=== PATIENT | male | born 1965 | race Two or more races ===

== ENCOUNTER 2019-07-01 20:47 | Inpatient (IN) | payer BC ==
[~2019-07-01] VITALS: Ht 175.3 cm; Wt 93.0 kg
[2019-07-01] MEDS ORDERED: Vancomycin 1.5 GM in NS 275 ML IVPB ONE (21:00)
[2019-07-01] MEDS ORDERED: Piperacillin/Tazobactam 3.375 GM in NS 110 ML IVPB ONE (21:00)
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
[2019-07-01 21:05] VITALS: BP 100/76
--- NOTE | 2019-07-01 21:05 | NUR ---
RESPIRATORY NOTE: Patient transferred from ER. Vent settings on patient is AC 14, 500 Vt, Peep of 5, and FiO2 of 40%. Patient is trached with a Shiley 7 XLT. Patient is wearing a neck brace. Bilateral Rhonchi can be heard. When suctioned patient has scant to small amounts of thick secretions. No signs of respiratory distress at the moment. Vent is plugged into red outlet. Ambu bags is next to bedside. Alarms are on and audible. Will continue to monitor throughout the night.
--- NOTE | 2019-07-01 21:10 | NUR ---
ED Nurse Note: Patient BRANDIE RA #[id number] from [facility] c/o ALOC more than usual. Pt is vent dependent, AAO x 0, pt has aphasia, quadraplegic. Patient6's BP 96/65 at bed side other VSS at this time. Patient presented with PICC line on his left upper arm.
[2019-07-01 21:11] LABS: BASOPHILS % (AUTO) 1.5 % (0.0-2.0); HEMATOCRIT 34.1 % (42.0-52.0); HEMOGLOBIN 10.4 G/DL (14.2-18.0); LYMPHOCYTES % (AUTO) 15.2 % (20.0-45.0); MEAN CORPUSCULAR VOLUME 92 FL (80-99); MONOCYTES % (AUTO) 4.7 % (1.0-10.0); NEUTROPHILS % (AUTO) 78.6 % (45.0-75.0); PLATELET COUNT 371 K/UL (150-450); RED BLOOD COUNT 3.73 M/UL (4.70-6.10); RED CELL DISTRIBUTION WIDTH 15.8 % (11.6-14.8); WHITE BLOOD COUNT 13.3 K/UL (4.8-10.8)
--- NOTE | 2019-07-01 21:12 | NUR ---
ED Nurse Note: Blod and urine spesimen were collected sent down
[2019-07-01 21:15] LABS: APPEARANCE,URINE SLIGHTLY CLOUDY; BILIRUBIN, URINE NEGATIVE (NEGATIVE); COLOR,URINE AMBER; GLUCOSE, URINE (UA) NEGATIVE (NEGATIVE); KETONES,URINE NEGATIVE (NEGATIVE); LEUKOCYTE ESTERASE ,URINE NEGATIVE (NEGATIVE); NITRITE,URINE NEGATIVE (NEGATIVE); PH,URINE 5 (4.5-8.0); PROTEIN,URINE 1+ (NEGATIVE); UROBILINOGEN,URINE NORMAL MG/DL (0.0-1.0)
[2019-07-01] MEDS ORDERED: Acetaminophen 650 MG SUPP RECTAL ONE (21:15)
--- NOTE | 2019-07-01 21:15 | NUR ---
ED Nurse Note: Dash catheter was inserted 16F. Patient's output 1100mL.
[2019-07-01 21:39] LABS: ALANINE AMINOTRANSFERASE 134 U/L (12-78); ALBUMIN 1.8 G/DL (3.4-5.0); ALBUMIN/GLOBULIN RATIO 0.4 (1.0-2.7); ALKALINE PHOSPHATASE 164 U/L (46-116); ASPARTATE AMINO TRANSFERASE 144 U/L (15-37); BILIRUBIN,TOTAL 0.2 MG/DL (0.2-1.0); BLOOD UREA NITROGEN 43 mg/dL (7-18); CALCIUM 8.2 MG/DL (8.5-10.1); CARBON DIOXIDE 26 MMOL/L (21-32); CKMB 4.2 NG/ML (0.0-3.6); CREATINE KINASE 50 U/L (26-308)
[2019-07-01 21:55] LABS: CHLORIDE 110 MMOL/L (98-107); POTASSIUM 5.5 MMOL/L (3.5-5.1); SODIUM 149 MMOL/L (136-145)
[2019-07-01] MEDS ORDERED: HYDRALAZINE HCL10 MG ORAL (22:16)
[2019-07-01] MEDS ORDERED: SENNA LAXATIVE8.6 MG GT (22:16)
[2019-07-01] MEDS ORDERED: ZOFRAN4 M3 GT (22:16)
[2019-07-01] MEDS ORDERED: LANSOPRAZOLE30 MG ORAL (22:16)
[2019-07-01] MEDS ORDERED: XARELTO20 MG GT (22:16)
[2019-07-01] MEDS ORDERED: MULTIVITAMINS1 EAC2 GT (22:16)
--- NOTE | 2019-07-01 22:17 | Emergency Room Report ---
Sepsis Event Note Evaluation Current Stage of Sepsis: Severe Sepsis Possible Source: Genitourinary Focused Exam Allergies: Coded Allergies: No Known Allergies (Unverified , 07/01/19) Date Exam Occurred: Jul 01, 2019 Time Exam Occurred: 22:16 Laboratory Studies Laboratory Tests Test 07/01/19 20:50 White Blood Count 13.3 K/UL (4.8-10.8) H Red Blood Count 3.73 M/UL (4.70-6.10) L Hemoglobin 10.4 G/DL (14.2-18.0) L Hematocrit 34.1 % (42.0-52.0) L Mean Corpuscular Volume 92 FL (80-99) Mean Corpuscular Hemoglobin 27.8 PG (27.0-31.0) Mean Corpuscular Hemoglobin Concent 30.3 G/DL (32.0-36.0) L Red Cell Distribution Width 15.8 % (11.6-14.8) H Platelet Count 371 K/UL (150-450) Mean Platelet Volume 7.4 FL (6.5-10.1) Neutrophils (%) (Auto) 78.6 % (45.0-75.0) H Lymphocytes (%) (Auto) 15.2 % (20.0-45.0) L Monocytes (%) (Auto) 4.7 % (1.0-10.0) Eosinophils (%) (Auto) 0.0 % (0.0-3.0) Basophils (%) (Auto) 1.5 % (0.0-2.0) Urine Color Trinity Urine Appearance Slightly cloudy Urine pH 5 (4.5-8.0) Urine Specific Bayard 1.015 (1.005-1.035) Urine Protein 1+ (NEGATIVE) H Urine Glucose (UA) Negative (NEGATIVE) Urine Ketones Negative (NEGATIVE) Urine Blood 4+ (NEGATIVE) H Urine Nitrite Negative (NEGATIVE) Urine Bilirubin Negative (NEGATIVE) Urine Ictotest Negative (NEGATIVE) Urine Urobilinogen Normal MG/DL (0.0-1.0) Urine Leukocyte Esterase Negative (NEGATIVE) Urine RBC 30-40 /HPF (0 - 0) H Urine WBC 2-4 /HPF (0 - 0) Urine Squamous Epithelial Cells Occasional /LPF Urine Bacteria Moderate /HPF (NONE) H Urine Mucus Few /LPF (NONE/OCC) H Urine Yeast Many /HPF (NONE) H Sodium Level 149 MMOL/L (136-145) H Potassium Level 5.5 MMOL/L (3.5-5.1) H Chloride Level 110 MMOL/L (98-107) H Carbon Dioxide Level 26 MMOL/L (21-32) Blood Urea Nitrogen 43 mg/dL (7-18) H Creatinine 1.0 MG/DL (0.55-1.30) Estimat Glomerular Filtration Rate > 60 mL/min (>60) Glucose Level 180 MG/DL (74-106) H Lactic Acid Level 5.60 mmol/L (0.4-2.0) H Calcium Level 8.2 MG/DL (8.5-10.1) L Total Bilirubin 0.2 MG/DL (0.2-1.0) Aspartate Amino Transf (AST/SGOT) 144 U/L (15-37) H Alanine Aminotransferase (ALT/SGPT) 134 U/L (12-78) H Alkaline Phosphatase 164 U/L (46-116) H Total Creatine Kinase 50 U/L (26-308) Creatine Kinase MB 4.2 NG/ML (0.0-3.6) H Creatine Kinase MB Relative Index 8.4 Troponin I 0.987 ng/mL (0.000-0.056) Total Protein 6.5 G/DL (6.4-8.2) Albumin 1.8 G/DL (3.4-5.0) L Globulin 4.7 g/dL Albumin/Globulin Ratio 0.4 (1.0-2.7) L Vital Signs Last 24 Hour Vital Signs Date Time Temp Pulse Resp B/P (MAP) Pulse Ox O2 Delivery O2 Flow Rate FiO2 07/01/19 21:05 101.7 120 27 100/76 95 Mechanical Ventilator 40 07/01/19 21:05 120 27 Mechanical Ventilator 40 07/01/19 21:01 114 27 40 07/01/19 20:50 64 18 132/98 (109) 95 Mechanical Ventilator Respiratory Exam: Clear Cardiovascular Exam: RRR Capillary Refill: Less Than 2 Seconds Peripheral Pulse: Strong Pulse Location: Radial Skin Exam: Unremarkable Dylan Hernandez MD Jul 01, 2019 22:17
[2019-07-01 22:46] VITALS: BP 106/78
--- NOTE | 2019-07-01 23:32 | NUR ---
ED Nurse Note: Patient was admited to SDU due to severe sepsis. Patient was transfered to the unit via gurney by ACLS protocol, with all belongings. Patient was transfered with Vancomycin 1.[address] Hernandez Levofloxacin was administered first. Patient AAO x0, VSS at this time, pt's BP 106/68, temp 99.4.
[2019-07-02] VITALS (16 sets, daily range): BP systolic 126–170; BP diastolic 57–89
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
--- NOTE | 2019-07-02 00:15 | NUR ---
NURSE NOTES: Dr Cordon was called, he gave admit orders. All orders noted and carried out.
[2019-07-02] MEDS ORDERED: Acetaminophen 650mg/20.3ml GT PRN (00:30)
[2019-07-02] MEDS: D5 1/2NS 1,000 ML IV SCH ×4 (01:20→21:31)
--- NOTE | 2019-07-02 04:00 | NUR ---
NURSE NOTES: Pt's resting in bed, afebrile, no acute distress noted. VS stable. Will continue to monitor.
[2019-07-02] MEDS ORDERED: Piperacillin/Tazobactam 3.375 GM in NS 110 ML IVPB SCH (06:00)
[2019-07-02 06:10] LABS: BASOPHILS % (AUTO) 0.6 % (0.0-2.0); EOSINOPHILS % (AUTO) 0.1 % (0.0-3.0); HEMATOCRIT 28.4 % (42.0-52.0); HEMOGLOBIN 9.2 G/DL (14.2-18.0); LYMPHOCYTES % (AUTO) 9.6 % (20.0-45.0); MEAN CORPUSCULAR VOLUME 87 FL (80-99); MONOCYTES % (AUTO) 10.3 % (1.0-10.0); NEUTROPHILS % (AUTO) 79.4 % (45.0-75.0); PLATELET COUNT 265 K/UL (150-450); RED BLOOD COUNT 3.26 M/UL (4.70-6.10); RED CELL DISTRIBUTION WIDTH 13.7 % (11.6-14.8); WHITE BLOOD COUNT 12.9 K/UL (4.8-10.8)
[2019-07-02 07:06] LABS: ALANINE AMINOTRANSFERASE 287 U/L (12-78); ALBUMIN 1.9 G/DL (3.4-5.0); ALBUMIN/GLOBULIN RATIO 0.4 (1.0-2.7); ALKALINE PHOSPHATASE 156 U/L (46-116); ANION GAP 8 mmol/L (5-15); ASPARTATE AMINO TRANSFERASE 218 U/L (15-37); BILIRUBIN,TOTAL 0.2 MG/DL (0.2-1.0); BLOOD UREA NITROGEN 58 mg/dL (7-18); CALCIUM 8.7 MG/DL (8.5-10.1); CARBON DIOXIDE 30 MMOL/L (21-32); CHLORIDE 111 MMOL/L (98-107); CREATININE 0.7 MG/DL (0.55-1.30); POTASSIUM 5.6 MMOL/L (3.5-5.1); SODIUM 149 MMOL/L (136-145)
--- NOTE | 2019-07-02 07:19 | NUR ---
HAND-OFF: Report given to ROSELYN Hurley.
--- NOTE | 2019-07-02 07:20 | NUR ---
NURSE NOTES: ROSELYN Lau.Ptis awake in bed, opens eyes spontaneously but does not follow commands, pt withdraws to light pain stimulation. Bilat pupils equal and round 3mm with brisk light reaction. Pt is SR to cardiac monitor technician,bilat radial pules 3+ and bilat dorsalis pedis pulses 1+. Pt noted with 99.5 F ax temp. BP 146/82 at this time. Pt is trache to vent with Shiley 7 AC 14 TB 500 FiO2 40% Peep 5. Alllung lobes noted diminished upon auscultation. Pt has a GT noted clamped. Bowel sounds aactive to all quadrants. currently NPO. Dash ntoed draining yellow, cloudy urine. Skin alterations noted. Pt has a MG double lumen PICC [facility] to [facility] (jaime Shook RN) running zosyn at 27.5 cc/hr and D5 1/2 NS at 100 cc/hr. Dressing is dry and intact. Bed is in lowest position, alarm on, side rails up x 3,call light within reach. Will continue to monitor.
--- NOTE | 2019-07-02 08:00 | NUR ---
NURSE NOTES: Pt noted with 1 large, liquid-like stool. Obtained order for rectal tube insertion from Dr Jenkins and also notified Dr Cordon. No other new orders at this time.
--- NOTE | 2019-07-02 08:49 | Diagnostic Imaging Report ---
Indication: Shortness of breath Technique: One view of the chest Comparison: none Findings: There is apparent elevation right hemidiaphragm, probably due to right lung volume loss, subpulmonic fluid less likely. There is hazy infiltrate at the left lung base. There is a tracheostomy. There is left arm PICC. There there is surgical hardware in the cervical spine Impression: Left basilar infiltrate, likely pneumonia Apparent elevation right hemidiaphragm, probably due to basilar volume loss/atelectasis. Subpulmonic fluid less likely
[2019-07-02] MEDS ORDERED: Pantoprazole Inj IVP SCH (09:00)
[2019-07-02] MEDS ORDERED: Heparin 5000 units/ml inj SUBQ SCH (09:00)
--- NOTE | 2019-07-02 09:05 | NUR ---
Left message with Thiago at Dr. Anusha Lawler's office regarding pt's troponin level of 3.743. Also left message for Dr. Jenkins. Awaiting call back .
--- NOTE | 2019-07-02 09:30 | NUR ---
NURSE NOTES: Received call back from Dr Cordon with order to transfer pt to ICU. Charge nurse and highway maintenance supervisor informed.
--- NOTE | 2019-07-02 09:35 | NUR ---
RD ASSESSMENT & RECOMMENDATIONS SEE CARE ACTIVITY FOR COMPLETE ASSESSMENT DAILY ESTIMATED NEEDS: Needs based on Wound, critical care 69.5kg 22-30 kcals/kg 8027-4293 total kcals 1.25-2 g protein/kg 87-139 g total protein 25-30 mL/kg 5001-1157 total fluid mLs NUTRITION DIAGNOSIS: Increased kcal and pro needs r/t wound healing as evidenced by pt w/ open sacral wound, bedbound, trach and peg dep. ENTERAL NUTRITION RECOMMENDATIONS: Glucerna 1.2 @65ml/hr x24 hrs to provide 1560ml, 1872 kcal, 94g pro, 1256ml free H2O - Rec to start Glucerna 1.2 @25ml/hr for 6 hrs. advance as tolerated 15ml/hr q4-6 hrs to goal. - Flush per MD/ HOB over 30 degrees ->Should potassium remain elevated, rec TF change to Nepro w/ goal of 45ml/hr x24 hrs to provide 1080ml, 1944 kcal, 87g pro, 785ml free H2O. ------- ADDITIONAL RECOMMENDATIONS: 1) Per SNF: Height of 153#/69.5kg obtained on 07/01/19 2) TF recs as above 3) F/up w/ WC eval for sacral wound; Add HILDA in 4oz H2O BID 4) Monitor hydration status
[2019-07-02] MEDS ORDERED: Vancomycin 1.5gm/NS Premix 275 ML IVPB SCH ×2 (10:00→22:00)
--- NOTE | 2019-07-02 10:00 | NUR ---
NURSE NOTES: Per Dr Cervantes, no need to redraw troponin today until he sees the pt later.
--- NOTE | 2019-07-02 10:23 | NUR ---
RADIOLOGY DEPT., CHEST X-RAY DONE.-.DYE
--- NOTE | 2019-07-02 11:10 | Diagnostic Imaging Report ---
. Indication: Dyspnea Technique: One view of the chest Comparison: 07/01/2019 Findings: There is persistent elevation of the right hemidiaphragm. There is minimally improved aeration of the right lung base. Currently, the right lower lobe and/or right middle lobe appear to demonstrate some consolidation as well as atelectasis. There is somewhat improved aeration of the left lower lobe, previously suspected left lower lobe infiltrate appears cleared somewhat. Tracheostomy, PICC remain. The heart size is normal Impression: Appearance of the right lung base now has appearance of infiltrate and atelectasis rather than just atelectasis There appears to be improving but persistent mild left basilar consolidation
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
--- NOTE | 2019-07-02 12:26 | NUR ---
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 101.7 HR 64 RR 18 B/P 132/98 AC 14 TV 500 FIO2 40% PEEP 5 WBC 13.3 NA 149 K 5.5 BUN 43 AST 146 ALT 134 ALK PHOS 166 UA+ PROTEIN,BLOOD,RBC,BACTERIA CXR=Left basilar infiltrate, likely pneumonia IS: VANCO IV ZOSYN IV IVF NS 1 LITER TYLENOL GT ADMITTED TO [facility] @ 2330 STEP DOWN STATUS DCP RETURN TO [facility]
[2019-07-02 12:46] LABS: CREATINE KINASE 65 U/L (26-308)
--- NOTE | 2019-07-02 12:49 | Infectious Diseases Prog Note ---
Subjective Allergies: Coded Allergies: No Known Allergies (Unverified , 07/01/19) Subjective # [id number] Objective Vital Signs Last 24 Hour Vital Signs Date Time Temp Pulse Resp B/P (MAP) Pulse Ox O2 Delivery O2 Flow Rate FiO2 07/02/19 12:00 40 07/02/19 12:00 71 07/02/19 12:00 Mechanical Ventilator 07/02/19 10:49 79 21 40 07/02/19 09:05 84 21 40 07/02/19 08:00 99.5 78 22 146/82 (103) 95 07/02/19 08:00 40 07/02/19 08:00 78 07/02/19 08:00 Mechanical Ventilator 07/02/19 07:29 75 19 40 07/02/19 06:00 97.7 88 20 142/88 (106) 100 07/02/19 05:25 70 26 40 07/02/19 04:00 Mechanical Ventilator 07/02/19 04:00 78 07/02/19 04:00 40 07/02/19 04:00 97.7 86 18 130/84 (99) 100 07/02/19 03:23 79 21 40 07/02/19 00:48 102 20 40 07/02/19 00:28 Mechanical Ventilator 07/02/19 00:00 97.6 80 20 126/71 (89) 100 07/02/19 00:00 40 07/01/19 23:58 80 07/01/19 23:30 99.4 78 18 106/68 95 Mechanical Ventilator 40 07/01/19 23:09 110 18 40 07/01/19 22:46 99.4 78 22 106/78 95 Mechanical Ventilator 40 07/01/19 21:42 99.4 07/01/19 21:05 101.7 120 27 100/76 95 Mechanical Ventilator 40 07/01/19 21:05 120 27 Mechanical Ventilator 40 07/01/19 21:01 114 27 40 07/01/19 20:50 64 18 132/98 (109) 95 Mechanical Ventilator Height (Feet): 5 Height (Inches): 9.00 Weight (Pounds): 176 Microbiology Date/Time Source Procedure Growth Status 07/01/19 20:50 Nasal Nares - Final Complete 07/01/19 20:50 Nasal Nares - Final Complete Laboratory Tests Test 07/01/19 20:50 07/01/19 22:39 07/02/19 05:00 White Blood Count 13.3 K/UL (4.8-10.8) H 12.9 K/UL (4.8-10.8) H Red Blood Count 3.73 M/UL (4.70-6.10) L 3.26 M/UL (4.70-6.10) L Hemoglobin 10.4 G/DL (14.2-18.0) L 9.2 G/DL (14.2-18.0) L Hematocrit 34.1 % (42.0-52.0) L 28.4 % (42.0-52.0) L Mean Corpuscular Volume 92 FL (80-99) 87 FL (80-99) Mean Corpuscular Hemoglobin 27.8 PG (27.0-31.0) 28.2 PG (27.0-31.0) Mean Corpuscular Hemoglobin Concent 30.3 G/DL (32.0-36.0) L 32.4 G/DL (32.0-36.0) Red Cell Distribution Width 15.8 % (11.6-14.8) H 13.7 % (11.6-14.8) Platelet Count 371 K/UL (150-450) 265 K/UL (150-450) Mean Platelet Volume 7.4 FL (6.5-10.1) 6.8 FL (6.5-10.1) Neutrophils (%) (Auto) 78.6 % (45.0-75.0) H 79.4 % (45.0-75.0) H Lymphocytes (%) (Auto) 15.2 % (20.0-45.0) L 9.6 % (20.0-45.0) L Monocytes (%) (Auto) 4.7 % (1.0-10.0) 10.3 % (1.0-10.0) H Eosinophils (%) (Auto) 0.0 % (0.0-3.0) 0.1 % (0.0-3.0) Basophils (%) (Auto) 1.5 % (0.0-2.0) 0.6 % (0.0-2.0) Urine Color Trinity Urine Appearance Slightly cloudy Urine pH 5 (4.5-8.0) Urine Specific [place] 1.015 (1.005-1.035) Urine Protein 1+ (NEGATIVE) H Urine Glucose (UA) Negative (NEGATIVE) Urine Ketones Negative (NEGATIVE) Urine Blood 4+ (NEGATIVE) H Urine Nitrite Negative (NEGATIVE) Urine Bilirubin Negative (NEGATIVE) Urine Ictotest Negative (NEGATIVE) Urine Urobilinogen Normal MG/DL (0.0-1.0) Urine Leukocyte Esterase Negative (NEGATIVE) Urine RBC 30-40 /HPF (0 - 0) H Urine WBC 2-4 /HPF (0 - 0) Urine Squamous Epithelial Cells Occasional /LPF Urine Bacteria Moderate /HPF (NONE) H Urine Mucus Few /LPF (NONE/OCC) H Urine Yeast Many /HPF (NONE) H Sodium Level 149 MMOL/L (136-145) H 149 MMOL/L (136-145) H Potassium Level 5.5 MMOL/L (3.5-5.1) H 5.6 MMOL/L (3.5-5.1) H Chloride Level 110 MMOL/L (98-107) H 111 MMOL/L (98-107) H Carbon Dioxide Level 26 MMOL/L (21-32) 30 MMOL/L (21-32) Blood Urea Nitrogen 43 mg/dL (7-18) H 58 mg/dL (7-18) H Creatinine 1.0 MG/DL (0.55-1.30) 0.7 MG/DL (0.55-1.30) Estimat Glomerular Filtration Rate > 60 mL/min (>60) > 60 mL/min (>60) Glucose Level 180 MG/DL (74-106) H 101 MG/DL (74-106) Lactic Acid Level 5.60 mmol/L (0.4-2.0) H 0.90 mmol/L (0.66-2.22) Calcium Level 8.2 MG/DL (8.5-10.1) L 8.7 MG/DL (8.5-10.1) Total Bilirubin 0.2 MG/DL (0.2-1.0) 0.2 MG/DL (0.2-1.0) Aspartate Amino Transf (AST/SGOT) 144 U/L (15-37) H 218 U/L (15-37) H Alanine Aminotransferase (ALT/SGPT) 134 U/L (12-78) H 287 U/L (12-78) H Alkaline Phosphatase 164 U/L (46-116) H 156 U/L (46-116) H Total Creatine Kinase 50 U/L (26-308) 65 U/L (26-308) Creatine Kinase MB 4.2 NG/ML (0.0-3.6) H Creatine Kinase MB Relative Index 8.4 Troponin I 0.987 ng/mL (0.000-0.056) 3.743 ng/mL (0.000-0.056) Total Protein 6.5 G/DL (6.4-8.2) 6.2 G/DL (6.4-8.2) L Albumin 1.8 G/DL (3.4-5.0) L 1.9 G/DL (3.4-5.0) L Globulin 4.7 g/dL 4.3 g/dL Albumin/Globulin Ratio 0.4 (1.0-2.7) L 0.4 (1.0-2.7) L Erythrocyte Sedimentation Rate 90 MM/HR (0-20) H Anion Gap 8 mmol/L (5-15) Hemoglobin A1c 6.5 % (4.3-6.0) H Uric Acid 6.5 MG/DL (2.6-7.2) Thyroid Stimulating Hormone (TSH) < 0.010 uiU/mL (0.358-3.740) Free Thyroxine 1.24 NG/DL (0.76-1.46) Current Medications Medications (Trade) Dose Ordered Sig/Daniel Route PRN Reason Start Time Stop Time Status Last Admin Dose Admin Acetaminophen (Tylenol) 650 mg Q4H PRN GT Mild Pain/Temp > 100.5 07/02/19 00:30 08/01/19 00:29 Chlorhexidine Gluconate (Renu-Hex 2%) 1 applic DAILY@2000 TOPIC 07/02/19 20:00 09/30/19 19:59 Dextrose/Sodium Chloride 1,000 ml @ 100 mls/hr Q10H IV 07/02/19 00:30 08/01/19 00:29 07/02/19 09:47 Heparin Sodium (Porcine) (Heparin 5000 units/ml) 5,000 units EVERY 12 HOURS SUBQ 07/02/19 09:00 08/16/19 08:59 07/02/19 09:43 Hydralazine HCl (Apresoline) 10 mg EVERY 6 HOURS ORAL 07/02/19 18:00 09/30/19 17:59 Levofloxacin 150 ml @ 100 mls/hr Q24H IVPB 07/02/19 22:00 07/09/19 21:59 Pantoprazole (Protonix) 40 mg DAILY IVP 07/02/19 09:00 08/01/19 08:59 07/02/19 09:42 Piperacillin Sod/ Tazobactam Sod 3.375 gm/Sodium Chloride 110 ml @ 27.5 mls/hr EVERY 8 HOURS IVPB 07/02/19 06:00 07/07/19 05:59 07/02/19 06:13 Sodium Polystyrene Sulfonate (Kayexalate) 30 gm ONCE GT 07/02/19 13:00 07/02/19 14:00 Vancomycin HCl (Vanco rx to dose) 1 ea DAILY PRN MISC Per rx protocol 07/02/19 00:30 08/01/19 00:29 Vancomycin/Sodium Chloride 275 ml @ 184 mls/hr Q12H IVPB 07/02/19 10:00 07/07/19 09:59 07/02/19 09:42 Ian Villatoro MD Jul 02, 2019 12:49
[2019-07-02] MEDS ORDERED: Sodium Polystyrene Sulfonate 15gm Powder GT SCH ×2 (13:00→13:15)
--- NOTE | 2019-07-02 13:00 | NUR ---
TRANSFER TO FLOOR: Patient transferred to ICU per Dr Anusha Cordon. Medications brought with pt, nursing assigment unchanged as per [facility]. Will continue plan of care in ICU. Addendum: 07/02/19 at 1530 by Mei Roman RN Confirmed with charge nurse Nakia Palencia, as well as wound care nurse Remington that no new pictures needed upon transfer to ICU since wound picture was taken less than 24 hours ago in [facility].
[2019-07-02] MEDS: Piperacillin/Tazobactam 3.375 GM in NS 110 ML IVPB SCH ×2 (13:39→21:31)
--- NOTE | 2019-07-02 14:03 | NUR ---
NURSE NOTES:WOUND CARE NOTES:Pt presented on admission with Full thickness sacral pressure injury. Base of wound is necrotic in center with surrounding mixed slough and erythema. Periwound indurated and is maroon and purple in colour. Tx.Plan: Cleanse Sacral wound with Saline. Apply TheraHoney. Apply MOisture Barrier Periwound. Cover with Optifoam drsg. Change every 3 days and prn. Apply Cavilon Skin Barrier to heels. Cover each heel with Optifoam drsg. Change every 7 days and prn. Reposition at least every 2hours or as tolerated. Off-load heels with pillow.
--- NOTE | 2019-07-02 15:00 | NUR ---
NURSE NOTES: Dr Cervantes in the unit reviewing pt's EKG and placing orders at this time.
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
[2019-07-02] MEDS ORDERED: HydrALAZINE 10mg Tab ORAL SCH ×2 (18:00)
[2019-07-02] MEDS: HydrALAZINE 10mg Tab ORAL SCH ×2 (18:31→21:31)
[2019-07-02] MEDS: Acetaminophen 650mg/20.3ml GT PRN ×2 (18:31→23:35)
--- NOTE | 2019-07-02 18:54 | NUR ---
NURSE NOTES: Dr Anusha Cordon reviewing pt's chart and made aware of pt's total urine output today, stating pt is "dehydrated" and to continue IVF as ordered. Dr Cordon also reviewing lab results at this time and is aware pt's SBP was 170 and currently decreased to 150. Pt was just cleaned and repositioned, oral care provided. No acute distress noted. Dr Cordon will put in orders as needed. Addendum: 07/02/19 at 1930 by Mei Roman RN Late entry: Dr Cordon also made aware pt's temp was 101.5 F ax. Cooling measures initiated (ice packs). Dr Cordon also made aware pt had diarrhea x 2 today- however, stool texture now is less liquid-like compared to this morning.
--- NOTE | 2019-07-02 19:30 | NUR ---
NURSE NOTES: SBAR from Radha DEMPSEY. Patient is ventilator dependant trached rimma [place] AC 14/500tv,40%Fio2 and peep of 5, currently saturating at 99%. Patient is non-responsive to verbal commands, patient responds minimally to painful stimulus. Patient is quadriplegic. Patient does have a GT that running Glucerna 1.2 at 25ml/hr with goal rate of 65ml/hr. Rectal tube noted, MG PICC line noted, PICC line already inserted prior to this admission. Dressing is dry and intact. Patient has pressure injury at the sacral area. D51/2NS at 100ml/hr. Airborne/Contact/Droplet precautions noted. NAD at this time. P200 mattress noted. Safety Measures are in place, will continue to monitor.
--- NOTE | 2019-07-02 19:30 | NUR ---
HAND-OFF: Report given to ROSELYN Boyd.
[2019-07-02] MEDS ORDERED: Dyna-Hex 2% Top Sol 2oz TOPIC SCH (20:00)
--- NOTE | 2019-07-02 20:00 | NUR ---
NURSE NOTES: Temperature is 98.5F. Patient cleaned using CHG soap. Oral care performed. Tylenol 650mg via GT for pain 5/10. Vitals remains stable, repositioned patient, all due med given. NAD at this time.
[2019-07-02 20:09] LABS: APPEARANCE,URINE VERY CLOUDY; BILIRUBIN, URINE NEGATIVE (NEGATIVE); COLOR,URINE PALE YELLOW; GLUCOSE, URINE (UA) NEGATIVE (NEGATIVE); KETONES,URINE NEGATIVE (NEGATIVE); LEUKOCYTE ESTERASE ,URINE 3+ (NEGATIVE); NITRITE,URINE NEGATIVE (NEGATIVE); PH,URINE 5 (4.5-8.0); PROTEIN,URINE 3+ (NEGATIVE); UROBILINOGEN,URINE NORMAL MG/DL (0.0-1.0)
[2019-07-02] MEDS: Dyna-Hex 2% Top Sol 2oz TOPIC SCH (21:29)
[2019-07-02] MEDS: Heparin 5000 units/ml inj SUBQ SCH (21:30)
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
--- NOTE | 2019-07-02 22:00 | NUR ---
NURSE NOTES: Central line dressing changed aseptically. Vitals remains stable, no new changes.
[2019-07-03] VITALS (30 sets, daily range): BP systolic 115–182; BP diastolic 65–91
--- NOTE | 2019-07-03 | NUR ---
NURSE NOTES: Repositioned, oral care performed, afebrile, Vitals are stable, suctioned, rectal tube intact, Patient now NPO for Ultrasound in the AM.
--- NOTE | 2019-07-03 02:00 | NUR ---
NURSE NOTES: Vitals remains stable, suctioned patient and given oral care. No distress at this time.
--- NOTE | 2019-07-03 04:00 | NUR ---
NURSE NOTES: Sponge Bath given. Patient given oral care, blood drawn and sent to lab. Repositioned, and suctioned.
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
[2019-07-03] MEDS: HydrALAZINE 10mg Tab ORAL SCH ×3 (05:26→17:19)
[2019-07-03] MEDS: Piperacillin/Tazobactam 3.375 GM in NS 110 ML IVPB SCH ×3 (05:27→21:45)
--- NOTE | 2019-07-03 06:00 | NUR ---
NURSE NOTES: Rectal tube removed, stool more solidified. Patient was cleaned and repositioned, suctioned and AM med given. NAD at this time. Room decontaminated with bleach wipes.
[2019-07-03 06:10] LABS: BASOPHILS % (AUTO) 1.3 % (0.0-2.0); EOSINOPHILS % (AUTO) 0.5 % (0.0-3.0); HEMATOCRIT 27.8 % (42.0-52.0); HEMOGLOBIN 9.3 G/DL (14.2-18.0); LYMPHOCYTES % (AUTO) 10.7 % (20.0-45.0); MEAN CORPUSCULAR VOLUME 85 FL (80-99); MONOCYTES % (AUTO) 8.5 % (1.0-10.0); PLATELET COUNT 241 K/UL (150-450); RED BLOOD COUNT 3.28 M/UL (4.70-6.10); RED CELL DISTRIBUTION WIDTH 13.2 % (11.6-14.8); WHITE BLOOD COUNT 13.1 K/UL (4.8-10.8)
[2019-07-03 06:40] LABS: CKMB 4.5 NG/ML (0.0-3.6)
[2019-07-03 06:52] LABS: ALANINE AMINOTRANSFERASE 239 U/L (12-78); ALBUMIN 1.8 G/DL (3.4-5.0); ALBUMIN/GLOBULIN RATIO 0.4 (1.0-2.7); ALKALINE PHOSPHATASE 126 U/L (46-116); ANION GAP 10 mmol/L (5-15); ASPARTATE AMINO TRANSFERASE 93 U/L (15-37); BILIRUBIN,TOTAL 0.2 MG/DL (0.2-1.0); BLOOD UREA NITROGEN 78 mg/dL (7-18); CARBON DIOXIDE 30 MMOL/L (21-32); CHLORIDE 109 MMOL/L (98-107); CREATININE 1.2 MG/DL (0.55-1.30); POTASSIUM 4.7 MMOL/L (3.5-5.1); SODIUM 148 MMOL/L (136-145)
--- NOTE | 2019-07-03 07:05 | NUR ---
HAND-OFF: Report given to Mei DEMPSEY.
--- NOTE | 2019-07-03 07:06 | NUR ---
NURSE NOTES: Received pt from ROSELYN Boyd. Pt is asleep in bed, opens eyes when called by name. Bilat pupils equal and round 3mm with brisk light reaction. Pt is SR to physician relations representative, bilat radial pules 3+ and bilat dorsalis pedis pulses 1+. Pt is trache to vent with [place] 7 AC 14 TV 500 FiO2 40% Peep 5. All lung lobes noted diminished upon auscultation. Pt has a GT noted clamped- pt is NPO now pending Abd US. Bowel sounds active to all quadrants. Dash noted draining yellow, cloudy urine. Skin alterations noted. Pt has a MG double lumen PICC with dry and intact dressing running zosyn at 27.5 cc/hr and D5 1/2 NS at 100 cc/hr. Bed is in lowest position, alarm on, side rails up x 3, call light within reach. Will continue to monitor.
--- NOTE | 2019-07-03 08:00 | NUR ---
NURSE NOTES: Left message for Dr Cervantes and Anusha Cordon regarding pt's troponin level 7.496 and SBP 170s. Awaiting call back.
--- NOTE | 2019-07-03 09:32 | Diagnostic Imaging Report ---
Indication: Abdominal pain Technique: Grayscale and duplex Doppler imaging of the abdomen performed. Comparison: None Findings: The liver is unremarkable. Doppler interrogation of the main portal vein shows patency with hepatopedal, monophasic flow. There is no biliary ductal dilatation identified. Gallbladder is distended. There is trace ascites. CBD is 3.7 mm in diameter. There demonstrated part of the pancreas, aorta and IVC show no definite abnormalities. Both kidneys appear unremarkable. There is minimal left hydronephrosis. There is a Dash catheter within the bladder. There is a debris versus blood around the Dash balloon. Right kidney is 14.3 cm. Left kidney 12.7 cm in length. IMPRESSION: Trace ascites Urinary bladder intraluminal debris versus blood. Dash catheter in good position. Minimal left hydronephrosis. Consider further evaluation.
[2019-07-03] MEDS: Pantoprazole Inj IVP SCH (09:43)
[2019-07-03] MEDS: Aspirin Baby 81mg GT SCH (09:44)
[2019-07-03] MEDS: Heparin 5000 units/ml inj SUBQ SCH ×2 (09:46→20:31)
[2019-07-03] MEDS: Vancomycin 750mg/NS 275ml IVPB SCH ×4 (09:49→20:29)
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
[2019-07-03] MEDS: Acetaminophen 650mg/20.3ml GT PRN ×2 (10:05→17:20)
[2019-07-03] MEDS ORDERED: D5 1/2NS 1000ml IV ONE (10:09)
[2019-07-03] MEDS ORDERED: NS 275ml ONE (10:09)
[2019-07-03] MEDS ORDERED: Tubing IV Secondary IV ONE (10:09)
--- NOTE | 2019-07-03 10:13 | General Progress Note ---
Assessment/Plan Problem List: (1) Anemia ICD Codes: D64.9 - Anemia, unspecified SNOMED: 912717681 (2) Elevated LFTs ICD Codes: R94.5 - Abnormal results of liver function studies SNOMED: 397712743, 386078188 (3) Attention to G-tube ICD Codes: Z43.1 - Encounter for attention to gastrostomy SNOMED: 908663611, 807309567, 619585500 (4) Ventilator associated pneumonia ICD Codes: J95.851 - Ventilator associated pneumonia SNOMED: 281545335 (5) Chronic complete flaccid quadriplegia SNOMED: 462482852, 383992544 (6) Sepsis ICD Codes: A41.9 - Sepsis, unspecified organism SNOMED: 91891926 Qualifiers: Qualified Codes: A41.9 - Sepsis, unspecified organism; R65.20 - Severe sepsis without septic shock; N17.9 - Acute kidney failure, unspecified Assessment/Plan: anemia work up hepatitis panel repeat labs us reviewed GTF Subjective ROS Limited/Unobtainable: No Allergies: Coded Allergies: No Known Allergies (Unverified , 07/01/19) Objective Last 24 Hour Vital Signs Date Time Temp Pulse Resp B/P (MAP) Pulse Ox O2 Delivery O2 Flow Rate FiO2 07/03/19 09:44 71 178/91 07/03/19 09:17 70 18 40 07/03/19 08:00 69 07/03/19 08:00 40 07/03/19 07:00 69 26 170/84 (112) 100 07/03/19 06:43 71 17 40 07/03/19 06:00 74 29 158/80 (106) 99 07/03/19 05:39 83 20 40 07/03/19 05:26 182/90 07/03/19 05:00 100.7 79 17 171/90 (117) 100 07/03/19 04:00 79 19 182/90 (120) 100 07/03/19 04:00 70 07/03/19 04:00 40 07/03/19 04:00 Mechanical Ventilator 07/03/19 03:51 72 19 40 07/03/19 03:00 82 20 175/86 (115) 100 07/03/19 02:00 75 18 168/82 (110) 100 07/03/19 01:28 76 20 40 07/03/19 01:00 69 18 153/89 (110) 100 07/03/19 00:00 99.0 79 22 148/87 (107) 100 07/03/19 00:00 Mechanical Ventilator 07/03/19 00:00 40 07/03/19 00:00 75 07/02/19 23:41 72 20 40 07/02/19 23:00 68 17 139/79 (99) 100 07/02/19 22:00 67 16 167/80 (109) 100 07/02/19 21:31 151/89 07/02/19 21:24 78 24 40 07/02/19 21:00 98.5 63 18 148/77 (100) 99 07/02/19 20:00 77 19 143/76 (98) 99 07/02/19 20:00 40 07/02/19 20:00 Mechanical Ventilator 07/02/19 20:00 65 07/02/19 19:27 74 16 40 07/02/19 19:00 100.0 78 18 151/89 (109) 100 07/02/19 19:00 100.0 07/02/19 18:31 151/84 07/02/19 18:00 82 19 151/84 (106) 100 07/02/19 17:08 83 24 40 07/02/19 17:00 85 21 170/85 (113) 100 07/02/19 16:00 81 07/02/19 16:00 40 07/02/19 16:00 98.2 81 21 145/57 (86) 100 07/02/19 16:00 Mechanical Ventilator 07/02/19 15:00 87 18 40 07/02/19 15:00 18 153/82 (105) 99 07/02/19 13:45 20 142/77 (98) 100 07/02/19 13:30 22 146/82 (103) 95 07/02/19 13:00 78 19 40 07/02/19 12:00 40 07/02/19 12:00 98.2 82 20 152/86 (108) 100 07/02/19 12:00 71 07/02/19 12:00 Mechanical Ventilator 07/02/19 10:49 79 21 40 Intake and Output 07/02/19 07/03/19 19:00 07:00 Intake Total 1822.66505 ml 1702.625 ml Output Total 435 ml 690 ml Balance 1387.96465 ml 1012.625 ml Intake Free Water 50 ml 60 ml IV Total 1597.35823 ml 1402.625 ml Tube Feeding 175 ml 240 ml Output Urine Total 435 ml 690 ml # Bowel Movements 3 Laboratory Tests 07/02/19 14:00: Urine Osmolality 341L, Urine Random Sodium 42 07/02/19 17:00: Urine Color Pale yellow, Urine Appearance Very cloudy, Urine pH 5, Urine Specific [place] 1.010, Urine Protein 3+H, Urine Glucose (UA) Negative, Urine Ketones Negative, Urine Blood 5+H, Urine Nitrite Negative, Urine Bilirubin Negative, Urine Urobilinogen Normal, Urine Leukocyte Esterase 3+H, Urine RBC 15- 20H, Urine WBC 10-15H, Urine Squamous Epithelial Cells Occasional, Urine Amorphous Sediment ManyH, Urine Bacteria ModerateH, Urine Yeast ModerateH, Urine Eosinophils None seen, Urine Legionella Antigen [Pending] 07/02/19 19:00: Hepatitis A IgM Antibody [Pending], Hepatitis B Surface Antigen [Pending], Hepatitis B Core IgM Antibody [Pending], Hepatitis C Antibody [Pending] 07/03/19 05:30: White Blood Count 13.1H, Red Blood Count 3.28L, Hemoglobin 9.3L, Hematocrit 27.8L, Mean Corpuscular Volume 85, Mean Corpuscular Hemoglobin 28.3, Mean Corpuscular Hemoglobin Concent 33.4, Red Cell Distribution Width 13.2, Platelet Count 241, Mean Platelet Volume 6.8, Neutrophils (%) (Auto) 79.0H, Lymphocytes ( %) (Auto) 10.7L, Monocytes (%) (Auto) 8.5, Eosinophils (%) (Auto) 0.5, Basophils (%) (Auto) 1.3, Sodium Level 148H, Potassium Level 4.7, Chloride Level 109H, Carbon Dioxide Level 30, Anion Gap 10, Blood Urea Nitrogen 78H, Creatinine 1.2#, Estimat Glomerular Filtration Rate > 60, Glucose Level 97, Calcium Level 9.0, Total Bilirubin 0.2, Aspartate Amino Transf (AST/SGOT) 93H, Alanine Aminotransferase (ALT/SGPT) 239H, Alkaline Phosphatase 126H, Total Creatine Kinase 73, Creatine Kinase MB 4.5H, Creatine Kinase MB Relative Index 6.1, Troponin I 7.496H, Pro-B-Type Natriuretic Peptide > 50748T, Total Protein 6.0L, Albumin 1.8L, Globulin 4.2, Albumin/Globulin Ratio 0.4L, Thyroid Stimulating Hormone (TSH) [Pending], Free Triiodothyronine [Pending] Height (Feet): 5 Height (Inches): 9.00 Weight (Pounds): 176 General Appearance: lethargic EENT: normal ENT inspection Neck: supple Cardiovascular: normal rate Respiratory/Chest: decreased breath sounds Abdomen: normal bowel sounds, non tender, soft Extremities: non-tender Talat Beckwith MD Jul 03, 2019 10:13
--- NOTE | 2019-07-03 10:29 | NUR ---
NURSE NOTES: Received call back from Dr Cervantes with instruction to continue monitor BP because pt was just started on metoprolol. Additionally, Dr Hernandez is also in the unit reviewing pt's chart and was made aware of pt's SBP 175-180. No new orders at this time.
--- NOTE | 2019-07-03 10:31 | Infectious Diseases Prog Note ---
Assessment/Plan Assessment/Plan ASSESSMENT: The patient is a 53-year-old male with: 1. Fever. 2. Pneumonia. 3. Rule out COVID-19. 4. Abnormal liver function tests. 5. Rule out bacteremia. PLAN: - Continue IV Levaquin #2 vancomycin #2 and Zosyn #2 - Monitor CBC and BMP. - Monitor cultures (blood, urine, sputum). - f/u COVID-19 test screening. Thank you for this consultation. We will follow the patient with you during this admission. Subjective Allergies: Coded Allergies: No Known Allergies (Unverified , 07/01/19) Subjective Afebrile On Vent 40% O2 WBCs stable at 13 COVID Pend Objective Vital Signs Last 24 Hour Vital Signs Date Time Temp Pulse Resp B/P (MAP) Pulse Ox O2 Delivery O2 Flow Rate FiO2 07/03/19 09:44 71 178/91 07/03/19 09:17 70 18 40 07/03/19 08:00 69 07/03/19 08:00 40 07/03/19 07:00 69 26 170/84 (112) 100 07/03/19 06:43 71 17 40 07/03/19 06:00 74 29 158/80 (106) 99 07/03/19 05:39 83 20 40 07/03/19 05:26 182/90 07/03/19 05:00 100.7 79 17 171/90 (117) 100 07/03/19 04:00 79 19 182/90 (120) 100 07/03/19 04:00 70 07/03/19 04:00 40 07/03/19 04:00 Mechanical Ventilator 07/03/19 03:51 72 19 40 07/03/19 03:00 82 20 175/86 (115) 100 07/03/19 02:00 75 18 168/82 (110) 100 07/03/19 01:28 76 20 40 07/03/19 01:00 69 18 153/89 (110) 100 07/03/19 00:00 99.0 79 22 148/87 (107) 100 07/03/19 00:00 Mechanical Ventilator 07/03/19 00:00 40 07/03/19 00:00 75 07/02/19 23:41 72 20 40 07/02/19 23:00 68 17 139/79 (99) 100 07/02/19 22:00 67 16 167/80 (109) 100 07/02/19 21:31 151/89 07/02/19 21:24 78 24 40 07/02/19 21:00 98.5 63 18 148/77 (100) 99 07/02/19 20:00 77 19 143/76 (98) 99 07/02/19 20:00 40 07/02/19 20:00 Mechanical Ventilator 07/02/19 20:00 65 07/02/19 19:27 74 16 40 07/02/19 19:00 100.0 78 18 151/89 (109) 100 07/02/19 19:00 100.0 07/02/19 18:31 151/84 07/02/19 18:00 82 19 151/84 (106) 100 07/02/19 17:08 83 24 40 07/02/19 17:00 85 21 170/85 (113) 100 07/02/19 16:00 81 07/02/19 16:00 40 07/02/19 16:00 98.2 81 21 145/57 (86) 100 07/02/19 16:00 Mechanical Ventilator 07/02/19 15:00 87 18 40 07/02/19 15:00 18 153/82 (105) 99 07/02/19 13:45 20 142/77 (98) 100 07/02/19 13:30 22 146/82 (103) 95 07/02/19 13:00 78 19 40 07/02/19 12:00 40 07/02/19 12:00 98.2 82 20 152/86 (108) 100 07/02/19 12:00 71 07/02/19 12:00 Mechanical Ventilator 07/02/19 10:49 79 21 40 Height (Feet): 5 Height (Inches): 9.00 Weight (Pounds): 176 Objective Gen Pt intubed HEENT: NCAT, ETT PULM Equal rise and fall B/L no muscle retractions Abs Soft and with mild distention Ext No Significant edema b/L feet Skin No rashes on exposed skin, color normal Microbiology Date/Time Source Procedure Growth Status 07/01/19 20:50 Blood Blood Culture - Preliminary NO GROWTH AFTER 24 HOURS Resulted 07/01/19 20:35 Blood Blood Culture - Preliminary NO GROWTH AFTER 24 HOURS Resulted 07/01/19 20:50 Nasal Nares - Final Complete 07/01/19 20:50 Nasal Nares - Final Complete 07/01/19 20:50 Urine,Clean Catch Urine Culture - Preliminary NO GROWTH AFTER 24 HOURS Resulted Laboratory Tests Test 07/02/19 14:00 07/02/19 17:00 07/02/19 19:00 07/03/19 05:30 Urine Osmolality 341 mOsm/kg (429-449) L Urine Random Sodium 42 mmol/L (20-110) Urine Color Pale yellow Urine Appearance Very cloudy Urine pH 5 (4.5-8.0) Urine Specific [place] 1.010 (1.005-1.035) Urine Protein 3+ (NEGATIVE) H Urine Glucose (UA) Negative (NEGATIVE) Urine Ketones Negative (NEGATIVE) Urine Blood 5+ (NEGATIVE) H Urine Nitrite Negative (NEGATIVE) Urine Bilirubin Negative (NEGATIVE) Urine Urobilinogen Normal MG/DL (0.0-1.0) Urine Leukocyte Esterase 3+ (NEGATIVE) H Urine RBC 15-20 /HPF (0 - 0) H Urine WBC 10-15 /HPF (0 - 0) H Urine Squamous Epithelial Cells Occasional /LPF Urine Amorphous Sediment Many /LPF (NONE) H Urine Bacteria Moderate /HPF (NONE) H Urine Yeast Moderate /HPF (NONE) H Urine Eosinophils None seen (NONE SEEN) Urine Legionella Antigen Pending Hepatitis A IgM Antibody Pending Hepatitis B Surface Antigen Pending Hepatitis B Core IgM Antibody Pending Hepatitis C Antibody Pending White Blood Count 13.1 K/UL (4.8-10.8) H Red Blood Count 3.28 M/UL (4.70-6.10) L Hemoglobin 9.3 G/DL (14.2-18.0) L Hematocrit 27.8 % (42.0-52.0) L Mean Corpuscular Volume 85 FL (80-99) Mean Corpuscular Hemoglobin 28.3 PG (27.0-31.0) Mean Corpuscular Hemoglobin Concent 33.4 G/DL (32.0-36.0) Red Cell Distribution Width 13.2 % (11.6-14.8) Platelet Count 241 K/UL (150-450) Mean Platelet Volume 6.8 FL (6.5-10.1) Neutrophils (%) (Auto) 79.0 % (45.0-75.0) H Lymphocytes (%) (Auto) 10.7 % (20.0-45.0) L Monocytes (%) (Auto) 8.5 % (1.0-10.0) Eosinophils (%) (Auto) 0.5 % (0.0-3.0) Basophils (%) (Auto) 1.3 % (0.0-2.0) Sodium Level 148 MMOL/L (136-145) H Potassium Level 4.7 MMOL/L (3.5-5.1) Chloride Level 109 MMOL/L (98-107) H Carbon Dioxide Level 30 MMOL/L (21-32) Anion Gap 10 mmol/L (5-15) Blood Urea Nitrogen 78 mg/dL (7-18) H Creatinine 1.2 MG/DL (0.55-1.30) # Estimat Glomerular Filtration Rate > 60 mL/min (>60) Glucose Level 97 MG/DL (74-106) Calcium Level 9.0 MG/DL (8.5-10.1) Total Bilirubin 0.2 MG/DL (0.2-1.0) Aspartate Amino Transf (AST/SGOT) 93 U/L (15-37) H Alanine Aminotransferase (ALT/SGPT) 239 U/L (12-78) H Alkaline Phosphatase 126 U/L (46-116) H Total Creatine Kinase 73 U/L (26-308) Creatine Kinase MB 4.5 NG/ML (0.0-3.6) H Creatine Kinase MB Relative Index 6.1 Troponin I 7.496 ng/mL (0.000-0.056) Pro-B-Type Natriuretic Peptide > 99698 pg/mL (0-125) H Total Protein 6.0 G/DL (6.4-8.2) L Albumin 1.8 G/DL (3.4-5.0) L Globulin 4.2 g/dL Albumin/Globulin Ratio 0.4 (1.0-2.7) L Thyroid Stimulating Hormone (TSH) Pending Free Triiodothyronine Pending Current Medications Medications (Trade) Dose Ordered Sig/Daniel Route PRN Reason Start Time Stop Time Status Last Admin Dose Admin Acetaminophen (Tylenol) 650 mg Q4H PRN GT Mild Pain/Temp > 100.5 07/02/19 13:15 08/01/19 13:14 07/03/19 10:05 Aspirin (ASA) 81 mg DAILY GT 07/03/19 09:00 08/17/19 08:59 07/03/19 09:44 Chlorhexidine Gluconate (Renu-Hex 2%) 1 applic DAILY@2000 TOPIC 07/02/19 20:00 09/30/19 19:59 07/02/19 21:29 Dextrose 1,000 ml @ 75 mls/hr [id number] IV 07/03/19 09:00 08/02/19 08:59 07/03/19 09:43 Heparin Sodium (Porcine) (Heparin 5000 units/ml) 5,000 units EVERY 12 HOURS SUBQ 07/02/19 21:00 08/16/19 08:59 07/03/19 09:46 Hydralazine HCl (Apresoline) 10 mg EVERY 6 HOURS ORAL 07/02/19 18:00 09/30/19 17:59 07/03/19 05:26 Levofloxacin 150 ml @ 100 mls/hr Q24H IVPB 07/02/19 22:00 07/09/19 21:59 07/02/19 21:30 Metoprolol Tartrate (Lopressor) 25 mg Q12HR GT 07/03/19 09:00 10/01/19 08:59 07/03/19 09:44 Pantoprazole (Protonix) 40 mg DAILY IVP 07/03/19 09:00 08/01/19 08:59 07/03/19 09:43 Piperacillin Sod/ Tazobactam Sod 3.375 gm/Sodium Chloride 110 ml @ 27.5 mls/hr EVERY 8 HOURS IVPB 07/02/19 14:00 07/07/19 13:59 07/03/19 05:27 Vancomycin HCl (Vanco rx to dose) 1 ea DAILY PRN MISC Per rx protocol 07/03/19 09:00 08/01/19 00:29 Vancomycin HCl 750 mg/Sodium Chloride 275 ml @ 183.333 mls/hr Q12H IVPB 07/03/19 09:00 07/08/19 08:59 07/03/19 09:49 Néstor Payan MD Jul 03, 2019 10:31
--- NOTE | 2019-07-03 12:00 | NUR ---
NURSE NOTES: Pt repositioned and cleaned, oral care provided. Pt in no acute distress and is now able to follow commands- observed opening mouth on request for oral care and temp check. Pt now 100.4 F ax. Cooling measure being provided- ice packs placed below axilla and popliteal regions. No gastric residuals noted and TF advanced to 40 cc/hr. Will continue to monitor pt.
--- NOTE | 2019-07-03 14:00 | NUR ---
NURSE NOTES: Pt repositioned, temp now noted 99.5 F ax, no acute distress noted at this time.
--- NOTE | 2019-07-03 16:00 | NUR ---
NURSE NOTES: Dr Cervantes in the unit reviewing pt's chart. Pt repositioned and oral care provided. No acute distress noted. Temp noted 100.5 F Oral. Cooling measure continued with ice packs.
--- NOTE | 2019-07-03 18:00 | NUR ---
NURSE NOTES: Pt repositioned, 1 brown, soft BM noted, pt cleaned and wound care provided again. No acute distress noted. Pt remains responsive, watching TV, obeys commands. Oral temp now 100 F after tylenol was given, cooling measures continued.
--- NOTE | 2019-07-03 19:00 | NUR ---
HAND-OFF: Report given to ROSELYN Ortez. Addendum: 07/03/19 at 1914 by Mei Roman RN correct time: 1914 Addendum: 07/03/19 at 192 by Mei Roman RN wrong note.
--- NOTE | 2019-07-03 19:25 | NUR ---
HAND-OFF: Report given to ROSELYN Mireles.
--- NOTE | 2019-07-03 19:33 | NUR ---
RESPIRATORY NOTE: Received pt on AC 14, 500VT, 40%, PEEP +5. Pt is trach-dependent w/ a cuffed, Shiley 7 XLT tube. Pt is alert/awake, follows commands. B/S john. rhonchi, sxn small amounts of thick, pale-yellow secretions. Vent plugged into red outlet, ambubag at bedside. Pt in no apparent distress at this time. Will continue to monitor pt.
--- NOTE | 2019-07-03 20:00 | NUR ---
NURSE NOTES: LE: PATIENT AWOKE, OPEN EYE, ABLE TO COMMUNICATION WITH CLOSE EYE, ON TRACH TO VENT AV14/TV500/FIO2 40%/PEEP5, O2 SATURATION 100% NOTED, NECK COLLAR STATUS, HEART RATE 70'S/MIN SINUS RHYTHM, ONGOING GLUCERNA 1.2 AT 65ML/HR, NO RESIDUE NOTED, KEPT HOB OVER 30 DEGREES AND ASPIRATION PRECAUTION, ABDOMEN SOFT, BROWN COLOR SOLID STOOL OUTED, F/C INTACT AND PATENT, YELLOW URINE DRAINING WELL GRAVITY, NO BLADDER DISTENTION NOTED, PICC LINE TO LEFT UPPER ARM, INTACT AND PATENT, ONGOING D5W at 75ML/HR VIA PICC LINE, ON P200 BED, MADE LOWER BED POSITION, ON BED ALARM AND LOCKED, UNABLE TO USE CALL LIGHT, KEPT AIRBORNE PRECAUTION PER PROTOCOLS, WILL CONTINUE TO MONITOR.
--- NOTE | 2019-07-03 20:00 | Progress Note ---
DATE: 07/03/2019 CARDIOLOGY PROGRESS NOTE SUBJECTIVE: The patient remains in the intensive care unit on ventilator support. Blood pressure parameters are rising. Monitored rhythm is sinus. Echocardiogram was reviewed and reveals normal ejection fraction with no wall motion abnormalities. Repeat EKG today sinus rhythm with no ST-T change. Troponin has increased above 7. CK is 74. PHYSICAL EXAMINATION: LUNGS: Bilateral breath sounds. HEART: Regular rhythm and rate. Normal S1, S2. ABDOMEN: Soft, flaccid paralysis noted with no edema. DIAGNOSTIC DATA: Sodium 148, potassium 4.7, bicarb 30, BUN 78, creatinine 1.2. Pro natriuretic peptide is over 35,000. Chest x-ray has consolidation, but no signs of pulmonary venous congestion. IMPRESSION: 1. Sepsis. 2. Healthcare associated pneumonia. 3. Ventilator-dependent respiratory failure. 4. No clinical signs of acute congestive heart failure. 5. Acute myocardial infarction likely due to small-vessel disease and hypoperfusion. 6. Labile hypertension likely due to component of autonomic dysfunction. 7. Dehydration. 8. Hypernatremia. PLAN: 1. Advance beta-jason. 2. Continued anti-platelet therapy. 3. Antimicrobials. 4. Ventilator support. 5. Free water replacement. 6. No diuresis at this time. 7. Add hydralazine for further blood pressure control and titrate as needed. Néstor Cervantes M.D. DRMackenzie DAMON JOB#: [id number] CC:
--- NOTE | 2019-07-03 20:02 | Surgery Progress Note ---
Surgery Progress Note Subjective Additional Comments ill appearing in ICU labs noted exam stable wbc 13k Objective Last 24 Hour Vital Signs Date Time Temp Pulse Resp B/P (MAP) Pulse Ox O2 Delivery O2 Flow Rate FiO2 07/03/19 19:28 73 22 40 07/03/19 19:00 74 21 139/73 (95) 100 07/03/19 18:00 100.0 07/03/19 18:00 74 18 135/72 (93) 99 07/03/19 17:25 69 18 40 07/03/19 17:19 162/80 07/03/19 17:00 68 16 162/80 (107) 99 07/03/19 16:00 64 07/03/19 16:00 40 07/03/19 16:00 100.5 73 21 158/86 (110) 100 07/03/19 16:00 Mechanical Ventilator Mechanical Ventilator Mechanical Ventilator 07/03/19 15:00 70 17 158/78 (104) 99 07/03/19 14:57 69 16 40 07/03/19 13:58 69 16 147/67 (93) 100 07/03/19 13:15 74 16 40 07/03/19 13:00 71 17 148/77 (100) 99 07/03/19 12:16 175/86 07/03/19 12:00 40 07/03/19 12:00 73 07/03/19 12:00 100.4 66 21 175/86 (115) 100 07/03/19 12:00 Mechanical Ventilator 07/03/19 11:19 68 17 40 07/03/19 11:00 70 19 168/83 (111) 100 07/03/19 10:18 69 18 176/82 (113) 100 07/03/19 10:11 71 21 178/88 (118) 100 07/03/19 10:03 70 22 181/85 (117) 100 07/03/19 10:00 72 20 182/87 (118) 100 07/03/19 09:44 71 178/91 07/03/19 09:42 72 26 178/91 (120) 100 07/03/19 09:17 70 18 40 07/03/19 09:00 71 19 176/91 (119) 100 07/03/19 08:20 70 34 172/89 (116) 100 07/03/19 08:00 100.5 72 32 177/87 (117) 100 07/03/19 08:00 Mechanical Ventilator 07/03/19 08:00 69 07/03/19 08:00 40 07/03/19 07:00 69 26 170/84 (112) 100 07/03/19 06:43 71 17 40 07/03/19 06:00 74 29 158/80 (106) 99 07/03/19 05:39 83 20 40 07/03/19 05:26 182/90 07/03/19 05:00 100.7 79 17 171/90 (117) 100 07/03/19 04:00 79 19 182/90 (120) 100 07/03/19 04:00 70 07/03/19 04:00 40 07/03/19 04:00 Mechanical Ventilator 07/03/19 03:51 72 19 40 07/03/19 03:00 82 20 175/86 (115) 100 07/03/19 02:00 75 18 168/82 (110) 100 07/03/19 01:28 76 20 40 07/03/19 01:00 69 18 153/89 (110) 100 07/03/19 00:00 99.0 79 22 148/87 (107) 100 07/03/19 00:00 Mechanical Ventilator 07/03/19 00:00 40 07/03/19 00:00 75 07/02/19 23:41 72 20 40 07/02/19 23:00 68 17 139/79 (99) 100 07/02/19 22:00 67 16 167/80 (109) 100 07/02/19 21:31 151/89 07/02/19 21:24 78 24 40 07/02/19 21:00 98.5 63 18 148/77 (100) 99 I&O Intake and Output 07/02/19 07/03/19 19:00 07:00 Intake Total 1822.79632 ml 1702.625 ml Output Total 435 ml 690 ml Balance 1387.42213 ml 1012.625 ml Intake Free Water 50 ml 60 ml IV Total 1597.92435 ml 1402.625 ml Tube Feeding 175 ml 240 ml Output Urine Total 435 ml 690 ml # Bowel Movements 3 Dressing: other Wound: other Drains: other Cardiovascular: RSR Respiratory: decreased breath sounds Abdomen: soft, non-tender, present bowel sounds Extremities: no tenderness, no cyanosis, other Laboratory Tests Test 07/03/19 05:30 White Blood Count 13.1 K/UL (4.8-10.8) H Red Blood Count 3.28 M/UL (4.70-6.10) L Hemoglobin 9.3 G/DL (14.2-18.0) L Hematocrit 27.8 % (42.0-52.0) L Mean Corpuscular Volume 85 FL (80-99) Mean Corpuscular Hemoglobin 28.3 PG (27.0-31.0) Mean Corpuscular Hemoglobin Concent 33.4 G/DL (32.0-36.0) Red Cell Distribution Width 13.2 % (11.6-14.8) Platelet Count 241 K/UL (150-450) Mean Platelet Volume 6.8 FL (6.5-10.1) Neutrophils (%) (Auto) 79.0 % (45.0-75.0) H Lymphocytes (%) (Auto) 10.7 % (20.0-45.0) L Monocytes (%) (Auto) 8.5 % (1.0-10.0) Eosinophils (%) (Auto) 0.5 % (0.0-3.0) Basophils (%) (Auto) 1.3 % (0.0-2.0) Sodium Level 148 MMOL/L (136-145) H Potassium Level 4.7 MMOL/L (3.5-5.1) Chloride Level 109 MMOL/L (98-107) H Carbon Dioxide Level 30 MMOL/L (21-32) Anion Gap 10 mmol/L (5-15) Blood Urea Nitrogen 78 mg/dL (7-18) H Creatinine 1.2 MG/DL (0.55-1.30) # Estimat Glomerular Filtration Rate > 60 mL/min (>60) Glucose Level 97 MG/DL (74-106) Calcium Level 9.0 MG/DL (8.5-10.1) Total Bilirubin 0.2 MG/DL (0.2-1.0) Aspartate Amino Transf (AST/SGOT) 93 U/L (15-37) H Alanine Aminotransferase (ALT/SGPT) 239 U/L (12-78) H Alkaline Phosphatase 126 U/L (46-116) H Total Creatine Kinase 73 U/L (26-308) Creatine Kinase MB 4.5 NG/ML (0.0-3.6) H Creatine Kinase MB Relative Index 6.1 Troponin I 7.496 ng/mL (0.000-0.056) Pro-B-Type Natriuretic Peptide > 75385 pg/mL (0-125) H Total Protein 6.0 G/DL (6.4-8.2) L Albumin 1.8 G/DL (3.4-5.0) L Globulin 4.2 g/dL Albumin/Globulin Ratio 0.4 (1.0-2.7) L Thyroid Stimulating Hormone (TSH) < 0.010 uiU/mL (0.358-3.740) Free Triiodothyronine 1.3 pg/mL (2.3-4.2) L Plan Problems: (1) Decubitus skin ulcer Assessment & Plan: Pt presented on admission with Full thickness stage 4sacral pressure injury. Base of wound is necrotic in center with surrounding mixed slough and erythema. Periwound indurated and is maroon and purple in colour. Tx.Plan: Cleanse Sacral wound with Saline. Apply TheraHoney. Apply Moisture Barrier Periwound. Cover with Optifoam drsg. Change every 3 days and prn. Apply Cavilon Skin Barrier to heels. Cover each heel with Optifoam drsg. Change every 7 days and prn. Reposition at least every 2hours or as tolerated. Off-load heels with pillow. (2) Sepsis Assessment & Plan: Leukocytosis, lactic acidosis, elevated LFTs. Likely from dehydration, pneumonia Labs reviewed, imaging reviewed Antibiotics as per infectious disease Tube feeds as tolerated The liver appears normal in size without focal lesion. The gallbladder is moderately distended. The gallbladder wall is the upper limits of normal measuring 2.7 mm. No stones are identified. There is mild upper abdominal ascites. Common bile duct is normal in caliber. There is very mild left hydronephrosis. No right hydronephrosis identified. The spleen, visualized pancreas, IVC and aorta appear within normal limits. The bladder is mildly distended with a Dash catheter in place. Correlation with a Dash catheter patency is recommended. will follow with recs thank you (3) Ventilator associated pneumonia Assessment & Plan: There is persistent elevation of the right hemidiaphragm. There is minimally improved aeration of the right lung base. Currently, the right lower lobe and/or right middle lobe appear to demonstrate some consolidation as well as atelectasis. There is somewhat improved aeration of the left lower lobe, previously suspected left lower lobe infiltrate appears cleared somewhat. Tracheostomy, PICC remain. 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
[2019-07-03] MEDS: Dyna-Hex 2% Top Sol 2oz TOPIC SCH (20:23)
[2019-07-03] MEDS: Metoprolol Tartrate 50mg tab GT SCH (20:29)
[2019-07-03] MEDS ORDERED: dilTIAZem HCl 60mg tab GT SCH (21:00)
--- NOTE | 2019-07-03 22:15 | NUR ---
NURSE NOTES: REPOSITIONED, ORAL CARE WAS DONE, NO PAIN OR DISTRESS NOTED.
[2019-07-03] MEDS: HydrALAZINE 25mg tab GT SCH (23:31)
[2019-07-04] VITALS (24 sets, daily range): BP systolic 105–176; BP diastolic 69–92
--- NOTE | 2019-07-04 | NUR ---
NURSE NOTES: Pt's resting in bed, in no acute distress, asleep with eyes closed. VS stable. Afebrile. Will continue to monitor Addendum: 07/05/19 at 0344 by MICHELLE SEVILLA RN RN Wrong date . Changed to 07/05/2019
--- NOTE | 2019-07-04 00:38 | NUR ---
NURSE NOTES: SEEN THE PATIENT BY DR. GOMEZ, MADE NEW ORDER.
--- NOTE | 2019-07-04 01:46 | NUR ---
NURSE NOTES: PATIENT AWOKE, VSS, BP 129/69 HR 66/MIN SR, O2 SATURATION 100% NOTED, NO PAIN OR SOB NOTED AT THIS TIME.
--- NOTE | 2019-07-04 02:52 | NUR ---
NURSE NOTES: CALLED BY [facility] REGARDING POSITIVE VRE RECTUM, WILL LET DR. BEAVER.
--- NOTE | 2019-07-04 05:00 | NUR ---
NURSE NOTES: MORNING CARE AND ORAL CARE WAS DONE.
[2019-07-04] MEDS: Piperacillin/Tazobactam 3.375 GM in NS 110 ML IVPB SCH ×2 (05:30→17:44)
[2019-07-04] MEDS: HydrALAZINE 25mg tab GT SCH ×3 (05:30→18:13)
--- NOTE | 2019-07-04 06:10 | NUR ---
NURSE NOTES: LE: INSERTED AND SECURED RECTAL TUBE DUE TO DIARRHEA.
[2019-07-04 07:08] LABS: BASOPHILS % (AUTO) 1.6 % (0.0-2.0); EOSINOPHILS % (AUTO) 0.7 % (0.0-3.0); HEMATOCRIT 27.3 % (42.0-52.0); HEMOGLOBIN 9.3 G/DL (14.2-18.0); LYMPHOCYTES % (AUTO) 9.7 % (20.0-45.0); MEAN CORPUSCULAR VOLUME 85 FL (80-99); MONOCYTES % (AUTO) 6.7 % (1.0-10.0); NEUTROPHILS % (AUTO) 81.4 % (45.0-75.0); PLATELET COUNT 245 K/UL (150-450); RED BLOOD COUNT 3.21 M/UL (4.70-6.10); RED CELL DISTRIBUTION WIDTH 13.2 % (11.6-14.8); WHITE BLOOD COUNT 13.1 K/UL (4.8-10.8)
--- NOTE | 2019-07-04 07:15 | NUR ---
HAND-OFF: Report given to ROSELYN STONE.
--- NOTE | 2019-07-04 08:00 | NUR ---
NURSE NOTES: Report received from ROSELYN Landry. patient is noted to be resting, his ventilator settings AC 14, TV: 500, FIO2 40%, and peep of 5 . patient has a Dash draining straw colored urine, currently receiving feeding through a G-tube with Glucerna 1.2 at 65ml/hr. wound noted on the right upper buttocks near the sacral region.
[2019-07-04 08:09] LABS: ALANINE AMINOTRANSFERASE 232 U/L (12-78); ALBUMIN 1.7 G/DL (3.4-5.0); ALBUMIN/GLOBULIN RATIO 0.4 (1.0-2.7); ALKALINE PHOSPHATASE 121 U/L (46-116); ANION GAP 9 mmol/L (5-15); ASPARTATE AMINO TRANSFERASE 85 U/L (15-37); BILIRUBIN,TOTAL 0.2 MG/DL (0.2-1.0); BLOOD UREA NITROGEN 77 mg/dL (7-18); CALCIUM 8.6 MG/DL (8.5-10.1); CARBON DIOXIDE 28 MMOL/L (21-32); CHLORIDE 106 MMOL/L (98-107); CREATININE 1.6 MG/DL (0.55-1.30); POTASSIUM 4.6 MMOL/L (3.5-5.1); SODIUM 143 MMOL/L (136-145)
[2019-07-04 08:23] LABS: % IRON SATURATION 20 % (15-50); IRON 27 ug/dL (50-175); TOTAL IRON BINDING CAPACITY 134 ug/dL (250-450)
[2019-07-04 08:26] LABS: ANION GAP 11 mmol/L (5-15); BLOOD UREA NITROGEN 75 mg/dL (7-18); CALCIUM 8.3 MG/DL (8.5-10.1); CARBON DIOXIDE 26 MMOL/L (21-32); CHLORIDE 105 MMOL/L (98-107); CREATININE 1.5 MG/DL (0.55-1.30); POTASSIUM 4.6 MMOL/L (3.5-5.1); SODIUM 142 MMOL/L (136-145)
--- NOTE | 2019-07-04 08:28 | General Progress Note ---
Assessment/Plan Problem List: (1) Anemia ICD Codes: D64.9 - Anemia, unspecified SNOMED: 481205804 (2) Elevated LFTs ICD Codes: R94.5 - Abnormal results of liver function studies SNOMED: 713265411, 364711264 (3) Attention to G-tube ICD Codes: Z43.1 - Encounter for attention to gastrostomy SNOMED: 510591140, 224705348, 078921447 (4) Ventilator associated pneumonia ICD Codes: J95.851 - Ventilator associated pneumonia SNOMED: 860880176 (5) Chronic complete flaccid quadriplegia SNOMED: 398652491, 874246287 (6) Sepsis ICD Codes: A41.9 - Sepsis, unspecified organism SNOMED: 01234593 Qualifiers: Qualified Codes: A41.9 - Sepsis, unspecified organism; R65.20 - Severe sepsis without septic shock; N17.9 - Acute kidney failure, unspecified Assessment/Plan: anemia work up hepatitis panel repeat labs us reviewed GTF Subjective ROS Limited/Unobtainable: No Allergies: Coded Allergies: No Known Allergies (Unverified , 07/01/19) Objective Last 24 Hour Vital Signs Date Time Temp Pulse Resp B/P (MAP) Pulse Ox O2 Delivery O2 Flow Rate FiO2 07/04/19 08:00 40 07/04/19 07:00 67 25 122/72 (89) 100 07/04/19 06:32 72 20 40 07/04/19 06:00 70 24 154/76 (102) 100 07/04/19 05:30 151/76 07/04/19 05:17 68 17 40 07/04/19 05:00 67 21 151/76 (101) 100 07/04/19 04:00 99.1 67 28 140/78 (98) 99 07/04/19 04:00 40 07/04/19 03:24 66 07/04/19 03:00 66 34 140/79 (99) 99 07/04/19 02:50 68 16 40 07/04/19 02:00 67 33 145/79 (101) 99 07/04/19 01:10 67 18 40 07/04/19 01:00 68 28 129/69 (89) 99 07/04/19 00:00 Mechanical Ventilator Mechanical Ventilator Mechanical Ventilator 07/04/19 00:00 40 07/04/19 00:00 65 07/04/19 00:00 98.2 65 27 105/70 (82) 98 07/03/19 23:31 136/69 07/03/19 23:02 67 15 40 07/03/19 23:00 66 24 136/69 (91) 100 07/03/19 22:00 67 22 119/69 (86) 100 07/03/19 21:47 74 15 115/65 (82) 100 07/03/19 21:00 69 14 160/91 (114) 100 07/03/19 20:55 73 19 40 07/03/19 20:29 67 146/72 07/03/19 20:00 71 07/03/19 20:00 Mechanical Ventilator Mechanical Ventilator Mechanical Ventilator 07/03/19 20:00 98.6 71 21 146/72 (96) 100 07/03/19 20:00 40 07/03/19 19:28 73 22 40 07/03/19 19:00 74 21 139/73 (95) 100 07/03/19 18:00 100.0 07/03/19 18:00 74 18 135/72 (93) 99 07/03/19 17:25 69 18 40 07/03/19 17:19 162/80 07/03/19 17:00 68 16 162/80 (107) 99 07/03/19 16:00 64 07/03/19 16:00 40 07/03/19 16:00 100.5 73 21 158/86 (110) 100 07/03/19 16:00 Mechanical Ventilator Mechanical Ventilator Mechanical Ventilator 07/03/19 15:00 70 17 158/78 (104) 99 07/03/19 14:57 69 16 40 07/03/19 13:58 69 16 147/67 (93) 100 07/03/19 13:15 74 16 40 07/03/19 13:00 71 17 148/77 (100) 99 07/03/19 12:16 175/86 07/03/19 12:00 40 07/03/19 12:00 73 07/03/19 12:00 100.4 66 21 175/86 (115) 100 07/03/19 12:00 Mechanical Ventilator 07/03/19 11:19 68 17 40 07/03/19 11:00 70 19 168/83 (111) 100 07/03/19 10:18 69 18 176/82 (113) 100 07/03/19 10:11 71 21 178/88 (118) 100 07/03/19 10:03 70 22 181/85 (117) 100 07/03/19 10:00 72 20 182/87 (118) 100 07/03/19 09:44 71 178/91 07/03/19 09:42 72 26 178/91 (120) 100 07/03/19 09:17 70 18 40 07/03/19 09:00 71 19 176/91 (119) 100 Intake and Output 07/03/19 07/04/19 19:00 07:00 Intake Total 1930.416 ml 2556.5 ml Output Total 1350 ml 1450 ml Balance 580.416 ml 1106.5 ml Intake Free Water 30 ml 100 ml IV Total 1355.416 ml 1476.5 ml Tube Feeding 545 ml 780 ml Other 200 ml Output Urine Total 1350 ml 1450 ml # Bowel Movements 4 6 Laboratory Tests 07/04/19 06:10: White Blood Count 13.1H, Red Blood Count 3.21L, Hemoglobin 9.3L, Hematocrit 27.3L, Mean Corpuscular Volume 85, Mean Corpuscular Hemoglobin 28.8, Mean Corpuscular Hemoglobin Concent 33.9, Red Cell Distribution Width 13.2, Platelet Count 245, Mean Platelet Volume 6.7, Neutrophils (%) (Auto) 81.4H, Lymphocytes ( %) (Auto) 9.7L, Monocytes (%) (Auto) 6.7, Eosinophils (%) (Auto) 0.7, Basophils (%) (Auto) 1.6, Sodium Level [Pending], Potassium Level [Pending], Chloride Level [Pending], Carbon Dioxide Level [Pending], Anion Gap 9, Blood Urea Nitrogen [Pending], Creatinine [Pending], Estimat Glomerular Filtration Rate [ Pending], Glucose Level [Pending], Calcium Level [Pending], Iron Level 27L, Total Iron Binding Capacity 134L, Percent Iron Saturation 20, Unsaturated Iron Binding 107L, Total Bilirubin 0.2, Aspartate Amino Transf (AST/SGOT) 85H, Alanine Aminotransferase (ALT/SGPT) 232H, Alkaline Phosphatase 121H, Pro-B-Type Natriuretic Peptide [Pending], Total Protein 5.8L, Albumin 1.7L, Globulin 4.1, Albumin/Globulin Ratio 0.4L 07/04/19 08:10: Arterial Blood pH 7.324L, Arterial Blood Partial Pressure CO2 49.2H, Arterial Blood Partial Pressure O2 76.7, Arterial Blood HCO3 25.0, Arterial Blood Oxygen Saturation 94.2L, Arterial Blood Base Excess -1.4, Jorge Alberto Test Positive Height (Feet): 5 Height (Inches): 9.00 Weight (Pounds): 176 General Appearance: lethargic EENT: normal ENT inspection Neck: supple Cardiovascular: tachycardia Respiratory/Chest: decreased breath sounds Abdomen: normal bowel sounds, non tender, soft Extremities: non-tender Talat Beckwith MD Jul 04, 2019 08:28
[2019-07-04] MEDS: Metoprolol Tartrate 50mg tab GT SCH (09:15)
[2019-07-04] MEDS: Pantoprazole Inj IVP SCH ×2 (09:15→21:30)
[2019-07-04] MEDS: Aspirin Baby 81mg GT SCH (09:15)
[2019-07-04] MEDS: Heparin 5000 units/ml inj SUBQ SCH ×2 (09:17→21:33)
--- NOTE | 2019-07-04 09:45 | NUR ---
NURSE NOTES: Dr. Borrero made aware of consultation by Dr. Cordon, will review patient chart and place orders accordingly.
[2019-07-04] MEDS ORDERED: NS 275ml ONE (09:51)
[2019-07-04] MEDS ORDERED: Tubing IV Secondary IV ONE (09:51)
[2019-07-04] MEDS ORDERED: NS 500ML ONE (09:51)
[2019-07-04] MEDS ORDERED: D5LR 1000 ml IV ONE (09:51)
[2019-07-04] MEDS ORDERED: Sterile Water Irrig 2000ml IRRIG ONE (09:51)
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
[2019-07-04 10:25] LABS: CHOLESTEROL 69 MG/DL (< 200); HDL CHOLESTEROL 17 MG/DL (40-60); PHOSPHORUS 6.4 MG/DL (2.5-4.9); TRIGLYCERIDES 83 MG/DL (30-150)
--- NOTE | 2019-07-04 10:35 | NUR ---
NURSE NOTES: Morning sponge bath provided with linens changed. pulse ox and 5 lead ekg electrodes changed, heart rate remains in sinus rhythm with no arrhythmias, patient tolerated turning and repositioning while providing wound care, application of barrier cream and Optifoam.
[2019-07-04] MEDS: Acetaminophen 650mg/20.3ml GT PRN ×2 (13:15→18:17)
--- NOTE | 2019-07-04 13:30 | NUR ---
NURSE NOTES: Administration of Tylenol given for temperature with forehead, arms and torso are warm. ice packs placed on patient to aid with cooling. patient is awake and alert able to follow commands, he is able to open eyes spontaneously and track staff members. patient oral care provided and repositioned to relief pressure from sacral wound, bed mattress remains inflated at setting of 5.
[2019-07-04] MEDS ORDERED: Piperacillin/Tazobactam 3.375 GM in NS 110 ML IVPB SCH ×2 (14:00→17:00)
--- NOTE | 2019-07-04 15:04 | Surgery Progress Note ---
Surgery Progress Note Subjective Additional Comments Leukocytosis stable at 13,000. LFTs noted. Exam unchanged. Objective Last 24 Hour Vital Signs Date Time Temp Pulse Resp B/P (MAP) Pulse Ox O2 Delivery O2 Flow Rate FiO2 07/04/19 14:39 68 19 40 07/04/19 14:00 70 16 157/80 (105) 100 07/04/19 13:00 72 18 162/74 (103) 100 07/04/19 12:58 163/75 07/04/19 12:31 72 17 40 07/04/19 12:00 100.5 68 19 158/85 (109) 100 07/04/19 12:00 68 07/04/19 12:00 40 07/04/19 12:00 Mechanical Ventilator Mechanical Ventilator 07/04/19 11:00 98 21 158/85 (109) 98 07/04/19 10:46 68 18 40 07/04/19 10:00 68 17 158/85 (109) 99 07/04/19 09:15 74 152/82 07/04/19 09:00 73 21 152/92 (112) 93 07/04/19 08:20 65 21 40 07/04/19 08:00 40 07/04/19 08:00 Mechanical Ventilator Mechanical Ventilator 07/04/19 08:00 98.9 69 23 134/74 (94) 100 07/04/19 08:00 70 07/04/19 07:00 67 25 122/72 (89) 100 07/04/19 06:32 72 20 40 07/04/19 06:00 70 24 154/76 (102) 100 07/04/19 05:30 151/76 07/04/19 05:17 68 17 40 07/04/19 05:00 67 21 151/76 (101) 100 07/04/19 04:00 99.1 67 28 140/78 (98) 99 07/04/19 04:00 40 07/04/19 03:24 66 07/04/19 03:00 66 34 140/79 (99) 99 07/04/19 02:50 68 16 40 07/04/19 02:00 67 33 145/79 (101) 99 07/04/19 01:10 67 18 40 07/04/19 01:00 68 28 129/69 (89) 99 07/04/19 00:00 Mechanical Ventilator Mechanical Ventilator Mechanical Ventilator 07/04/19 00:00 40 07/04/19 00:00 65 07/04/19 00:00 98.2 65 27 105/70 (82) 98 07/03/19 23:31 136/69 07/03/19 23:02 67 15 40 07/03/19 23:00 66 24 136/69 (91) 100 07/03/19 22:00 67 22 119/69 (86) 100 07/03/19 21:47 74 15 115/65 (82) 100 07/03/19 21:00 69 14 160/91 (114) 100 07/03/19 20:55 73 19 40 07/03/19 20:29 67 146/72 07/03/19 20:00 71 07/03/19 20:00 Mechanical Ventilator Mechanical Ventilator Mechanical Ventilator 07/03/19 20:00 98.6 71 21 146/72 (96) 100 07/03/19 20:00 40 07/03/19 19:28 73 22 40 07/03/19 19:00 74 21 139/73 (95) 100 07/03/19 18:00 100.0 07/03/19 18:00 74 18 135/72 (93) 99 07/03/19 17:25 69 18 40 07/03/19 17:19 162/80 07/03/19 17:00 68 16 162/80 (107) 99 07/03/19 16:00 64 07/03/19 16:00 40 07/03/19 16:00 100.5 73 21 158/86 (110) 100 07/03/19 16:00 Mechanical Ventilator Mechanical Ventilator Mechanical Ventilator I&O Intake and Output 07/03/19 07/04/19 19:00 07:00 Intake Total 1930.416 ml 2556.5 ml Output Total 1350 ml 1450 ml Balance 580.416 ml 1106.5 ml Intake Free Water 30 ml 100 ml IV Total 1355.416 ml 1476.5 ml Tube Feeding 545 ml 780 ml Other 200 ml Output Urine Total 1350 ml 1450 ml # Bowel Movements 4 6 Dressing: other Wound: other Drains: other Cardiovascular: RSR Respiratory: decreased breath sounds Abdomen: soft, non-tender, present bowel sounds Extremities: no cyanosis Laboratory Tests Test 07/04/19 06:10 07/04/19 08:10 White Blood Count 13.1 K/UL (4.8-10.8) H Red Blood Count 3.21 M/UL (4.70-6.10) L Hemoglobin 9.3 G/DL (14.2-18.0) L Hematocrit 27.3 % (42.0-52.0) L Mean Corpuscular Volume 85 FL (80-99) Mean Corpuscular Hemoglobin 28.8 PG (27.0-31.0) Mean Corpuscular Hemoglobin Concent 33.9 G/DL (32.0-36.0) Red Cell Distribution Width 13.2 % (11.6-14.8) Platelet Count 245 K/UL (150-450) Mean Platelet Volume 6.7 FL (6.5-10.1) Neutrophils (%) (Auto) 81.4 % (45.0-75.0) H Lymphocytes (%) (Auto) 9.7 % (20.0-45.0) L Monocytes (%) (Auto) 6.7 % (1.0-10.0) Eosinophils (%) (Auto) 0.7 % (0.0-3.0) Basophils (%) (Auto) 1.6 % (0.0-2.0) Sodium Level 142 MMOL/L (136-145) Potassium Level 4.6 MMOL/L (3.5-5.1) Chloride Level 105 MMOL/L (98-107) Carbon Dioxide Level 26 MMOL/L (21-32) Anion Gap 11 mmol/L (5-15) Blood Urea Nitrogen 75 mg/dL (7-18) H Creatinine 1.5 MG/DL (0.55-1.30) H Estimat Glomerular Filtration Rate 48.8 mL/min (>60) Glucose Level 103 MG/DL (74-106) Uric Acid 6.8 MG/DL (2.6-7.2) Calcium Level 8.3 MG/DL (8.5-10.1) L Phosphorus Level 6.4 MG/DL (2.5-4.9) H Magnesium Level 1.9 MG/DL (1.8-2.4) Iron Level 27 ug/dL (50-175) L Total Iron Binding Capacity 134 ug/dL (250-450) L Percent Iron Saturation 20 % (15-50) Unsaturated Iron Binding 107 ug/dL (112-346) L Ferritin 350 NG/ML (8-388) Total Bilirubin 0.2 MG/DL (0.2-1.0) Aspartate Amino Transf (AST/SGOT) 85 U/L (15-37) H Alanine Aminotransferase (ALT/SGPT) 232 U/L (12-78) H Alkaline Phosphatase 121 U/L (46-116) H Pro-B-Type Natriuretic Peptide > 27558 pg/mL (0-125) H Total Protein 5.8 G/DL (6.4-8.2) L Albumin 1.7 G/DL (3.4-5.0) L Globulin 4.1 g/dL Albumin/Globulin Ratio 0.4 (1.0-2.7) L Triglycerides Level 83 MG/DL (30-150) Cholesterol Level 69 MG/DL (< 200) LDL Cholesterol 45 mg/dL (<100) HDL Cholesterol 17 MG/DL (40-60) L Cholesterol/HDL Ratio 4.1 (3.3-4.4) Arterial Blood pH 7.324 (7.350-7.450) Arterial Blood Partial Pressure CO2 49.2 mmHg (35.0-45.0) H Arterial Blood Partial Pressure O2 76.7 mmHg (75.0-100.0) Arterial Blood HCO3 25.0 mmol/L (22.0-26.0) Arterial Blood Oxygen Saturation 94.2 % (95-100) L Arterial Blood Base Excess -1.4 (-2-2) Jorge Alberto Test Positive Plan Problems: (1) Decubitus skin ulcer Assessment & Plan: Pt presented on admission with Full thickness stage 4sacral pressure injury. Base of wound is necrotic in center with surrounding mixed slough and erythema. Periwound indurated and is maroon and purple in colour. Tx.Plan: Cleanse Sacral wound with Saline. Apply TheraHoney. Apply Moisture Barrier Periwound. Cover with Optifoam drsg. Change every 3 days and prn. Apply Cavilon Skin Barrier to heels. Cover each heel with Optifoam drsg. Change every 7 days and prn. Reposition at least every 2hours or as tolerated. Off-load heels with pillow. (2) Sepsis Assessment & Plan: Leukocytosis, lactic acidosis, elevated LFTs. Likely from dehydration, pneumonia Labs reviewed, imaging reviewed Antibiotics as per infectious disease Tube feeds as tolerated The liver appears normal in size without focal lesion. The gallbladder is moderately distended. The gallbladder wall is the upper limits of normal measuring 2.7 mm. No stones are identified. There is mild upper abdominal ascites. Common bile duct is normal in caliber. There is very mild left hydronephrosis. No right hydronephrosis identified. The spleen, visualized pancreas, IVC and aorta appear within normal limits. The bladder is mildly distended with a Dash catheter in place. Correlation with a Dash catheter patency is recommended. will follow with recs thank you (3) Ventilator associated pneumonia Assessment & Plan: There is persistent elevation of the right hemidiaphragm. There is minimally improved aeration of the right lung base. Currently, the right lower lobe and/or right middle lobe appear to demonstrate some consolidation as well as atelectasis. There is somewhat improved aeration of the left lower lobe, previously suspected left lower lobe infiltrate appears cleared somewhat. Tracheostomy, PICC remain. 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
--- NOTE | 2019-07-04 17:55 | NUR ---
NURSE NOTES: Patient placed on cooling blanket for temperature of 101.8, tolerated procedure well with no desaturation or sob. remain alert and awake being able to track staff. provided oral care and repositioned. rectal tube remains draining brown liquid. Dash remains draining straw colored urine.
--- NOTE | 2019-07-04 19:07 | NUR ---
RESPIRATORY NOTE: Received pt on AC 14, 500VT, 40%, PEEP +5. Pt is trach-dependent w/ a cuffed, Shiley 7 XLT tube. Pt is alert/awake, follows commands. B/S john. rhonchi, sxn small to moderate amounts of thick, pale-yellow to hercules-yellow secretions. Vent plugged into red outlet, ambubag at bedside. Pt in no apparent distress at this time. Will continue to monitor pt.
--- NOTE | 2019-07-04 19:29 | NUR ---
HAND-OFF: Report given to ROSELYN Shook.
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
[2019-07-04] MEDS: Dyna-Hex 2% Top Sol 2oz TOPIC SCH (21:31)
--- NOTE | 2019-07-04 22:00 | NUR ---
NURSE NOTES: Pt's resting in bed, in no acute distress. Afebrile. VS stable. Will continue to monitor.
[2019-07-05] VITALS (24 sets, daily range): BP systolic 103–185; BP diastolic 63–93
--- NOTE | 2019-07-05 | NUR ---
NURSE NOTES: Pt's resting in bed, in no acute distress, asleep with eyes closed. VS stable. Afebrile. Will continue to monitor
[2019-07-05] MEDS: HydrALAZINE 25mg tab GT SCH ×6 (00:40→23:22)
--- NOTE | 2019-07-05 01:59 | Progress Note ---
DATE: 07/04/2019 SUBJECTIVE: The patient is afebrile and hemodynamically stable. PHYSICAL EXAMINATION: VITAL SIGNS: Blood pressure 145/82, his pulse is 59, respirations are 15, and temperature 96.2. HEENT: Eyes were normal. ENT, mucous membranes were moist and intact. NECK: Supple with no JVD without lymph nodes. Tracheostomy site is clean. LUNGS: Clear without rhonchi, rales, or wheezing. HEART: Normal sounds with regular beats. ABDOMEN: Soft and nontender with normal bowel sounds. Gastrostomy site is clean. EXTREMITIES: Warm without cyanosis, clubbing, or edema. LABORATORY AND DIAGNOSTIC DATA: His hemoglobin is 9.3, hematocrit 27.3 with MCV of 85, WBC of 13.1, and platelets are 245,000. His BUN and creatinine are 75 and 1.6 respectively. His sodium is 142, potassium 4.6, chloride 105, and CO2 is 26. His uric acid is 6.3. His phosphorus is 6.4 and his magnesium is 1.9. Chest x-ray done today right lower lobe pneumonia. IMPRESSION: The patient now is on levofloxacin 750 mg IV piggyback q.24 h. and piperacillin/tazobactam 3.375 g IV piggyback q.6 h. Clinically, the patient is improved. He is afebrile and hemodynamically stable without tachycardia. We will continue on current regimen and repeat laboratory tests will be done in the a.m. Anusha Cordon M.D. DR: SHANTANU JOB#: [id number] CC:
--- NOTE | 2019-07-05 02:00 | NUR ---
NURSE NOTES: Noted an episode of bradycardia, pt's HR in 40-50s. Pt's asleep. Able to wake the pt up, suction the trach. Pt's HR went back up to 60. SBP 180s, after Albumin transfusion. Clonidine given x 1 dose per PRN order. Will continue to monitor.
--- NOTE | 2019-07-05 02:15 | Progress Note ---
DATE: 07/04/2019 CARDIOLOGY PROGRESS NOTE SUBJECTIVE: The patient remains on ventilator support. Quadriparetic. Blood pressure parameters have improved. Monitored sinus rhythm. Rare atrial ectopy. PHYSICAL EXAMINATION: LUNGS: Bilateral breath sounds. CARDIAC: Regular rhythm and rate. Normal S1 and S2. ABDOMEN: Soft. EXTREMITIES: No edema. LABORATORY DATA: White count 13 and hemoglobin 9.3. Natriuretic peptide over 35,000. BUN 75, creatinine 1.5, and potassium 4.6. Total cholesterol 69. IMPRESSION: 1. Sepsis. 2. Shock. 3. Ventilator-dependent respiratory failure. 4. Acute myocardial infarction. 5. Prerenal azotemia. 6. Labile hypertension. 7. Low cholesterol parameters. PLAN: 1. No need for anti-lipid therapy. 2. Continue anti-platelet therapy with aspirin. 3. Avoid hypotension. 4. Titrate antihypertensives for optimal blood pressure parameters. 5. Continue beta-jason. 6. No additional cardiovascular workup indicated at this time. 7. Continue maintenance hydration and electrolyte replacement. Néstor Cervantes M.D. DR: ADELINE JOB#: [id number] CC:
--- NOTE | 2019-07-05 04:00 | NUR ---
NURSE NOTES: Pt's resting in bed, in no acute distress. VS stable. Will continue to monitor.
[2019-07-05] MEDS: Piperacillin/Tazobactam 3.375 GM in NS 110 ML IVPB SCH ×2 (05:52→17:31)
--- NOTE | 2019-07-05 06:00 | NUR ---
NURSE NOTES: Pt's resting in bed, in no acute distress. VS stable. Turned as scheduled, morning care given. Will continue to monitor.
[2019-07-05 06:15] LABS: BASOPHILS % (AUTO) 1.2 % (0.0-2.0); EOSINOPHILS % (AUTO) 2.1 % (0.0-3.0); HEMATOCRIT 27.1 % (42.0-52.0); HEMOGLOBIN 9.1 G/DL (14.2-18.0); LYMPHOCYTES % (AUTO) 12.7 % (20.0-45.0); MEAN CORPUSCULAR VOLUME 84 FL (80-99); MONOCYTES % (AUTO) 7.7 % (1.0-10.0); NEUTROPHILS % (AUTO) 76.3 % (45.0-75.0); PLATELET COUNT 211 K/UL (150-450); RED BLOOD COUNT 3.22 M/UL (4.70-6.10)
[2019-07-05 06:26] LABS: PHOSPHORUS 5.6 MG/DL (2.5-4.9)
[2019-07-05 06:46] LABS: ALANINE AMINOTRANSFERASE 247 U/L (12-78); ALBUMIN 2.3 G/DL (3.4-5.0); ALBUMIN/GLOBULIN RATIO 0.6 (1.0-2.7); ALKALINE PHOSPHATASE 101 U/L (46-116); ANION GAP 11 mmol/L (5-15); ASPARTATE AMINO TRANSFERASE 92 U/L (15-37); BILIRUBIN,TOTAL 0.2 MG/DL (0.2-1.0); BLOOD UREA NITROGEN 71 mg/dL (7-18); CALCIUM 8.5 MG/DL (8.5-10.1); CARBON DIOXIDE 29 MMOL/L (21-32); CHLORIDE 101 MMOL/L (98-107); CREATININE 1.6 MG/DL (0.55-1.30); POTASSIUM 4.2 MMOL/L (3.5-5.1); SODIUM 140 MMOL/L (136-145)
--- NOTE | 2019-07-05 07:00 | NUR ---
RESPIRATORY NOTES: Received Patient on vent settings ACVC 500 RR14 FIO2 40% PEEP +5. Patient is trach dependent with a Shiley 7 tracheostomy tube, secured with trache ties. Bilateral rhonchi/ diminished breath sounds. Suction moderate amount of pale yellow secretions through trache. Vent plugged into red outlet. Alarms are on and audible. Will continue to monitor throughout the day.
--- NOTE | 2019-07-05 07:20 | NUR ---
HAND-OFF: Report given to ROSELYN Irwin.
--- NOTE | 2019-07-05 07:21 | NUR ---
NURSE NOTES: Received patient from [place] RN. Patient is asleep. Sinus Bradycardia on the heart monitor, HR 57. Receiving oxygen via trach to vent, Shiley 7, settings: AC 14, TV 500, Fio2 40%, PEEP 5. IV site is Left Upper Arm PICC intact and receiving D5W at 75cc/hr. G-tube is intact and receiving Glucerna 1.2 at 65cc/hr. Dash catheter is intact and patent. Bed is locked, placed in lowest position, side rails up x3, bed alarm on, will continue to monitor.
--- NOTE | 2019-07-05 07:43 | General Progress Note ---
Assessment/Plan Problem List: (1) Anemia ICD Codes: D64.9 - Anemia, unspecified SNOMED: 069245274 (2) Elevated LFTs ICD Codes: R94.5 - Abnormal results of liver function studies SNOMED: 847424065, 101365322 (3) Attention to G-tube ICD Codes: Z43.1 - Encounter for attention to gastrostomy SNOMED: 016568564, 524782160, 816827450 (4) Ventilator associated pneumonia ICD Codes: J95.851 - Ventilator associated pneumonia SNOMED: 146629511 (5) Chronic complete flaccid quadriplegia SNOMED: 827403394, 784228859 (6) Sepsis ICD Codes: A41.9 - Sepsis, unspecified organism SNOMED: 50460432 Qualifiers: Qualified Codes: A41.9 - Sepsis, unspecified organism; R65.20 - Severe sepsis without septic shock; N17.9 - Acute kidney failure, unspecified Assessment/Plan: anemia work up hepatitis panel>>> neg repeat labs us reviewed GTF Subjective ROS Limited/Unobtainable: No Allergies: Coded Allergies: No Known Allergies (Unverified , 07/01/19) Objective Last 24 Hour Vital Signs Date Time Temp Pulse Resp B/P (MAP) Pulse Ox O2 Delivery O2 Flow Rate FiO2 07/05/19 07:00 57 13 175/90 (118) 100 07/05/19 06:00 57 13 185/85 (118) 100 07/05/19 05:51 174/89 07/05/19 05:20 63 18 40 07/05/19 05:00 60 13 174/89 (117) 100 07/05/19 04:00 40 07/05/19 04:00 61 23 176/84 (114) 100 07/05/19 04:00 60 07/05/19 03:25 59 17 40 07/05/19 03:00 98.1 57 20 155/86 (109) 100 07/05/19 02:09 184/91 07/05/19 02:00 51 16 183/88 (119) 100 07/05/19 01:00 61 16 40 07/05/19 01:00 62 18 162/84 (110) 100 07/05/19 00:40 143/75 07/05/19 00:00 40 07/05/19 00:00 71 07/05/19 00:00 62 18 143/75 (97) 100 07/04/19 23:30 56 14 40 07/04/19 23:00 96.2 59 15 145/82 (103) 100 07/04/19 22:00 97.8 67 18 151/84 (106) 100 07/04/19 21:31 64 165/89 07/04/19 21:02 62 16 40 07/04/19 21:00 98.9 63 18 165/89 (114) 100 07/04/19 20:00 99.8 69 17 175/79 (111) 100 07/04/19 20:00 40 07/04/19 20:00 71 07/04/19 19:23 101.4 07/04/19 19:04 65 16 40 07/04/19 19:00 101.4 72 20 159/86 (110) 100 07/04/19 18:13 169/84 07/04/19 18:00 101.8 71 15 167/80 (109) 100 07/04/19 17:11 69 19 40 07/04/19 17:00 65 18 166/80 (108) 100 07/04/19 16:32 176/81 07/04/19 16:00 68 18 176/81 (112) 100 07/04/19 16:00 66 07/04/19 16:00 40 07/04/19 15:00 101.6 70 18 173/83 (113) 100 07/04/19 14:39 68 19 40 07/04/19 14:00 70 16 157/80 (105) 100 07/04/19 13:00 72 18 162/74 (103) 100 07/04/19 12:58 163/75 07/04/19 12:31 72 17 40 07/04/19 12:00 100.5 68 19 155/71 (99) 100 07/04/19 12:00 68 07/04/19 12:00 40 07/04/19 12:00 Mechanical Ventilator Mechanical Ventilator 07/04/19 11:00 98 21 151/75 (100) 98 07/04/19 10:46 68 18 40 07/04/19 10:00 68 17 158/85 (109) 99 07/04/19 09:15 74 152/82 07/04/19 09:00 73 21 152/92 (112) 93 07/04/19 08:20 65 21 40 07/04/19 08:00 40 07/04/19 08:00 Mechanical Ventilator Mechanical Ventilator 07/04/19 08:00 98.9 69 23 134/74 (94) 100 07/04/19 08:00 70 Intake and Output 07/04/19 07/05/19 19:00 07:00 Intake Total 2165.0 ml 2169.833 ml Output Total 1240 ml 600 ml Balance 925.0 ml 1569.833 ml Intake Free Water 300 ml 200 ml IV Total 1055.0 ml 1189.833 ml Tube Feeding 780 ml 780 ml Other 30 ml Output Urine Total 1240 ml 600 ml Laboratory Tests 07/04/19 08:10: Arterial Blood pH 7.324L, Arterial Blood Partial Pressure CO2 49.2H, Arterial Blood Partial Pressure O2 76.7, Arterial Blood HCO3 25.0, Arterial Blood Oxygen Saturation 94.2L, Arterial Blood Base Excess -1.4, Jorge Alberto Test Positive 07/04/19 18:40: Urine Random Sodium 66 07/04/19 20:00: Vancomycin Level Trough 28.9H 07/05/19 05:00: White Blood Count 11.0H, Red Blood Count 3.22L, Hemoglobin 9.1L, Hematocrit 27.1L, Mean Corpuscular Volume 84, Mean Corpuscular Hemoglobin 28.4, Mean Corpuscular Hemoglobin Concent 33.7, Red Cell Distribution Width 13.0, Platelet Count 211, Mean Platelet Volume 7.0, Neutrophils (%) (Auto) 76.3H, Lymphocytes ( %) (Auto) 12.7L, Monocytes (%) (Auto) 7.7, Eosinophils (%) (Auto) 2.1, Basophils (%) (Auto) 1.2, Sodium Level 140, Potassium Level 4.2, Chloride Level 101, Carbon Dioxide Level 29, Anion Gap 11, Blood Urea Nitrogen 71H, Creatinine 1.6H, Estimat Glomerular Filtration Rate 45.3, Glucose Level 119H, Uric Acid 6.4 , Calcium Level 8.5, Phosphorus Level 5.6H, Magnesium Level 1.9, Total Bilirubin 0.2, Aspartate Amino Transf (AST/SGOT) 92H, Alanine Aminotransferase ( ALT/SGPT) 247H, Alkaline Phosphatase 101, C-Reactive Protein, Quantitative 3.6H , Pro-B-Type Natriuretic Peptide > 28296G, Total Protein 6.0L, Albumin 2.3L, Globulin 3.7, Albumin/Globulin Ratio 0.6L, Vitamin B12 Level 1754H, Folate [ Pending] Height (Feet): 5 Height (Inches): 9.00 Weight (Pounds): 176 General Appearance: no apparent distress EENT: normal ENT inspection Neck: supple Cardiovascular: normal rate Respiratory/Chest: decreased breath sounds Abdomen: normal bowel sounds, non tender, soft Extremities: non-tender Talat Beckwith MD Jul 05, 2019 07:43
--- NOTE | 2019-07-05 08:59 | NUR ---
RD ASSESSMENT & RECOMMENDATIONS SEE CARE ACTIVITY FOR COMPLETE ASSESSMENT DAILY ESTIMATED NEEDS: Needs based on Wound, critical care 69.5kg 22-30 kcals/kg 5846-5491 total kcals 1.25-2 g protein/kg 87-139 g total protein 25-30 mL/kg 0814-2832 total fluid mLs NUTRITION DIAGNOSIS: Increased kcal and pro needs r/t wound healing as evidenced by pt w/ stage 4 sacral wound, bedbound, trach and peg dep. CURRENT TF:Glucerna 1.2 @65ml ENTERAL NUTRITION RECOMMENDATIONS: Glucerna 1.2 @65ml/hr x24 hrs to provide 1560ml, 1872 kcal, 94g pro, 1256ml free H2O - Maintain Glucerna 1.2 @65ml/hr for 24 hrs as tolerated. 15ml/hr q4-6 hrs to goal. - Flush per MD/ HOB oover 30 degrees Should potassium remain elevated, rec TF change to Nepro w/ goal of 45ml/hr x24 hrs to provide 1080ml, 1944 kcal, 87g pro, 785ml free H2O. ADDITIONAL RECOMMENDATIONS: 1) Per SNF: Height of 153#/69.5kg obtained on 07/01/19 2) TF recs as above 3) WC: Add HILDA in 4oz H2O BID +Vit C 250mg BID +ZnSO4 220mg qd m73dimv 4) Monitor hydration status 5) Trend phos, K and need for renal formula
[2019-07-05] MEDS: Pantoprazole Inj IVP SCH ×2 (09:11→20:07)
[2019-07-05] MEDS: Heparin 5000 units/ml inj SUBQ SCH ×2 (09:13→20:08)
[2019-07-05] MEDS: Aspirin Baby 81mg GT SCH (09:13)
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
--- NOTE | 2019-07-05 10:22 | NUR ---
NURSE NOTES: Turned and repositioned patient, oral care given, medications administered as ordered, Patient is afebrile: 98.0 degrees Fahrenheit via axillary. Patient tolerated well, no response when asked if patient has pain, FLACC score 0: No facial grimace present. Will continue to monitor.
--- NOTE | 2019-07-05 11:17 | Pulmonolgy Critical Care Note ---
Critical Care - Asmt/Plan Problems: (1) Sepsis (2) ATN (acute tubular necrosis) (3) Ventilator associated pneumonia (4) ALEXA (acute kidney injury) (5) Decubitus skin ulcer (6) Chronic vegetative state (7) Traumatic brain injury (8) Attention to G-tube (9) Chronic complete flaccid quadriplegia Respiratory: monitor respiratory rate, adjust FIO2, CXR Cardiac: continue pressors, continue to monitor HR/BP Renal: F/U I&O, check electrolytes Infectious Disease: check cultures Hematologic: monitor H/H, transfuse if hgb<8.5 Neurologic: keep patient comfortable Prophylaxis: Protonix, Heparin Time Spent (Minutes): 40 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, 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, 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 - Objective Last 24 Hour Vital Signs Date Time Temp Pulse Resp B/P (MAP) Pulse Ox O2 Delivery O2 Flow Rate FiO2 07/05/19 11:00 63 20 164/86 (112) 100 07/05/19 10:00 63 17 163/88 (113) 100 07/05/19 09:12 69 174/88 07/05/19 09:11 62 18 40 07/05/19 09:00 67 19 174/88 (116) 100 07/05/19 08:00 40 07/05/19 08:00 98.0 60 17 175/93 (120) 100 07/05/19 07:18 60 07/05/19 07:02 62 18 40 07/05/19 07:00 57 13 175/90 (118) 100 07/05/19 06:00 57 13 185/85 (118) 100 07/05/19 05:51 174/89 07/05/19 05:20 63 18 40 07/05/19 05:00 60 13 174/89 (117) 100 07/05/19 04:00 40 07/05/19 04:00 61 23 176/84 (114) 100 07/05/19 04:00 60 07/05/19 03:25 59 17 40 07/05/19 03:00 98.1 57 20 155/86 (109) 100 07/05/19 02:09 184/91 07/05/19 02:00 51 16 183/88 (119) 100 07/05/19 01:00 61 16 40 3/23/20 01:00 62 18 162/84 (110) 100 07/05/19 00:40 143/75 07/05/19 00:00 40 07/05/19 00:00 71 07/05/19 00:00 62 18 143/75 (97) 100 07/04/19 23:30 56 14 40 07/04/19 23:00 96.2 59 15 145/82 (103) 100 07/04/19 22:00 97.8 67 18 151/84 (106) 100 07/04/19 21:31 64 165/89 07/04/19 21:02 62 16 40 07/04/19 21:00 98.9 63 18 165/89 (114) 100 07/04/19 20:00 99.8 69 17 175/79 (111) 100 07/04/19 20:00 40 07/04/19 20:00 71 07/04/19 19:23 101.4 07/04/19 19:04 65 16 40 07/04/19 19:00 101.4 72 20 159/86 (110) 100 07/04/19 18:13 169/84 07/04/19 18:00 101.8 71 15 167/80 (109) 100 07/04/19 17:11 69 19 40 07/04/19 17:00 65 18 166/80 (108) 100 07/04/19 16:32 176/81 07/04/19 16:00 68 18 176/81 (112) 100 07/04/19 16:00 66 07/04/19 16:00 40 07/04/19 15:00 101.6 70 18 173/83 (113) 100 07/04/19 14:39 68 19 40 07/04/19 14:00 70 16 157/80 (105) 100 07/04/19 13:00 72 18 162/74 (103) 100 07/04/19 12:58 163/75 07/04/19 12:31 72 17 40 07/04/19 12:00 100.5 68 19 155/71 (99) 100 07/04/19 12:00 68 07/04/19 12:00 40 07/04/19 12:00 Mechanical Ventilator Mechanical Ventilator Status: awake Condition: critical HEENT: atraumatic, normocephalic Lungs: chest wall tender Heart: regular Abdomen: non-tender, feeding tube Extremities: edema Micro: Microbiology Date/Time Source Procedure Growth Status 07/02/19 14:00 Sputum Gram Stain - Final Resulted 07/02/19 14:00 Sputum Culture - Preliminary Gram Negative Pk Gram Negative Bacillus 2 Resulted 07/02/19 17:00 Urine,Clean Catch Urine Culture - Preliminary Resulted Critical Care - Subjective ROS Limited/Unobtainable: No Condition: critical EKG Rhythm: Sinus Rhythm FI02: 40 Vent Support Breath Rate: 14 Vent Support Mode: AC Vent Tidal Volume: 500 Sputum Amount: Small PEEP: 5.0 PIP: 26 Tube Feeding Amount: 65 I&O: Intake and Output 07/04/19 07/05/19 19:00 07:00 Intake Total 2165.0 ml 2169.833 ml Output Total 1240 ml 600 ml Balance 925.0 ml 1569.833 ml Intake Free Water 300 ml 200 ml IV Total 1055.0 ml 1189.833 ml Tube Feeding 780 ml 780 ml Other 30 ml Output Urine Total 1240 ml 600 ml Labs: Laboratory Tests Test 07/04/19 18:40 07/04/19 20:00 07/05/19 05:00 Urine Random Sodium 66 mmol/L (20-110) Vancomycin Level Trough 28.9 ug/mL (5.0-12.0) H White Blood Count 11.0 K/UL (4.8-10.8) H Red Blood Count 3.22 M/UL (4.70-6.10) L Hemoglobin 9.1 G/DL (14.2-18.0) L Hematocrit 27.1 % (42.0-52.0) L Mean Corpuscular Volume 84 FL (80-99) Mean Corpuscular Hemoglobin 28.4 PG (27.0-31.0) Mean Corpuscular Hemoglobin Concent 33.7 G/DL (32.0-36.0) Red Cell Distribution Width 13.0 % (11.6-14.8) Platelet Count 211 K/UL (150-450) Mean Platelet Volume 7.0 FL (6.5-10.1) Neutrophils (%) (Auto) 76.3 % (45.0-75.0) H Lymphocytes (%) (Auto) 12.7 % (20.0-45.0) L Monocytes (%) (Auto) 7.7 % (1.0-10.0) Eosinophils (%) (Auto) 2.1 % (0.0-3.0) Basophils (%) (Auto) 1.2 % (0.0-2.0) Sodium Level 140 MMOL/L (136-145) Potassium Level 4.2 MMOL/L (3.5-5.1) Chloride Level 101 MMOL/L (98-107) Carbon Dioxide Level 29 MMOL/L (21-32) Anion Gap 11 mmol/L (5-15) Blood Urea Nitrogen 71 mg/dL (7-18) H Creatinine 1.6 MG/DL (0.55-1.30) H Estimat Glomerular Filtration Rate 45.3 mL/min (>60) Glucose Level 119 MG/DL (74-106) H Uric Acid 6.4 MG/DL (2.6-7.2) Calcium Level 8.5 MG/DL (8.5-10.1) Phosphorus Level 5.6 MG/DL (2.5-4.9) H Magnesium Level 1.9 MG/DL (1.8-2.4) Total Bilirubin 0.2 MG/DL (0.2-1.0) Aspartate Amino Transf (AST/SGOT) 92 U/L (15-37) H Alanine Aminotransferase (ALT/SGPT) 247 U/L (12-78) H Alkaline Phosphatase 101 U/L (46-116) C-Reactive Protein, Quantitative 3.6 mg/dL (0.00-0.90) H Pro-B-Type Natriuretic Peptide > 72853 pg/mL (0-125) H Total Protein 6.0 G/DL (6.4-8.2) L Albumin 2.3 G/DL (3.4-5.0) L Globulin 3.7 g/dL Albumin/Globulin Ratio 0.6 (1.0-2.7) L Vitamin B12 Level 1754 PG/ML (193-986) H Folate 20.0 NG/ML (8.6-58.9) Fidencio Jenkins MD Jul 05, 2019 11:17
--- NOTE | 2019-07-05 11:28 | NUR ---
LEAF BINNER: REVIEW 07/03/19 SI: TROP (+) . RESP FAILURE TRACH/VENT DEPENDENT . SEPSIS 100.5 63 21 158/86 100% MECHANICAL VENT FIO2 40% TROP 7.496 WBC 13.1 H/H 9.3/27.8 NA 148 BUN 78 AST/ALT 93/239 ALKP 126 BNP >74194 TSH < 0.010 IS: IV D5@75ML/HR IV ZOSYN BID LOPRESSOR GT BID IV PROTONIX BID HEPARIN SQ BID ALBUMIN HUMAN Q6HR X6BAGS HYDRALAZINE GT Q6HR CLONIDINE GT Q4HR/PRN ASA GT QD CHEST X-RAY- infiltrate and atelectasis US ABD- MILD LEFT HYDRONEPHROSIS DCP RETURN TO [facility]: SP CX (+) VRE(+) LEAF BINNER: REVIEW 07/04/19 SI: RESP FAILURE TRACH/VENT DEPENDENT,SEPSIS . NSTEMI 101.8 71 15 167/80 100% MECHANICAL VENT FIO2 40% WBC 13.1 H/H 9.3/27.3 BUN 77 CREAT 1.6 AST/ALT 85/232 ALKP 121 BNP >37886 TSH < 0.010 VANCO TROUGH 28.9 ABG: pH 7.324 pCO2- 49.2 O2 SAT 94.2 IS: IV D5@75ML/HR IV ZOSYN BID LOPRESSOR GT BID IV PROTONIX BID HEPARIN SQ BID ALBUMIN HUMAN Q6HR X6BAGS HYDRALAZINE GT Q6HR CLONIDINE GT Q4HR/PRN ASA GT QD DCP RETURN TO [facility]: SP CX (+) VRE(+) [facility]AF [facility]NER: REVIEW 07/05/19 SI: RESP FAILURE TRACH/VENT DEPENDENT,SEPSIS . NSTEMI 98.0 60 175/93 100% MECHANICAL VENT FIO2 40% WBC 11 H/H 9.1/27.1 BUN 71 CREAT 1.6 AST/ALT 92/247 BNP >02977 PHOS 5.6 IS: IV D5@75ML/HR IV ZOSYN BID LOPRESSOR GT BID IV PROTONIX BID HEPARIN SQ BID ALBUMIN HUMAN Q6HR X6BAGS HYDRALAZINE GT Q6HR CLONIDINE GT Q4HR/PRN ASA GT QD DCP RETURN TO [facility]: SP CX (+) VRE(+)
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
--- NOTE | 2019-07-05 12:11 | NUR ---
NURSE NOTES: Previous order of Hydralazine 25mg was given at 1146, at 1200 a new order of Hydralazine of 50mg was ordered. Will administer additional 25mg to meet new order of 50mg of hydralazine.
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
--- NOTE | 2019-07-05 13:15 | Progress Note ---
DATE: 07/04/2019 was in previous dictation on for another patient in ICU dictation of the , , and are missing. In effect, the H and P that was dictated on June 30 is completely missing my dictation from July 01 and July 02. Anusha Cordon M.D. DR: MAHESH JOB#: [id number] CC:
--- NOTE | 2019-07-05 13:33 | Diagnostic Imaging Report ---
Indication: Dyspnea Comparison: 07/02/2019 A single view chest radiograph was obtained. Findings: Pulmonary vascularity is mildly increased. Heart is enlarged. There is an endotracheal tube present. The tip is a few centimeters above the roberto. IMPRESSION: Query mild interstitial edema.
--- NOTE | 2019-07-05 13:48 | NUR ---
NURSE NOTES: Late Note: Patient seen by wound care nurse approximately at 1200. Dressings changed on patient, turned, and repositioned.
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
--- NOTE | 2019-07-05 15:45 | Surgery Progress Note ---
Surgery Progress Note Subjective Additional Comments ill appearing on vent support labs noted imaging reviewed Objective Last 24 Hour Vital Signs Date Time Temp Pulse Resp B/P (MAP) Pulse Ox O2 Delivery O2 Flow Rate FiO2 07/05/19 15:24 55 15 40 07/05/19 15:00 54 22 142/74 (96) 100 07/05/19 14:00 55 18 144/77 (99) 100 07/05/19 13:02 63 15 40 07/05/19 13:00 58 23 149/81 (103) 100 07/05/19 12:10 164/83 07/05/19 12:00 97.9 61 23 177/88 (117) 100 07/05/19 12:00 40 07/05/19 11:46 164/86 07/05/19 11:44 61 07/05/19 11:00 63 20 164/86 (112) 100 07/05/19 11:00 64 16 40 07/05/19 10:00 63 17 163/88 (113) 100 07/05/19 09:12 69 174/88 07/05/19 09:11 62 18 40 07/05/19 09:00 67 19 174/88 (116) 100 07/05/19 08:00 40 07/05/19 08:00 98.0 60 17 175/93 (120) 100 07/05/19 07:18 60 07/05/19 07:02 62 18 40 07/05/19 07:00 57 13 175/90 (118) 100 07/05/19 06:00 57 13 185/85 (118) 100 07/05/19 05:51 174/89 07/05/19 05:20 63 18 40 07/05/19 05:00 60 13 174/89 (117) 100 07/05/19 04:00 40 07/05/19 04:00 61 23 176/84 (114) 100 07/05/19 04:00 60 07/05/19 03:25 59 17 40 07/05/19 03:00 98.1 57 20 155/86 (109) 100 07/05/19 02:09 184/91 07/05/19 02:00 51 16 183/88 (119) 100 07/05/19 01:00 61 16 40 07/05/19 01:00 62 18 162/84 (110) 100 07/05/19 00:40 143/75 07/05/19 00:00 40 07/05/19 00:00 71 07/05/19 00:00 62 18 143/75 (97) 100 07/04/19 23:30 56 14 40 07/04/19 23:00 96.2 59 15 145/82 (103) 100 07/04/19 22:00 97.8 67 18 151/84 (106) 100 07/04/19 21:31 64 165/89 07/04/19 21:02 62 16 40 07/04/19 21:00 98.9 63 18 165/89 (114) 100 07/04/19 20:00 99.8 69 17 175/79 (111) 100 07/04/19 20:00 40 07/04/19 20:00 71 07/04/19 19:23 101.4 07/04/19 19:04 65 16 40 07/04/19 19:00 101.4 72 20 159/86 (110) 100 07/04/19 18:13 169/84 07/04/19 18:00 101.8 71 15 167/80 (109) 100 07/04/19 17:11 69 19 40 07/04/19 17:00 65 18 166/80 (108) 100 07/04/19 16:32 176/81 07/04/19 16:00 68 18 176/81 (112) 100 07/04/19 16:00 66 07/04/19 16:00 40 I&O Intake and Output 07/04/19 07/05/19 19:00 07:00 Intake Total 2165.0 ml 2169.833 ml Output Total 1240 ml 600 ml Balance 925.0 ml 1569.833 ml Intake Free Water 300 ml 200 ml IV Total 1055.0 ml 1189.833 ml Tube Feeding 780 ml 780 ml Other 30 ml Output Urine Total 1240 ml 600 ml Dressing: saturated, other Wound: other Drains: other Cardiovascular: RSR Respiratory: decreased breath sounds Abdomen: soft, non-tender, present bowel sounds, non-distended Extremities: no tenderness, no cyanosis, other Laboratory Tests Test 07/04/19 18:40 07/04/19 20:00 07/05/19 05:00 Urine Random Sodium 66 mmol/L (20-110) Vancomycin Level Trough 28.9 ug/mL (5.0-12.0) H White Blood Count 11.0 K/UL (4.8-10.8) H Red Blood Count 3.22 M/UL (4.70-6.10) L Hemoglobin 9.1 G/DL (14.2-18.0) L Hematocrit 27.1 % (42.0-52.0) L Mean Corpuscular Volume 84 FL (80-99) Mean Corpuscular Hemoglobin 28.4 PG (27.0-31.0) Mean Corpuscular Hemoglobin Concent 33.7 G/DL (32.0-36.0) Red Cell Distribution Width 13.0 % (11.6-14.8) Platelet Count 211 K/UL (150-450) Mean Platelet Volume 7.0 FL (6.5-10.1) Neutrophils (%) (Auto) 76.3 % (45.0-75.0) H Lymphocytes (%) (Auto) 12.7 % (20.0-45.0) L Monocytes (%) (Auto) 7.7 % (1.0-10.0) Eosinophils (%) (Auto) 2.1 % (0.0-3.0) Basophils (%) (Auto) 1.2 % (0.0-2.0) Sodium Level 140 MMOL/L (136-145) Potassium Level 4.2 MMOL/L (3.5-5.1) Chloride Level 101 MMOL/L (98-107) Carbon Dioxide Level 29 MMOL/L (21-32) Anion Gap 11 mmol/L (5-15) Blood Urea Nitrogen 71 mg/dL (7-18) H Creatinine 1.6 MG/DL (0.55-1.30) H Estimat Glomerular Filtration Rate 45.3 mL/min (>60) Glucose Level 119 MG/DL (74-106) H Uric Acid 6.4 MG/DL (2.6-7.2) Calcium Level 8.5 MG/DL (8.5-10.1) Phosphorus Level 5.6 MG/DL (2.5-4.9) H Magnesium Level 1.9 MG/DL (1.8-2.4) Total Bilirubin 0.2 MG/DL (0.2-1.0) Aspartate Amino Transf (AST/SGOT) 92 U/L (15-37) H Alanine Aminotransferase (ALT/SGPT) 247 U/L (12-78) H Alkaline Phosphatase 101 U/L (46-116) C-Reactive Protein, Quantitative 3.6 mg/dL (0.00-0.90) H Pro-B-Type Natriuretic Peptide > 43230 pg/mL (0-125) H Total Protein 6.0 G/DL (6.4-8.2) L Albumin 2.3 G/DL (3.4-5.0) L Globulin 3.7 g/dL Albumin/Globulin Ratio 0.6 (1.0-2.7) L Vitamin B12 Level 1754 PG/ML (193-986) H Folate 20.0 NG/ML (8.6-58.9) Plan Problems: (1) Decubitus skin ulcer Assessment & Plan: Pt presented on admission with Full thickness stage 4sacral pressure injury. Base of wound is necrotic in center with surrounding mixed slough and erythema. Periwound indurated and is maroon and purple in colour. Tx.Plan: Cleanse Sacral wound with Saline. Apply TheraHoney. Apply Moisture Barrier Periwound. Cover with Optifoam drsg. Change every 3 days and prn. Apply Cavilon Skin Barrier to heels. Cover each heel with Optifoam drsg. Change every 7 days and prn. Reposition at least every 2hours or as tolerated. Off-load heels with pillow. (2) Sepsis Assessment & Plan: Leukocytosis, lactic acidosis, elevated LFTs. Likely from dehydration, pneumonia Labs reviewed, imaging reviewed Antibiotics as per infectious disease Tube feeds as tolerated The liver appears normal in size without focal lesion. The gallbladder is moderately distended. The gallbladder wall is the upper limits of normal measuring 2.7 mm. No stones are identified. There is mild upper abdominal ascites. Common bile duct is normal in caliber. There is very mild left hydronephrosis. No right hydronephrosis identified. The spleen, visualized pancreas, IVC and aorta appear within normal limits. The bladder is mildly distended with a Dash catheter in place. Correlation with a Dash catheter patency is recommended. will follow with recs thank you (3) Ventilator associated pneumonia Assessment & Plan: There is persistent elevation of the right hemidiaphragm. There is minimally improved aeration of the right lung base. Currently, the right lower lobe and/or right middle lobe appear to demonstrate some consolidation as well as atelectasis. There is somewhat improved aeration of the left lower lobe, previously suspected left lower lobe infiltrate appears cleared somewhat. Tracheostomy, PICC remain. 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
--- NOTE | 2019-07-05 19:28 | NUR ---
HAND-OFF: Report given to Oliver DEMPSEY.
--- NOTE | 2019-07-05 19:30 | NUR ---
NURSE NOTES: SBAR from Dc RN. Patient is awake and oriented to place purpose and self. Patient is ventilator dependant Shiley 7.0 AC 14, 500, 40% FiO2 and peep of 5. Patient has a GT with Glucerna 1.2 @ 65ml/hr. Rectal tube noted with brown liquid stool coming out from tube, some minor leakage noted. MG PICC line noted that is dry and intact. Abx and Albumin currently infusing. At this time patient is afebrile, HR is 55 SB, 125/74, SpO2 100%, RR 20. Wounds noted, patient has P200 mattress, no apparent distress at this time. Dash catheter noted, hematuria noted. Safety measures in place. Will continue to monitor.
--- NOTE | 2019-07-05 19:45 | NUR ---
NURSE NOTES: 24 hour urine specimen collection was collected and sent to lab.
[2019-07-05] MEDS: Dyna-Hex 2% Top Sol 2oz TOPIC SCH (20:07)
--- NOTE | 2019-07-05 20:30 | NUR ---
NURSE NOTES: Patient cleaned using CHG soap, suctioned and repositioned. HR is maintained around the 50s, blood pressure has been stable, asymptomatic bradycardia. Wound dressings changed. Flushed 100ml of water. No acute distress at this time, will continue to monitor.
--- NOTE | 2019-07-05 21:10 | NUR ---
RESPIRATORY NOTE: PT RECEIVED STABLE ON CURRENT CMV SETTINGS. NO S/S OF RESPIRATORY DISTRESS NOTED AT TIME. VENT CIRCUIT SECURE AND OUT OF THE WAY. WILL CONTINUE TO CLOSELY MONITOR.
--- NOTE | 2019-07-05 22:30 | NUR ---
NURSE NOTES: Dr. Cordon at bedside assessing patient. Informed MD regarding hematuria. New orders for Bactrim DS to be given as scheduled and also new order for PTT in the morning.
[2019-07-05] MEDS: Acetaminophen 650mg/20.3ml GT PRN (23:22)
[2019-07-06] VITALS (24 sets, daily range): BP systolic 115–177; BP diastolic 65–86
--- NOTE | 2019-07-06 | NUR ---
NURSE NOTES: Transferred patient to room 246 bed D. Patient repositioned and suctioned. Vitals are stable at this time. NAD. Afebrile, 98.8F. NAD at this time, rectal tube draining well, minimal leakage. Patient making good urine output. Last Albumin 25% given. Will continue to monitor.
--- NOTE | 2019-07-06 02:00 | NUR ---
NURSE NOTES: Repositioned , suctioned and oral care provided, passive range of motion exercises done. VSS, will continue to monitor.
--- NOTE | 2019-07-06 04:21 | NUR ---
NURSE NOTES: Sponge bath given, suctioned, blood drawn and sent to lab. Hematuria output continues, Attending already aware. NAD, will continue to monitor.
--- NOTE | 2019-07-06 05:04 | NUR ---
RESPIRATORY NOTE: PT REMAINED STABLE ON CMV WITH CURRENT SETTINGS. SX PRN. AIRWAY IS SECURE AND PATENT. VENT CIRCUIT AND SX TUBBING SECURE AND OUT OF THE WAY. NO S/S OF RESPIRATORY DISTRESS NOTED AT THIS TIME.
[2019-07-06 05:23] LABS: BASOPHILS % (AUTO) 0.8 % (0.0-2.0); EOSINOPHILS % (AUTO) 2.1 % (0.0-3.0); HEMATOCRIT 27.6 % (42.0-52.0); HEMOGLOBIN 9.4 G/DL (14.2-18.0); LYMPHOCYTES % (AUTO) 9.3 % (20.0-45.0); MEAN CORPUSCULAR VOLUME 83 FL (80-99); MONOCYTES % (AUTO) 5.9 % (1.0-10.0); NEUTROPHILS % (AUTO) 81.9 % (45.0-75.0); PLATELET COUNT 227 K/UL (150-450); RED BLOOD COUNT 3.31 M/UL (4.70-6.10); WHITE BLOOD COUNT 12.6 K/UL (4.8-10.8)
[2019-07-06 05:38] LABS: ALANINE AMINOTRANSFERASE 179 U/L (12-78); ALBUMIN 2.9 G/DL (3.4-5.0); ALBUMIN/GLOBULIN RATIO 0.9 (1.0-2.7); ALKALINE PHOSPHATASE 86 U/L (46-116); ANION GAP 11 mmol/L (5-15); ASPARTATE AMINO TRANSFERASE 51 U/L (15-37); BILIRUBIN,TOTAL 0.3 MG/DL (0.2-1.0); BLOOD UREA NITROGEN 66 mg/dL (7-18); CALCIUM 8.8 MG/DL (8.5-10.1); CARBON DIOXIDE 27 MMOL/L (21-32); CHLORIDE 104 MMOL/L (98-107); CREATININE 1.6 MG/DL (0.55-1.30); POTASSIUM 4.3 MMOL/L (3.5-5.1); SODIUM 142 MMOL/L (136-145)
[2019-07-06] MEDS: HydrALAZINE 50mg tab GT SCH ×3 (05:52→21:37)
[2019-07-06] MEDS: Acetaminophen 650mg/20.3ml GT PRN ×2 (05:53→12:33)
[2019-07-06] MEDS: Piperacillin/Tazobactam 3.375 GM in NS 110 ML IVPB SCH ×2 (05:53→18:18)
--- NOTE | 2019-07-06 07:00 | Progress Note ---
DATE: 07/05/2019 SUBJECTIVE: The patient's eyes were open, made an eye contact. There is no verbal response. PHYSICAL EXAMINATION: VITAL SIGNS: Blood pressure is 132/71, his pulse is 58, respirations of 27, and temperature 97.6. HEENT: Eyes were normal. ENT, mucous membranes were moist and intact. NECK: Supple with no JVD without lymph nodes. Tracheostomy site is clean. LUNGS: Clear without rhonchi, rales, or wheezing. HEART: Normal sounds with regular beats. ABDOMEN: Soft and nontender with normal bowel sounds. Gastrostomy site is clean. EXTREMITIES: Warm without cyanosis, clubbing, or edema. LABORATORY DATA: His hemoglobin is 9.1, hematocrit 27. with MCV of 84, WBC of 11.0, and platelets are 211,000. His WBC yesterday was 13.1. His BUN and creatinine are 71 and 1.6 respectively. His sodium is 140, potassium 4.2, chloride 101, CO2 is 29. His uric acid is 6.4. His phosphorus is 5.6 and magnesium is 1.9. His ProBNP is 35,000. His CRP is 3.6. His hepatitis A, hepatitis B, and hepatitis C are all negative. pending. His [place] test was undetected. IMPRESSION: The patient is on Levaquin, vancomycin, and Zosyn. He is not . He is afebrile without tachycardia. His WBC declined. Repeat laboratory tests will be done in a.m. Anusha Cordon M.D. DR: SHANTANU JOB#: [id number] CC:
--- NOTE | 2019-07-06 07:05 | NUR ---
NURSE NOTES: Received patient from ROSELYN Boyd. Patient alert to name, place, and purpose. patient communicates by noding/shaking head and mouthing words. Patient denies pain or distress at this time. Patient quadriplegic. Sinus rhythm noted on bicycle repairer with rate of 64 beats per minute. Blood pressure stable at 127/74. Patient trach to ventilator with trach size shiley 7 with ventilator setting AC 14, tidal volume 500, FiO2 40% and PEEP 5. Patient tolerating setting with no sign of acute respiratory distress. Patient has gastrostomy tube that is patent, asymptomatic, and running Glucerna tube feeding at 65mL/hr with no residual noted at this time. Patient has rectal tube for continued diarrhea. Patient has raya for urine retention with bright red/pink urine noted. Dr Cordon aware. Will continue wero monitor. Patient has small sacral un-stageable pressure injury. patient on low air loss mattress for skin protection. Will turn every 2 hours and as needed to prevent further pressure injury. Patient has left upper arm PICC line that is patent, asymptomatic, and saline locked at this time. Patient has serum magnesium level of 1.6 this morning[address] Will ensure Dr Adair louie aware when he rounds on the patient. Bed in low position and call light in reach at this time. Patient repositioned and oral care performed. Will continue to monitor.
--- NOTE | 2019-07-06 07:15 | Progress Note ---
DATE: 07/05/2019 CARDIOLOGY PROGRESS NOTE SUBJECTIVE: The patient remains on ventilator support. Blood pressure parameters remain elevated. He remains at baseline. Comatose state quadriparesis. Monitored rhythm, sinus and sinus bradycardia. PHYSICAL EXAMINATION: VITAL SIGNS: Blood pressure 163/82, heart rate 59, and respiratory rate 19. LUNGS: Bilateral breath sounds. Few rhonchi. CARDIAC: Regular rhythm. Slow rate. Normal S1 and S2. ABDOMEN: Soft and flaccid. EXTREMITIES: No edema. LABORATORY DATA: White count 11 and hemoglobin 9.1. Potassium 4.2, BUN 71, and creatinine 1.6. Pro-natriuretic peptide is over 35,000. IMPRESSION: 1. Ventilator-dependent respiratory failure. 2. Sepsis with recovered shock. 3. Labile hypertension. 4. Acute myocardial infarction. PLAN: 1. Anti-platelet therapy. 2. Decrease beta-jason dosing. 3. If bradycardia worsens, advance antihypertensive regimen. Néstor Cervantes M.D. DR: ADELINE JOB#: [id number] CC:
[2019-07-06] MEDS ORDERED: Vancomycin 1gm in Dextrose 275ml IVPB SCH (08:00)
[2019-07-06] MEDS: Bactrim Susp 20ml NG SCH ×2 (08:41→20:35)
[2019-07-06] MEDS: Pantoprazole Inj IVP SCH ×2 (08:42→20:39)
[2019-07-06] MEDS: Aspirin Baby 81mg GT SCH (08:43)
[2019-07-06] MEDS: Heparin 5000 units/ml inj SUBQ SCH ×2 (08:43→20:40)
--- NOTE | 2019-07-06 09:10 | General Progress Note ---
Assessment/Plan Problem List: (1) Anemia ICD Codes: D64.9 - Anemia, unspecified SNOMED: 495209285 (2) Elevated LFTs ICD Codes: R94.5 - Abnormal results of liver function studies SNOMED: 815651146, 801304058 (3) Attention to G-tube ICD Codes: Z43.1 - Encounter for attention to gastrostomy SNOMED: 756977036, 213401494, 226891144 (4) Ventilator associated pneumonia ICD Codes: J95.851 - Ventilator associated pneumonia SNOMED: 676845977 (5) Chronic complete flaccid quadriplegia SNOMED: 111231594, 725305773 (6) Sepsis ICD Codes: A41.9 - Sepsis, unspecified organism SNOMED: 14211770 Qualifiers: Qualified Codes: A41.9 - Sepsis, unspecified organism; R65.20 - Severe sepsis without septic shock; N17.9 - Acute kidney failure, unspecified Assessment/Plan: anemia work up stable H&H hepatitis panel>>> neg repeat labs us reviewed GTF tolerated Subjective ROS Limited/Unobtainable: No Allergies: Coded Allergies: No Known Allergies (Unverified , 07/01/19) Objective Last 24 Hour Vital Signs Date Time Temp Pulse Resp B/P (MAP) Pulse Ox O2 Delivery O2 Flow Rate FiO2 07/06/19 08:42 61 146/68 07/06/19 07:05 65 21 40 07/06/19 07:00 60 22 127/74 (91) 95 07/06/19 06:00 60 21 135/77 (96) 98 07/06/19 05:52 152/83 07/06/19 05:04 61 21 40 07/06/19 05:00 63 22 152/83 (106) 100 07/06/19 04:00 40 07/06/19 04:00 Mechanical Ventilator Mechanical Ventilator 07/06/19 04:00 99.5 61 20 165/84 (111) 99 07/06/19 04:00 65 07/06/19 03:02 70 18 40 07/06/19 03:00 67 19 177/86 (116) 96 07/06/19 02:00 64 21 166/82 (110) 99 07/06/19 01:00 61 19 152/80 (104) 96 3/24/20 00:14 71 27 40 07/06/19 00:00 Mechanical Ventilator Mechanical Ventilator 07/06/19 00:00 59 07/06/19 00:00 40 07/06/19 00:00 98.8 56 20 143/81 (101) 100 07/05/19 23:22 163/82 07/05/19 23:00 59 19 163/82 (109) 99 07/05/19 22:35 56 21 40 07/05/19 22:00 58 27 132/71 (91) 98 07/05/19 21:10 56 21 40 07/05/19 21:00 56 23 103/63 (76) 90 07/05/19 20:07 58 125/74 07/05/19 20:00 57 07/05/19 20:00 97.6 56 16 146/74 (98) 100 07/05/19 20:00 40 07/05/19 20:00 Mechanical Ventilator Mechanical Ventilator 07/05/19 19:02 58 19 40 07/05/19 19:00 58 25 125/74 (91) 99 07/05/19 18:00 60 17 168/78 (108) 100 07/05/19 17:30 152/70 07/05/19 17:02 64 15 40 07/05/19 17:00 63 23 152/70 (97) 100 07/05/19 16:00 Mechanical Ventilator Mechanical Ventilator 07/05/19 16:00 40 07/05/19 16:00 98.4 55 16 137/72 (93) 100 07/05/19 15:34 55 07/05/19 15:24 55 15 40 07/05/19 15:00 54 22 142/74 (96) 100 07/05/19 14:00 55 18 144/77 (99) 100 07/05/19 13:02 63 15 40 07/05/19 13:00 58 23 149/81 (103) 100 07/05/19 12:10 164/83 07/05/19 12:00 97.9 61 23 177/88 (117) 100 07/05/19 12:00 Mechanical Ventilator Mechanical Ventilator 07/05/19 12:00 40 07/05/19 11:46 164/86 07/05/19 11:44 61 07/05/19 11:00 63 20 164/86 (112) 100 07/05/19 11:00 64 16 40 07/05/19 10:00 63 17 163/88 (113) 100 07/05/19 09:12 69 174/88 07/05/19 09:11 62 18 40 Intake and Output 07/05/19 07/06/19 19:00 07:00 Intake Total 1646.417 ml 1076.25 ml Output Total 1525 ml 835 ml Balance 121.417 ml 241.25 ml Intake Free Water 100 ml 100 ml IV Total 766.417 ml 196.25 ml Tube Feeding 780 ml 780 ml Output Urine Total 1325 ml 835 ml Stool Total 200 ml Laboratory Tests 07/06/19 04:00: White Blood Count 12.6H, Red Blood Count 3.31L, Hemoglobin 9.4L, Hematocrit 27.6L, Mean Corpuscular Volume 83, Mean Corpuscular Hemoglobin 28.4, Mean Corpuscular Hemoglobin Concent 34.0, Red Cell Distribution Width 13.0, Platelet Count 227, Mean Platelet Volume 7.3, Neutrophils (%) (Auto) 81.9H, Lymphocytes ( %) (Auto) 9.3L, Monocytes (%) (Auto) 5.9, Eosinophils (%) (Auto) 2.1, Basophils (%) (Auto) 0.8, Activated Partial Thromboplast Time 31, Sodium Level 142, Potassium Level 4.3, Chloride Level 104, Carbon Dioxide Level 27, Anion Gap 11, Blood Urea Nitrogen 66H, Creatinine 1.6H, Estimat Glomerular Filtration Rate 45.3, Glucose Level 102, Uric Acid 6.3, Calcium Level 8.8, Phosphorus Level 5.0H , Magnesium Level 1.6L, Total Bilirubin 0.3, Aspartate Amino Transf (AST/SGOT) 51H, Alanine Aminotransferase (ALT/SGPT) 179H, Alkaline Phosphatase 86, Troponin I 1.459H, Total Protein 6.1L, Albumin 2.9L, Globulin 3.2, Albumin/ Globulin Ratio 0.9L, Random Vancomycin Level 19.2 Height (Feet): 5 Height (Inches): 9.00 Weight (Pounds): 191 General Appearance: lethargic EENT: normal ENT inspection Neck: supple Cardiovascular: normal rate Respiratory/Chest: decreased breath sounds Abdomen: normal bowel sounds, non tender, soft Extremities: non-tender Talat Beckwith MD Jul 06, 2019 09:10
--- NOTE | 2019-07-06 09:34 | NUR ---
RADIOLOGY DEPT., CHEST X-RAY DONE.-P.DYE
--- NOTE | 2019-07-06 09:59 | NUR ---
CUT OFF SAW OPERATOR: REVIEW 07/05/19 SI: RESP FAILURE TRACH/VENT DEPENDENT,SEPSIS . NSTEMI . UTI +VRE 99.5 61 20 165/84 99% MECHANICAL VENT FIO2 40% TROP 1.459 PHOS 5.0 MG 1.6 WBC 12.6 H/H 9.4/27.6 BUN 66 CREAT 1.6 AST/ALT 51/179 BNP >09982 PHOS 5.6 IS: IV VANCOMYCIN X1 IV MG SULFATE X2 BAGS IV D5@75ML/HR IV LEVAQUIN Q48HR IV ZOSYN BID LOPRESSOR GT BID IV PROTONIX BID HEPARIN SQ BID ALBUMIN HUMAN Q6HR X6BAGS HYDRALAZINE GT Q6HR CLONIDINE GT Q4HR/PRN ASA GT QD DCP: RETURN TO [facility] PLAN: TROP STILL POSITIVE
--- NOTE | 2019-07-06 10:00 | NUR ---
NURSE NOTES: Patient denies pain or distress. Vital signs stable. Patient repositioned.
--- NOTE | 2019-07-06 11:49 | Surgery Progress Note ---
Surgery Progress Note Subjective Additional Comments wbc 12k ill appearing on vent support no significant responsiveness Objective Last 24 Hour Vital Signs Date Time Temp Pulse Resp B/P (MAP) Pulse Ox O2 Delivery O2 Flow Rate FiO2 07/06/19 11:00 58 33 136/67 (90) 100 07/06/19 10:00 56 20 146/75 (98) 100 07/06/19 09:05 61 20 40 07/06/19 09:00 60 22 146/75 (98) 100 07/06/19 08:42 61 146/68 07/06/19 08:00 40 07/06/19 08:00 98.6 62 21 146/68 (94) 100 07/06/19 08:00 59 07/06/19 08:00 Mechanical Ventilator Mechanical Ventilator 07/06/19 07:05 65 21 40 07/06/19 07:00 60 22 127/74 (91) 95 07/06/19 06:00 60 21 135/77 (96) 98 07/06/19 05:52 152/83 07/06/19 05:04 61 21 40 07/06/19 05:00 63 22 152/83 (106) 100 07/06/19 04:00 40 07/06/19 04:00 Mechanical Ventilator Mechanical Ventilator 07/06/19 04:00 99.5 61 20 165/84 (111) 99 07/06/19 04:00 65 07/06/19 03:02 70 18 40 07/06/19 03:00 67 19 177/86 (116) 96 07/06/19 02:00 64 21 166/82 (110) 99 07/06/19 01:00 61 19 152/80 (104) 96 07/06/19 00:14 71 27 40 07/06/19 00:00 Mechanical Ventilator Mechanical Ventilator 07/06/19 00:00 59 07/06/19 00:00 40 07/06/19 00:00 98.8 56 20 143/81 (101) 100 07/05/19 23:22 163/82 07/05/19 23:00 59 19 163/82 (109) 99 07/05/19 22:35 56 21 40 07/05/19 22:00 58 27 132/71 (91) 98 07/05/19 21:10 56 21 40 07/05/19 21:00 56 23 103/63 (76) 90 07/05/19 20:07 58 125/74 07/05/19 20:00 57 07/05/19 20:00 97.6 56 16 146/74 (98) 100 07/05/19 20:00 40 07/05/19 20:00 Mechanical Ventilator Mechanical Ventilator 07/05/19 19:02 58 19 40 07/05/19 19:00 58 25 125/74 (91) 99 07/05/19 18:00 60 17 168/78 (108) 100 07/05/19 17:30 152/70 07/05/19 17:02 64 15 40 07/05/19 17:00 63 23 152/70 (97) 100 07/05/19 16:00 Mechanical Ventilator Mechanical Ventilator 07/05/19 16:00 40 07/05/19 16:00 98.4 55 16 137/72 (93) 100 07/05/19 15:34 55 07/05/19 15:24 55 15 40 07/05/19 15:00 54 22 142/74 (96) 100 07/05/19 14:00 55 18 144/77 (99) 100 07/05/19 13:02 63 15 40 07/05/19 13:00 58 23 149/81 (103) 100 07/05/19 12:10 164/83 07/05/19 12:00 97.9 61 23 177/88 (117) 100 07/05/19 12:00 Mechanical Ventilator Mechanical Ventilator 07/05/19 12:00 40 I&O Intake and Output 07/05/19 07/06/19 19:00 07:00 Intake Total 1646.417 ml 1076.25 ml Output Total 1525 ml 835 ml Balance 121.417 ml 241.25 ml Intake Free Water 100 ml 100 ml IV Total 766.417 ml 196.25 ml Tube Feeding 780 ml 780 ml Output Urine Total 1325 ml 835 ml Stool Total 200 ml Dressing: dry Wound: other Drains: other Cardiovascular: RSR Respiratory: decreased breath sounds Abdomen: soft, present bowel sounds, other - feeding tube , non-distended Extremities: no edema, no cyanosis Laboratory Tests Test 07/06/19 04:00 White Blood Count 12.6 K/UL (4.8-10.8) H Red Blood Count 3.31 M/UL (4.70-6.10) L Hemoglobin 9.4 G/DL (14.2-18.0) L Hematocrit 27.6 % (42.0-52.0) L Mean Corpuscular Volume 83 FL (80-99) Mean Corpuscular Hemoglobin 28.4 PG (27.0-31.0) Mean Corpuscular Hemoglobin Concent 34.0 G/DL (32.0-36.0) Red Cell Distribution Width 13.0 % (11.6-14.8) Platelet Count 227 K/UL (150-450) Mean Platelet Volume 7.3 FL (6.5-10.1) Neutrophils (%) (Auto) 81.9 % (45.0-75.0) H Lymphocytes (%) (Auto) 9.3 % (20.0-45.0) L Monocytes (%) (Auto) 5.9 % (1.0-10.0) Eosinophils (%) (Auto) 2.1 % (0.0-3.0) Basophils (%) (Auto) 0.8 % (0.0-2.0) Activated Partial Thromboplast Time 31 SEC (23-33) Sodium Level 142 MMOL/L (136-145) Potassium Level 4.3 MMOL/L (3.5-5.1) Chloride Level 104 MMOL/L (98-107) Carbon Dioxide Level 27 MMOL/L (21-32) Anion Gap 11 mmol/L (5-15) Blood Urea Nitrogen 66 mg/dL (7-18) H Creatinine 1.6 MG/DL (0.55-1.30) H Estimat Glomerular Filtration Rate 45.3 mL/min (>60) Glucose Level 102 MG/DL (74-106) Uric Acid 6.3 MG/DL (2.6-7.2) Calcium Level 8.8 MG/DL (8.5-10.1) Phosphorus Level 5.0 MG/DL (2.5-4.9) H Magnesium Level 1.6 MG/DL (1.8-2.4) L Total Bilirubin 0.3 MG/DL (0.2-1.0) Aspartate Amino Transf (AST/SGOT) 51 U/L (15-37) H Alanine Aminotransferase (ALT/SGPT) 179 U/L (12-78) H Alkaline Phosphatase 86 U/L (46-116) Troponin I 1.459 ng/mL (0.000-0.056) Total Protein 6.1 G/DL (6.4-8.2) L Albumin 2.9 G/DL (3.4-5.0) L Globulin 3.2 g/dL Albumin/Globulin Ratio 0.9 (1.0-2.7) L Random Vancomycin Level 19.2 ug/mL Plan Problems: (1) Decubitus skin ulcer Assessment & Plan: Pt presented on admission with Full thickness stage 4sacral pressure injury. Base of wound is necrotic in center with surrounding mixed slough and erythema. Periwound indurated and is maroon and purple in colour. Tx.Plan: Cleanse Sacral wound with Saline. Apply TheraHoney. Apply Moisture Barrier Periwound. Cover with Optifoam drsg. Change every 3 days and prn. Apply Cavilon Skin Barrier to heels. Cover each heel with Optifoam drsg. Change every 7 days and prn. Reposition at least every 2hours or as tolerated. Off-load heels with pillow. (2) Sepsis Assessment & Plan: Leukocytosis, lactic acidosis, elevated LFTs. Likely from dehydration, pneumonia Labs reviewed, imaging reviewed Antibiotics as per infectious disease Tube feeds as tolerated wbc fluctuating on abx lft's improved la improved tolerating tube feeds cxr noted The liver appears normal in size without focal lesion. The gallbladder is moderately distended. The gallbladder wall is the upper limits of normal measuring 2.7 mm. No stones are identified. There is mild upper abdominal ascites. Common bile duct is normal in caliber. There is very mild left hydronephrosis. No right hydronephrosis identified. The spleen, visualized pancreas, IVC and aorta appear within normal limits. The bladder is mildly distended with a Dash catheter in place. Correlation with a Dash catheter patency is recommended. will follow with recs thank you (3) Ventilator associated pneumonia Assessment & Plan: There is persistent elevation of the right hemidiaphragm. There is minimally improved aeration of the right lung base. Currently, the right lower lobe and/or right middle lobe appear to demonstrate some consolidation as well as atelectasis. There is somewhat improved aeration of the left lower lobe, previously suspected left lower lobe infiltrate appears cleared somewhat. Tracheostomy, PICC remain. The heart size is normal Impression: Appearance of the right lung base now has appearance of infiltrate and atelectasis rather than just atelectasis There appears to be improving but persistent mild left basilar consolidation (4) UTI (urinary tract infection) (5) NSTEMI (non-ST elevated myocardial infarction) (6) ALEXA (acute kidney injury) (7) Acute metabolic encephalopathy (8) Chronic vegetative state (9) Traumatic brain injury (10) Attention to G-tube (11) Chronic complete flaccid quadriplegia (12) ATN (acute tubular necrosis) Akash Sotelo Jul 06, 2019 11:49
--- NOTE | 2019-07-06 11:53 | Pulmonolgy Critical Care Note ---
Critical Care - Asmt/Plan Problems: (1) Sepsis (2) Ventilator associated pneumonia (3) ATN (acute tubular necrosis) (4) ALEXA (acute kidney injury) (5) Decubitus skin ulcer (6) Chronic complete flaccid quadriplegia (7) Attention to G-tube (8) Traumatic brain injury Respiratory: monitor respiratory rate, adjust FIO2, CXR Cardiac: continue to monitor HR/BP Renal: F/U I&O, check electrolytes Infectious Disease: check cultures Gastrointestinal: continue feedings/current rate Endocrine: monitor blood sugar Hematologic: monitor H/H Neurologic: PRN Ativan Affect: PRN ativan Prophylaxis: Protonix Disposition: keep in ICU Notes Reviewed: digital strategy director Discussed with: nurses, consultants, case brieferfinancial project manager - Objective Last 24 Hour Vital Signs Date Time Temp Pulse Resp B/P (MAP) Pulse Ox O2 Delivery O2 Flow Rate FiO2 07/06/19 11:05 63 22 40 07/06/19 11:00 58 33 136/67 (90) 100 07/06/19 10:00 56 20 146/75 (98) 100 07/06/19 09:05 61 20 40 07/06/19 09:00 60 22 146/75 (98) 100 07/06/19 08:42 61 146/68 07/06/19 08:00 40 07/06/19 08:00 98.6 62 21 146/68 (94) 100 07/06/19 08:00 59 07/06/19 08:00 Mechanical Ventilator Mechanical Ventilator 07/06/19 07:05 65 21 40 07/06/19 07:00 60 22 127/74 (91) 95 07/06/19 06:00 60 21 135/77 (96) 98 07/06/19 05:52 152/83 07/06/19 05:04 61 21 40 07/06/19 05:00 63 22 152/83 (106) 100 07/06/19 04:00 40 07/06/19 04:00 Mechanical Ventilator Mechanical Ventilator 07/06/19 04:00 99.5 61 20 165/84 (111) 99 07/06/19 04:00 65 07/06/19 03:02 70 18 40 07/06/19 03:00 67 19 177/86 (116) 96 07/06/19 02:00 64 21 166/82 (110) 99 07/06/19 01:00 61 19 152/80 (104) 96 07/06/19 00:14 71 27 40 07/06/19 00:00 Mechanical Ventilator Mechanical Ventilator 07/06/19 00:00 59 07/06/19 00:00 40 07/06/19 00:00 98.8 56 20 143/81 (101) 100 07/05/19 23:22 163/82 07/05/19 23:00 59 19 163/82 (109) 99 07/05/19 22:35 56 21 40 07/05/19 22:00 58 27 132/71 (91) 98 07/05/19 21:10 56 21 40 07/05/19 21:00 56 23 103/63 (76) 90 07/05/19 20:07 58 125/74 07/05/19 20:00 57 07/05/19 20:00 97.6 56 16 146/74 (98) 100 07/05/19 20:00 40 07/05/19 20:00 Mechanical Ventilator Mechanical Ventilator 07/05/19 19:02 58 19 40 07/05/19 19:00 58 25 125/74 (91) 99 07/05/19 18:00 60 17 168/78 (108) 100 07/05/19 17:30 152/70 07/05/19 17:02 64 15 40 07/05/19 17:00 63 23 152/70 (97) 100 07/05/19 16:00 Mechanical Ventilator Mechanical Ventilator 07/05/19 16:00 40 07/05/19 16:00 98.4 55 16 137/72 (93) 100 07/05/19 15:34 55 07/05/19 15:24 55 15 40 07/05/19 15:00 54 22 142/74 (96) 100 07/05/19 14:00 55 18 144/77 (99) 100 07/05/19 13:02 63 15 40 07/05/19 13:00 58 23 149/81 (103) 100 07/05/19 12:10 164/83 07/05/19 12:00 97.9 61 23 177/88 (117) 100 07/05/19 12:00 Mechanical Ventilator Mechanical Ventilator 07/05/19 12:00 40 Status: awake Condition: critical HEENT: atraumatic Heart: HR/BP stable Abdomen: soft, non-tender Extremities: no C/C/E Critical Care - Subjective ROS Limited/Unobtainable: No Condition: critical EKG Rhythm: Sinus Rhythm FI02: 40 Vent Support Breath Rate: 14 Vent Support Mode: AC Vent Tidal Volume: 500 Sputum Amount: Small PEEP: 5.0 PIP: 25 Tube Feeding Amount: 65 I&O: Intake and Output 07/05/19 07/06/19 19:00 07:00 Intake Total 1646.417 ml 1076.25 ml Output Total 1525 ml 835 ml Balance 121.417 ml 241.25 ml Intake Free Water 100 ml 100 ml IV Total 766.417 ml 196.25 ml Tube Feeding 780 ml 780 ml Output Urine Total 1325 ml 835 ml Stool Total 200 ml Labs: Laboratory Tests Test 07/06/19 04:00 White Blood Count 12.6 K/UL (4.8-10.8) H Red Blood Count 3.31 M/UL (4.70-6.10) L Hemoglobin 9.4 G/DL (14.2-18.0) L Hematocrit 27.6 % (42.0-52.0) L Mean Corpuscular Volume 83 FL (80-99) Mean Corpuscular Hemoglobin 28.4 PG (27.0-31.0) Mean Corpuscular Hemoglobin Concent 34.0 G/DL (32.0-36.0) Red Cell Distribution Width 13.0 % (11.6-14.8) Platelet Count 227 K/UL (150-450) Mean Platelet Volume 7.3 FL (6.5-10.1) Neutrophils (%) (Auto) 81.9 % (45.0-75.0) H Lymphocytes (%) (Auto) 9.3 % (20.0-45.0) L Monocytes (%) (Auto) 5.9 % (1.0-10.0) Eosinophils (%) (Auto) 2.1 % (0.0-3.0) Basophils (%) (Auto) 0.8 % (0.0-2.0) Activated Partial Thromboplast Time 31 SEC (23-33) Sodium Level 142 MMOL/L (136-145) Potassium Level 4.3 MMOL/L (3.5-5.1) Chloride Level 104 MMOL/L (98-107) Carbon Dioxide Level 27 MMOL/L (21-32) Anion Gap 11 mmol/L (5-15) Blood Urea Nitrogen 66 mg/dL (7-18) H Creatinine 1.6 MG/DL (0.55-1.30) H Estimat Glomerular Filtration Rate 45.3 mL/min (>60) Glucose Level 102 MG/DL (74-106) Uric Acid 6.3 MG/DL (2.6-7.2) Calcium Level 8.8 MG/DL (8.5-10.1) Phosphorus Level 5.0 MG/DL (2.5-4.9) H Magnesium Level 1.6 MG/DL (1.8-2.4) L Total Bilirubin 0.3 MG/DL (0.2-1.0) Aspartate Amino Transf (AST/SGOT) 51 U/L (15-37) H Alanine Aminotransferase (ALT/SGPT) 179 U/L (12-78) H Alkaline Phosphatase 86 U/L (46-116) Troponin I 1.459 ng/mL (0.000-0.056) Total Protein 6.1 G/DL (6.4-8.2) L Albumin 2.9 G/DL (3.4-5.0) L Globulin 3.2 g/dL Albumin/Globulin Ratio 0.9 (1.0-2.7) L Random Vancomycin Level 19.2 ug/mL Fidencio Jenkins MD Jul 06, 2019 11:53
--- NOTE | 2019-07-06 12:00 | NUR ---
NURSE NOTES: Patient remains alert to name, place, and purpose. Patient denies pain or distress. Sinus rhythm noted on playground monitor with rate of 62 beats per minute. Blood pressure stable at 136/67. ventilator setting AC 14, tidal volume 500, FiO2 40% and PEEP 5. Patient tolerating setting with no sign of acute respiratory distress. Gastrostomy tube remains patent, asymptomatic, and running Glucerna tube feeding at 65mL/hr with no residual noted at this time. Rectal tube remains patent and in place. Dash remains patent with bright red/pink urine with blood clots noted. Will continue to monitor. Sacral wound covered with dressing dry and intact. Will continue to turn every 2 hours and as needed to prevent further pressure injury. Left upper arm PICC line remains patent, asymptomatic, and saline locked at this time. Bed in low position and call light in reach at this time. Patient repositioned and oral care performed. Will continue to monitor.
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
--- NOTE | 2019-07-06 14:00 | NUR ---
NURSE NOTES: Patient denies pain or distress. Vital signs stable. Patient repositioned. Urine in Dash bag remains pink/bright red with clots. Urine still flowing without blockage noted. Will continue to monitor.
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
--- NOTE | 2019-07-06 16:00 | NUR ---
NURSE NOTES: Patient remains alert to name, place, and purpose. Patient denies pain or distress. Sinus rhythm noted on monitoring specialist with rate of 62 beats per minute. Blood pressure stable at 125/69. ventilator setting AC 14, tidal volume 500, FiO2 40% and PEEP 5. Patient tolerating setting with no sign of acute respiratory distress. Gastrostomy tube remains patent, asymptomatic, and running Glucerna tube feeding at 65mL/hr with no residual noted at this time. Rectal tube remains patent and in place. Dash remains patent with bright red/pink urine with blood clots noted. Will continue to monitor. Sacral wound covered with dressing dry and intact. Will continue to turn every 2 hours and as needed to prevent further pressure injury. Left upper arm PICC line remains patent, asymptomatic, and saline locked at this time. Bed in low position and call light in reach at this time. Patient repositioned and oral care performed. Will continue to monitor.
--- NOTE | 2019-07-06 16:00 | Progress Note ---
DATE: 07/03/2019 SUBJECTIVE: The patient is awake, alert, afebrile, and hemodynamically stable. He was on in the morning. PHYSICAL EXAMINATION: VITAL SIGNS: Blood pressure is 119/69, his pulse is 67, respirations are 22, and temperature is 98.6. HEENT: Eyes were normal. ENT, mucous membranes were moist and intact. NECK: Supple with no JVD without lymph nodes. Tracheostomy site is clean. LUNGS: Clear without rhonchi, rales, or wheezing. HEART: Normal sounds with regular beat. ABDOMEN: Soft and nontender with normal bowel sounds. Gastrostomy site is clean. EXTREMITIES: Warm without cyanosis, clubbing, or edema. all within normal limits. The bladder has a Dash catheter. improvement in left lower lobe infiltrate. LABORATORY DATA: His hemoglobin is 9.3, hematocrit 27.8 with MCV of 85, WBC of 13.1, and platelet of 241,000. His BUN and creatinine are 78 and 1.2 respectively. Sodium is 148, potassium 4.7, chloride 109, CO2 is 30, . SGOT is 290, SGPT is 239, alkaline phosphatase 126. TSH was undetected indicating subclinical hyperthyroidism. was 7.4. RBC per high-power field and 10-15 WBC, bacteria moderate. Urine sodium 142. The patient remains hemodynamically stable . Repeat laboratory tests will be done in the a.m. Anusha Cordon M.D. DR: GEORGE JOB#: [id number] CC:
--- NOTE | 2019-07-06 16:06 | Diagnostic Imaging Report ---
Indication: Dyspnea Comparison: 07/04/2019 A single view chest radiograph was obtained. Findings: Mild pulmonary vascular congestion suspected with prominent pulmonary vascularity. There is likely atelectasis at the left lung base. Right hemidiaphragm is elevated. Bones are osteopenic. PICC line and tracheostomy are stable. IMPRESSION: Mild pulmonary vascular congestion suspected.
--- NOTE | 2019-07-06 18:00 | NUR ---
NURSE NOTES: Patient denies pain or distress. Vital signs stable. patient repositioned. Bed bath performed. Sacral wound dressing changed. Will continue to monitor.
[2019-07-06] MEDS: Micafungin 100 MG in NS 110 ML IVPB SCH (18:18)
--- NOTE | 2019-07-06 19:14 | NUR ---
HAND-OFF: Report given to ROSELYN Mireles. Vital signs stable. No sign of acute distress.
[2019-07-06] MEDS: Dyna-Hex 2% Top Sol 2oz TOPIC SCH (19:52)
--- NOTE | 2019-07-06 19:58 | NUR ---
NURSE NOTES: PATIENT AWOKE, OPEN EYE, ABLE TO COMMUNICATION WITH CLOSE EYES, ON TRACH TO VENT AV14/TV500/FIO2 40%/PEEP5, O2 SATURATION OVER 96% NOTED, NECK COLLAR STATUS, HEART RATE 60'S/MIN SINUS RHYTHM, ONGOING GLUCERNA 1.2 AT 65ML/HR, NO RESIDUE NOTED, KEPT HOB OVER 30 DEGREES AND ASPIRATION PRECAUTION, ABDOMEN SOFT, ON RECTAL TUBE, BROWN COLOR SOLID STOOL OUTED, F/C INTACT AND PATENT, MOHINI COLOR URINE DRAINING WELL GRAVITY, NO BLADDER DISTENTION NOTED, PICC LINE TO LEFT UPPER ARM, INTACT AND PATENT, ON P200 BED, MADE LOWER BED POSITION, ON BED ALARM AND LOCKED, UNABLE TO USE CALL LIGHT, KEPT CONTACT ISOLATION PROTOCOLS, WILL CONTINUE TO MONITOR.
--- NOTE | 2019-07-06 22:10 | NUR ---
NURSE NOTES: REPOSITIONED, PATIENT DENIED PAIN AT THIS TIME.
--- NOTE | 2019-07-06 23:09 | NUR ---
NURSE NOTES: F/C INTACT AND PATENT, THIN HEMATURIA WITHOUT CLOT STATUS THAT INFORMED DR. GOMEZ, WAS AWARE.
--- NOTE | 2019-07-06 23:35 | NUR ---
NURSE NOTES: LE: SEEN THE PATIENT BY DR. GOMEZ, MADE NEW ORDER.
[2019-07-07] VITALS (26 sets, daily range): BP systolic 118–164; BP diastolic 65–87
--- NOTE | 2019-07-07 01:50 | NUR ---
NURSE NOTES: LE: SEEN THE PATIENT BY DR. SALGUERO, MADE NEW ORDER.
--- NOTE | 2019-07-07 02:18 | NUR ---
NURSE NOTES: PATIENT AWOKE, DENIED PAIN OR DISTRESS AT THIS TIME.
--- NOTE | 2019-07-07 04:00 | Progress Note ---
DATE: 07/06/2019 CARDIOLOGY PROGRESS NOTE SUBJECTIVE: The patient remains unresponsive, comatose, and ventilator dependent via tracheostomy. OBJECTIVE: VITAL SIGNS: Blood pressure 136/67, heart rate 58 to 62, and respiratory rate 20 to 33. The patient is afebrile. T-max 99.5 degrees. LUNGS: Bilateral breath sounds. Rhonchi. HEART: Regular rhythm and rate. Normal S1 and S2. ABDOMEN: Soft. G-tube intact. EXTREMITIES: Muscle atrophy and contractures with no edema. LABORATORY DATA: White count 12.6 and hemoglobin 9.46. Sodium 142 and potassium 4.3. Troponin down to 1.459. Magnesium 1.6. BUN 66 and creatinine 1.6. IMPRESSION: 1. Acute myocardial infarction. 2. Severe sepsis with recovering shock. 3. Acute renal failure, improving. 4. Hypomagnesemia. 5. Moderate to severe protein-calorie malnutrition. 6. Acute on chronic diastolic congestive heart failure. 7. Sinus bradycardia, on beta-jason. PLAN: 1. Optimize blood pressure control. 2. Avoid higher doses of beta-blockers due to bradycardic trend. 3. Intravenous magnesium replacement. 4. Antiplatelet therapy with aspirin. 5. Re-assess for diuresis on a daily basis. 6. No plans for any invasive cardiovascular procedure at this time or in this clinical setting. Néstor Cervantes M.D. DR: WELLINGTON JOB#: [id number] CC: PATIENCE
--- NOTE | 2019-07-07 04:30 | NUR ---
NURSE NOTES: LE: MORNING CARE WAS DONE, RECTAL TUBE ALIGHT LEAKED THAT SECURED RECTAL TUBE.
[2019-07-07 05:12] LABS: BASOPHILS % (AUTO) 0.6 % (0.0-2.0); EOSINOPHILS % (AUTO) 1.6 % (0.0-3.0); HEMATOCRIT 27.2 % (42.0-52.0); HEMOGLOBIN 9.1 G/DL (14.2-18.0); LYMPHOCYTES % (AUTO) 11.4 % (20.0-45.0); MEAN CORPUSCULAR VOLUME 83 FL (80-99); MONOCYTES % (AUTO) 6.5 % (1.0-10.0); NEUTROPHILS % (AUTO) 79.9 % (45.0-75.0); PLATELET COUNT 220 K/UL (150-450); RED BLOOD COUNT 3.27 M/UL (4.70-6.10); RED CELL DISTRIBUTION WIDTH 13.7 % (11.6-14.8)
[2019-07-07] MEDS: Piperacillin/Tazobactam 3.375 GM in NS 110 ML IVPB SCH ×2 (05:39→17:45)
[2019-07-07] MEDS: HydrALAZINE 50mg tab GT SCH ×4 (05:40→23:33)
[2019-07-07 05:43] LABS: ALANINE AMINOTRANSFERASE 123 U/L (12-78); ALBUMIN 2.5 G/DL (3.4-5.0); ALBUMIN/GLOBULIN RATIO 0.7 (1.0-2.7); ALKALINE PHOSPHATASE 82 U/L (46-116); ANION GAP 7 mmol/L (5-15); ASPARTATE AMINO TRANSFERASE 33 U/L (15-37); BILIRUBIN,TOTAL 0.2 MG/DL (0.2-1.0); BLOOD UREA NITROGEN 69 mg/dL (7-18); CALCIUM 8.6 MG/DL (8.5-10.1); CARBON DIOXIDE 30 MMOL/L (21-32); CHLORIDE 104 MMOL/L (98-107); CREATININE 1.6 MG/DL (0.55-1.30); PHOSPHORUS 4.6 MG/DL (2.5-4.9); POTASSIUM 4.3 MMOL/L (3.5-5.1); SODIUM 141 MMOL/L (136-145)
--- NOTE | 2019-07-07 06:30 | NUR ---
NURSE NOTES: LE: NO ACUTE DISTRESS NOTED AT THIS SHIFT.
--- NOTE | 2019-07-07 07:25 | NUR ---
HAND-OFF: Report given to ROSELYN MATHEW.
--- NOTE | 2019-07-07 08:00 | NUR ---
NURSE NOTES: Received change of shift report from Chi RN. Pt is awake, responsive, on trach to vent, Shiley 7.0 with settings AC14, VT500, Peep 5.0, FIO2 40% with O2Sat 90-96%. SB on front desk monitor, HR fluctuating from 47 to 60. Temp 97.8F axillary. GT with feeding Glucerna 1.2 at goal rate of 65ml/hour. No residual noted. Abdomen is round, soft, nontender to touch with hyperactive bowel sounds. Rectal tube present, draining liquid brown stool. Dash catheter is present, draining hematuria. Pt has left UA double lumen PICC, TKO, patent/intact. Skin has unstagable sacral wound, covered with optifoam dressing, dry/intact. Pt is on P200 pressure releasing mattress, with bilateral heels elevated/floating. HOB at 30 degrees, bed locked, in lowest position, three side rails up. Will continue to monitor pt and follow plan of care per MD orders and protocol.
--- NOTE | 2019-07-07 09:21 | General Progress Note ---
Assessment/Plan Problem List: (1) Anemia ICD Codes: D64.9 - Anemia, unspecified SNOMED: 277750770 (2) Elevated LFTs ICD Codes: R94.5 - Abnormal results of liver function studies SNOMED: 481615008, 720492090 (3) Attention to G-tube ICD Codes: Z43.1 - Encounter for attention to gastrostomy SNOMED: 632467201, 021965837, 297067649 (4) Ventilator associated pneumonia ICD Codes: J95.851 - Ventilator associated pneumonia SNOMED: 482822132 (5) Chronic complete flaccid quadriplegia SNOMED: 144593444, 786225724 (6) Sepsis ICD Codes: A41.9 - Sepsis, unspecified organism SNOMED: 59878998 Qualifiers: Qualified Codes: A41.9 - Sepsis, unspecified organism; R65.20 - Severe sepsis without septic shock; N17.9 - Acute kidney failure, unspecified (7) NSTEMI (non-ST elevated myocardial infarction) ICD Codes: I21.4 - Non-ST elevation (NSTEMI) myocardial infarction SNOMED: 89910494, 097693497 Assessment/Plan: anemia work up stable H&H>>> stable hepatitis panel>>> neg repeat labs us reviewed GTF tolerated Subjective ROS Limited/Unobtainable: No Allergies: Coded Allergies: No Known Allergies (Unverified , 07/01/19) Objective Last 24 Hour Vital Signs Date Time Temp Pulse Resp B/P (MAP) Pulse Ox O2 Delivery O2 Flow Rate FiO2 07/07/19 08:51 67 21 40 07/07/19 07:16 62 20 40 07/07/19 07:00 66 22 141/82 (101) 97 07/07/19 06:00 61 25 122/74 (90) 95 07/07/19 05:40 152/82 07/07/19 05:00 61 27 152/82 (105) 96 07/07/19 04:59 68 20 40 07/07/19 04:00 97.2 66 24 155/84 (107) 97 07/07/19 04:00 Mechanical Ventilator Mechanical Ventilator 07/07/19 04:00 40 07/07/19 03:12 62 07/07/19 03:00 62 23 155/77 (103) 97 07/07/19 02:33 72 24 40 3/25/20 02:00 65 23 138/75 (96) 97 07/07/19 01:00 62 24 151/76 (101) 97 07/07/19 00:41 61 22 40 07/07/19 00:00 Mechanical Ventilator Mechanical Ventilator 07/07/19 00:00 98.4 64 20 142/73 (96) 98 07/07/19 00:00 40 07/06/19 23:10 63 07/06/19 23:00 67 23 132/75 (94) 97 07/06/19 22:59 63 19 40 07/06/19 22:00 62 27 148/77 (100) 96 07/06/19 21:37 148/80 07/06/19 21:22 65 23 40 07/06/19 21:00 63 22 156/75 (102) 96 07/06/19 20:34 69 138/75 07/06/19 20:00 Mechanical Ventilator Mechanical Ventilator 07/06/19 20:00 40 07/06/19 20:00 99.0 67 26 138/75 (96) 96 07/06/19 19:53 67 07/06/19 19:15 68 24 40 07/06/19 19:00 61 20 141/73 (95) 97 07/06/19 18:00 60 21 127/65 (85) 100 07/06/19 17:11 56 19 40 07/06/19 17:00 99.1 61 25 115/69 (84) 100 07/06/19 16:00 Mechanical Ventilator Mechanical Ventilator 07/06/19 16:00 67 07/06/19 16:00 64 23 125/69 (87) 100 07/06/19 16:00 40 07/06/19 15:00 57 21 40 07/06/19 15:00 63 20 143/70 (94) 100 07/06/19 14:00 58 25 128/72 (90) 100 07/06/19 13:49 139/74 07/06/19 13:21 65 17 40 07/06/19 13:03 99.4 07/06/19 13:00 60 21 139/74 (95) 100 07/06/19 12:00 60 07/06/19 12:00 40 07/06/19 12:00 99.9 61 22 128/72 (90) 100 07/06/19 12:00 Mechanical Ventilator Mechanical Ventilator 07/06/19 12:00 61 22 128/72 (90) 100 07/06/19 11:05 63 22 40 07/06/19 11:00 58 33 136/67 (90) 100 07/06/19 10:00 56 20 146/75 (98) 100 Intake and Output 07/06/19 07/07/19 19:00 07:00 Intake Total 1408.125 ml 1072.0 ml Output Total 1145 ml 2050 ml Balance 263.125 ml -978.0 ml Intake Free Water 50 ml IV Total 578.125 ml 147.0 ml Tube Feeding 780 ml 715 ml Other 210 ml Output Urine Total 1145 ml 1550 ml Stool Total 500 ml Laboratory Tests 07/07/19 04:25: White Blood Count 12.0H, Red Blood Count 3.27L, Hemoglobin 9.1L, Hematocrit 27.2L, Mean Corpuscular Volume 83, Mean Corpuscular Hemoglobin 27.8, Mean Corpuscular Hemoglobin Concent 33.4, Red Cell Distribution Width 13.7, Platelet Count 220, Mean Platelet Volume 7.2, Neutrophils (%) (Auto) 79.9H, Lymphocytes ( %) (Auto) 11.4L, Monocytes (%) (Auto) 6.5, Eosinophils (%) (Auto) 1.6, Basophils (%) (Auto) 0.6, Erythrocyte Sedimentation Rate 54H, Sodium Level 141, Potassium Level 4.3, Chloride Level 104, Carbon Dioxide Level 30, Anion Gap 7, Blood Urea Nitrogen 69H, Creatinine 1.6H, Estimat Glomerular Filtration Rate 45.3, Glucose Level 102, Calcium Level 8.6, Phosphorus Level 4.6, Magnesium Level 2.0, Total Bilirubin 0.2, Aspartate Amino Transf (AST/SGOT) 33, Alanine Aminotransferase (ALT/SGPT) 123H, Alkaline Phosphatase 82, C-Reactive Protein, Quantitative 3.3H, Total Protein 6.0L, Albumin 2.5L, Globulin 3.5, Albumin/ Globulin Ratio 0.7L Height (Feet): 5 Height (Inches): 9.00 Weight (Pounds): 184 General Appearance: no apparent distress EENT: normal ENT inspection Neck: supple Cardiovascular: normal rate Respiratory/Chest: decreased breath sounds Abdomen: normal bowel sounds, non tender, soft Extremities: non-tender Talat Beckwith MD Jul 07, 2019 09:21
[2019-07-07] MEDS: Bactrim Susp 20ml NG SCH ×2 (09:33→21:04)
[2019-07-07] MEDS: Aspirin Baby 81mg GT SCH (09:35)
[2019-07-07] MEDS: Pantoprazole Inj IVP SCH ×2 (09:35→21:04)
[2019-07-07] MEDS: Heparin 5000 units/ml inj SUBQ SCH ×2 (09:36→21:05)
--- NOTE | 2019-07-07 10:00 | NUR ---
NURSE NOTES: Pt was seen by Dr Jenkins. MD notified of pt's dry/nonproductive cough, and order was received for PRN/Duoneb. AM meds were administered, Metoprolol was held due to bradycardia. Oral care was done, when suctioned, pt has very small output of clear/whitish secretion. Pt was repositioned.
--- NOTE | 2019-07-07 10:45 | Progress Note ---
DATE: 07/06/2019 SUBJECTIVE: The patient is out of regular room in the intensive care unit. The patient is awake. Eyes are open, some eye contact and tracking the normal response. PHYSICAL EXAMINATION: VITAL SIGNS: Blood pressure 148/77, his pulse is 66, respirations 23, and temperature is 99. HEENT: Eyes were normal. ENT, mucous membranes were moist and intact. NECK: Supple with no JVD without lymph nodes. Tracheostomy site is clean. LUNGS: Clear without rhonchi, rales, or wheezing. HEART: Normal sounds with regular beats. ABDOMEN: Soft, nontender with normal bowel sounds. EXTREMITIES: Warm without cyanosis, clubbing, or edema. LABORATORY AND DIAGNOSTIC DATA: Hemoglobin is 9.4, hematocrit 27.3 with MCV of 83, WBC of 12.6 and platelets . His BUN and creatinine are 66 and 1.6 respectively, which were 71 and 1.6 yesterday. His sodium is 142, potassium is 4.3, chloride 104, CO2 is 27. His uric acid is 6.3. His phosphorus is 5. Chest x-ray done today revealed but no infiltrate. The right hemidiaphragm is elevated. IMPRESSION AND PLAN: The patient appeared to be in stable condition. blood cultures were taken. Repeat laboratory tests will be done in the a.m. Anusha Cordon M.D. DR: BHARATH JOB#: [id number] CC:
--- NOTE | 2019-07-07 10:48 | Pulmonolgy Critical Care Note ---
Critical Care - Asmt/Plan Problems: (1) Sepsis (2) Ventilator associated pneumonia (3) ATN (acute tubular necrosis) (4) ALEXA (acute kidney injury) (5) Decubitus skin ulcer (6) Chronic complete flaccid quadriplegia (7) Attention to G-tube (8) Traumatic brain injury Respiratory: monitor respiratory rate, adjust FIO2, CXR Cardiac: continue to monitor HR/BP Renal: F/U I&O, check electrolytes Infectious Disease: check cultures Gastrointestinal: continue feedings/current rate Endocrine: monitor blood sugar Hematologic: monitor H/H Neurologic: PRN Ativan Affect: PRN ativan Time Spent (Minutes): 40 Notes Reviewed: manager of compliance, renal Discussed with: nurses, 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 - Objective Last 24 Hour Vital Signs Date Time Temp Pulse Resp B/P (MAP) Pulse Ox O2 Delivery O2 Flow Rate FiO2 07/07/19 10:00 59 27 118/65 (82) 98 07/07/19 09:35 141/82 07/07/19 09:00 57 11 142/85 (104) 97 07/07/19 08:51 67 21 40 07/07/19 08:00 40 07/07/19 08:00 59 11 161/79 (106) 98 07/07/19 08:00 55 07/07/19 08:00 Mechanical Ventilator Mechanical Ventilator 07/07/19 07:16 62 20 40 07/07/19 07:00 66 22 141/82 (101) 97 07/07/19 06:00 61 25 122/74 (90) 95 07/07/19 05:40 152/82 07/07/19 05:00 61 27 152/82 (105) 96 07/07/19 04:59 68 20 40 07/07/19 04:00 97.2 66 24 155/84 (107) 97 07/07/19 04:00 Mechanical Ventilator Mechanical Ventilator 07/07/19 04:00 40 07/07/19 03:12 62 07/07/19 03:00 62 23 155/77 (103) 97 07/07/19 02:33 72 24 40 07/07/19 02:00 65 23 138/75 (96) 97 07/07/19 01:00 62 24 151/76 (101) 97 07/07/19 00:41 61 22 40 07/07/19 00:00 Mechanical Ventilator Mechanical Ventilator 07/07/19 00:00 98.4 64 20 142/73 (96) 98 07/07/19 00:00 40 07/06/19 23:10 63 07/06/19 23:00 67 23 132/75 (94) 97 07/06/19 22:59 63 19 40 07/06/19 22:00 62 27 148/77 (100) 96 07/06/19 21:37 148/80 07/06/19 21:22 65 23 40 07/06/19 21:00 63 22 156/75 (102) 96 07/06/19 20:34 69 138/75 07/06/19 20:00 Mechanical Ventilator Mechanical Ventilator 07/06/19 20:00 40 07/06/19 20:00 99.0 67 26 138/75 (96) 96 07/06/19 19:53 67 07/06/19 19:15 68 24 40 07/06/19 19:00 61 20 141/73 (95) 97 07/06/19 18:00 60 21 127/65 (85) 100 07/06/19 17:11 56 19 40 07/06/19 17:00 99.1 61 25 115/69 (84) 100 07/06/19 16:00 Mechanical Ventilator Mechanical Ventilator 07/06/19 16:00 67 07/06/19 16:00 64 23 125/69 (87) 100 07/06/19 16:00 40 07/06/19 15:00 57 21 40 07/06/19 15:00 63 20 143/70 (94) 100 07/06/19 14:00 58 25 128/72 (90) 100 07/06/19 13:49 139/74 07/06/19 13:21 65 17 40 07/06/19 13:03 99.4 07/06/19 13:00 60 21 139/74 (95) 100 07/06/19 12:00 60 07/06/19 12:00 40 07/06/19 12:00 99.9 61 22 128/72 (90) 100 07/06/19 12:00 Mechanical Ventilator Mechanical Ventilator 07/06/19 12:00 61 22 128/72 (90) 100 07/06/19 11:05 63 22 40 07/06/19 11:00 58 33 136/67 (90) 100 Status: awake HEENT: atraumatic, normocephalic Lungs: clear Heart: HR/BP unstable Abdomen: soft, non-tender Extremities: no C/C/E Critical Care - Subjective ROS Limited/Unobtainable: No Condition: critical EKG Rhythm: Sinus Rhythm FI02: 40 Vent Support Breath Rate: 14 Vent Support Mode: AC Vent Tidal Volume: 500 Sputum Amount: Small PEEP: 5.0 PIP: 33 Tube Feeding Amount: 0 I&O: Intake and Output 07/06/19 07/07/19 19:00 07:00 Intake Total 1408.125 ml 1072.0 ml Output Total 1145 ml 2050 ml Balance 263.125 ml -978.0 ml Intake Free Water 50 ml IV Total 578.125 ml 147.0 ml Tube Feeding 780 ml 715 ml Other 210 ml Output Urine Total 1145 ml 1550 ml Stool Total 500 ml Labs: Laboratory Tests Test 07/07/19 04:25 White Blood Count 12.0 K/UL (4.8-10.8) H Red Blood Count 3.27 M/UL (4.70-6.10) L Hemoglobin 9.1 G/DL (14.2-18.0) L Hematocrit 27.2 % (42.0-52.0) L Mean Corpuscular Volume 83 FL (80-99) Mean Corpuscular Hemoglobin 27.8 PG (27.0-31.0) Mean Corpuscular Hemoglobin Concent 33.4 G/DL (32.0-36.0) Red Cell Distribution Width 13.7 % (11.6-14.8) Platelet Count 220 K/UL (150-450) Mean Platelet Volume 7.2 FL (6.5-10.1) Neutrophils (%) (Auto) 79.9 % (45.0-75.0) H Lymphocytes (%) (Auto) 11.4 % (20.0-45.0) L Monocytes (%) (Auto) 6.5 % (1.0-10.0) Eosinophils (%) (Auto) 1.6 % (0.0-3.0) Basophils (%) (Auto) 0.6 % (0.0-2.0) Erythrocyte Sedimentation Rate 54 MM/HR (0-20) H Sodium Level 141 MMOL/L (136-145) Potassium Level 4.3 MMOL/L (3.5-5.1) Chloride Level 104 MMOL/L (98-107) Carbon Dioxide Level 30 MMOL/L (21-32) Anion Gap 7 mmol/L (5-15) Blood Urea Nitrogen 69 mg/dL (7-18) H Creatinine 1.6 MG/DL (0.55-1.30) H Estimat Glomerular Filtration Rate 45.3 mL/min (>60) Glucose Level 102 MG/DL (74-106) Calcium Level 8.6 MG/DL (8.5-10.1) Phosphorus Level 4.6 MG/DL (2.5-4.9) Magnesium Level 2.0 MG/DL (1.8-2.4) Total Bilirubin 0.2 MG/DL (0.2-1.0) Aspartate Amino Transf (AST/SGOT) 33 U/L (15-37) Alanine Aminotransferase (ALT/SGPT) 123 U/L (12-78) H Alkaline Phosphatase 82 U/L (46-116) C-Reactive Protein, Quantitative 3.3 mg/dL (0.00-0.90) H Total Protein 6.0 G/DL (6.4-8.2) L Albumin 2.5 G/DL (3.4-5.0) L Globulin 3.5 g/dL Albumin/Globulin Ratio 0.7 (1.0-2.7) L Fidencio Jenkins MD Jul 07, 2019 10:48
[2019-07-07] MEDS ORDERED: Albuterol/Ipratropium 3ml neb HHN PRN (11:15)
--- NOTE | 2019-07-07 11:21 | NUR ---
DIRECTOR OF HOTEL OPERATIONS: REVIEW 07/07/19 SI: RESP FAILURE TRACH/VENT DEPENDENT,SEPSIS . NSTEMI . UTI +VRE 98.7 51 15 154/79 100% MECHANICAL VENT AC 14 TV 500 FIO2 40% PEEP 5 FIO2 40% WBC 12.0 H/H 9.1/27.2 BUN 69 CREAT 1.6 IS: IV LEVAQUIN Q48HR IV ZOSYN BID BACTRIM-DS NG BID IV D5@75ML/HR LOPRESSOR GT BID IV PROTONIX BID HEPARIN SQ BID ALBUMIN HUMAN Q6HR [id number] HYDRALAZINE GT Q6HR CLONIDINE GT Q4HR/PRN [place]-HEX 2% TP QD ASA GT QD DCP: RETURN TO [facility] PLAN: TROP STILL POSITIVE
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
--- NOTE | 2019-07-07 12:00 | NUR ---
NURSE NOTES: Dr Cordon was contacted and notified that pt has episodes of possible seizure activity, muscle twitching/eye rolling, and bradycardia HR drops to 26, then after a few seconds returns to normal. Order was received for Ativan 2mg IVP x 1. Pt remains afebrile.
--- NOTE | 2019-07-07 12:15 | Surgery Progress Note ---
Surgery Progress Note Subjective Additional Comments more alert and tracking today on vent support collar in place labs noted wbc trending down Objective Last 24 Hour Vital Signs Date Time Temp Pulse Resp B/P (MAP) Pulse Ox O2 Delivery O2 Flow Rate FiO2 07/07/19 11:10 55 17 40 07/07/19 11:00 98.7 51 15 154/79 (104) 100 07/07/19 10:00 59 27 118/65 (82) 98 07/07/19 09:35 141/82 07/07/19 09:00 57 11 142/85 (104) 97 07/07/19 08:51 67 21 40 07/07/19 08:00 40 07/07/19 08:00 59 11 161/79 (106) 98 07/07/19 08:00 55 07/07/19 08:00 Mechanical Ventilator Mechanical Ventilator 07/07/19 07:16 62 20 40 07/07/19 07:00 66 22 141/82 (101) 97 07/07/19 06:00 61 25 122/74 (90) 95 07/07/19 05:40 152/82 07/07/19 05:00 61 27 152/82 (105) 96 07/07/19 04:59 68 20 40 07/07/19 04:00 97.2 66 24 155/84 (107) 97 07/07/19 04:00 Mechanical Ventilator Mechanical Ventilator 07/07/19 04:00 40 07/07/19 03:12 62 07/07/19 03:00 62 23 155/77 (103) 97 07/07/19 02:33 72 24 40 07/07/19 02:00 65 23 138/75 (96) 97 07/07/19 01:00 62 24 151/76 (101) 97 07/07/19 00:41 61 22 40 07/07/19 00:00 Mechanical Ventilator Mechanical Ventilator 07/07/19 00:00 98.4 64 20 142/73 (96) 98 07/07/19 00:00 40 07/06/19 23:10 63 07/06/19 23:00 67 23 132/75 (94) 97 07/06/19 22:59 63 19 40 07/06/19 22:00 62 27 148/77 (100) 96 07/06/19 21:37 148/80 3/24/20 21:22 65 23 40 07/06/19 21:00 63 22 156/75 (102) 96 07/06/19 20:34 69 138/75 07/06/19 20:00 Mechanical Ventilator Mechanical Ventilator 07/06/19 20:00 40 07/06/19 20:00 99.0 67 26 138/75 (96) 96 07/06/19 19:53 67 07/06/19 19:15 68 24 40 07/06/19 19:00 61 20 141/73 (95) 97 07/06/19 18:00 60 21 127/65 (85) 100 07/06/19 17:11 56 19 40 07/06/19 17:00 99.1 61 25 115/69 (84) 100 07/06/19 16:00 Mechanical Ventilator Mechanical Ventilator 07/06/19 16:00 67 07/06/19 16:00 64 23 125/69 (87) 100 07/06/19 16:00 40 07/06/19 15:00 57 21 40 07/06/19 15:00 63 20 143/70 (94) 100 07/06/19 14:00 58 25 128/72 (90) 100 07/06/19 13:49 139/74 07/06/19 13:21 65 17 40 07/06/19 13:03 99.4 07/06/19 13:00 60 21 139/74 (95) 100 I&O Intake and Output 07/06/19 07/07/19 18:59 06:59 Intake Total 1415.000 ml 1130.125 ml Output Total 1250 ml 1950 ml Balance 165.000 ml -819.875 ml Intake Free Water 50 ml IV Total 585.000 ml 140.125 ml Tube Feeding 780 ml 780 ml Other 210 ml Output Urine Total 1250 ml 1450 ml Stool Total 500 ml Dressing: dry Wound: other Drains: other Cardiovascular: RSR Respiratory: decreased breath sounds Abdomen: soft, non-tender, present bowel sounds Extremities: no tenderness, no cyanosis Laboratory Tests Test 07/07/19 04:25 White Blood Count 12.0 K/UL (4.8-10.8) H Red Blood Count 3.27 M/UL (4.70-6.10) L Hemoglobin 9.1 G/DL (14.2-18.0) L Hematocrit 27.2 % (42.0-52.0) L Mean Corpuscular Volume 83 FL (80-99) Mean Corpuscular Hemoglobin 27.8 PG (27.0-31.0) Mean Corpuscular Hemoglobin Concent 33.4 G/DL (32.0-36.0) Red Cell Distribution Width 13.7 % (11.6-14.8) Platelet Count 220 K/UL (150-450) Mean Platelet Volume 7.2 FL (6.5-10.1) Neutrophils (%) (Auto) 79.9 % (45.0-75.0) H Lymphocytes (%) (Auto) 11.4 % (20.0-45.0) L Monocytes (%) (Auto) 6.5 % (1.0-10.0) Eosinophils (%) (Auto) 1.6 % (0.0-3.0) Basophils (%) (Auto) 0.6 % (0.0-2.0) Erythrocyte Sedimentation Rate 54 MM/HR (0-20) H Sodium Level 141 MMOL/L (136-145) Potassium Level 4.3 MMOL/L (3.5-5.1) Chloride Level 104 MMOL/L (98-107) Carbon Dioxide Level 30 MMOL/L (21-32) Anion Gap 7 mmol/L (5-15) Blood Urea Nitrogen 69 mg/dL (7-18) H Creatinine 1.6 MG/DL (0.55-1.30) H Estimat Glomerular Filtration Rate 45.3 mL/min (>60) Glucose Level 102 MG/DL (74-106) Calcium Level 8.6 MG/DL (8.5-10.1) Phosphorus Level 4.6 MG/DL (2.5-4.9) Magnesium Level 2.0 MG/DL (1.8-2.4) Total Bilirubin 0.2 MG/DL (0.2-1.0) Aspartate Amino Transf (AST/SGOT) 33 U/L (15-37) Alanine Aminotransferase (ALT/SGPT) 123 U/L (12-78) H Alkaline Phosphatase 82 U/L (46-116) C-Reactive Protein, Quantitative 3.3 mg/dL (0.00-0.90) H Total Protein 6.0 G/DL (6.4-8.2) L Albumin 2.5 G/DL (3.4-5.0) L Globulin 3.5 g/dL Albumin/Globulin Ratio 0.7 (1.0-2.7) L Plan Problems: (1) Decubitus skin ulcer Assessment & Plan: Pt presented on admission with Full thickness stage 4sacral pressure injury. Base of wound is necrotic in center with surrounding mixed slough and erythema. Periwound indurated and is maroon and purple in colour. Tx.Plan: Cleanse Sacral wound with Saline. Apply TheraHoney. Apply Moisture Barrier Periwound. Cover with Optifoam drsg. Change every 3 days and prn. Apply Cavilon Skin Barrier to heels. Cover each heel with Optifoam drsg. Change every 7 days and prn. Reposition at least every 2hours or as tolerated. Off-load heels with pillow. (2) Sepsis Assessment & Plan: Leukocytosis, lactic acidosis, elevated LFTs. Likely from dehydration, pneumonia Labs reviewed, imaging reviewed Antibiotics as per infectious disease Tube feeds as tolerated wbc fluctuating on abx lft's improved la improved tolerating tube feeds cxr noted The liver appears normal in size without focal lesion. The gallbladder is moderately distended. The gallbladder wall is the upper limits of normal measuring 2.7 mm. No stones are identified. There is mild upper abdominal ascites. Common bile duct is normal in caliber. There is very mild left hydronephrosis. No right hydronephrosis identified. The spleen, visualized pancreas, IVC and aorta appear within normal limits. The bladder is mildly distended with a Dash catheter in place. Correlation with a Dash catheter patency is recommended. will follow with recs thank you (3) Ventilator associated pneumonia Assessment & Plan: There is persistent elevation of the right hemidiaphragm. There is minimally improved aeration of the right lung base. Currently, the right lower lobe and/or right middle lobe appear to demonstrate some consolidation as well as atelectasis. There is somewhat improved aeration of the left lower lobe, previously suspected left lower lobe infiltrate appears cleared somewhat. Tracheostomy, PICC remain. The heart size is normal Impression: Appearance of the right lung base now has appearance of infiltrate and atelectasis rather than just atelectasis There appears to be improving but persistent mild left basilar consolidation (4) UTI (urinary tract infection) (5) NSTEMI (non-ST elevated myocardial infarction) (6) ALEXA (acute kidney injury) (7) Acute metabolic encephalopathy (8) Chronic vegetative state (9) Traumatic brain injury (10) Attention to G-tube (11) Chronic complete flaccid quadriplegia (12) ATN (acute tubular necrosis) Akash Sotelo Jul 07, 2019 12:15
[2019-07-07] MEDS ORDERED: LORazepam Inj 2mg/ml 1ml IVP SCH (13:00)
--- NOTE | 2019-07-07 13:00 | NUR ---
NURSE NOTES: Ativan 2mg IVP was administered per MD order.
--- NOTE | 2019-07-07 16:00 | NUR ---
NURSE NOTES: Pt is resting in stable condition, VS remain stable. Pt is afebrile. Pt is tolerating GT feeding with no noted residual.
[2019-07-07] MEDS: Micafungin 100 MG in NS 110 ML IVPB SCH (17:45)
--- NOTE | 2019-07-07 18:00 | NUR ---
NURSE NOTES: Pt was cleaned, gown/bed linens were changed, pt was repositioned, with bilateral lower extremities elevated on pillows. Oral care was done. VS remain stable.
--- NOTE | 2019-07-07 19:31 | NUR ---
HAND-OFF: Report given to Chi DEMPSEY. Endorsed plan of care. VS remain stable.
--- NOTE | 2019-07-07 19:40 | NUR ---
NURSE NOTES: LE: PATIENT AWOKE, OPEN EYE, ABLE TO COMMUNICATION WITH CLOSE EYES, ON TRACH TO VENT AV14/TV500/FIO2 40%/PEEP5, O2 SATURATION OVER 97% NOTED, NECK COLLAR STATUS, HEART RATE 70'S/MIN SINUS RHYTHM, ONGOING GLUCERNA 1.2 AT 65ML/HR, NO RESIDUE NOTED, KEPT HOB OVER 30 DEGREES AND ASPIRATION PRECAUTION, ABDOMEN SOFT, ON RECTAL TUBE, BROWN COLOR SOLID STOOL OUTED, F/C INTACT AND PATENT, HEMATURIA NOTED, DRAINING WELL GRAVITY, NO BLADDER DISTENTION NOTED, PICC LINE TO LEFT UPPER ARM, INTACT AND PATENT, ON P200 BED, MADE LOWER BED POSITION, ON BED ALARM AND LOCKED, UNABLE TO USE CALL LIGHT, KEPT CONTACT ISOLATION PROTOCOLS, WILL CONTINUE TO MONITOR.
[2019-07-07] MEDS: Dyna-Hex 2% Top Sol 2oz TOPIC SCH (19:48)
[2019-07-07] MEDS: Acetaminophen 650mg/20.3ml GT PRN (20:05)
--- NOTE | 2019-07-07 20:05 | NUR ---
NURSE NOTES: LE; TEMP 101.1F NOTED, APPLIED COOLING MEASURE AND GIVEN TYLENOL 650MG VIA G TUBE, WILL CONTINUE TO MONITOR.
--- NOTE | 2019-07-07 20:35 | NUR ---
NURSE NOTES: LE: PATIENT ASLEEP STATUS, TEMP 99.9F NOTED, CONTINUED COOLING MEASURE AT THIS TIME.
--- NOTE | 2019-07-07 22:51 | NUR ---
NURSE NOTES: PATIENT ASLEEP STATUS, NO SZ OR DISTRESS NOTED AT THIS TIME.
--- NOTE | 2019-07-07 23:30 | NUR ---
NURSE NOTES: SEEN THE PATIENT BY DR. GOMEZ, MADE NEW ORDER.
[2019-07-08] VITALS (16 sets, daily range): BP systolic 96–165; BP diastolic 56–82
--- NOTE | 2019-07-08 02:23 | NUR ---
NURSE NOTES: PATIENT ASLEEP STATUS, F/C INTACT AND PATENT, YELLOW URINE DRAINING WELL GRAVITY, NO HEMATURIA NOTED AT THIS TIME.
--- NOTE | 2019-07-08 03:00 | Progress Note ---
DATE: 07/07/2019 CARDIOLOGY PROGRESS NOTE SUBJECTIVE: Blood pressure parameters have remained stable. The patient is on ventilator support. Monitored rhythm sinus and sinus bradycardia. OBJECTIVE: GENERAL: Comatose. VITAL SIGNS: Blood pressure range 122/74 to 161/79 and heart rate 58 to 67 . LUNGS: Bilateral breath sounds. HEART: Regular rhythm and rate. Normal S1, S2. ABDOMEN: G-tube intact. EXTREMITIES: No edema. LABORATORY DATA: White count 12 and hemoglobin 9. BUN 69 and creatinine 1.6. Potassium 4.3. Troponin yesterday was down to 1.4. IMPRESSION: 1. Sepsis. 2. Acute myocardial infarction. 3. Shock, recovered. 4. Severe protein-calorie malnutrition. 5. Ventilator-dependent respiratory failure. 6. Acute renal failure. 7. Corrected hypomagnesemia. PLAN: 1. Maintain adequate hydration. 2. Continue beta-jason and anti-platelet therapy. 3. No additional cardiovascular workup planned. 4. EKG and echocardiogram without any abnormalities suggesting a good long-term cardiovascular prognosis. 5. Elevated natriuretic peptide likely reflective of chronic pulmonary disease. Néstor Cervantes M.D. DR: ARMIN JOB#: [id number] CC:
--- NOTE | 2019-07-08 04:14 | NUR ---
NURSE NOTES: GIVEN LASIX 20MG BY IVP ORDERED AT 0319AM. TEMP 98.8F, VSS AT THIS TIME, WILL CONTINUE PLAN OF CARE.
[2019-07-08 04:34] LABS: BASOPHILS % (AUTO) 0.8 % (0.0-2.0); EOSINOPHILS % (AUTO) 0.2 % (0.0-3.0); HEMATOCRIT 25.6 % (42.0-52.0); HEMOGLOBIN 8.7 G/DL (14.2-18.0); LYMPHOCYTES % (AUTO) 11.5 % (20.0-45.0); MEAN CORPUSCULAR VOLUME 84 FL (80-99); MONOCYTES % (AUTO) 5.9 % (1.0-10.0); NEUTROPHILS % (AUTO) 81.6 % (45.0-75.0); PLATELET COUNT 234 K/UL (150-450); RED BLOOD COUNT 3.06 M/UL (4.70-6.10); RED CELL DISTRIBUTION WIDTH 13.4 % (11.6-14.8); WHITE BLOOD COUNT 12.6 K/UL (4.8-10.8)
[2019-07-08 05:19] LABS: PHOSPHORUS 5.2 MG/DL (2.5-4.9)
--- NOTE | 2019-07-08 05:21 | NUR ---
NURSE NOTES: MORNING CARE AND ORAL CARE WAS DONE, RECTAL TUBE INTACT AND PATENT, BROWN COLOR STOOL OUTED.
[2019-07-08 05:34] LABS: ALANINE AMINOTRANSFERASE 93 U/L (12-78); ALBUMIN 2.6 G/DL (3.4-5.0); ALBUMIN/GLOBULIN RATIO 0.7 (1.0-2.7); ALKALINE PHOSPHATASE 73 U/L (46-116); ANION GAP 9 mmol/L (5-15); ASPARTATE AMINO TRANSFERASE 32 U/L (15-37); BILIRUBIN,TOTAL 0.2 MG/DL (0.2-1.0); BLOOD UREA NITROGEN 68 mg/dL (7-18); CALCIUM 8.8 MG/DL (8.5-10.1); CARBON DIOXIDE 29 MMOL/L (21-32); CHLORIDE 105 MMOL/L (98-107); CREATININE 1.6 MG/DL (0.55-1.30); POTASSIUM 4.5 MMOL/L (3.5-5.1); SODIUM 143 MMOL/L (136-145)
[2019-07-08] MEDS: Piperacillin/Tazobactam 3.375 GM in NS 110 ML IVPB SCH (05:47)
[2019-07-08] MEDS: HydrALAZINE 50mg tab GT SCH (05:49)
--- NOTE | 2019-07-08 06:45 | Progress Note ---
DATE: 07/07/2019 SUBJECTIVE: The patient's eyes are open and appears to have eye contact and the patient is tracking. PHYSICAL EXAMINATION: VITAL SIGNS: Blood pressure 158/80, pulse is 70, respirations are 17, and temperature is 101.1. HEENT: Eyes were normal. ENT, mucous membranes were moist and intact. NECK: Supple with no JVD without lymph nodes. Tracheostomy site is clean. LUNGS: Clear without rhonchi, rales, or wheezing. HEART: Normal sounds with regular beats. There is no tachycardia at rest. ABDOMEN: Soft, nontender, with normal bowel sounds. Gastrostomy site is clean. EXTREMITIES: Warm without cyanosis, clubbing, or edema. LABORATORY AND DIAGNOSTIC DATA: His hemoglobin is 9.1, hematocrit 27.2 with MCV of 83, WBC of 12.0, and platelets of 220. WBC was 12.6 yesterday. His BUN and creatinine are 69 and 1.6 respectively. It was similar the day before. His sodium is 141, potassium 4.3, chloride 104, CO2 is 30. His calcium is 8.6, his phosphorus is 4.6, and magnesium is 2. His CRP is 3.3. His albumin is 2.5 and total protein is 6. His latest chest x-ray done yesterday showed low pulmonary infiltrate and pulmonary vascular congestion. IMPRESSION: The patient is in stable condition. He is currently on 100 mg IV piggyback q.24 hours, levofloxacin 750 mg IV piggyback q.24 hours, and piperacillin/tazobactam 3.375 g IV piggyback q.6 h. Repeat laboratory tests will be done in the a.m. Anusha Cordon M.D. DR: MAHESH JOB#: [id number] CC:
--- NOTE | 2019-07-08 07:05 | NUR ---
HAND-OFF: Report given to ROSELYN KELLEY.
--- NOTE | 2019-07-08 07:10 | NUR ---
NURSE NOTES: Received report from ROSELYN Mireles. Patient is asleep and responsive to verbal, open his eyes with tracking. Shiley 7 with vent setting AC 14, VT 500, Peep 5 and FiO2 40%, Gtube intact and running with Glucerna 1.2 @65ml/hr. Dash intact and draining with yellow color urine. Left upper arm PICC intact, clean and running with TKO. Kept dry, clean, comfortable and HOB>30. Will continue plan of care.
[2019-07-08] MEDS: Bactrim Susp 20ml NG SCH ×2 (08:22→20:10)
[2019-07-08] MEDS: Pantoprazole Inj IVP SCH ×2 (08:22→20:10)
[2019-07-08] MEDS: Aspirin Baby 81mg GT SCH (08:23)
[2019-07-08] MEDS: Heparin 5000 units/ml inj SUBQ SCH ×2 (08:24→20:12)
--- NOTE | 2019-07-08 08:45 | NUR ---
NURSE NOTES: Stopped Vancomycin per Pharmacist.
[2019-07-08] MEDS ORDERED: Vancomycin 1gm in D5W 275ml IVPB ONE (09:00)
--- NOTE | 2019-07-08 09:27 | General Progress Note ---
Assessment/Plan Problem List: (1) Anemia ICD Codes: D64.9 - Anemia, unspecified SNOMED: 582225412 (2) Elevated LFTs ICD Codes: R94.5 - Abnormal results of liver function studies SNOMED: 404858700, 022084091 (3) Attention to G-tube ICD Codes: Z43.1 - Encounter for attention to gastrostomy SNOMED: 302276617, 262404861, 162712146 (4) Ventilator associated pneumonia ICD Codes: J95.851 - Ventilator associated pneumonia SNOMED: 360066888 (5) Chronic complete flaccid quadriplegia SNOMED: 202859049, 112406345 (6) Sepsis ICD Codes: A41.9 - Sepsis, unspecified organism SNOMED: 21349908 Qualifiers: Qualified Codes: A41.9 - Sepsis, unspecified organism; R65.20 - Severe sepsis without septic shock; N17.9 - Acute kidney failure, unspecified (7) NSTEMI (non-ST elevated myocardial infarction) ICD Codes: I21.4 - Non-ST elevation (NSTEMI) myocardial infarction SNOMED: 71169751, 587407708 Assessment/Plan: anemia work up stable H&H>>> stable hepatitis panel>>> neg repeat labs us reviewed GTF tolerated Subjective ROS Limited/Unobtainable: No Allergies: Coded Allergies: No Known Allergies (Unverified , 07/01/19) Objective Last 24 Hour Vital Signs Date Time Temp Pulse Resp B/P (MAP) Pulse Ox O2 Delivery O2 Flow Rate FiO2 07/08/19 08:56 67 19 40 07/08/19 08:23 139/77 07/08/19 07:22 68 18 40 07/08/19 07:00 65 28 142/74 (96) 100 07/08/19 06:00 68 21 137/76 (96) 100 07/08/19 05:49 157/81 07/08/19 05:15 62 15 40 07/08/19 05:00 68 19 165/81 (109) 100 07/08/19 04:00 Mechanical Ventilator Mechanical Ventilator 07/08/19 04:00 98.8 62 15 154/78 (103) 100 07/08/19 04:00 40 07/08/19 03:10 75 21 40 07/08/19 03:02 69 07/08/19 03:00 69 24 156/77 (103) 100 07/08/19 02:00 72 28 138/76 (96) 100 07/08/19 01:00 73 27 124/64 (84) 100 07/08/19 00:04 74 22 40 07/08/19 00:00 40 07/08/19 00:00 99.3 72 30 134/71 (92) 100 07/08/19 00:00 72 07/08/19 00:00 Mechanical Ventilator Mechanical Ventilator 07/07/19 23:33 159/84 07/07/19 23:15 68 17 40 07/07/19 23:00 70 25 158/80 (106) 100 07/07/19 22:00 70 19 140/71 (94) 99 07/07/19 21:28 77 19 40 07/07/19 21:05 161/83 07/07/19 21:00 76 21 161/83 (109) 100 07/07/19 20:43 99.9 79 21 162/87 (112) 100 07/07/19 20:35 99.9 07/07/19 20:00 Mechanical Ventilator Mechanical Ventilator 07/07/19 20:00 101.1 83 32 164/84 (110) 100 07/07/19 20:00 40 07/07/19 19:38 77 07/07/19 19:05 78 22 40 07/07/19 19:00 79 32 163/78 (106) 99 07/07/19 18:00 75 36 147/76 (99) 96 07/07/19 17:09 69 22 40 07/07/19 17:04 77 39 149/72 (97) 95 07/07/19 17:00 73 31 149/72 (97) 96 07/07/19 16:00 Mechanical Ventilator Mechanical Ventilator 07/07/19 16:00 66 07/07/19 16:00 40 07/07/19 16:00 97.9 66 17 133/74 (93) 96 07/07/19 15:13 68 21 40 07/07/19 15:00 62 16 138/73 (94) 97 07/07/19 14:00 60 11 138/78 (98) 97 07/07/19 13:00 65 12 137/80 (99) 97 07/07/19 12:31 59 25 100 Mechanical Ventilator 40 57 17 40 07/07/19 12:00 40 07/07/19 12:00 55 18 118/65 (82) 98 07/07/19 12:00 Mechanical Ventilator Mechanical Ventilator 07/07/19 12:00 56 07/07/19 11:10 55 17 40 07/07/19 11:00 98.7 51 15 154/79 (104) 100 07/07/19 10:00 59 27 118/65 (82) 98 07/07/19 09:35 141/82 Intake and Output 07/07/19 07/08/19 19:00 07:00 Intake Total 1255.0 ml 819.0 ml Output Total 1350 ml 1810 ml Balance -95.0 ml -991.0 ml Intake Free Water 120 ml IV Total 420.0 ml 34.0 ml Tube Feeding 715 ml 585 ml Other 200 ml Output Urine Total 1150 ml 1610 ml Stool Total 200 ml 200 ml Laboratory Tests 07/08/19 03:44: White Blood Count 12.6H, Red Blood Count 3.06L, Hemoglobin 8.7L, Hematocrit 25.6L, Mean Corpuscular Volume 84, Mean Corpuscular Hemoglobin 28.5, Mean Corpuscular Hemoglobin Concent 34.0, Red Cell Distribution Width 13.4, Platelet Count 234, Mean Platelet Volume 7.4, Neutrophils (%) (Auto) 81.6H, Lymphocytes ( %) (Auto) 11.5L, Monocytes (%) (Auto) 5.9, Eosinophils (%) (Auto) 0.2, Basophils (%) (Auto) 0.8, Sodium Level 143, Potassium Level 4.5, Chloride Level 105, Carbon Dioxide Level 29, Anion Gap 9, Blood Urea Nitrogen 68H, Creatinine 1.6H, Estimat Glomerular Filtration Rate 45.3, Glucose Level 108H, Uric Acid 6.0 , Calcium Level 8.8, Phosphorus Level 5.2H, Magnesium Level 2.0, Total Bilirubin 0.2, Aspartate Amino Transf (AST/SGOT) 32, Alanine Aminotransferase ( ALT/SGPT) 93H, Alkaline Phosphatase 73, C-Reactive Protein, Quantitative 2.2H, Pro-B-Type Natriuretic Peptide 60849G, Total Protein 6.2L, Albumin 2.6L, Globulin 3.6, Albumin/Globulin Ratio 0.7L, Random Vancomycin Level 17.9 Height (Feet): 5 Height (Inches): 9.00 Weight (Pounds): 176 General Appearance: no apparent distress EENT: normal ENT inspection Neck: supple Cardiovascular: normal rate Respiratory/Chest: decreased breath sounds Abdomen: normal bowel sounds, non tender, soft Extremities: non-tender Talat Beckwith MD Jul 08, 2019 09:26
--- NOTE | 2019-07-08 09:33 | NUR ---
RADIOLOGY DEPT., CHEST X-RAY DONE.-P.DYE
--- NOTE | 2019-07-08 10:02 | NUR ---
TRANSFER TO FLOOR: Patient transferred to [facility]. Report given to ROSELYN Gavin. No belongings. Endorsed plan of care.
--- NOTE | 2019-07-08 10:32 | Diagnostic Imaging Report ---
Indication: Dyspnea Comparison: 07/06/2019 A single view chest radiograph was obtained. Findings: Right hemidiaphragm is elevated. Heart size is normal. Tracheostomy noted. PICC line is present. The tip is projected over the SVC. Hazy opacity noted at the left lung base. Thoracic vertebral enthesophytes noted multiple levels. IMPRESSION: No change from the prior exam. Mild pulmonary vascular congestion may be present.
--- NOTE | 2019-07-08 10:45 | NUR ---
NURSE NOTES: RECEIVED PT VIA BED FROM ICU ESCORTED WITH ALLIE BISQUE TILE BURNER. PT AWAKE AND ALERT NON-VERBAL TRACH TO VENT TOLERATING WELL CURRENTS VENT SETTINGS,O2 SAT 93% ,TRACH WELL SECURED SHILEY #7, AC-14, TV 500,PEEP 5, FIO2 40%,RENDERED TRACH CARE AND ORAL HYGIENE ,MOD AMT OF THICK WHITE SECRETIONS NOTED .PT RECEIVING GTF GEVITY 1.2 @ 65CC/HRS, NO RESIDUAL NOTED. F/C MOROCCAN # 18 DRAINING WELL YELLOW URINE COLOR AND RECTAL TUBE IN PLACE .PT HAVING LIQUID DIARRHEA.PICC -LINE ON LT UA IN PLACE AND INTACT.RENDERED WOUND CARE TO SACRAL STAGE FOUR PRESSURE ULCER. FULL BODY ASSESSMENT DONE. PT REPOSITIONED IN BED TO PROVIDE COMFORT AND TO PREVENT FURTHER SKIN SAM DOWN. NO ACUTE DISTRESS NOTED AT THIS .WILL CONT TO MONITOR.
[2019-07-08] MEDS ORDERED: Albuterol/Ipratropium 3ml neb HHN PRN (11:15)
--- NOTE | 2019-07-08 11:53 | Pulmonolgy Critical Care Note ---
Critical Care - Asmt/Plan Problems: (1) Sepsis (2) Ventilator associated pneumonia (3) ATN (acute tubular necrosis) (4) ALEXA (acute kidney injury) (5) Decubitus skin ulcer (6) Chronic complete flaccid quadriplegia (7) Attention to G-tube (8) Traumatic brain injury Respiratory: monitor respiratory rate, adjust FIO2, CXR Cardiac: continue pressors, continue to monitor HR/BP Renal: F/U I&O Infectious Disease: check cultures Gastrointestinal: continue feedings/current rate Endocrine: monitor blood sugar Hematologic: monitor H/H, transfuse if hgb<8.5 Neurologic: PRN Morphine, keep patient comfortable Affect: PRN ativan Prophylaxis: Protonix Notes Reviewed: 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 machine 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, renal Discussed with: nurses, 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, 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 - Objective Last 24 Hour Vital Signs Date Time Temp Pulse Resp B/P (MAP) Pulse Ox O2 Delivery O2 Flow Rate FiO2 07/08/19 11:08 65 24 40 07/08/19 11:00 98.2 60 19 124/63 (83) 93 07/08/19 10:00 67 16 124/56 (78) 100 07/08/19 09:00 63 11 96/56 (69) 95 07/08/19 08:56 67 19 40 07/08/19 08:23 139/77 07/08/19 08:00 99.2 62 16 139/77 (97) 100 07/08/19 08:00 Mechanical Ventilator Mechanical Ventilator 07/08/19 08:00 40 07/08/19 07:22 68 18 40 07/08/19 07:00 65 28 142/74 (96) 100 07/08/19 06:00 68 21 137/76 (96) 100 07/08/19 05:49 157/81 07/08/19 05:15 62 15 40 07/08/19 05:00 68 19 165/81 (109) 100 07/08/19 04:00 Mechanical Ventilator Mechanical Ventilator 07/08/19 04:00 98.8 62 15 154/78 (103) 100 07/08/19 04:00 40 07/08/19 03:10 75 21 40 07/08/19 03:02 69 07/08/19 03:00 69 24 156/77 (103) 100 07/08/19 02:00 72 28 138/76 (96) 100 07/08/19 01:00 73 27 124/64 (84) 100 07/08/19 00:04 74 22 40 07/08/19 00:00 40 07/08/19 00:00 99.3 72 30 134/71 (92) 100 07/08/19 00:00 72 07/08/19 00:00 Mechanical Ventilator Mechanical Ventilator 07/07/19 23:33 159/84 07/07/19 23:15 68 17 40 07/07/19 23:00 70 25 158/80 (106) 100 07/07/19 22:00 70 19 140/71 (94) 99 07/07/19 21:28 77 19 40 07/07/19 21:05 161/83 07/07/19 21:00 76 21 161/83 (109) 100 07/07/19 20:43 99.9 79 21 162/87 (112) 100 07/07/19 20:35 99.9 07/07/19 20:00 Mechanical Ventilator Mechanical Ventilator 07/07/19 20:00 101.1 83 32 164/84 (110) 100 07/07/19 20:00 40 07/07/19 19:38 77 07/07/19 19:05 78 22 40 07/07/19 19:00 79 32 163/78 (106) 99 07/07/19 18:00 75 36 147/76 (99) 96 07/07/19 17:09 69 22 40 07/07/19 17:04 77 39 149/72 (97) 95 07/07/19 17:00 73 31 149/72 (97) 96 07/07/19 16:00 Mechanical Ventilator Mechanical Ventilator 07/07/19 16:00 66 07/07/19 16:00 40 07/07/19 16:00 97.9 66 17 133/74 (93) 96 07/07/19 15:13 68 21 40 07/07/19 15:00 62 16 138/73 (94) 97 07/07/19 14:00 60 11 138/78 (98) 97 07/07/19 13:00 65 12 137/80 (99) 97 07/07/19 12:31 59 25 100 Mechanical Ventilator 40 57 17 40 07/07/19 12:00 40 07/07/19 12:00 55 18 118/65 (82) 98 07/07/19 12:00 Mechanical Ventilator Mechanical Ventilator 07/07/19 12:00 56 Status: awake Condition: critical HEENT: atraumatic Neck: full ROM Lungs: chest wall tender Abdomen: soft, active bowel sounds Extremities: no C/C/E Critical Care - Subjective ROS Limited/Unobtainable: No Condition: critical EKG Rhythm: Sinus Rhythm FI02: 40 Vent Support Breath Rate: 14 Vent Support Mode: AC Vent Tidal Volume: 500 Sputum Amount: Small PEEP: 5.0 PIP: 31 Tube Feeding Amount: 65 I&O: Intake and Output 07/07/19 07/08/19 19:02 07:02 Intake Total 1255.0 ml 819.0 ml Output Total 1350 ml 1810 ml Balance -95.0 ml -991.0 ml Intake Free Water 120 ml IV Total 420.0 ml 34.0 ml Tube Feeding 715 ml 585 ml Other 200 ml Output Urine Total 1150 ml 1610 ml Stool Total 200 ml 200 ml Labs: Laboratory Tests Test 07/08/19 03:44 White Blood Count 12.6 K/UL (4.8-10.8) H Red Blood Count 3.06 M/UL (4.70-6.10) L Hemoglobin 8.7 G/DL (14.2-18.0) L Hematocrit 25.6 % (42.0-52.0) L Mean Corpuscular Volume 84 FL (80-99) Mean Corpuscular Hemoglobin 28.5 PG (27.0-31.0) Mean Corpuscular Hemoglobin Concent 34.0 G/DL (32.0-36.0) Red Cell Distribution Width 13.4 % (11.6-14.8) Platelet Count 234 K/UL (150-450) Mean Platelet Volume 7.4 FL (6.5-10.1) Neutrophils (%) (Auto) 81.6 % (45.0-75.0) H Lymphocytes (%) (Auto) 11.5 % (20.0-45.0) L Monocytes (%) (Auto) 5.9 % (1.0-10.0) Eosinophils (%) (Auto) 0.2 % (0.0-3.0) Basophils (%) (Auto) 0.8 % (0.0-2.0) Sodium Level 143 MMOL/L (136-145) Potassium Level 4.5 MMOL/L (3.5-5.1) Chloride Level 105 MMOL/L (98-107) Carbon Dioxide Level 29 MMOL/L (21-32) Anion Gap 9 mmol/L (5-15) Blood Urea Nitrogen 68 mg/dL (7-18) H Creatinine 1.6 MG/DL (0.55-1.30) H Estimat Glomerular Filtration Rate 45.3 mL/min (>60) Glucose Level 108 MG/DL (74-106) H Uric Acid 6.0 MG/DL (2.6-7.2) Calcium Level 8.8 MG/DL (8.5-10.1) Phosphorus Level 5.2 MG/DL (2.5-4.9) H Magnesium Level 2.0 MG/DL (1.8-2.4) Total Bilirubin 0.2 MG/DL (0.2-1.0) Aspartate Amino Transf (AST/SGOT) 32 U/L (15-37) Alanine Aminotransferase (ALT/SGPT) 93 U/L (12-78) H Alkaline Phosphatase 73 U/L (46-116) C-Reactive Protein, Quantitative 2.2 mg/dL (0.00-0.90) H Pro-B-Type Natriuretic Peptide 39245 pg/mL (0-125) H Total Protein 6.2 G/DL (6.4-8.2) L Albumin 2.6 G/DL (3.4-5.0) L Globulin 3.6 g/dL Albumin/Globulin Ratio 0.7 (1.0-2.7) L Random Vancomycin Level 17.9 ug/mL Fidencio Jenkins MD Jul 08, 2019 11:53
[2019-07-08] MEDS ORDERED: Acetaminophen 650mg/20.3ml GT PRN (12:00)
--- NOTE | 2019-07-08 12:08 | Surgery Progress Note ---
Surgery Progress Note Subjective Additional Comments leukocytosis inflammatory markers trending down downgraded stable Objective Last 24 Hour Vital Signs Date Time Temp Pulse Resp B/P (MAP) Pulse Ox O2 Delivery O2 Flow Rate FiO2 07/08/19 11:08 65 24 40 07/08/19 11:00 98.2 60 19 124/63 (83) 93 07/08/19 10:00 67 16 124/56 (78) 100 07/08/19 09:00 63 11 96/56 (69) 95 07/08/19 08:56 67 19 40 07/08/19 08:23 139/77 07/08/19 08:00 99.2 62 16 139/77 (97) 100 07/08/19 08:00 Mechanical Ventilator Mechanical Ventilator 07/08/19 08:00 40 07/08/19 08:00 74 07/08/19 07:22 68 18 40 07/08/19 07:00 65 28 142/74 (96) 100 07/08/19 06:00 68 21 137/76 (96) 100 07/08/19 05:49 157/81 07/08/19 05:15 62 15 40 07/08/19 05:00 68 19 165/81 (109) 100 07/08/19 04:00 Mechanical Ventilator Mechanical Ventilator 07/08/19 04:00 98.8 62 15 154/78 (103) 100 07/08/19 04:00 40 07/08/19 03:10 75 21 40 07/08/19 03:02 69 07/08/19 03:00 69 24 156/77 (103) 100 07/08/19 02:00 72 28 138/76 (96) 100 07/08/19 01:00 73 27 124/64 (84) 100 07/08/19 00:04 74 22 40 07/08/19 00:00 40 07/08/19 00:00 99.3 72 30 134/71 (92) 100 07/08/19 00:00 72 07/08/19 00:00 Mechanical Ventilator Mechanical Ventilator 07/07/19 23:33 159/84 07/07/19 23:15 68 17 40 07/07/19 23:00 70 25 158/80 (106) 100 07/07/19 22:00 70 19 140/71 (94) 99 07/07/19 21:28 77 19 40 07/07/19 21:05 161/83 07/07/19 21:00 76 21 161/83 (109) 100 07/07/19 20:43 99.9 79 21 162/87 (112) 100 07/07/19 20:35 99.9 07/07/19 20:00 Mechanical Ventilator Mechanical Ventilator 07/07/19 20:00 101.1 83 32 164/84 (110) 100 07/07/19 20:00 40 07/07/19 19:38 77 07/07/19 19:05 78 22 40 07/07/19 19:00 79 32 163/78 (106) 99 07/07/19 18:00 75 36 147/76 (99) 96 07/07/19 17:09 69 22 40 07/07/19 17:04 77 39 149/72 (97) 95 07/07/19 17:00 73 31 149/72 (97) 96 07/07/19 16:00 Mechanical Ventilator Mechanical Ventilator 07/07/19 16:00 66 07/07/19 16:00 40 07/07/19 16:00 97.9 66 17 133/74 (93) 96 07/07/19 15:13 68 21 40 07/07/19 15:00 62 16 138/73 (94) 97 07/07/19 14:00 60 11 138/78 (98) 97 07/07/19 13:00 65 12 137/80 (99) 97 07/07/19 12:31 59 25 100 Mechanical Ventilator 40 57 17 40 I&O Intake and Output 07/07/19 07/08/19 19:00 07:00 Intake Total 1255.0 ml 819.0 ml Output Total 1350 ml 1810 ml Balance -95.0 ml -991.0 ml Intake Free Water 120 ml IV Total 420.0 ml 34.0 ml Tube Feeding 715 ml 585 ml Other 200 ml Output Urine Total 1150 ml 1610 ml Stool Total 200 ml 200 ml Dressing: dry Wound: clean Cardiovascular: RSR Abdomen: soft, non-tender, present bowel sounds Extremities: no cyanosis, other Laboratory Tests Test 07/08/19 03:44 White Blood Count 12.6 K/UL (4.8-10.8) H Red Blood Count 3.06 M/UL (4.70-6.10) L Hemoglobin 8.7 G/DL (14.2-18.0) L Hematocrit 25.6 % (42.0-52.0) L Mean Corpuscular Volume 84 FL (80-99) Mean Corpuscular Hemoglobin 28.5 PG (27.0-31.0) Mean Corpuscular Hemoglobin Concent 34.0 G/DL (32.0-36.0) Red Cell Distribution Width 13.4 % (11.6-14.8) Platelet Count 234 K/UL (150-450) Mean Platelet Volume 7.4 FL (6.5-10.1) Neutrophils (%) (Auto) 81.6 % (45.0-75.0) H Lymphocytes (%) (Auto) 11.5 % (20.0-45.0) L Monocytes (%) (Auto) 5.9 % (1.0-10.0) Eosinophils (%) (Auto) 0.2 % (0.0-3.0) Basophils (%) (Auto) 0.8 % (0.0-2.0) Sodium Level 143 MMOL/L (136-145) Potassium Level 4.5 MMOL/L (3.5-5.1) Chloride Level 105 MMOL/L (98-107) Carbon Dioxide Level 29 MMOL/L (21-32) Anion Gap 9 mmol/L (5-15) Blood Urea Nitrogen 68 mg/dL (7-18) H Creatinine 1.6 MG/DL (0.55-1.30) H Estimat Glomerular Filtration Rate 45.3 mL/min (>60) Glucose Level 108 MG/DL (74-106) H Uric Acid 6.0 MG/DL (2.6-7.2) Calcium Level 8.8 MG/DL (8.5-10.1) Phosphorus Level 5.2 MG/DL (2.5-4.9) H Magnesium Level 2.0 MG/DL (1.8-2.4) Total Bilirubin 0.2 MG/DL (0.2-1.0) Aspartate Amino Transf (AST/SGOT) 32 U/L (15-37) Alanine Aminotransferase (ALT/SGPT) 93 U/L (12-78) H Alkaline Phosphatase 73 U/L (46-116) C-Reactive Protein, Quantitative 2.2 mg/dL (0.00-0.90) H Pro-B-Type Natriuretic Peptide 93283 pg/mL (0-125) H Total Protein 6.2 G/DL (6.4-8.2) L Albumin 2.6 G/DL (3.4-5.0) L Globulin 3.6 g/dL Albumin/Globulin Ratio 0.7 (1.0-2.7) L Random Vancomycin Level 17.9 ug/mL Plan Problems: (1) Decubitus skin ulcer Assessment & Plan: Pt presented on admission with Full thickness stage 4sacral pressure injury. Base of wound is necrotic in center with surrounding mixed slough and erythema. Periwound indurated and is maroon and purple in colour. Tx.Plan: Cleanse Sacral wound with Saline. Apply TheraHoney. Apply Moisture Barrier Periwound. Cover with Optifoam drsg. Change every 3 days and prn. Apply Cavilon Skin Barrier to heels. Cover each heel with Optifoam drsg. Change every 7 days and prn. Reposition at least every 2hours or as tolerated. Off-load heels with pillow. (2) Sepsis Assessment & Plan: Leukocytosis, lactic acidosis, elevated LFTs. Likely from dehydration, pneumonia Labs reviewed, imaging reviewed Antibiotics as per infectious disease Tube feeds as tolerated wbc fluctuating on abx lft's improved la improved tolerating tube feeds cxr noted recovering downgraded The liver appears normal in size without focal lesion. The gallbladder is moderately distended. The gallbladder wall is the upper limits of normal measuring 2.7 mm. No stones are identified. There is mild upper abdominal ascites. Common bile duct is normal in caliber. There is very mild left hydronephrosis. No right hydronephrosis identified. The spleen, visualized pancreas, IVC and aorta appear within normal limits. The bladder is mildly distended with a Dash catheter in place. Correlation with a Dash catheter patency is recommended. will follow with recs thank you (3) Ventilator associated pneumonia Assessment & Plan: There is persistent elevation of the right hemidiaphragm. There is minimally improved aeration of the right lung base. Currently, the right lower lobe and/or right middle lobe appear to demonstrate some consolidation as well as atelectasis. There is somewhat improved aeration of the left lower lobe, previously suspected left lower lobe infiltrate appears cleared somewhat. Tracheostomy, PICC remain. The heart size is normal Impression: Appearance of the right lung base now has appearance of infiltrate and atelectasis rather than just atelectasis There appears to be improving but persistent mild left basilar consolidation (4) UTI (urinary tract infection) (5) NSTEMI (non-ST elevated myocardial infarction) (6) ALEXA (acute kidney injury) (7) Acute metabolic encephalopathy (8) Chronic vegetative state (9) Traumatic brain injury (10) Attention to G-tube (11) Chronic complete flaccid quadriplegia (12) ATN (acute tubular necrosis) Akash Sotelo Jul 08, 2019 12:08
--- NOTE | 2019-07-08 12:15 | NUR ---
RD ASSESSMENT & RECOMMENDATIONS SEE CARE ACTIVITY FOR COMPLETE ASSESSMENT DAILY ESTIMATED NEEDS: Needs based on Wound, critical care 69.5kg 22-30 kcals/kg 3935-1229 total kcals 1.25-2 g protein/kg 87-139 g total protein 25-30 mL/kg 2020-2545 total fluid mLs NUTRITION DIAGNOSIS: Increased kcal and pro needs r/t wound healing as evidenced by pt w/ stage 4 sacral wound, bedbound, trach and peg dep. CURRENT TF:Glucerna 1.2 @65ml ENTERAL NUTRITION RECOMMENDATIONS: Nepro @ 45ml/hr x 24 hrs to provide 1080ml, 1944kcal, 87g pro, 785ml free H2O. - Rec TF change w/ continued elevated phos and h/o elev K : initiate Nepro @ 15ml/hr x 6 hrs, advance 10ml q 4-6 hrs as tolerated to goal rate. : HOB over 30 degrees/ water flush per MD ADDITIONAL RECOMMENDATIONS: 1) Per SNF: Height of 153#/69.5kg obtained on 07/01/19 2) Trend phos, K and need for renal formula -> Phos elevated (5.2, 5.0, 5.6 ), K elev upon adm (5.5) -> Rec Nepro at this time 3) WC: Add HILDA in 4oz H2O BID +Vit C 250mg BID +ZnSO4 220mg qd [id number] 4) Monitor BGs, need for NISS 5) add probiotics for diarrhea (+rectal tube)
[2019-07-08] MEDS: HydrALAZINE 25mg tab GT SCH ×2 (13:07→18:05)
--- NOTE | 2019-07-08 14:21 | NUR ---
CASE MANAGEMENT: REVIEW 07/08/2019 SI:SEPSIS. VS: T 98.8 HR 77 RR 17 B/P 138/67 SATS 97% ON MECH VENT FIO2 40 LABS: WBC 12.6 BUN 68 CR 1.6 GLU 108 PHOS 5.2 ALT 93 CRP 2.2 BNP 71152 IS:HYDRALAZINE GT Q6H BACTRIM NG Q12H ISORDIL GT BID ASA GT QD PROTONIX IV Q12H MICAFUNGIN IV Q24H SDU
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
--- NOTE | 2019-07-08 14:37 | NUR ---
DISCHARGE PLANNING: NOTE CLINICALS FAXED TO [facility] FOR REVIEW PER LESLIE ONLY ONE SUBACUTE BED IS AVAILABLE AT THIS TIME. POSSIBLE DC FOR TOMORROW. DC REQUESTED FROM . CM WILL F/U
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
[2019-07-08] MEDS ORDERED: Micafungin 100 MG in NS 110 ML IVPB SCH (18:00)
--- NOTE | 2019-07-08 19:05 | NUR ---
HAND-OFF: Report given to .JUAN DEMPSEY.
--- NOTE | 2019-07-08 19:15 | NUR ---
NURSE NOTES: Received patient and report from ROSELYN Gavin. Patient is observed resting in bed and remains alert and oriented x2-3. Pt is nonverbal but able to use facial expressions and letter board to communicate. No pain noted upon assessment. Pt is trach to vent AC14 TV 500 FiO2 40% and PEEP 5 with no s/sx of acute distress and an O2 saturation of 99%. Pt noted to be SR on tele monitor with a current HR of 69 with no s/sx of acute distress. L upper arm double lumen PICC line noted which remains asymptomatic, patent and intact. Skin remains alterations noted. Diagnostics reviewed. Pt remains resting in bed; Bed remains in the lowest position with the safety wheels engaged, call light within reach, side rails up x3 and bed alarm activated. Will continue plan of care. Will continue to monitor.
[2019-07-08] MEDS ORDERED: Dyna-Hex 2% Top Sol 2oz TOPIC SCH (20:00)
[2019-07-08] MEDS ORDERED: Sterile Water Irrig 1000ml IRRIG ONE ×3 (20:40→20:42)
[2019-07-08] MEDS ORDERED: Sterile Water Irrig 2000ml IRRIG ONE (20:40)
[2019-07-08] MEDS ORDERED: D5 1/2NS 1000ml IV ONE (20:40)
[2019-07-08] MEDS ORDERED: Tubing IV Secondary IV ONE ×2 (20:40→20:42)
[2019-07-08] MEDS ORDERED: NS 275ml ONE (20:42)
--- NOTE | 2019-07-08 21:12 | NUR ---
NURSE NOTES: Heparin held r/t hematuria. Will continue to monitor patient.
--- NOTE | 2019-07-08 23:20 | NUR ---
NURSE NOTES: Pt was provided with a bed bath, oral care and linen change. Pt tolerated care well. Pt remains resting in bed; Bed remains in the lowest position with the safety wheels engaged, call light within reach, side rails up x3 and bed alarm activated. Will continue plan of care. Will continue to monitor.
[2019-07-09] VITALS: BP 154/86
--- NOTE | 2019-07-09 | NUR ---
NURSE NOTES: Dr Cordon present at bedside to assess patient. Pt remains resting in bed; Bed remains in the lowest position with the safety wheels engaged, call light within reach, side rails up x3 and bed alarm activated. Will continue plan of care. Will continue to monitor.
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
[2019-07-09] MEDS: HydrALAZINE 25mg tab GT SCH ×3 (01:15→11:57)
[2019-07-09 04:00] VITALS: BP 152/84
--- NOTE | 2019-07-09 04:12 | NUR ---
NURSE NOTES: Pt provided with a bed bath, oral care and linen change. Pt tolerated care well. Pt remains resting in bed; Bed remains in the lowest position with the safety wheels engaged, call light within reach, side rails up x3 and bed alarm activated. Will continue plan of care. Will continue to monitor.
[2019-07-09 06:48] LABS: BASOPHILS % (AUTO) 0.4 % (0.0-2.0); EOSINOPHILS % (AUTO) 0.2 % (0.0-3.0); HEMATOCRIT 26.1 % (42.0-52.0); HEMOGLOBIN 8.7 G/DL (14.2-18.0); LYMPHOCYTES % (AUTO) 12.9 % (20.0-45.0); MEAN CORPUSCULAR VOLUME 85 FL (80-99); MONOCYTES % (AUTO) 6.4 % (1.0-10.0); NEUTROPHILS % (AUTO) 80.1 % (45.0-75.0); PLATELET COUNT 243 K/UL (150-450); RED BLOOD COUNT 3.07 M/UL (4.70-6.10); RED CELL DISTRIBUTION WIDTH 14.4 % (11.6-14.8); WHITE BLOOD COUNT 11.2 K/UL (4.8-10.8)
--- NOTE | 2019-07-09 07:00 | NUR ---
RESPIRATORY NOTE: received pt on current vent settings with no signs of resp distress. pt is trach with [id number] xlt, secured via trach tie. vent is plugged into the red outlet with alarms on and audible. will monitor throughout the day.
--- NOTE | 2019-07-09 07:12 | NUR ---
HAND-OFF: Report given to ROSELYN Jimenez. Planof care endorsed.
--- NOTE | 2019-07-09 07:12 | NUR ---
NURSE NOTES: Received report form ROSELYN Bautista. Patient is resting in bed, in stable condition. No s/sx of SOB, breathing is even and unlabored, vent settings are as ordered. Pt is nonverbal, observed no presence of pain or discomfort at this time. Bed is in lowest position, brakes engaged. Call light is kept within easy reach. Will continue to monitor patient.
--- NOTE | 2019-07-09 07:14 | NUR ---
NURSE NOTES: Per night nurse in report, MDs are aware of hematuria. Noted. Will continue wero monitor patient.
[2019-07-09 07:47] VITALS: BP 145/78
[2019-07-09] MEDS: Pantoprazole Inj IVP SCH (08:32)
[2019-07-09] MEDS: Heparin 5000 units/ml inj SUBQ SCH (08:33)
[2019-07-09] MEDS: Bactrim Susp 20ml NG SCH (08:33)
--- NOTE | 2019-07-09 08:45 | Progress Note ---
DATE: 07/08/2019 SUBJECTIVE: The patient is awake, afebrile, and hemodynamically stable. He was transferred today out of the intensive care unit to the cardiac observation unit. Computers are down, so no data is available for analysis. PHYSICAL EXAMINATION: VITAL SIGNS: Blood pressure 134/89, his pulse is 92, respirations are 21, and temperature of 97.9. HEENT: Eyes were normal. ENT, mucous membranes were moist and intact. NECK: Neck is in neck collar and difficult to assess. Tracheostomy site is clean. LUNGS: Clear without rhonchi, rales, or wheezing. HEART: Normal sounds with regular beats. ABDOMEN: Soft and nontender with normal bowel sounds. EXTREMITIES: Warm without cyanosis, clubbing, or edema. IMPRESSION: The patient is stable during the day. I am not aware of his blood tests at the present time. Repeat laboratory tests will be done in a.m. Anusha Cordon M.D. DR: SHANTANU JOB#: [id number] CC:
[2019-07-09] MEDS ORDERED: Aspirin Baby 81mg GT SCH (09:00)
--- NOTE | 2019-07-09 09:58 | General Progress Note ---
Assessment/Plan Problem List: (1) Anemia ICD Codes: D64.9 - Anemia, unspecified SNOMED: 692223213 (2) Elevated LFTs ICD Codes: R94.5 - Abnormal results of liver function studies SNOMED: 779041077, 860722464 (3) Attention to G-tube ICD Codes: Z43.1 - Encounter for attention to gastrostomy SNOMED: 073636738, 076879323, 938389657 (4) Ventilator associated pneumonia ICD Codes: J95.851 - Ventilator associated pneumonia SNOMED: 516392647 (5) Chronic complete flaccid quadriplegia SNOMED: 154052179, 641399521 (6) Sepsis ICD Codes: A41.9 - Sepsis, unspecified organism SNOMED: 44401303 Qualifiers: Qualified Codes: A41.9 - Sepsis, unspecified organism; R65.20 - Severe sepsis without septic shock; N17.9 - Acute kidney failure, unspecified (7) NSTEMI (non-ST elevated myocardial infarction) ICD Codes: I21.4 - Non-ST elevation (NSTEMI) myocardial infarction SNOMED: 77819994, 687706781 Assessment/Plan: anemia work up stable H&H>>> stable hepatitis panel>>> neg repeat labs us reviewed GTF tolerated Subjective Allergies: Coded Allergies: No Known Allergies (Unverified , 07/01/19) Objective Last 24 Hour Vital Signs Date Time Temp Pulse Resp B/P (MAP) Pulse Ox O2 Delivery O2 Flow Rate FiO2 07/09/19 09:39 71 18 40 07/09/19 08:32 145/78 07/09/19 08:00 72 07/09/19 08:00 40 07/09/19 07:47 99.5 75 18 145/78 (100) 98 07/09/19 06:56 79 20 40 07/09/19 06:00 158/74 07/09/19 05:14 79 20 40 07/09/19 04:00 98.4 63 18 152/84 (106) 97 07/09/19 04:00 40 07/09/19 04:00 Mechanical Ventilator Mechanical Ventilator 07/09/19 03:44 71 07/09/19 03:05 71 17 40 07/09/19 01:20 70 19 40 07/09/19 01:15 168/84 07/09/19 00:00 Mechanical Ventilator Mechanical Ventilator 07/09/19 00:00 98.6 65 20 154/86 (108) 100 07/08/19 23:37 74 07/08/19 23:25 70 18 40 07/08/19 21:24 67 19 40 07/08/19 20:12 141/75 07/08/19 20:00 Mechanical Ventilator Mechanical Ventilator 07/08/19 20:00 40 07/08/19 20:00 99.5 67 18 148/82 (104) 99 07/08/19 19:24 67 07/08/19 18:48 69 20 40 07/08/19 18:05 152/81 07/08/19 17:25 64 16 40 07/08/19 16:00 98.6 69 18 152/81 (104) 99 07/08/19 16:00 40 07/08/19 16:00 Mechanical Ventilator Mechanical Ventilator 07/08/19 16:00 64 07/08/19 15:00 62 18 40 07/08/19 13:15 70 20 40 07/08/19 13:07 140/77 07/08/19 13:00 98.8 77 17 138/67 (90) 97 07/08/19 12:00 75 07/08/19 12:00 98.8 68 18 140/77 (98) 99 07/08/19 12:00 40 07/08/19 12:00 Mechanical Ventilator Mechanical Ventilator 07/08/19 11:08 65 24 40 07/08/19 11:00 98.2 60 19 124/63 (83) 93 07/08/19 10:00 67 16 124/56 (78) 100 Intake and Output 07/08/19 07/09/19 19:00 07:00 Intake Total 1015 ml 1075 ml Output Total 1450 ml 1700 ml Balance -435 ml -625 ml Intake Free Water 300 ml 250 ml IV Total 110 ml Tube Feeding 715 ml 715 ml Output Urine Total 1450 ml 1400 ml Stool Total 300 ml # Bowel Movements 100 Laboratory Tests 07/09/19 04:00: White Blood Count 11.2H, Red Blood Count 3.07L, Hemoglobin 8.7L, Hematocrit 26.1L, Mean Corpuscular Volume 85, Mean Corpuscular Hemoglobin 28.5, Mean Corpuscular Hemoglobin Concent 33.5, Red Cell Distribution Width 14.4, Platelet Count 243, Mean Platelet Volume 6.5, Neutrophils (%) (Auto) 80.1H, Lymphocytes ( %) (Auto) 12.9L, Monocytes (%) (Auto) 6.4, Eosinophils (%) (Auto) 0.2, Basophils (%) (Auto) 0.4 Height (Feet): 5 Height (Inches): 9.00 Weight (Pounds): 176 General Appearance: lethargic EENT: normal ENT inspection Neck: supple Cardiovascular: normal rate Respiratory/Chest: decreased breath sounds Abdomen: normal bowel sounds, non tender, soft Extremities: non-tender Talat Beckwith MD Jul 09, 2019 09:58
--- NOTE | 2019-07-09 10:00 | NUR ---
NURSE NOTES: Dr. Jenkins seen and examined patient at bedside. Informed Dr. Jenkins that patient is being discharged today. Per Dr. Jenkins ordered to continue raya catheter, rectal tube, and left upper arm PICC when discharged to nursing facility. Noted. Order entered.
--- NOTE | 2019-07-09 10:44 | NUR ---
CASE MANAGEMENT: REVIEW 07/09/2019 SI:SEPSIS. VS: T 99.5 HR 75 RR 18 B/P 145/78 SATS 98% ON MECH VENT FIO2 40 LABS: WBC 11.2 IS:HYDRALAZINE GT Q6H BACTRIM NG Q12H ISORDIL GT BID ASA GT QD PROTONIX IV Q12H MICAFUNGIN IV Q24H SDU
--- NOTE | 2019-07-09 10:46 | NUR ---
DISCHARGE PLANNING: NOTE F/U CALL PLACED TO [facility] REGARDING ACCEPTANCE AT [facility]. AWAITING CALL BACK Addendum: 07/09/19 at 1055 by Ivette Marie CM MESSAGE LEFT FOR MD REGARDING DC PLAN
--- NOTE | 2019-07-09 11:00 | NUR ---
RESPIRATORY NOTE: PT RECEIVED STABLE ON CURRENT CMV SETTINGS: AC 14, 500, 40%, +5. ALARMS ARE ON AND AUDIBLE. NO S/S OF RESPIRATORY DISTRESS NOTED AT THIS TIME. VENT CIRCUIT SECURE AND OUT OF THE WAY. WILL CONTINUE TO CLOSELY MONITOR
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
[2019-07-09 11:56] VITALS: BP 143/73
[2019-07-09 11:57] VITALS: BP 143/73
--- NOTE | 2019-07-09 12:52 | NUR ---
NURSE NOTES: Made Dr. Villatoro aware that patient will be discharge today. Pt noted still on antibiotics. Dr. Villatoro acknowledged and ordered Bactrim DS BID GT X 3 more days and Mycamine 100 mg IVP Q24HR x 9 more days. Orders entered, noted, and carried out. Will continue to monitor patient.
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
--- NOTE | 2019-07-09 13:16 | NUR ---
NURSE NOTES: Called Diego Ocasio , gave report to ROSELYN Rosario. Informed RN that patient will be leaving with Dash catheter, rectal tube, and Left upper arm PICC. Pt will also be continuing Bactrim-DS GT BID x 3 more days, and Mycamin 100 mg IVP Q24HR x 9 more days. Noted.
--- NOTE | 2019-07-09 13:20 | NUR ---
NURSE NOTES: Called ROSELYN Rosario in [facility] and made aware of ETA of 1400 and that patient currently has temperature of 99.2 F Axillary. ROSELYN Rosario acknowledged. Noted. Will continue to monitor patient.
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
[2019-07-09] MEDS ORDERED: NS 275ml ONE (14:09)
--- NOTE | 2019-07-09 14:10 | NUR ---
NURSE NOTES: Patient discharged to [facility] per Dr. Cordon. Patient discharged with left upper arm PICC, raya catheter, and rectal tube per Dr. Jenkins, Dr. Cordon is aware. Heart monitor removed and returned to playground monitor. ID band removed and placed in shredder. Pt has no belongings. Joanne Mcdowell Jr, son, aware of discharge. Pt left accompanied by 2 inspector assembly and RT in stable condition. Noted.
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
--- NOTE | 2019-07-10 01:00 | Progress Note ---
DATE: 07/08/2019 SUBJECTIVE: Blood pressure parameters remained stable. The patient is comatose, on ventilator support. Monitor with sinus rhythm. OBJECTIVE: VITAL SIGNS: Blood pressure 124/56, heart rate 67, respiratory rate 16. LUNGS: With few rhonchi. HEART: Regular rhythm and rate. Normal S1, S2 with no murmur. ABDOMEN: Soft. EXTREMITIES: No edema. LABORATORY DATA: White count 12.6, hemoglobin 8.7. Potassium 4.5, BUN 68, creatinine 1.6. Magnesium is 2.0. Pro-natriuretic peptide is 21,000. IMPRESSION: 1. Status post [id number] myocardial infarction that was precipitated by sepsis and hypoperfusion due to shock. 2. Ventilator-dependent respiratory failure. 3. Chronic kidney disease. 4. Acute on chronic diastolic congestive heart failure, improved and clinically compensated. PLAN: 1. ventilator support long-term. 2. Continue beta-jason and anti-platelet therapy. 3. No additional cardiovascular workup planned. Chelsie Costa JOB#: [id number] CC:
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
--- NOTE | 2019-07-10 07:44 | Discharge Summary ---
DATE OF ADMISSION: 07/01/2019 DATE OF DISCHARGE: 07/09/2019 This is one of the several admissions to [facility] of this 53-year-old patient because of sepsis. HISTORY OF PRESENT ILLNESS: Details of the event and circumstances that led the patient to be admitted to this medical unit can be found in the H and P. In brief, the patient is a resident of an extended care facility where he has been several days only prior to the present admission. He is known to have intracerebral hemorrhage, quadriplegia, respirator dependent, fed by gastrostomy tube. He developed fever, tachycardia, and tachypnea and was transferred by multifocal button grinder to [facility] ER. In the ER, the patient was because the patient was found to have fever and interstitial pneumonia and fulfilled the criteria for initiation of coronavirus antigen diagnosis. He was transferred to the intensive care unit and in isolated room after admission. HOSPITAL COURSE: Upon admission, the patient underwent clinical, biological, and imaging studies. Clinical assessment revealed the patient was febrile and hemodynamically stable, he had tachycardia and tachypnea, but his arterial blood gases were acceptable. The patient was placed on Zosyn 3.375 g IV piggyback q.24 hours and azithromycin 1 g IV piggyback q.24 hours. Over the next several days, patient was followed clinically and biologically. Three days ago, the patient tested for coronavirus and became negative, and the patient was discharged from the ICU to the cardiac observation unit. IV antibiotic continued. The patient remained afebrile and without tachycardia or tachypnea. He did diarrhea and required rectal tube with C.diff negative. His antibiotic was discontinued 24 hours prior to discharge. of fever and tachycardia. His WBC has increased from 7 to 11.3, but the patient remained clinically stable. He was discharged back to the [facility] subacute unit where he will be seen 24 hours after discharge. We will continue with the same antibiotic for the next 9 days. Anusha Cordon M.D. DR: Payton JOB#: [id number] CC:
== END 2019-07-09 14:10 | DRG 870 ==
LOC: EDBD 20:47 → EMR 21:07 → 2W 21:15 → EDBEDREQ 22:12 → 2W 23:44 → ICU 07-02 13:12 → 2W 07-08 11:02
PROC: 5A1955Z Respiratory Ventilation, Greater than 96 Consecutive Hours (ICD-10-PCS; principal; 2019-07-01)
DX: A41.9 Sepsis, unspecified organism (principal); L89.154 Pressure ulcer of sacral region, stage 4; R65.21 Severe sepsis with septic shock; G93.41 Metabolic encephalopathy; N17.0 Acute kidney failure with tubular necrosis; G82.53 Quadriplegia, C5-C7 complete; I21.4 Non-ST elevation (NSTEMI) myocardial infarction; I50.33 Acute on chronic diastolic (congestive) heart failure; E43 Unspecified severe protein-calorie malnutrition; J95.851 Ventilator associated pneumonia; Z99.11 Dependence on respirator [ventilator] status; J96.10 Chronic respiratory failure, unspecified whether with hypoxia or hypercapnia; N39.0 Urinary tract infection, site not specified; R40.3 Persistent vegetative state; E87.0 Hyperosmolality and hypernatremia; Z93.1 Gastrostomy status; Z93.0 Tracheostomy status; I11.0 Hypertensive heart disease with heart failure; J44.9 Chronic obstructive pulmonary disease, unspecified; R13.10 Dysphagia, unspecified; E87.5 Hyperkalemia; D64.9 Anemia, unspecified; Z68.30 Body mass index [BMI] 30.0-30.9, adult; E83.42 Hypomagnesemia
CPT/HCPCS: 36415; 36600; 71045; 76700; 80048; 80053; 80061; 80202; 81001; 81003; 81050; 82164; 82550; 82553; 82607; 82728; 82746; 82803; 83036; 83540; 83550; 83605; 83735; 83880; 83935; 84100; 84156; 84300; 84439; 84443; 84481; 84484; 84550; 85025; 85651; 85730; 86140; 86705; 86709; 86710; 86803; 87040; 87070; 87081; 87086; 87181; 87205; 87340; 87635; 89050; 93005; 93306; 94002; 94003; 96365; 96366; 96367; 96368; 99291; J7030; J7620

== ENCOUNTER 2019-07-13 11:14 | Inpatient (IN) | payer BC ==
[2019-07-13] VITALS (8 sets, daily range): BP systolic 119–151; BP diastolic 67–85
[~2019-07-13] VITALS: Ht 167.6 cm; Wt 69.4 kg
[~2019-07-13 11:14] MED LIST: HYDRALAZINE HCL10 MG ORAL; LANSOPRAZOLE30 MG ORAL; MULTIVITAMINS1 EAC2 GT; SENNA LAXATIVE8.6 MG GT; XARELTO20 MG GT; ZOFRAN4 M3 GT
--- NOTE | 2019-07-13 11:27 | Emergency Room Report ---
History of Present Illness General Chief Complaint: Respiratory distress Source: EMS Present Illness HPI Disclaimer: Please note that this report is being documented using DRAGON technology. This can lead to erroneous entry secondary to incorrect interpretation by the dictating instrument. HPI: 53-year-old male history of ICH with resultant quadriplegia, trach and vent dependent, G-tube feed dependent presents for evaluation of hypoxia. Patient was recently discharged from this facility 3 days ago for sepsis and pneumonia. Reportedly hypoxic at his rehab facility. Respirations improved by BVM. Reportedly afebrile. Patient is been on antibiotics since discharge from the hospital. He was tested for novel coronavirus on his previous admission and tested negative. He continues on Bactrim for treatment of a pneumonia. PMH: Quadriplegia, trach dependent, respiratory failure, G-tube feeds PSH: Trach, G-tube Allergies: None listed Social Hx: None listed Allergies: Coded Allergies: No Known Allergies (Unverified , 07/01/19) COVID-19 Screening Contact w/high risk pt: No Recent Travel to affected area: No Experienced COVID-19 symptoms?: Yes COVID-19 symptoms experienced: Fever (T>100.4F or >38C), Shortness of Breath Nursing Documentation-PMH Hx Hypertension: Yes Hx Paralysis: Yes Hx Spinal Cord Injury: Yes - C5-C7 Hx Speech Problem: Yes Physical Exam General: No physical or verbal responses from patient. No obvious distress. HEENT: NC/AT. No tracking. No nystagmus. No purposeful eye movements. Neck: Supple, trach tube in appropriate position. Arrives in cervical collar Cardiovascular: Tachycardic. S1 and S2 normal Resp: Normal work of breathing. Vent dependent Abdomen: Abdomen is soft, nondistended. Feeding tube in place. Skin: Intact. No abrasions, laceration or rash over the exposed skin. PICC line in left upper extremity. MSK: Normal tone and bulk. Moving all extremities. No obvious deformity. Neuro: No spontaneous physical responses. Nonverbal. No tracking Procedures Critical Care Time Critical Care Time Total critical care time: Approximately 31 minutes Due to a high probability of clinically significant, life threatening deterioration, the patient required the highest level of preparedness to intervene emergently and I personally spent this critical care time directly and personally managing the patient. This critical care time included obtaining a history, examining the patient, pulse oximetry, ordering and reviewing studies , ordering treatments, evaluating response to treatment and updating management plan as needed, frequent reassessment and discussion with other providers as well as arranging for ultimate disposition. This critical to care time was performed to assess and manage the high probability of life-threatening deterioration that could result in multiorgan failure. This critical care time is separate from the separately billable procedures and treating other patients. Medical Decision Making Diagnostic Impression: Primary Impression: Hyperkalemia Additional Impressions: Elevated troponin Respiratory distress Bradycardia ER Course 53-year-old male history of respiratory failure status post tracheostomy presents for respiratory distress. He was reportedly hypoxic but now improved after bag mask ventilations were given. His previous hospitalization tested negative for COVID-19. Chest x-ray appears unchanged from 3 days ago on discharge. He remains on isolation precautions. He was found to be bradycardic which is normal for the patient after discussion with his PMD. Troponin is again elevated and will give aspirin. EKG is nonischemic. Blood gas does not show hypoxia. Patient is hyperkalemic. Will give calcium and insulin with dextrose. Patient will require admission to the hospital, stepdown unit. He will be admitted to his PMD, Dr. Cordon. Laboratory Tests Test 07/13/19 11:45 07/13/19 12:37 White Blood Count 9.0 K/UL (4.8-10.8) Red Blood Count 2.98 M/UL (4.70-6.10) L Hemoglobin 8.4 G/DL (14.2-18.0) L Hematocrit 25.8 % (42.0-52.0) L Mean Corpuscular Volume 87 FL (80-99) Mean Corpuscular Hemoglobin 28.2 PG (27.0-31.0) Mean Corpuscular Hemoglobin Concent 32.6 G/DL (32.0-36.0) Red Cell Distribution Width 14.5 % (11.6-14.8) Platelet Count 303 K/UL (150-450) Mean Platelet Volume 6.4 FL (6.5-10.1) L Neutrophils (%) (Auto) 80.5 % (45.0-75.0) H Lymphocytes (%) (Auto) 13.5 % (20.0-45.0) L Monocytes (%) (Auto) 3.4 % (1.0-10.0) Eosinophils (%) (Auto) 2.3 % (0.0-3.0) Basophils (%) (Auto) 0.4 % (0.0-2.0) Sodium Level 143 MMOL/L (136-145) Potassium Level 5.8 MMOL/L (3.5-5.1) H Chloride Level 105 MMOL/L (98-107) Carbon Dioxide Level 33 MMOL/L (21-32) H Anion Gap 5 mmol/L (5-15) Blood Urea Nitrogen 80 mg/dL (7-18) H Creatinine 1.1 MG/DL (0.55-1.30) Estimated Glomerular Filtration Rate > 60 mL/min (>60) Glucose Level 118 MG/DL (74-106) H Lactic Acid Level 1.10 mmol/L (0.4-2.0) Calcium Level 8.7 MG/DL (8.5-10.1) Total Bilirubin 0.2 MG/DL (0.2-1.0) Aspartate Amino Transferase (AST) 18 U/L (15-37) Alanine Aminotransferase (ALT) 38 U/L (12-78) Alkaline Phosphatase 76 U/L (46-116) Total Creatine Kinase 40 U/L (26-308) Creatine Kinase MB 8.9 NG/ML (0.0-3.6) H Creatine Kinase MB Relative Index 22.2 Troponin I 0.107 ng/mL (0.000-0.056) Pro-B-Type Natriuretic Peptide 3081 pg/mL (0-125) H Total Protein 6.1 G/DL (6.4-8.2) L Albumin 2.7 G/DL (3.4-5.0) L Globulin 3.4 g/dL Albumin/Globulin Ratio 0.8 (1.0-2.7) L Arterial Blood pH 7.441 (7.350-7.450) Arterial Blood Partial Pressure CO2 46.0 mmHg (35.0-45.0) H Arterial Blood Partial Pressure O2 236.7 mmHg (75.0-100.0) H Arterial Blood HCO3 30.6 mmol/L (22.0-26.0) H Arterial Blood Oxygen Saturation 99.3 % (95-100) Arterial Blood Base Excess 5.8 (-2-2) H Jorge Alberto Test Positive EKG Diagnostic Results EKG Time: 12:08 Rate: bradycardiac ST Segments: no acute changes Other Impression Sinus bradycardia, normal axis, normal intervals, irregular baseline in the inferior leads makes it difficult to interpret fully but no apparent ischemia Rhythm Strip Diag. Results Rhythm Strip Time: 12:08 Rate: 50s Rhythm: NSR Chest X-Ray Diagnostic Results Chest X-Ray Diagnostic Results : Chest X-Ray Ordered: Yes # of Views/Limited/Complete: 1 View Indication: Shortness of Breath EP Interpretation: Yes Interpretation: no consolidation, no pneumothorax - Hazy consolidation LLL, other - Vascular congestion left lower lobe, tracheostomy in place Impression: Other - Hazy consolidation in the left lower lobe Disposition: ADMITTED INPATIENT Condition: Serious Robe Chaves MD Jul 13, 2019 11:27
--- NOTE | 2019-07-13 11:35 | NUR ---
ED Nurse Note: Patient BRANDIE from [facility] d/t O2 sat of 87%. Patient on ventilator, was ambu-bagged en-route to hospital. Patient non-verbal, able to open eyes, unable to move. Patient flakita on the monitor in the 40's to 50's, Dr. Chaves aware. Rectal temperature is 96.8. Blood drawn, swabs taken, sent to lab. Patient has wound on sacrum.
[2019-07-13] MEDS ORDERED: MILK OF MA2400 MG/10 GT (12:32)
[2019-07-13] MEDS ORDERED: LANSOPRAZOLE30 MG ORAL (12:32)
[2019-07-13] MEDS ORDERED: ISOSORBIDE DINIT5 MG GT (12:32)
[2019-07-13] MEDS ORDERED: UTI-STAT L3875 MG/31 GT (12:32)
[2019-07-13] MEDS ORDERED: DOCUSATE SODIU100 MG GT (12:32)
[2019-07-13] MEDS ORDERED: ASPIR 8181 MG GT (12:32)
[2019-07-13] MEDS ORDERED: MYCAMINE100 M1 IVPB (12:32)
[2019-07-13] MEDS ORDERED: SANTYL TOPIC (12:40)
[2019-07-13] MEDS ORDERED: PROSTAT AWC GT (12:40)
[2019-07-13] MEDS ORDERED: ATORVASTATIN CA20 MG ORAL (12:40)
[2019-07-13] MEDS ORDERED: ACETAMINOPHEN325 M1 ORAL (12:40)
--- NOTE | 2019-07-13 12:45 | NUR ---
ED Nurse Note: Patient doing well on the ventilator, oxygen 100%.
--- NOTE | 2019-07-13 12:49 | Diagnostic Imaging Report ---
Indication: Shortness of breath Technique: One view of the chest Comparison: 07/08/2019 Findings: Again demonstrated is marked elevation of the right hemidiaphragm. Hazy opacity at the left lung base likely reflects pleural fluid. Tracheostomy and left arm PICC again demonstrated. Cervical spine fusion hardware again demonstrated. Findings are unchanged Impression: Unchanged, over one day, findings as above.
[2019-07-13 13:05] LABS: BASOPHILS % (AUTO) 0.4 % (0.0-2.0); EOSINOPHILS % (AUTO) 2.3 % (0.0-3.0); HEMATOCRIT 25.8 % (42.0-52.0); HEMOGLOBIN 8.4 G/DL (14.2-18.0); LYMPHOCYTES % (AUTO) 13.5 % (20.0-45.0); MEAN CORPUSCULAR VOLUME 87 FL (80-99); MONOCYTES % (AUTO) 3.4 % (1.0-10.0); NEUTROPHILS % (AUTO) 80.5 % (45.0-75.0); PLATELET COUNT 303 K/UL (150-450); RED BLOOD COUNT 2.98 M/UL (4.70-6.10); RED CELL DISTRIBUTION WIDTH 14.5 % (11.6-14.8)
[2019-07-13 13:10] LABS: ANION GAP 5 mmol/L (5-15); BLOOD UREA NITROGEN 80 mg/dL (7-18); CALCIUM 8.7 MG/DL (8.5-10.1); CARBON DIOXIDE 33 MMOL/L (21-32); CHLORIDE 105 MMOL/L (98-107); CREATININE 1.1 MG/DL (0.55-1.30); POTASSIUM 5.8 MMOL/L (3.5-5.1); SODIUM 143 MMOL/L (136-145)
[2019-07-13] MEDS ORDERED: Insulin Human Regular 100units/ml 3ml IV ONE (13:30)
[2019-07-13] MEDS ORDERED: Calcium Gluconate 1gm/10ml vial IVP ONE (13:30)
[2019-07-13 13:41] LABS: ALANINE AMINOTRANSFERASE 38 U/L (12-78); ALBUMIN 2.7 G/DL (3.4-5.0); ALBUMIN/GLOBULIN RATIO 0.8 (1.0-2.7); ALKALINE PHOSPHATASE 76 U/L (46-116); ASPARTATE AMINO TRANSFERASE 18 U/L (15-37); BILIRUBIN,TOTAL 0.2 MG/DL (0.2-1.0); CKMB 8.9 NG/ML (0.0-3.6); CREATINE KINASE 40 U/L (26-308)
--- NOTE | 2019-07-13 14:05 | NUR ---
ED Nurse Note: report received from ROSELYN Gee. Pt in bed with No acute disrtess noted. VSS as documented
--- NOTE | 2019-07-13 14:30 | NUR ---
ED Nurse Note: urine sample sent to lab
[2019-07-13 14:54] LABS: APPEARANCE,URINE SLIGHTLY CLOUDY; BILIRUBIN, URINE NEGATIVE (NEGATIVE); COLOR,URINE PALE YELLOW; GLUCOSE, URINE (UA) NEGATIVE (NEGATIVE); KETONES,URINE NEGATIVE (NEGATIVE); LEUKOCYTE ESTERASE ,URINE 1+ (NEGATIVE); NITRITE,URINE NEGATIVE (NEGATIVE); PH,URINE 7 (4.5-8.0); PROTEIN,URINE 2+ (NEGATIVE); UROBILINOGEN,URINE NORMAL MG/DL (0.0-1.0)
--- NOTE | 2019-07-13 16:00 | NUR ---
ED Nurse Note: pt in bed, no acute distress present. VSS as documented.
--- NOTE | 2019-07-13 17:24 | NUR ---
ED Nurse Note: Report given to ROSELYN Mix from ICU.
--- NOTE | 2019-07-13 17:34 | NUR ---
ED Nurse Note: pt brought up to ICU room E accompoanied by 2 RN, properties supervisor and RT in stable condition. Report given to ROSELYN Mix. Belonging list signed and given to ROSELYN Mix.
--- NOTE | 2019-07-13 18:00 | NUR ---
NURSE NOTES: Received patient from ROSELYN Rouse, admitted from the ER d/t respiratory distress. Patient is alert, opens eyes spontaneously; following simple commands. Shiley 7. AC 18, TV 550, FiO2 40%, PEEP 5. Sinus Bradycardia (52) on the satellite project site monitor. Pt has a Gtube, currently clamped. Dash catheter is intact and draining to urometer. Pt has a Lt upper arm PICC, patent and asymptomatic. Bed is locked, and in lowest position, side rails up x3, bed alarm on, call light within reach. Will continue to monitor.
--- NOTE | 2019-07-13 18:15 | NUR ---
NURSE NOTES: Sacral wound assessed and pictures taken and uploaded. Pt placed on Jose Antonio hugger for hypothermia.
--- NOTE | 2019-07-13 19:24 | NUR ---
HAND-OFF: Report given to ROSELYN Marie.
--- NOTE | 2019-07-13 19:30 | NUR ---
NURSE NOTES: Report received from ROSELYN Mix. Observed pt lying in the bed, non-verbal, drowsy. SB noted with HR of 50s. Trach to vent, Shiley 7, AC 18, TV 550, FIO2 40%, PEEP 5. GT intact. F/C intact. Unstageable pressure injury on sacral noted and picture uploaded by AM RN. L UA PICC noted, double lumen but one clogged noted. T of 98.3 noted, mango hugger off now. Bed in the lowest position. Side rails up x3. Will continue to monitor.
[2019-07-13] MEDS ORDERED: Albuterol/Ipratropium 3ml neb HHN PRN (21:00)
[2019-07-13] MEDS ORDERED: Miralax 17gm pkt GT PRN (21:00)
[2019-07-13] MEDS ORDERED: Sennosides 8.6mg tab GT PRN (21:00)
--- NOTE | 2019-07-13 21:30 | NUR ---
NURSE NOTES: Vent setting changed to simv per Dr. Jenkins, will continue to monitor if pt able to tolerate.
[2019-07-13] MEDS ORDERED: Vancomycin 1.25gm/NS Premix IVPB ONE (22:00)
[2019-07-13] MEDS: Heparin 5000 units/ml inj SUBQ SCH (22:12)
[2019-07-14] VITALS (18 sets, daily range): BP systolic 97–156; BP diastolic 55–82
--- NOTE | 2019-07-14 | NUR ---
NURSE NOTES: Vent setting changed back to AC mode, pt was not able to tolerate SIMV. Current setting, AC 18, TV 550, FIO2 49%, PEEP 5. Will continue to monitor .
[2019-07-14] MEDS ORDERED: Sodium Polystyrene Sulfonate 15gm Powder GT ONE (01:00)
--- NOTE | 2019-07-14 03:41 | NUR ---
NURSE NOTES: No acute distress noted at this time. Pt sleeping in the bed. Tolerating current vent setting. Reposition done. Oral care given. Bed bath given. Will continue to monitor.
[2019-07-14] MEDS: Acetaminophen 650mg/20.3ml GT PRN ×2 (04:53→20:28)
[2019-07-14] MEDS: HydrALAZINE 10mg Tab GT SCH ×4 (05:35→18:30)
--- NOTE | 2019-07-14 05:40 | NUR ---
NURSE NOTES: Noted pt having fever, T of 100.7 noted. Ice bags applied. cooling bath given. Will continue to monitor.
--- NOTE | 2019-07-14 05:44 | Progress Note ---
DATE: 07/13/2019 CARDIOLOGY CRITICAL CARE NOTE REQUESTING PHYSICIAN: Anusha Cordon MD HISTORY OF PRESENT ILLNESS: The patient was just discharged from this facility several days ago following management for an acute myocardial infarction, sepsis, and pneumonia. He was returned to subacute facility. He is ventilator-dependent and has quadriplegia following an intracranial hemorrhage rendering him unresponsive. The patient was noted to be increasingly hypoxic. He improved with mask treatment. He has been continuing on antimicrobials. He has not had any signs of myocardial ischemia, although unable to give historical data. PAST MEDICAL HISTORY: As noted above. PHYSICAL EXAMINATION: VITAL SIGNS: Blood pressure 148/74, heart rate 75, respiratory rate 18, and afebrile. HEENT: Ventilated via trach. LUNGS: Bilateral rhonchi. CARDIAC: Regular rhythm and rate. Normal S1 and S2 with a fourth heart sound. ABDOMEN: Soft. G-tube site intact. EXTREMITIES: Edema. LABORATORY AND DIAGNOSTIC DATA: Troponin 0.104. ABG - 7.44, 46, and 236. Natriuretic peptide 3081. Lactic acid 1.1. BUN is 80, creatinine is 1.1, and potassium 5.8. White count 9 and hemoglobin 8.4. Chest x-ray with hazy consolidation at the left lower lobe and mild vascular congestion. EKG with sinus bradycardia, nonspecific ST-T wave changes. IMPRESSION: 1. Respiratory failure. 2. Healthcare-associated pneumonia. 3. Rule out COVID-19. 4. Paraplegia and comatose state. 5. Status post acute myocardial infarction, now with slowly recovering troponin levels. 6. Prerenal azotemia. 7. Hyperkalemia. 8. Metabolic alkalosis. 9. Sinus bradycardia, on beta jason. PLAN: 1. Recommend COVID-19 isolation pending swab culture. 2. Antimicrobials. 3. Cautious hydration. 4. Hold diuretics. 5. Continue beta jason and anti-platelet therapy. 6. Remains critical with guarded prognosis. Néstor Cervantes M.D. DR: ADELINE JOB#: [id number] CC:
[2019-07-14 05:49] LABS: BASOPHILS % (AUTO) 0.8 % (0.0-2.0); EOSINOPHILS % (AUTO) 0.5 % (0.0-3.0); HEMATOCRIT 26.1 % (42.0-52.0); HEMOGLOBIN 8.5 G/DL (14.2-18.0); LYMPHOCYTES % (AUTO) 11.1 % (20.0-45.0); MEAN CORPUSCULAR VOLUME 85 FL (80-99); MONOCYTES % (AUTO) 5.9 % (1.0-10.0); NEUTROPHILS % (AUTO) 81.6 % (45.0-75.0); PLATELET COUNT 342 K/UL (150-450); RED BLOOD COUNT 3.06 M/UL (4.70-6.10); RED CELL DISTRIBUTION WIDTH 14.5 % (11.6-14.8); WHITE BLOOD COUNT 9.3 K/UL (4.8-10.8)
[2019-07-14 05:51] LABS: ANION GAP 6 mmol/L (5-15); BLOOD UREA NITROGEN 64 mg/dL (7-18); CALCIUM 8.5 MG/DL (8.5-10.1); CARBON DIOXIDE 30 MMOL/L (21-32); CHLORIDE 107 MMOL/L (98-107); POTASSIUM 5.3 MMOL/L (3.5-5.1); SODIUM 143 MMOL/L (136-145)
[2019-07-14 06:04] LABS: ALBUMIN 2.6 G/DL (3.4-5.0); ANION GAP 7 mmol/L (5-15); BLOOD UREA NITROGEN 67 mg/dL (7-18); CALCIUM 8.5 MG/DL (8.5-10.1); CARBON DIOXIDE 29 MMOL/L (21-32); CHLORIDE 107 MMOL/L (98-107); POTASSIUM 5.4 MMOL/L (3.5-5.1); SODIUM 143 MMOL/L (136-145)
--- NOTE | 2019-07-14 07:21 | NUR ---
HAND-OFF: Report given to ROSELYN Irwin.
--- NOTE | 2019-07-14 07:22 | NUR ---
NURSE NOTES: Received patient from Christophe RN. Patient is asleep, easily awoken by name. Sinus Rhythm on the Heart Monitor, HR 74. Patient is receiving oxygen via trach to vent, vent settings: AC 18 TV 550, FiO2 40%, PEEP 5. G-tube is intact and receiving Jevity 1.2 at 20cc/hr. IV site is Left Upper Arm PICC, intact and asymptomatic. Dash catheter is intact and draining. Bed is locked, placed in lowest position, side rails up x3, bed alarm on, call light within reach. Will continue to monitor.
--- NOTE | 2019-07-14 08:34 | NUR ---
RD ASSESSMENT & RECOMMENDATIONS SEE CARE ACTIVITY FOR COMPLETE ASSESSMENT DAILY ESTIMATED NEEDS: Needs based on Wound, critical care, bednbound 68kg 22-28 kcals/kg 0700-7651 total kcals 1.25-2 g protein/kg 85-136 g total protein 25-30 mL/kg 2047-6453 total fluid mLs NUTRITION DIAGNOSIS: * Increased kcal and pro needs r/t wound healing as evidenced by pt w/ stage 4 sacral wound, trach and peg dep. * Altered nutrition related lab values R/T electrolyte imbalance as evidenced by admitted w/ elev K (5.8- >5.3), w/ episodes of elev K and elev phos during prev admission. . CURRENT TF:Jevity 1.2 @ 30ml/hr x 24 hrs ENTERAL NUTRITION RECOMMENDATIONS: Nepro @ 40ml/hr x 24 hrs + Prosource 1pkt BID to provide 960ml, 1728kcal, 72g +22g prot, 698ml free water - Rec TF change to Nepro due to re-admitted w/ elev K, w/ episodes of elev K and phos during last admission as well. - Initiate Nepro @ 25ml/hr x 6 hrs, advance 10ml q 4-6 hrs as tolerated to goal rate. - HOB over 30 degrees/ water flush per MD ADDITIONAL RECOMMENDATIONS: 1) Trend K and phos : elev K upon adm K and phos elevated last admission -> Rec Nepro at this time 2) Wound Healing: add Vit C 500 mg QD + Eric BID in 4oz H20 BID 3) Monitor BGs, need for NISS (A1C 7.0 on 07/11 per SNF record) . .
--- NOTE | 2019-07-14 09:00 | NUR ---
NURSE NOTES: Oral care given to patient, patient able to follow commands. Patient tolerated well, no signs of acute distress. Will continue to monitor.
[2019-07-14] MEDS: Pantoprazole Inj IV SCH (09:10)
[2019-07-14] MEDS: Aspirin Baby 81mg GT SCH (09:10)
[2019-07-14] MEDS: Vancomycin 1gm/D5W 275ml IVPB SCH ×4 (09:11→21:31)
[2019-07-14] MEDS: Heparin 5000 units/ml inj SUBQ SCH ×2 (09:13→20:28)
--- NOTE | 2019-07-14 10:12 | Pulmonolgy Critical Care Note ---
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, 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 Discussed with: nurses, consultants, case finishing machine adjusterer manager - Objective Last 24 Hour Vital Signs Date Time Temp Pulse Resp B/P (MAP) Pulse Ox O2 Delivery O2 Flow Rate FiO2 07/14/19 08:00 Mechanical Ventilator 07/14/19 08:00 40 07/14/19 07:05 71 19 40 07/14/19 05:35 97/55 07/14/19 05:23 100.0 07/14/19 05:20 82 20 40 07/14/19 04:00 Mechanical Ventilator 07/14/19 04:00 100.7 70 24 97/55 (69) 96 07/14/19 04:00 67 07/14/19 04:00 40 07/14/19 03:20 74 18 40 07/14/19 01:25 68 18 40 07/14/19 00:00 99.7 74 18 105/57 (73) 91 07/14/19 00:00 73 07/14/19 00:00 40 07/14/19 00:00 95/54 07/14/19 00:00 Mechanical Ventilator 07/13/19 23:41 74 19 40 07/13/19 23:00 40 07/13/19 21:34 35 07/13/19 21:18 76 13 30 07/13/19 20:52 77 16 40 07/13/19 20:00 Mechanical Ventilator 07/13/19 20:00 40 07/13/19 20:00 98.3 62 18 119/67 (84) 97 07/13/19 20:00 64 07/13/19 19:48 64 18 40 07/13/19 19:00 68 18 124/71 (88) 98 07/13/19 18:47 Mechanical Ventilator 07/13/19 18:00 94.3 61 18 122/69 (86) 98 07/13/19 17:34 98.0 65 18 150/83 100 Mechanical Ventilator 40 07/13/19 17:30 64 18 151/77 (101) 98 07/13/19 17:00 54 18 40 07/13/19 16:43 98.0 61 20 144/85 100 Mechanical Ventilator 07/13/19 16:00 97.0 75 18 148/74 99 Mechanical Ventilator 07/13/19 14:47 50 18 40 07/13/19 14:05 40 07/13/19 14:05 97.0 72 18 150/80 99 Mechanical Ventilator 07/13/19 11:35 96.8 68 16 145/70 99 Ambu-Bag 07/13/19 11:35 68 16 Ambu-Bag 07/13/19 11:32 96.8 102 16 145/70 (95) 99 Ambu-Bag Status: awake Condition: critical Neck: full ROM Heart: HR/BP stable Abdomen: soft, feeding tube Extremities: edema Decubiti: stage Micro: Microbiology Date/Time Source Procedure Growth Status 07/13/19 14:00 Urine,Clean Catch Urine Culture - Preliminary NO GROWTH Resulted Accucheck: 85 Critical Care - Subjective ROS Limited/Unobtainable: Yes Condition: critical EKG Rhythm: Sinus Rhythm FI02: 40 Vent Support Breath Rate: 18 Vent Support Mode: AC Vent Tidal Volume: 550 Sputum Amount: Small PEEP: 5.0 PIP: 39 Tube Feeding Amount: 20 I&O: Intake and Output 07/13/19 07/14/19 18:59 06:59 Intake Total 0 ml 180 ml Output Total 250 ml 650 ml Balance -250 ml -470 ml Intake Oral 0 ml Free Water 100 ml Tube Feeding 80 ml Output Urine Total 250 ml 650 ml # Bowel Movements 100 Labs: Laboratory Tests Test 07/13/19 11:45 07/13/19 12:37 07/13/19 14:00 07/14/19 04:25 White Blood Count 9.0 K/UL (4.8-10.8) 9.3 K/UL (4.8-10.8) Red Blood Count 2.98 M/UL (4.70-6.10) L 3.06 M/UL (4.70-6.10) L Hemoglobin 8.4 G/DL (14.2-18.0) L 8.5 G/DL (14.2-18.0) L Hematocrit 25.8 % (42.0-52.0) L 26.1 % (42.0-52.0) L Mean Corpuscular Volume 87 FL (80-99) 85 FL (80-99) Mean Corpuscular Hemoglobin 28.2 PG (27.0-31.0) 27.8 PG (27.0-31.0) Mean Corpuscular Hemoglobin Concent 32.6 G/DL (32.0-36.0) 32.6 G/DL (32.0-36.0) Red Cell Distribution Width 14.5 % (11.6-14.8) 14.5 % (11.6-14.8) Platelet Count 303 K/UL (150-450) 342 K/UL (150-450) Mean Platelet Volume 6.4 FL (6.5-10.1) L 6.3 FL (6.5-10.1) L Neutrophils (%) (Auto) 80.5 % (45.0-75.0) H 81.6 % (45.0-75.0) H Lymphocytes (%) (Auto) 13.5 % (20.0-45.0) L 11.1 % (20.0-45.0) L Monocytes (%) (Auto) 3.4 % (1.0-10.0) 5.9 % (1.0-10.0) Eosinophils (%) (Auto) 2.3 % (0.0-3.0) 0.5 % (0.0-3.0) Basophils (%) (Auto) 0.4 % (0.0-2.0) 0.8 % (0.0-2.0) Sodium Level 143 MMOL/L (136-145) 143 MMOL/L (136-145) Potassium Level 5.8 MMOL/L (3.5-5.1) H 5.3 MMOL/L (3.5-5.1) H Chloride Level 105 MMOL/L (98-107) 107 MMOL/L (98-107) Carbon Dioxide Level 33 MMOL/L (21-32) H 30 MMOL/L (21-32) Anion Gap 5 mmol/L (5-15) 6 mmol/L (5-15) Blood Urea Nitrogen 80 mg/dL (7-18) H 64 mg/dL (7-18) H Creatinine 1.1 MG/DL (0.55-1.30) 1.0 MG/DL (0.55-1.30) Estimat Glomerular Filtration Rate > 60 mL/min (>60) > 60 mL/min (>60) Glucose Level 118 MG/DL (74-106) H 77 MG/DL (74-106) Lactic Acid Level 1.10 mmol/L (0.4-2.0) Calcium Level 8.7 MG/DL (8.5-10.1) 8.5 MG/DL (8.5-10.1) Total Bilirubin 0.2 MG/DL (0.2-1.0) Aspartate Amino Transf (AST/SGOT) 18 U/L (15-37) Alanine Aminotransferase (ALT/SGPT) 38 U/L (12-78) Alkaline Phosphatase 76 U/L (46-116) Total Creatine Kinase 40 U/L (26-308) Creatine Kinase MB 8.9 NG/ML (0.0-3.6) H Creatine Kinase MB Relative Index 22.2 Troponin I 0.107 ng/mL (0.000-0.056) Pro-B-Type Natriuretic Peptide 3081 pg/mL (0-125) H Total Protein 6.1 G/DL (6.4-8.2) L Albumin 2.7 G/DL (3.4-5.0) L 2.6 G/DL (3.4-5.0) L Globulin 3.4 g/dL Albumin/Globulin Ratio 0.8 (1.0-2.7) L Arterial Blood pH 7.441 (7.350-7.450) Arterial Blood Partial Pressure CO2 46.0 mmHg (35.0-45.0) H Arterial Blood Partial Pressure O2 236.7 mmHg (75.0-100.0) H Arterial Blood HCO3 30.6 mmol/L (22.0-26.0) H Arterial Blood Oxygen Saturation 99.3 % (95-100) Arterial Blood Base Excess 5.8 (-2-2) H Jorge Alberto Test Positive Urine Color Pale yellow Urine Appearance Slightly cloudy Urine pH 7 (4.5-8.0) Urine Specific [place] 1.010 (1.005-1.035) Urine Protein 2+ (NEGATIVE) H Urine Glucose (UA) Negative (NEGATIVE) Urine Ketones Negative (NEGATIVE) Urine Blood 5+ (NEGATIVE) H Urine Nitrite Negative (NEGATIVE) Urine Bilirubin Negative (NEGATIVE) Urine Urobilinogen Normal MG/DL (0.0-1.0) Urine Leukocyte Esterase 1+ (NEGATIVE) H Urine RBC Tntc /HPF (0 - 0) H Urine WBC 2-4 /HPF (0 - 0) Urine Squamous Epithelial Cells Many /LPF (NONE/OCC) H Urine Bacteria Moderate /HPF (NONE) H Phosphorus Level 4.0 MG/DL (2.5-4.9) Fidencio Jenkins MD Jul 14, 2019 10:12
--- NOTE | 2019-07-14 10:28 | NUR ---
*-* INSURANCE *-* ALL AVAILABLE CLINICALS AND REVIEWS HAVE BEEN FAXED TO: [employer] [facility] REF# [id number] P: [phone] OPT. 6 F; [phone]
--- NOTE | 2019-07-14 11:58 | NUR ---
NURSE NOTES: Called Dr. Nickerson's office regarding lab results of Gram + Cocci in Pairs and Chains, received called back from covering MD, Dr. Acuña. No new orders received.
--- NOTE | 2019-07-14 13:58 | NUR ---
ASSISTANT COMMISSIONER NOTE Pt is vent dependent, bed bound and non-verbal. Pt was recently admitted to [facility] from 07/01/2019-07/09/2019. Pt resides at [facility]. SW spoke w/ pt's ex-spouse Emely Mcdowell [phone]. Enmanuel Mcdowell [phone] is the person of contact. The second person of contact is pt's adult son, Orlando Mcdowell Junior [phone]. Emely should be contacted first then she will discuss decision making with the rest of pt's family. Pt has 6 adult and minor children. The copy of POLST is placed in the chart. Emely confirmed full code. Other emergency contact: Mathieu Mcdowell (pt's father- monolingual [place] Citizen) [phone]
--- NOTE | 2019-07-14 14:16 | NUR ---
CASE MANAGEMENT: INITIAL REVIEW 53YR OLD MALE BIBA FROM [facility] CC: DYSPNEA/ RESPIRATORY DISTRESS SI: RESPIRATORY DISTRESS . UTI 96.8 102 16 145/70 99% ON RA TROP 0.107 H/H 8.4/25.8 K+5.8 CO2-33 BUN 80 BGLU 118 CK-MB 8.9 BNP 3081 ABG: pCO2- 46 pO2 236.7 HCO3-30.6 IS:CALCIUM GLUCONATE X1 NOVOLOG X1 IV D5 BOLUS X1 ASA RI X1 CHEST-RAY- RIGHT HEMIDIAPHRAGM; likely reflects pleural fluid \: INTENSIVE CARE UNIT DCP: [facility] PLAN: BLOOD CX-PENDING ID CONSULT HEMATOLOGY CONSULT SERIAL TROP CASE MANAGEMENT: REVIEW 07/14/19 SI: TROP (+) . ACUTE ON CHRONIC RESPIRATORY DISTRESS . [facility] PNA . PARAPLEGIA . ANEMIA TRAUMATIC BRAIN INJURY 99.4 75 18 133/75 95% ON MECHANICAL VENTILATOR H/H 8.5/26.1 K+5.4 CO2-33 BUN 67 IS:IV VANCOMYCIN BID IV PROTONIX QD HYDRALAZINE GT Q6HR ASA GT QD HEPARIN SQ BID TYLENOL Q4HR/PRN \: INTENSIVE CARE UNIT DCP: [facility] PLAN: BLOOD CX-PENDING ID CONSULT HEMATOLOGY CONSULT SERIAL TROP COVID 19-PENDING
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
--- NOTE | 2019-07-14 15:52 | NUR ---
NURSE NOTES:WOUND CARE NOTES:Pt presented on admission with Multiple pressure injuries, Incontinence associated dermatitis. Bilat groin,Scrotum,medial aspects of both upper thighs are grossly erythematous and excoriated. DTPI noted to L Ischium (L)1cm x (W)1.5cm. Unstageable Sacral Pressure injury(L)4.9cm x (W)8.6cm. Base of wound 40% necrotic at sacrococcygeal area,60% jeramie and moist. Edges adherent to base of wound. No odor or exudate noted. R heel is boggy with non-blanching erythema.Small area within base of injury noted to purple in colour. L heel boggy with non-blanching erythema. Tx.Plan:Cleanse Sacral wound with Saline. Apply TheraHoney. Apply Moisture Barrier Paste periwound. Cover with Optifoam drsg Daily and prn. Apply Cavilon Skin Barrier to both heels. Cover each heel with Optifoam drsg. Change every 7 days and prn. Reposition at least every 2hours or as tolerated. Off-load heels with pillow. APM/JAXON Mattress overlay.
--- NOTE | 2019-07-14 19:03 | NUR ---
HAND-OFF: Report given to Jacquelin DEMPSEY.
--- NOTE | 2019-07-14 19:05 | NUR ---
NURSE NOTES: Patient received from ROSELYN Irwin. patient asleep arousable to name but nonverbal with trach Shiley 7, AC 15 TV 550 FiO2 40% PEEP 5. respirations even and unlabored with oxygen saturation 97%. BP 125/78, HR 78. gtube running Jevity 1.2 at 30mL/Hr. abdomen soft nontender. sacral dressing clean dry intact. left upper arm PICC line dressing clean dry intact. will continue to monitor. bed locked lowest position call light within reach.
--- NOTE | 2019-07-14 19:45 | Progress Note ---
DATE: 07/14/2019 SUBJECTIVE: The patient has low-grade fever without tachycardia. PHYSICAL EXAMINATION: VITAL SIGNS: Blood pressure 123/68, his pulse is 77, respirations are 18, temperature 99.7. HEENT: Eyes were normal. ENT, mucous membranes were moist and intact. NECK: Supple with no JVD without lymph nodes. Tracheostomy site is clean. LUNGS: Clear without rhonchi, rales, or wheezing. HEART: Normal sounds with regular beats. There is no tachycardia at rest. ABDOMEN: Soft, nontender with normal bowel sounds. Gastrostomy site is clean. EXTREMITIES: Warm without cyanosis, clubbing, or edema. LABORATORY AND DIAGNOSTIC DATA: His hemoglobin is 8.5, hematocrit 26.5 with MCV of 85, WBC of 9.3, and platelets is 342. His BUN creatinine is 64 and 1.0 respectively. His sodium is 143, potassium 5.3, chloride 107, CO2 was 30. The patient has been seen today by the Infectious Disease specialist who again tested the patient for the presence of COVID-19. Otherwise, the patient appeared to be relatively stable. Repeat laboratory tests will be done in the a.m. Anusha Cordon M.D. DR: RAYMON JOB#: [id number] CC:
[2019-07-14] MEDS ORDERED: Dyna-Hex 2% Top Sol 2oz TOPIC SCH (20:00)
--- NOTE | 2019-07-14 22:00 | NUR ---
NURSE NOTES: patient asleep arousable to name. respirations even and unlabored on ventilator. patient temp 101.5F axillary. PRN Tylenol administered. temperature was then reassessed 100.7F axillary. cooling measures initiated. gtube running jevity 1.2 @30ml/hr with no residual noted. raya catheter draining clear yellow urine. patient repositioned and oral care provided. will continue to monitor.
[2019-07-14] MEDS ORDERED: Vancomycin 1 GM in D5W 275 ML IV SCH (23:00)
--- NOTE | 2019-07-14 23:29 | Progress Note ---
DATE: 07/14/2019 CARDIOLOGY CRITICAL CARE PROGRESS NOTE SUBJECTIVE: The patient has low-grade fever. Blood pressure parameters are relatively stable. Sinus rhythm. No tachyarrhythmias. He remains on ventilator support. Baseline comatose state. OBJECTIVE: HEENT: Thin trach secretions. HEART: Regular rhythm and rate. Normal S1 and S2. ABDOMEN: Soft. EXTREMITIES: No edema. LABORATORY DATA: White count 9 and hemoglobin 8.5. Sodium 143, potassium 5.4, bicarb 29, BUN 67, and creatinine 1. Albumin 2.6. IMPRESSION: 1. Respiratory failure. 2. Sepsis. 3. Healthcare-associated pneumonia, possible COVID. 4. Acute on chronic diastolic congestive heart failure. 5. Acute myocardial infarction with decreasing troponin. 6. Prerenal azotemia. 7. Hyperkalemia. PLAN: 1. IV fluid hydration. 2. Continue antimicrobials. 3. Await COVID culture. 4. Continue anti-platelet therapy. 5. No role for beta-jason at this time. 6. Conservative management in this clinical setting. Néstor Cervantes M.D. DR: Juancarlos JOB#: [id number] CC:
[2019-07-15] VITALS (24 sets, daily range): BP systolic 129–180; BP diastolic 68–84
--- NOTE | 2019-07-15 | NUR ---
NURSE NOTES: patient asleep arousable to name. respirations even and unlabored on ventilator oxygen saturation 98%. patient temp 101.3F axillary. Ice packs applied to patient. raya catheter draining yellow urine. gtube running jevity 1.2@ 30ml/hr. patient repositioned and oral care provided. will continue to monitor.
[2019-07-15] MEDS: HydrALAZINE 10mg Tab GT SCH ×4 (00:54→17:34)
[2019-07-15] MEDS: Acetaminophen 650mg/20.3ml GT PRN ×4 (01:31→22:47)
--- NOTE | 2019-07-15 02:00 | NUR ---
NURSE NOTES: patient asleep arousable to name but nonverbal on ventilator: AC 15 TV550 FiO2 40% PEEP 5 oxygen saturation 97%. patient temp 100.6F axilary, prn tylenol administered. gtube clean dry and patent tolerating jevity 1.2@30ml/hr with no residual. raya catheter draining clear yellow urine. patient given bed bath, repositioned and oral care provided. will continue to monitor.
--- NOTE | 2019-07-15 04:00 | NUR ---
NURSE NOTES: patient asleep arousable to name. patient tolerating ventilator with oxygen saturation at 100%. BP138/74, HR 74, Temp 100.5F axilary. gtube running CareCentrix 1.2 @30ml/hr. raya catheter draining to gravity. patient given bed bath and oral care provided. sacral dressing clean dry intact. will continue to monitor.
[2019-07-15 05:41] LABS: HEMATOCRIT 26.7 % (42.0-52.0); MEAN CORPUSCULAR VOLUME 85 FL (80-99); PLATELET COUNT 354 K/UL (150-450); RED BLOOD COUNT 3.15 M/UL (4.70-6.10); RED CELL DISTRIBUTION WIDTH 14.4 % (11.6-14.8); WHITE BLOOD COUNT 19.6 K/UL (4.8-10.8)
--- NOTE | 2019-07-15 06:00 | NUR ---
NURSE NOTES: patient asleep arousable to name. patient with shiley 7 tolerating ventilator AC 15 TV 550 HtC755% PEEP 5. BP 142/69, HR69, temp 100.5F axillary. ice packs applied. left forearm PIV gauge 20 clean and asymptomatic. gtube dressing clean dry intact tolerating jevity 1.2 @ 30ml/hr with no residual. raya catheter draining clear yellow urine. bilateral upper extremity edema. sacral dressing clean dry intact. patient repositioned and oral care provided. will continue to monitor.
[2019-07-15 06:01] LABS: ANION GAP 11 mmol/L (5-15); BLOOD UREA NITROGEN 51 mg/dL (7-18); CALCIUM 8.5 MG/DL (8.5-10.1); CARBON DIOXIDE 27 MMOL/L (21-32); CHLORIDE 110 MMOL/L (98-107); POTASSIUM 4.6 MMOL/L (3.5-5.1); SODIUM 148 MMOL/L (136-145)
--- NOTE | 2019-07-15 07:07 | NUR ---
HAND-OFF: Report given to ROSELYN Irwin. patient in no acute distress.
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
--- NOTE | 2019-07-15 07:26 | NUR ---
NURSE NOTES: Received patient from Jacquelin DEMPSEY. Patient is awake, able to follow commands. Sinus Rhythm on the Heart Monitor, HR 72. Patient is receiving oxygen via trach to vent, vent settings: AC 18 TV 550, FiO2 40%, PEEP 5. G-tube is intact and receiving Jevity 1.2 at 30cc/hr. IV site is Left Forearm 20g, intact and asymptomatic. Dash catheter is intact and draining. Bed is locked, placed in lowest position, side rails up x3, bed alarm on, call light within reach. Will continue to monitor.
[2019-07-15] MEDS: Pantoprazole Inj IV SCH (08:46)
[2019-07-15] MEDS: Aspirin Baby 81mg GT SCH (08:46)
[2019-07-15] MEDS: Heparin 5000 units/ml inj SUBQ SCH ×2 (08:53→20:18)
--- NOTE | 2019-07-15 10:24 | Pulmonolgy Critical Care Note ---
Critical Care - Asmt/Plan Problems: (1) Acute on chronic respiratory failure (2) Ventilator associated pneumonia (3) Chronic complete flaccid quadriplegia (4) Anemia (5) Traumatic brain injury (6) Attention to G-tube Respiratory: monitor respiratory rate, adjust FIO2, CXR Cardiac: continue to monitor HR/BP Renal: F/U I&O, keep IV fluid Infectious Disease: check cultures, continue antibiotics, other - still febrile Gastrointestinal: continue feedings/current rate Endocrine: monitor blood sugar Hematologic: monitor H/H, transfuse if hgb<8.5 Neurologic: PRN Morphine, keep patient comfortable Prophylaxis: Heparin Disposition: keep in ICU 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, 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, 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 Discussed with: nurses, consultants, social work case managermanager programs - Objective Last 24 Hour Vital Signs Date Time Temp Pulse Resp B/P (MAP) Pulse Ox O2 Delivery O2 Flow Rate FiO2 07/15/19 08:00 63 07/15/19 08:00 Mechanical Ventilator 07/15/19 08:00 40 07/15/19 06:00 100.5 07/15/19 06:00 70 19 142/69 (93) 99 07/15/19 05:30 152/74 07/15/19 05:30 72 19 40 07/15/19 05:00 100.7 72 19 158/79 (105) 99 07/15/19 04:00 71 19 144/71 (95) 100 07/15/19 04:00 40 07/15/19 04:00 Mechanical Ventilator 07/15/19 04:00 72 07/15/19 03:15 71 18 40 07/15/19 03:00 68 18 132/68 (89) 98 07/15/19 02:00 68 18 140/70 (93) 98 07/15/19 01:26 71 18 40 07/15/19 01:00 69 18 145/71 (95) 99 07/15/19 00:54 129/68 07/15/19 00:00 100.5 69 19 129/68 (88) 99 07/15/19 00:00 Mechanical Ventilator 07/14/19 23:08 74 18 40 07/14/19 23:00 69 18 125/64 (84) 98 07/14/19 22:00 100.7 68 18 117/63 (81) 98 4/1/20 21:26 79 19 40 07/14/19 21:00 70 18 126/68 (87) 97 07/14/19 20:00 79 07/14/19 20:00 Mechanical Ventilator 07/14/19 20:00 101.5 75 18 130/75 (93) 97 07/14/19 20:00 40 07/14/19 19:30 82 19 40 07/14/19 19:00 78 18 125/78 (94) 96 07/14/19 18:30 123/68 07/14/19 18:00 79 18 132/72 (92) 97 07/14/19 17:06 77 18 40 07/14/19 17:00 76 18 119/61 (80) 97 07/14/19 16:05 73 07/14/19 16:00 Mechanical Ventilator 07/14/19 16:00 40 07/14/19 16:00 99.7 70 18 143/69 (93) 98 07/14/19 15:09 75 16 40 07/14/19 15:00 69 18 142/74 (96) 97 07/14/19 14:00 68 18 137/71 (93) 97 07/14/19 13:00 66 18 124/70 (88) 99 07/14/19 12:55 66 18 40 07/14/19 12:08 133/73 07/14/19 12:00 99.4 75 18 133/73 (93) 95 07/14/19 12:00 40 07/14/19 12:00 Mechanical Ventilator 07/14/19 11:31 73 07/14/19 11:00 70 18 152/81 (104) 98 07/14/19 10:52 72 18 40 Status: awake, sedated HEENT: atraumatic Lungs: clear Heart: HR/BP stable Abdomen: soft, active bowel sounds Extremities: no C/C/E Micro: Microbiology Date/Time Source Procedure Growth Status 07/13/19 11:45 Blood Blood Culture - Preliminary Gram Positive Cocci Resulted 07/13/19 11:30 Blood Blood Culture - Preliminary Gram Positive Cocci Resulted 07/14/19 04:00 Sputum Gram Stain - Final Resulted 07/14/19 04:00 Sputum Sputum Culture Pending Resulted 07/13/19 14:00 Urine,Clean Catch Urine Culture - Preliminary NO GROWTH AFTER 24 HOURS Resulted 07/13/19 13:00 Rectum VRE Culture - Final Enterococcus Faecium - Vre Complete Accucheck: 85 Critical Care - Subjective ROS Limited/Unobtainable: No Condition: critical EKG Rhythm: Sinus Rhythm FI02: 40 Vent Support Breath Rate: 18 Vent Support Mode: AC Vent Tidal Volume: 550 Sputum Amount: Scant PEEP: 5.0 PIP: 28 Tube Feeding Amount: 30 I&O: Intake and Output 07/14/19 07/15/19 19:00 07:00 Intake Total 615.00 ml 827.416 ml Output Total 1475 ml 1200 ml Balance -860.00 ml -372.584 ml Free Water 100 ml IV Total 275.00 ml 367.416 ml Tube Feeding 340 ml 360 ml Output Urine Total 1475 ml 1200 ml Labs: Laboratory Tests Test 07/15/19 03:35 07/15/19 08:30 White Blood Count 19.6 K/UL (4.8-10.8) #H Red Blood Count 3.15 M/UL (4.70-6.10) L Hemoglobin 9.0 G/DL (14.2-18.0) L Hematocrit 26.7 % (42.0-52.0) L Mean Corpuscular Volume 85 FL (80-99) Mean Corpuscular Hemoglobin 28.5 PG (27.0-31.0) Mean Corpuscular Hemoglobin Concent 33.7 G/DL (32.0-36.0) Red Cell Distribution Width 14.4 % (11.6-14.8) Platelet Count 354 K/UL (150-450) Mean Platelet Volume 6.0 FL (6.5-10.1) L Neutrophils (%) (Auto) % (45.0-75.0) Lymphocytes (%) (Auto) % (20.0-45.0) Monocytes (%) (Auto) % (1.0-10.0) Eosinophils (%) (Auto) % (0.0-3.0) Basophils (%) (Auto) % (0.0-2.0) Differential Total Cells Counted 100 Neutrophils % (Manual) 84 % (45-75) H Lymphocytes % (Manual) 10 % (20-45) L Monocytes % (Manual) 6 % (1-10) Eosinophils % (Manual) 0 % (0-3) Basophils % (Manual) 0 % (0-2) Band Neutrophils 0 % (0-8) Platelet Estimate Adequate Platelet Morphology Normal Hypochromasia Sodium Level 148 MMOL/L (136-145) H Potassium Level 4.6 MMOL/L (3.5-5.1) Chloride Level 110 MMOL/L (98-107) H Carbon Dioxide Level 27 MMOL/L (21-32) Anion Gap 11 mmol/L (5-15) Blood Urea Nitrogen 51 mg/dL (7-18) H Creatinine 1.0 MG/DL (0.55-1.30) Estimat Glomerular Filtration Rate > 60 mL/min (>60) Glucose Level 92 MG/DL (74-106) Calcium Level 8.5 MG/DL (8.5-10.1) Troponin I 0.118 ng/mL (0.000-0.056) Pro-B-Type Natriuretic Peptide 7244 pg/mL (0-125) H Vancomycin Level Trough 27.2 ug/mL (5.0-12.0) H Fidencio Jenkins MD Jul 15, 2019 10:24
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
--- NOTE | 2019-07-15 10:46 | NUR ---
RADIOLOGY DEPT., CHEST X-RAY DONE-P.DYE
[2019-07-15 11:11] LABS: LACTATE DEHYDROGENASE 367 U/L (81-234)
[2019-07-15 11:37] LABS: % IRON SATURATION 6 % (15-50); IRON 11 ug/dL (50-175); TOTAL IRON BINDING CAPACITY 184 ug/dL (250-450)
--- NOTE | 2019-07-15 12:20 | NUR ---
NURSE NOTES: Oral care given to patient, patient tolerated well, no signs of distress. Scheduled Hydralazine given for patients BP of 169/80. Will continue to monitor.
--- NOTE | 2019-07-15 13:23 | NUR ---
*-* INSURANCE *-* ALL AVAILABLE CLINICALS AND REVIEWS HAVE BEEN FAXED TO: [facility] [facility] REF# [id number] P: [phone] OPT. 6 F; [phone]
--- NOTE | 2019-07-15 14:42 | NUR ---
NURSE NOTES: Dr. Jenkins made aware of blood pressure of systolic 152-168. No new orders received, patient is asymptomatic, resting comfortably in bed, patient denies any pain. Will continue to monitor.
--- NOTE | 2019-07-15 14:46 | NUR ---
CASE MANAGEMENT: REVIEW 07/15/2019 SI:Acute on chronic respiratory failure. VS: T 100.7 HR 72 RR 19 B/P 158/79 SATS 99% ON MECH VENT FIO2 40 LABS: WBC 19.6 NA 148 CL 110 BUN 51 LACTATE DEHYDROGENASE 367 TROPONIN 0.118 BNP 7244 IS:HYDRALAZINE GT Q6H ASA GT QD VANCO IV Q12H ICU
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
--- NOTE | 2019-07-15 16:21 | Diagnostic Imaging Report ---
Indication: Dyspnea Comparison: 07/13/2019 A single view chest radiograph was obtained. Findings: Hazy left basilar infiltrate versus atelectasis demonstrated. Dense right basilar atelectasis versus elevation of the right hemidiaphragm suspected. No change seen. Tracheostomy again noted. Multilevel vertebral endplate enthesophytes demonstrated in the thoracic and lumbar spine. IMPRESSION: No radiographic change
--- NOTE | 2019-07-15 17:45 | NUR ---
NURSE NOTES: Patient's axillary temperature was 102.2 degrees Fahrenheit, PRN Tylenol was given to patient via G-tube, Flushed G-tube with 500cc of iced water, and placed ice packs on patient. On reassessment patient's temperature was 101.4 degrees Fahrenheit. Will continue to monitor.
--- NOTE | 2019-07-15 19:12 | NUR ---
HAND-OFF: Report given to Jacquelin DEMPSEY.
--- NOTE | 2019-07-15 19:15 | NUR ---
NURSE NOTES: Patient received from ROSELYN Irwin. patient asleep arousable to name but nonverbal with trach. patient tolerating ventilator AC 15 TV 550 FIO2 40% PEEP 5. patient has a temp of 102F axillary. ice packs placed on patient. patient tolerating jevity 1.2@30ml/hr with no residual. left Forearm PIV clean and asymptomatic. abdomen soft round nontender. right hand pitting +3 edema noted. sacral dressing clean and intact. raya catheter draining clear yellow urine. will continue to monitor.
--- NOTE | 2019-07-15 19:29 | Progress Note ---
DATE: 07/15/2019 CARDIOLOGY PROGRESS NOTE SUBJECTIVE: The patient remains in the intensive care unit. Condition is critical. Prognosis guarded. OBJECTIVE: VITAL SIGNS: Blood pressure parameters 142/69, heart rate 70, respirations 19, sinus rhythm, temperature 100.7 degrees, and T-max 101.5 degrees. LUNGS: Trach secretions are thin. Bilateral rhonchi. HEART: Regular rhythm and rate. Normal S1 and S2. ABDOMEN: Soft. G-tube intact. EXTREMITIES: No edema. LABORATORY DATA: White count up to 19.6 and hemoglobin 9. Sodium 148, potassium 4.6, bicarb 27, BUN 51, and creatinine 1. Total iron saturation 6%. Pro-natriuretic peptide is 70 to 100. Troponin is 0.118. IMPRESSION: 1. Respiratory failure. 2. Sepsis. 3. Dehydration. 4. Hyponatremia. 5. Hyperchloremia. 6. Acute on chronic kidney injury with prerenal azotemia. 7. Severe iron deficiency. 8. Acute myocardial infarction is now recovering. 9. Acute and chronic diastolic congestive heart failure. PLAN: 1. Antimicrobials. 2. Hydration. 3. Iron replacement. 4. Antiplatelet therapy. 5. Restart beta-jason. Néstor Cervantes M.D. DR: Juancarlos JOB#: [id number] CC:
[2019-07-15 20:12] LABS: INR 1.1 (0.9-1.1)
[2019-07-15] MEDS: Iron Sucrose 100 MG in NS 55 ML IV SCH (20:48)
[2019-07-15] MEDS: Carvedilol 6.25mg Tab ORAL SCH (20:49)
[2019-07-15] MEDS: Vancomycin 500mg/D5W 110ml IVPB SCH ×2 (21:13)
--- NOTE | 2019-07-15 22:00 | NUR ---
NURSE NOTES: patient asleep arousable to name. patient continues to have a temp of 102F axillary. PRN tylenol administered and ice packs changed. left Forearm PIV clean and running vancomycin. patient tolerating jevity 1.2 @ 30ml/hr. patient repositioned and oral care provided. will continue to monitor. bed locked lowest position.
[2019-07-16] VITALS (24 sets, daily range): BP systolic 97–183; BP diastolic 59–85
--- NOTE | 2019-07-16 | NUR ---
NURSE NOTES: patient asleep arousable to name. patient tolerating ventilator with oxygen saturation 99%. BP 160/76 HR 60, Temp 100.9F axillary. Dr Cordon aware of abnormal lab values and elevated temperature, orders received read back and carried out. gtube running jevity at 10ml/hr with no residual noted. raya catheter draining to gravity. patient repositioned, oral care provided, and ice packs changed. will continue to monitor.
[2019-07-16] MEDS: HydrALAZINE 10mg Tab GT SCH ×5 (00:21→23:47)
--- NOTE | 2019-07-16 02:00 | NUR ---
NURSE NOTES: patient asleep arousable to name. patient tolerating ventilator. temp remains at 100.9F axillary. prn tylenol administered. patient given bed bath, repositioned, and oral care provided. left fore arm PIV running D5w at 100ml/hr clean and asymptomatic. raya catheter draining yellow urine. gtube running jevity at 10ml/hr. will continue to monitor.
[2019-07-16] MEDS: Acetaminophen 650mg/20.3ml GT PRN (02:46)
--- NOTE | 2019-07-16 04:00 | NUR ---
NURSE NOTES: patient asleep arousable to name. patient tolerating ventilator. BP 183/79, HR 55, and temp 99.9F axillary after prn tylenol was administered. left forearm PIV running D5w at 100ml/hr clean and asymptomatic. raya catheter draining yellow urine. gtube running jevity at 10ml/hr with no residual noted, gtube flushed with 50mL water. will continue to monitor.
--- NOTE | 2019-07-16 05:00 | Progress Note ---
DATE: 07/15/2019 SUBJECTIVE: The patient is febrile without tachycardia. PHYSICAL EXAMINATION: VITAL SIGNS: Blood pressure is 153/75, pulse is 71, respirations 18, and temperature 101.4. HEENT: Eyes were normal. ENT, mucous membranes were moist and intact. NECK: Supple with no JVD without lymph nodes. Tracheostomy site is clean. LUNGS: Clear without rhonchi, rales, or wheezing. HEART: Normal sounds with regular beats. ABDOMEN: Soft and nontender with normal bowel sounds. EXTREMITIES: Warm without cyanosis, clubbing, or edema. LABORATORY AND DIAGNOSTIC DATA: Hemoglobin is 9.0, hematocrit 26.7, MCV of 85, WBC of 19.6, and platelets of 354. WBC was 9.3 yesterday. His ESR is 56. . His BUN and creatinine 51 and 1.0 respectively. His sodium is 148, potassium 4.6, chloride 110, CO2 is 27. His iron is 11 and his total iron binding capacity is 184. His . His LDH is 367. His CEA is pending. Stool for occult blood was pending. His chest x-ray from today shows left lower lobe infiltrate and right lower lobe atelectasis with elevated right hemidiaphragm. X-ray was unchanged from previous x-ray from July 12. IMPRESSION: 1. Patient has new onset of leukocytosis, fever without tachycardia. His PICC line was removed today. 2. Patient has prerenal azotemia. 3. Patient had positive blood culture on July 12 of gram-positive cocci in two separate samples. . sepsis, prerenal azotemia, iron-deficiency anemia. PLAN: He will be started on D5W 1000 mL per hour. Repeat laboratory tests will be done in a.m. Anusha Cordon M.D. DR: Sugey JOB#: [id number] CC:
[2019-07-16 05:22] LABS: BASOPHILS % (AUTO) 1.4 % (0.0-2.0); EOSINOPHILS % (AUTO) 0.8 % (0.0-3.0); HEMATOCRIT 26.3 % (42.0-52.0); HEMOGLOBIN 8.8 G/DL (14.2-18.0); LYMPHOCYTES % (AUTO) 15.2 % (20.0-45.0); MEAN CORPUSCULAR VOLUME 84 FL (80-99); MONOCYTES % (AUTO) 6.5 % (1.0-10.0); NEUTROPHILS % (AUTO) 76.1 % (45.0-75.0); PLATELET COUNT 325 K/UL (150-450); RED BLOOD COUNT 3.15 M/UL (4.70-6.10); RED CELL DISTRIBUTION WIDTH 14.2 % (11.6-14.8); WHITE BLOOD COUNT 12.2 K/UL (4.8-10.8)
--- NOTE | 2019-07-16 06:00 | NUR ---
NURSE NOTES: patient awake nonverbal with shiley 7 on ventilator AC 15 TV 550 FIO2 40 PEEP 5. BP177/85, HR 60, Temp 99.8F axillary. left forearm PIC running D5W @ 100ml/hr clean and asymptomatic. abdomen soft round nontender with active bowel sounds x4 quadrants with gtube running jevity 1.2@ 30ml/hr, no residual noted. arya catheter draining clear yellow urine. right hand +3 pitting edema noted. skin warm dry with sacral dressing clean dry intact. will continue to monitor. bed locked lowest position call light within reach.
--- NOTE | 2019-07-16 07:23 | NUR ---
HAND-OFF: Report given to ROSELYN Palm.
[2019-07-16] MEDS: Carvedilol 6.25mg Tab ORAL SCH ×2 (09:00→20:57)
--- NOTE | 2019-07-16 09:23 | NUR ---
RESPIRATORY NOTE: received pt on current vent orders with no signs of resp distress. pt is trach with shiley 7xlt, midline, patent and secured. pt has neck brace in place. alarms are set accordingly with vent plugged into the redoutlet. ambu bag and backup trach at bedside. will cont to monitor throughout the day.
[2019-07-16] MEDS: Vancomycin 500mg/D5W 110ml IVPB SCH ×2 (09:49)
[2019-07-16] MEDS: Pantoprazole Inj IV SCH (09:49)
[2019-07-16] MEDS: Aspirin Baby 81mg GT SCH (09:49)
[2019-07-16] MEDS: Heparin 5000 units/ml inj SUBQ SCH ×2 (09:51→20:56)
--- NOTE | 2019-07-16 09:53 | NUR ---
RD ASSESSMENT & RECOMMENDATIONS SEE CARE ACTIVITY FOR COMPLETE ASSESSMENT DAILY ESTIMATED NEEDS: Needs based on Wound, critical care, bednbound 68kg 22-28 kcals/kg 0269-4591 total kcals 1.25-2 g protein/kg 85-136 g total protein 25-30 mL/kg 1527-7503 total fluid mLs NUTRITION DIAGNOSIS: * Increased kcal and pro needs r/t wound healing as evidenced by pt w/ multiple wounds, including DTPI @ L Ischium, unstageable wound @ sacrum, non-blanching erythema @ BL heels. * Altered nutrition related lab values R/T electrolyte imbalance, diabetes? as evidenced by admitted w/ elev K (5.8- > wnl), w/ episodes of elev K and elev phos during prev admission. elev A1C of 7.0 on 07/11 per SNF record, pt on carb controlled TF [employer]. * Swallowing difficulty R/T respiratory status as evidenced by pt is trach/vent, PEG dep. CURRENT TF:Jevity 1.2 @ 30ml/hr x 24 hrs ENTERAL NUTRITION RECOMMENDATIONS: Nepro @ 40ml/hr x 24 hrs + Prosource 1pkt BID to provide 960ml, 1728kcal, 72g +22g prot, 698ml free water -> Rec TF change to Nepro (re-admitted w/ elev K, w/ multiple episodes of elev K and phos during last admission as well) -> Initiate Nepro @ 20ml/hr x 6 hrs -> Advance 10ml q 4-6 hrs as tolerated to goal rate. -> HOB over 30 degrees/ water flush per MD ADDITIONAL RECOMMENDATIONS: 1) Trend K and phos : episodes of elev K this adm K and phos elevated multiple times last admission -> Pt will benefit from Nepro for electrolyte balance, see TF rec above 2) Wound Healing: add Vit C 500 mg QD + Eric BID in 4oz H20 BID 3) Monitor BGs, need for NISS (A1C 7.0 on 07/11 per SNF record) .
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
--- NOTE | 2019-07-16 10:15 | NUR ---
NURSE NOTES: Dr. Jenkins updated on patient condition, no verbal orders given at this time.
--- NOTE | 2019-07-16 11:00 | NUR ---
*-* INSURANCE *-* ALL AVAILABLE CLINICALS AND REVIEWS HAVE BEEN FAXED TO: [employer] [facility] REF# [id number] P: [phone] OPT. 6 F; [phone]
--- NOTE | 2019-07-16 11:30 | NUR ---
NURSE NOTES: Dr. Burton updated on patient hgb this morning of 8.8 with no active bleeding noted, no verbal orders given at this time.
--- NOTE | 2019-07-16 11:39 | Pulmonolgy Critical Care Note ---
Critical Care - Asmt/Plan Problems: (1) Acute on chronic respiratory failure (2) Ventilator associated pneumonia (3) Chronic complete flaccid quadriplegia (4) Anemia (5) Traumatic brain injury (6) Attention to G-tube Respiratory: monitor respiratory rate, adjust FIO2, CXR Cardiac: continue pressors, continue to monitor HR/BP Renal: F/U I&O, keep IV fluid Infectious Disease: check cultures Gastrointestinal: continue feedings/current rate Endocrine: monitor blood sugar, check HgA1C Hematologic: transfuse if hgb<8.5 Neurologic: PRN Ativan, keep patient comfortable Affect: PRN ativan Prophylaxis: Protonix, Heparin Notes Reviewed: 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, 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, renal Discussed with: nurses, consultants, manager of 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 manager 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 representative - Objective Last 24 Hour Vital Signs Date Time Temp Pulse Resp B/P (MAP) Pulse Ox O2 Delivery O2 Flow Rate FiO2 07/16/19 11:00 55 19 140/73 (95) 100 07/16/19 10:39 59 20 40 07/16/19 10:00 61 19 113/67 (82) 100 07/16/19 09:21 63 18 40 07/16/19 09:00 57 107/63 07/16/19 09:00 60 20 97/59 (72) 96 07/16/19 08:00 98.2 65 18 106/64 (78) 99 07/16/19 08:00 Mechanical Ventilator 07/16/19 08:00 67 07/16/19 08:00 40 07/16/19 07:29 66 19 40 07/16/19 07:00 66 19 115/65 (82) 99 07/16/19 06:00 60 18 177/85 (115) 100 07/16/19 05:28 59 18 40 07/16/19 05:02 193/76 07/16/19 05:00 54 18 181/84 (116) 100 07/16/19 04:00 99.9 53 18 183/79 (113) 99 07/16/19 04:00 58 07/16/19 04:00 40 07/16/19 04:00 Mechanical Ventilator 07/16/19 03:16 99.9 07/16/19 03:00 55 18 164/84 (110) 99 07/16/19 02:00 59 18 168/82 (110) 100 07/16/19 01:28 66 18 40 07/16/19 01:00 61 18 168/76 (106) 100 07/16/19 00:21 169/77 07/16/19 00:00 40 07/16/19 00:00 100.7 64 18 169/77 (107) 99 07/16/19 00:00 Mechanical Ventilator 07/16/19 00:00 59 07/15/19 23:27 67 16 40 07/15/19 23:00 65 18 171/79 (109) 99 07/15/19 22:36 68 07/15/19 22:00 69 18 169/78 (108) 100 07/15/19 21:30 70 18 40 07/15/19 21:00 70 18 157/78 (104) 99 07/15/19 20:49 71 163/75 07/15/19 20:00 72 18 162/74 (103) 100 07/15/19 20:00 40 07/15/19 20:00 Mechanical Ventilator 07/15/19 19:05 70 16 40 07/15/19 19:00 102.0 73 18 180/84 (116) 100 07/15/19 18:00 76 18 146/75 (98) 100 07/15/19 17:34 167/81 07/15/19 17:00 102.2 75 19 168/82 (110) 100 07/15/19 16:48 74 19 40 07/15/19 16:00 73 18 172/81 (111) 100 07/15/19 16:00 40 07/15/19 16:00 76 07/15/19 16:00 Mechanical Ventilator 07/15/19 15:00 73 18 158/79 (105) 100 07/15/19 14:30 72 19 40 07/15/19 14:00 72 18 167/84 (111) 99 07/15/19 13:00 70 18 152/73 (99) 100 07/15/19 12:39 68 19 40 07/15/19 12:00 69 07/15/19 12:00 Mechanical Ventilator 07/15/19 12:00 99.8 70 18 169/80 (109) 100 07/15/19 12:00 40 07/15/19 11:51 168/78 Status: sedated Condition: critical HEENT: atraumatic Neck: full ROM Heart: HR/BP stable Abdomen: non-tender, active bowel sounds Extremities: edema Decubiti: location Micro: Microbiology Date/Time Source Procedure Growth Status 07/14/19 15:17 Blood Blood Culture - Preliminary NO GROWTH AFTER 24 HOURS Resulted 07/14/19 15:17 Blood Blood Culture - Preliminary Gram Positive Cocci Resulted 07/13/19 11:45 Blood Blood Culture - Final Enterococcus Faecium - Vre Complete 07/14/19 15:30 Nasopharynx Coronavirus COVID-19 PCR (RENNY) - Final Complete 07/14/19 04:00 Sputum Gram Stain - Final Complete 07/14/19 04:00 Sputum Sputum Culture - Final NORMAL UPPER RESPIRATORY ELDER PRESENT Complete 07/13/19 13:00 Nasal Nares MRSA Culture - Final NO METHICILLIN RESISTANT STAPH AUREUS... Complete 07/13/19 14:00 Urine,Clean Catch Urine Culture - Final NO GROWTH AFTER 48 HOURS Complete 07/13/19 13:00 Rectum VRE Culture - Final Enterococcus Faecium - Vre Complete Accucheck: 85 Critical Care - Subjective ROS Limited/Unobtainable: Yes Condition: critical EKG Rhythm: Sinus Bradycardia FI02: 40 Vent Support Breath Rate: 18 Vent Support Mode: AC Vent Tidal Volume: 550 Sputum Amount: Small PEEP: 5.0 PIP: 36 Tube Feeding Amount: 30 I&O: Intake and Output 07/15/19 07/16/19 19:00 07:00 Intake Total 860 ml 920 ml Output Total 1300 ml 2000 ml Balance -440 ml -1080 ml Free Water 500 ml 100 ml IV Total 460 ml Tube Feeding 360 ml 360 ml Output Urine Total 1300 ml 2000 ml # Bowel Movements 2 2 Labs: Laboratory Tests Test 07/15/19 17:37 07/15/19 18:35 07/16/19 04:00 Stool Occult Blood Pending Prothrombin Time 11.4 SEC (9.30-11.50) Prothromb Time International Ratio 1.1 (0.9-1.1) Activated Partial Thromboplast Time 30 SEC (23-33) White Blood Count 12.2 K/UL (4.8-10.8) H Red Blood Count 3.15 M/UL (4.70-6.10) L Hemoglobin 8.8 G/DL (14.2-18.0) L Hematocrit 26.3 % (42.0-52.0) L Mean Corpuscular Volume 84 FL (80-99) Mean Corpuscular Hemoglobin 27.9 PG (27.0-31.0) Mean Corpuscular Hemoglobin Concent 33.4 G/DL (32.0-36.0) Red Cell Distribution Width 14.2 % (11.6-14.8) Platelet Count 325 K/UL (150-450) Mean Platelet Volume 6.1 FL (6.5-10.1) L Neutrophils (%) (Auto) 76.1 % (45.0-75.0) H Lymphocytes (%) (Auto) 15.2 % (20.0-45.0) L Monocytes (%) (Auto) 6.5 % (1.0-10.0) Eosinophils (%) (Auto) 0.8 % (0.0-3.0) Basophils (%) (Auto) 1.4 % (0.0-2.0) Fidencio Jenkins MD Jul 16, 2019 11:39
--- NOTE | 2019-07-16 13:15 | NUR ---
NURSE NOTES: DR. Rodriguez updated on patient condition, assessed patient at the bedside, no verbal orders. Addendum: 07/16/19 at 1746 by Néstor Elkins RN placed on incorrect chart
--- NOTE | 2019-07-16 13:42 | NUR ---
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 98.2 HR 65 RR 18 B/P 106/64 AC 18 TV 550 FI02 40% PEEP 5 WBC 12.2 IS: IVF D5@100ML/HR VANCO IV PROTONIX IV ICU STATUS
--- NOTE | 2019-07-16 15:34 | NUR ---
NURSE NOTES: Dr. Acuña rounded and aware results are negative for the COVID - 19 swab and decreasing WBC count to 12.2. no fevers noted. no verbal orders given at this time.
--- NOTE | 2019-07-16 16:30 | NUR ---
NURSE NOTES: Dr. Elizabeth made aware of patient heart rhythm remaining sinus rhythm with no arrhythmias, no verbal orders given at this time.
[2019-07-16] MEDS ORDERED: DAPTOmycin 400 MG in NS 55 ML IV SCH (17:00)
--- NOTE | 2019-07-16 19:42 | NUR ---
HAND-OFF: Report given to ROSELYN Hardin. patient is awake watching television. he remains alert and responsive to name and staff.
--- NOTE | 2019-07-16 20:00 | NUR ---
NURSE NOTES: Received pt in no acute distress; awake, alert, oriented x3 but non verbal secondary to trach. Vent dependent patient, on AC18 TV550 fiO2.40 peep 5, tolerating well; secretions small amt via trach. HOB elevated, quietly watching TV at this time. Quadriplegic. Temp 99.2 axillary, NSR on the monitor; BP stable. Currently denies pain, denies SOB. GT intact, GTF with Jevity 1.2 infuses at 30ml/h with 0 residuals. FC patent, draining light werner urine at 50ml/h. Wound dressing dry and intact. Continue to monitor
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
[2019-07-16] MEDS: Iron Sucrose 100 MG in NS 55 ML IV SCH (20:51)
--- NOTE | 2019-07-16 22:00 | NUR ---
NURSE NOTES: Remains awake and alert and watches TV, denies pain, denies SOB. VSS, no distress.
[2019-07-17] VITALS (24 sets, daily range): BP systolic 115–168; BP diastolic 64–83
--- NOTE | 2019-07-17 | NUR ---
NURSE NOTES: Dr Cordon here earlier, made rounds and wrote some lab orders. Temp 99.1 axillary. Incontinent of large brown liquid stools, constantly oozing. Bathed, rectal tube inserted. Changed sacral wound dressing.
--- NOTE | 2019-07-17 02:00 | NUR ---
NURSE NOTES: Sleeping, calm; repositioned and suctioned. VSS, no distress
--- NOTE | 2019-07-17 03:30 | Progress Note ---
DATE: 07/16/2019 SUBJECTIVE: The patient has low-grade fever without tachycardia. PHYSICAL EXAMINATION: VITAL SIGNS: Blood pressure 123/71, his pulse is 87, respiration 19, and temperature 99.2. HEENT: Eyes were normal. ENT, mucous membranes were moist and intact. NECK: Supple with no JVD without lymph nodes. Tracheostomy site is clean. LUNGS: Clear without rhonchi, rales, or wheezing. HEART: Normal sounds with regular beats. ABDOMEN: Soft and nontender with normal bowel sounds. Gastrostomy site is clean. EXTREMITIES: Warm without cyanosis, clubbing, or edema. LABORATORY AND DIAGNOSTIC DATA: Hemoglobin is 8.8, hematocrit 26.3 with MCV of 84, WBC of 12.2, and platelets of 325. His BUN and creatinine are not available. His . His last imaging was done yesterday, which showed atelectasis in right lower lobe and elevated right diaphragm. PLAN: Repeat laboratory tests will be done in a.m. Anusha Cordon M.D. DR: Nereyda JOB#: [id number] CC:
--- NOTE | 2019-07-17 04:00 | NUR ---
NURSE NOTES: sleeping with HOB elevated. Temp 100 axillary. Rectal tube intact, irrigated. Stool liquid brown. BP stable. Good UOP. Tolerating GTF and current vent settings.
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
[2019-07-17] MEDS: HydrALAZINE 10mg Tab GT SCH ×3 (05:44→18:31)
--- NOTE | 2019-07-17 06:29 | Pulmonolgy Critical Care Note ---
Critical Care - Asmt/Plan Problems: (1) Acute on chronic respiratory failure (2) Ventilator associated pneumonia (3) Chronic complete flaccid quadriplegia (4) Anemia (5) Traumatic brain injury (6) Attention to G-tube Respiratory: monitor respiratory rate, adjust FIO2, CXR Cardiac: continue to monitor HR/BP Renal: F/U I&O, check electrolytes Infectious Disease: check cultures Gastrointestinal: continue feedings/current rate Endocrine: monitor blood sugar, check TSH Hematologic: transfuse if hgb<8.5 Neurologic: PRN Ativan, PRN Morphine, keep patient comfortable Prophylaxis: Protonix, Heparin Notes Reviewed: renal Discussed with: consultants, case making machine operatoreducation and development manager - Objective Last 24 Hour Vital Signs Date Time Temp Pulse Resp B/P (MAP) Pulse Ox O2 Delivery O2 Flow Rate FiO2 07/17/19 05:44 130/66 07/17/19 05:09 68 18 40 07/17/19 05:00 68 18 130/66 (87) 99 07/17/19 04:00 40 07/17/19 04:00 100.0 71 18 120/66 (84) 99 07/17/19 04:00 71 07/17/19 04:00 Mechanical Ventilator 07/17/19 03:33 67 18 40 07/17/19 03:00 66 18 130/73 (92) 98 07/17/19 02:00 69 18 130/73 (92) 100 07/17/19 01:45 69 18 40 07/17/19 01:00 70 19 115/66 (82) 95 07/17/19 00:00 65 07/17/19 00:00 Mechanical Ventilator 07/17/19 00:00 99.3 65 18 123/70 (87) 100 07/17/19 00:00 40 07/16/19 23:47 123/71 07/16/19 23:34 67 19 40 07/16/19 23:00 65 18 123/71 (88) 99 07/16/19 22:00 66 18 127/71 (89) 100 07/16/19 21:39 65 18 40 07/16/19 21:00 65 18 116/64 (81) 99 07/16/19 20:57 64 137/76 07/16/19 20:00 40 07/16/19 20:00 Mechanical Ventilator 07/16/19 20:00 64 07/16/19 20:00 99.2 62 18 150/80 (103) 99 07/16/19 19:37 63 18 40 07/16/19 19:00 62 18 146/78 (100) 100 07/16/19 18:01 139/78 07/16/19 18:00 64 18 146/76 (99) 98 07/16/19 17:00 60 18 131/78 (95) 98 07/16/19 16:38 60 18 40 07/16/19 16:00 98.2 59 18 123/79 (94) 98 07/16/19 16:00 40 07/16/19 16:00 Mechanical Ventilator 07/16/19 16:00 60 07/16/19 15:00 62 18 138/80 (99) 99 07/16/19 14:40 127/74 07/16/19 14:40 67 18 40 07/16/19 14:00 63 19 115/63 (80) 100 07/16/19 13:12 60 24 40 07/16/19 13:00 59 20 127/74 (91) 100 07/16/19 12:00 40 07/16/19 12:00 49 07/16/19 12:00 98.7 51 18 138/77 (97) 99 07/16/19 12:00 Mechanical Ventilator 07/16/19 11:00 55 19 140/73 (95) 100 07/16/19 10:39 59 20 40 07/16/19 10:00 61 19 113/67 (82) 100 07/16/19 09:21 63 18 40 07/16/19 09:00 57 107/63 07/16/19 09:00 60 20 97/59 (72) 96 07/16/19 08:00 98.2 65 18 106/64 (78) 99 07/16/19 08:00 Mechanical Ventilator 07/16/19 08:00 67 07/16/19 08:00 40 07/16/19 07:29 66 19 40 07/16/19 07:00 66 19 115/65 (82) 99 Status: awake Condition: critical HEENT: atraumatic Lungs: clear Heart: HR/BP stable, HR/BP unstable Abdomen: soft, active bowel sounds Extremities: no C/C/E, edema Decubiti: stage Micro: Microbiology Date/Time Source Procedure Growth Status 07/14/19 15:17 Blood Blood Culture - Preliminary NO GROWTH AFTER 48 HOURS Resulted 07/14/19 15:17 Blood Blood Culture - Preliminary Strep Species, Gamma-Hemolytic Resulted 07/14/19 15:30 Nasopharynx Coronavirus COVID-19 PCR ([facility]) - Final Complete Accucheck: 85 Critical Care - Subjective ROS Limited/Unobtainable: Yes Condition: critical EKG Rhythm: Sinus Rhythm FI02: 40 Vent Support Breath Rate: 18 Vent Support Mode: AC Vent Tidal Volume: 550 Sputum Amount: Scant PEEP: 5.0 PIP: 43 Tube Feeding Amount: 30 I&O: Intake and Output 07/16/19 07/17/19 19:00 07:00 Intake Total 1658.333 ml 1420 ml Output Total 1320 ml 950 ml Balance 338.333 ml 470 ml Free Water 100 ml 60 ml IV Total 1198.333 ml 1060 ml Tube Feeding 360 ml 300 ml Output Urine Total 1320 ml 950 ml # Bowel Movements 4 55 CXR: no change, Fidencio Jenkins MD Jul 17, 2019 06:29
--- NOTE | 2019-07-17 07:00 | NUR ---
HAND-OFF: Report given to Alex Mims RN.
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
[2019-07-17 07:37] LABS: ALANINE AMINOTRANSFERASE 27 U/L (12-78); ALBUMIN 2.4 G/DL (3.4-5.0); ALBUMIN/GLOBULIN RATIO 0.6 (1.0-2.7); ALKALINE PHOSPHATASE 71 U/L (46-116); ANION GAP 6 mmol/L (5-15); ASPARTATE AMINO TRANSFERASE 18 U/L (15-37); BILIRUBIN,TOTAL 0.3 MG/DL (0.2-1.0); BLOOD UREA NITROGEN 33 mg/dL (7-18); CALCIUM 8.6 MG/DL (8.5-10.1); CARBON DIOXIDE 31 MMOL/L (21-32); CHLORIDE 102 MMOL/L (98-107); CREATININE 0.6 MG/DL (0.55-1.30); PHOSPHORUS 4.3 MG/DL (2.5-4.9); POTASSIUM 3.8 MMOL/L (3.5-5.1); SODIUM 139 MMOL/L (136-145)
[2019-07-17 07:44] LABS: BASOPHILS % (AUTO) 0.5 % (0.0-2.0); EOSINOPHILS % (AUTO) 0.5 % (0.0-3.0); HEMATOCRIT 26.4 % (42.0-52.0); HEMOGLOBIN 8.7 G/DL (14.2-18.0); MEAN CORPUSCULAR VOLUME 85 FL (80-99); MONOCYTES % (AUTO) 5.5 % (1.0-10.0); NEUTROPHILS % (AUTO) 84.5 % (45.0-75.0); PLATELET COUNT 302 K/UL (150-450); RED BLOOD COUNT 3.11 M/UL (4.70-6.10); RED CELL DISTRIBUTION WIDTH 14.2 % (11.6-14.8); WHITE BLOOD COUNT 14.6 K/UL (4.8-10.8)
[2019-07-17] MEDS: Pantoprazole Inj IV SCH (10:33)
[2019-07-17] MEDS: Carvedilol 6.25mg Tab ORAL SCH ×2 (10:33→20:33)
[2019-07-17] MEDS: Aspirin Baby 81mg GT SCH (10:33)
[2019-07-17] MEDS: Heparin 5000 units/ml inj SUBQ SCH ×2 (10:35→20:34)
--- NOTE | 2019-07-17 11:30 | NUR ---
NURSE NOTES: Patient's morning care was late this morning as a result of an ELECTRIC ORGAN ASSEMBLER AND CHECKER and Code Blue. All meds were given and scanned. Oral care, meatal care was performed. Patient has been repositioned. Will continue to monitor and follow plan of care.
--- NOTE | 2019-07-17 12:20 | NUR ---
NURSE NOTES: Patient is resting in the bed comfortably. Patient does not appear in any acute distress. Patient is being monitored on the cardiac rehab nurse with and hypertensive. Patient is a tracheostomy to vent Shiley 7.0 with vent settings AC 18, TV 550 FIO2 40% +5. Patient is with GT running Jevity 1.2 @ 30 ml/hr. Patient con't to drain liquid stool in the rectal tube to gravity. Patient with Dash catheter draining good amount of yellow urine also to gravity. D5 100 ml/hr is running on 20G LFA. Safety measures are intact with bed locked in the lowest position, with 3 side rails up, HOB elevated. Will continue to monitor and follow plan of care.
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
--- NOTE | 2019-07-17 16:26 | NUR ---
NURSE NOTES: Patient is resting in the bed comfortably. Patient does not appear in any acute distress. Patient is being monitored on the monitoring engineer and hypertensive. Patient is febrile. Will institute cooling measures. Patient is a tracheostomy to vent Shiley 7.0 with vent settings AC 18, TV 550 FIO2 40% +5. Patient is with GT running Jevity 1.2 @ 30 ml/hr. Patient con't to drain liquid stool in the rectal tube to gravity. Patient with Dash catheter draining good amount of yellow urine also to gravity. D5 100 ml/hr is running on 20G LFA. Safety measures are intact with bed locked in the lowest position, HOB elevated. Will continue to monitor and follow plan of care.
[2019-07-17] MEDS: Acetaminophen 650mg/20.3ml GT PRN (18:31)
--- NOTE | 2019-07-17 18:42 | NUR ---
NURSE NOTES: Patient with notable fever. Tylenol given. Patient slightly more somnolent. Still opens eyes spontaneously however appears more fatigued. Will monitor and endorse to the PM RN. Wound care pictures taken.
--- NOTE | 2019-07-17 19:21 | NUR ---
RESPIRATORY NOTE: Received pt on AC 18, 550VT, 40%, PEEP +5. Pt is trach-dependent w/ a cuffed, Shiley 7 XLT tube. Pt is asleep. B/S john. rhonchi, sxn minimal amounts of thick/thin, pale-yellow secretions. Vent plugged into red outlet, ambubag at bedside. Pt in no apparent distress at this time. Will continue to monitor pt.
--- NOTE | 2019-07-17 19:46 | NUR ---
HAND-OFF: Report given to ROSELYN Roper. Patient is not in any acute distress. Patient with VSS and with improved fever. Addendum: 07/17/19 at 1948 by Katelyn Quezada RN Report given to ROSELYN Max not ROSELYN Roper.
--- NOTE | 2019-07-17 19:50 | NUR ---
NURSE NOTES: Received Pt is resting on the bed and awake and able to open the eyes. Trach to Vent dependent and Setting with AC:18, T: 550, P:5, FiO2 40% and SaO2 100% noted. Provided tracheal and oral suction. Given oral care. on G-tube feeding with Jevity 1.2 @ 30cc/hr. No residual noted. Pt has Dash and rectal tube patent. Iv site intact and no sing of infiltration noted. Pt has sacral wound dressing and dressing is clean and dry. Placed fall precaution. Will continue to care plan.
[2019-07-17] MEDS: Iron Sucrose 100 MG in NS 55 ML IV SCH (20:33)
--- NOTE | 2019-07-17 22:00 | NUR ---
NURSE NOTES: Suction was done. Changed position. No sign of acute distress noted. Placed fall precaution. Will continue to care plan.
--- NOTE | 2019-07-17 23:52 | NUR ---
HAND-OFF: Report given to ROSELYN Boyd. Pt is sleeping on the bed and no sign of acute distress noted. Tolerated well with current Vent setting. Pt will transfer to [facility].
[2019-07-18] VITALS (7 sets, daily range): BP systolic 107–150; BP diastolic 65–81
[2019-07-18] MEDS: Acetaminophen 650mg/20.3ml GT PRN ×2 (00:30→05:08)
--- NOTE | 2019-07-18 00:30 | NUR ---
NURSE NOTES: Patients temperature is 101.6. Cooling bath measures started and Tylenol 650mg via GT was given. Rectal tube remains intact. Patient is lethargic. Blood pressure and HR remains stable. Will continue to monitor.
[2019-07-18] MEDS: HydrALAZINE 10mg Tab GT SCH ×4 (00:31→17:41)
--- NOTE | 2019-07-18 02:30 | Progress Note ---
DATE: 07/17/2019 SUBJECTIVE: The patient has low-grade fever without tachycardia, without tachypnea. PHYSICAL EXAMINATION: VITAL SIGNS: Blood pressure 121/71, pulse is 68, respirations are 18, temperature is 99.6. HEENT: Eyes were normal. ENT, mucous membranes were moist and intact. NECK: Supple with no JVD and without lymph nodes. Tracheostomy site is clean. LUNGS: Clear without rhonchi, rales, or wheezing. HEART: Normal sounds with regular beats. ABDOMEN: Soft and nontender with normal bowel sounds. EXTREMITIES: Warm without cyanosis, clubbing, or edema. LABORATORY AND DIAGNOSTIC DATA: Hemoglobin 8.7, hematocrit is 26.4 with MCV of 85, WBC of 14.6, and platelets are 302. WBC was 12.2 yesterday. His BUN and creatinine are 33 and 0.6 respectively. His sodium is 139, potassium 3.8, chloride 102, CO2 is 31. His calcium is 8.6, phosphorus is 4.3, and magnesium is 1.5. The patient has hypomagnesemia today. He will receive 2 g of magnesium sulfate over 2 hours. His CRP is 4.3. His last BNP done on 07/15/2019 was 7200. The albumin is 2.4. His total protein is 6.1. Latest x-ray from 07/15/2019 showed elevated high diaphragm. No change in left basilar . IMPRESSION: The patient was seen today. His COVID test result is negative for COVID antibody. The patient will be transferred to [facility] in a.m. Repeat laboratory tests will be done in the a.m. Anusha Cordon M.D. DR: Chance JOB#: [id number] CC:
--- NOTE | 2019-07-18 03:07 | NUR ---
NURSE NOTES: Temperature checked and showed 99.9 (ax). Cooling measures continue at this time. Will continue to monitor. No feed residuals at this time. New 22G IV started on the Left Hand.
--- NOTE | 2019-07-18 06:00 | NUR ---
NURSE NOTES: Patient still having low grade fever of 99.8F. No form of distress at this time and HR and BP are stable. Suctioned patient and oral performed.
--- NOTE | 2019-07-18 06:47 | Pulmonolgy Critical Care Note ---
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 - Objective Last 24 Hour Vital Signs Date Time Temp Pulse Resp B/P (MAP) Pulse Ox O2 Delivery O2 Flow Rate FiO2 07/18/19 05:38 100.0 07/18/19 05:06 109/66 07/18/19 04:48 58 18 40 07/18/19 04:00 100.3 62 18 109/65 (80) 100 07/18/19 04:00 Mechanical Ventilator 07/18/19 04:00 40 07/18/19 03:39 63 07/18/19 03:17 65 18 40 07/18/19 01:18 64 17 40 07/18/19 00:31 139/75 07/18/19 00:00 Mechanical Ventilator 07/18/19 00:00 101.6 75 18 145/69 (94) 100 07/17/19 23:00 69 18 139/75 (96) 99 07/17/19 22:59 66 18 40 07/17/19 22:00 68 18 121/71 (88) 99 07/17/19 21:23 70 19 40 07/17/19 21:00 68 19 127/70 (89) 99 07/17/19 20:33 66 142/75 07/17/19 20:00 67 07/17/19 20:00 99.6 66 19 142/72 (95) 100 07/17/19 20:00 Mechanical Ventilator 07/17/19 20:00 40 07/17/19 19:18 64 18 40 07/17/19 19:00 68 19 136/76 (96) 100 07/17/19 18:31 162/81 07/17/19 18:00 70 16 162/81 (108) 98 07/17/19 18:00 101.2 73 16 162/81 (108) 100 07/17/19 17:14 69 18 40 07/17/19 17:00 69 16 159/78 (105) 100 07/17/19 16:00 73 18 160/79 (106) 100 07/17/19 16:00 40 07/17/19 16:00 70 07/17/19 16:00 Mechanical Ventilator 07/17/19 15:18 69 18 40 07/17/19 15:00 70 18 165/83 (110) 100 07/17/19 14:00 73 18 168/82 (110) 100 07/17/19 13:34 158/78 07/17/19 13:15 66 18 40 07/17/19 13:00 69 18 158/78 (104) 100 07/17/19 12:00 69 07/17/19 12:00 40 07/17/19 12:00 100.4 69 18 155/78 (103) 100 07/17/19 12:00 Mechanical Ventilator 07/17/19 11:21 70 18 40 07/17/19 11:00 71 18 156/77 (103) 100 07/17/19 10:33 68 159/83 07/17/19 10:00 71 18 159/83 (108) 100 07/17/19 09:00 76 18 145/75 (98) 100 07/17/19 08:51 70 18 40 07/17/19 08:00 100.4 76 18 145/75 (98) 100 07/17/19 08:00 40 07/17/19 08:00 76 07/17/19 08:00 Mechanical Ventilator 07/17/19 07:15 69 18 40 07/17/19 07:00 66 18 133/74 (93) 99 Status: awake Condition: critical HEENT: atraumatic Neck: full ROM Lungs: rales, rhonchi Heart: HR/BP stable Abdomen: soft Extremities: no C/C/E, edema Micro: Microbiology Date/Time Source Procedure Growth Status 07/16/19 15:40 Blood Blood Culture - Preliminary NO GROWTH AFTER 24 HOURS Resulted 07/16/19 15:35 Blood Blood Culture - Preliminary NO GROWTH AFTER 24 HOURS Resulted Accucheck: 85 Critical Care - Subjective ROS Limited/Unobtainable: Yes EKG Rhythm: Sinus Rhythm FI02: 40 Vent Support Breath Rate: 18 Vent Support Mode: AC Vent Tidal Volume: 550 Sputum Amount: Small PEEP: 5.0 PIP: 37 Tube Feeding Amount: 30 I&O: Intake and Output 07/17/19 07/18/19 19:00 07:00 Intake Total 1790 ml 1960.0 ml Output Total 1230 ml 1010 ml Balance 560 ml 950.0 ml Free Water 100 ml IV Total 1300 ml 1560.0 ml Tube Feeding 360 ml 300 ml Other 130 ml Output Urine Total 1150 ml 1010 ml Stool Total 80 ml Labs: Laboratory Tests Test 07/17/19 09:15 Vancomycin Level Trough 11.9 ug/mL (5.0-12.0) Fidencio Jenkins MD Jul 18, 2019 06:47
--- NOTE | 2019-07-18 06:57 | NUR ---
HAND-OFF: Report given to Bernie DEMPSEY.
--- NOTE | 2019-07-18 07:10 | NUR ---
NURSE NOTES: Report received from Roge Quigley, ROSELYN. Pt ntoed asleep in bed, visible chest rise and fall, no respiratory distress noted, with collar brace in place. Trach vent Shiley 7, AC 18, TV 450, Fi02 40%. On Jevity at 30cc.ml via GT Intact and infusing well. On FC with Bag draining well. On Rectal tube intact and draining well. Peripheral IV lines in place and intact. Will continue to monitor
--- NOTE | 2019-07-18 07:14 | NUR ---
RESPIRATORY NOTE: received pt on current vent settings with no signs of resp distress. pt is trach with shiley 7xlt placed midline and patent. vent alarms are on and audible with ambu bag and backup trach at bedside. will monitor throughout the day.
[2019-07-18 08:00] LABS: HEMATOCRIT 23.3 % (42.0-52.0); HEMOGLOBIN 7.9 G/DL (14.2-18.0); MEAN CORPUSCULAR VOLUME 84 FL (80-99); PLATELET COUNT 290 K/UL (150-450); RED BLOOD COUNT 2.78 M/UL (4.70-6.10); RED CELL DISTRIBUTION WIDTH 13.9 % (11.6-14.8); WHITE BLOOD COUNT 10.3 K/UL (4.8-10.8)
[2019-07-18 08:12] LABS: PHOSPHORUS 4.2 MG/DL (2.5-4.9)
[2019-07-18 08:21] LABS: ALANINE AMINOTRANSFERASE 20 U/L (12-78); ALBUMIN 2.3 G/DL (3.4-5.0); ALBUMIN/GLOBULIN RATIO 0.6 (1.0-2.7); ALKALINE PHOSPHATASE 72 U/L (46-116); ANION GAP 6 mmol/L (5-15); ASPARTATE AMINO TRANSFERASE 16 U/L (15-37); BILIRUBIN,TOTAL 0.3 MG/DL (0.2-1.0); BLOOD UREA NITROGEN 26 mg/dL (7-18); CALCIUM 8.3 MG/DL (8.5-10.1); CARBON DIOXIDE 30 MMOL/L (21-32); CHLORIDE 98 MMOL/L (98-107); CREATININE 0.6 MG/DL (0.55-1.30); POTASSIUM 3.6 MMOL/L (3.5-5.1); SODIUM 134 MMOL/L (136-145)
[2019-07-18] MEDS: Carvedilol 6.25mg Tab ORAL SCH ×2 (09:00→20:50)
[2019-07-18] MEDS: Heparin 5000 units/ml inj SUBQ SCH ×2 (09:37→20:47)
[2019-07-18] MEDS: Aspirin Baby 81mg GT SCH (09:37)
[2019-07-18] MEDS: Pantoprazole Inj IV SCH (09:37)
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
--- NOTE | 2019-07-18 19:11 | NUR ---
HAND-OFF: Report given to Felipe Mijares RN.
--- NOTE | 2019-07-18 19:30 | NUR ---
NURSE NOTES: Received report from ROSELYN ROCHE. Pt is resting on the bed and awake and able to open the eyes. Trach to Vent dependent and Setting with AC:18, T: 550, P:5, FiO2 40% and SaO2 100% noted. Provided tracheal and oral suction. Given oral care. on G-tube feeding with Jevity 1.2 @ 30cc/hr. No residual noted. Pt has Dash and drainage well. Iv site intact and no sing of infiltration noted. Pt has sacral wound dressing and dressing is clean and dry. Placed fall precaution. Will continue to care plan.
[2019-07-18] MEDS: Iron Sucrose 100 MG in NS 55 ML IV SCH (20:46)
[2019-07-19] VITALS (7 sets, daily range): BP systolic 136–187; BP diastolic 67–90
[2019-07-19] MEDS: HydrALAZINE 10mg Tab GT SCH ×4 (00:22→19:03)
[2019-07-19] MEDS: Acetaminophen 650mg/20.3ml GT PRN (00:24)
--- NOTE | 2019-07-19 00:30 | NUR ---
NURSE NOTES: Pt is sleeping on the bed and tolerated well with current Vent setting. Dr. oleary visited and assessed Pt. Will continue to monitor any change of condition.
--- NOTE | 2019-07-19 03:15 | Progress Note ---
DATE: 07/17/2019 CARDIOLOGY PROGRESS NOTE SUBJECTIVE: Condition unchanged. Remains on ventilator support. Comatose state. Blood pressure parameters stable, still with fever spikes. OBJECTIVE: LUNGS: With coarse breath sounds, rhonchi. Thick secretions. CARDIAC: Regular rhythm and rate. Normal S1, S2. No new murmur. ABDOMEN: Soft, no edema. Echocardiogram reviewed some degenerative changes of the aortic valve, but no qualities to suggest endocarditis. IMPRESSION: 1. Bacteremia, increased risk for endocarditis due to debility. 2. Ventilator-dependent respiratory failure. 3. Acute myocardial infarction, recovering. PLAN: 1. Continue anti-platelet therapy and beta-blockade, not a candidate for anti-lipid drugs. 2. If surveillance cultures remained positive, transesophageal echocardiogram can be considered. Néstor Cervantse M.D. DR: VIOLETA JOB#: [id number] CC:
--- NOTE | 2019-07-19 03:15 | Progress Note ---
DATE: 07/18/2019 CARDIOLOGY PROGRESS NOTE SUBJECTIVE: The patient continues to have fever spiked up to 101.6. Blood pressure parameters although labile are overall stable. Monitored rhythm sinus with rare bradycardic episodes. No pauses. Remains on ventilator support, comatose state. OBJECTIVE: LUNGS: Bilateral breath sounds rhonchi. CARDIAC: Regular rhythm and rate. Normal S1, S2. ABDOMEN: Soft. G-tube intact. EXTREMITIES: No edema. IMPRESSION: 1. Bacteremia with risk of endocarditis. No echocardiographic evidence of support, however, history of myocardial infarction, now recovering. 2. Chronic diastolic congestive heart failure. PLAN: 1. Beta-jason and anti-platelet therapy as is. 2. Surveillance cultures. 3. Antimicrobials per Infectious Disease learning consultant. Néstor Cervantes M.D. DR: VIOLETA JOB#: [id number] CC:
--- NOTE | 2019-07-19 05:14 | Progress Note ---
DATE: 07/18/2019 SUBJECTIVE: Patient has low-grade fever without tachycardia. PHYSICAL EXAMINATION: VITAL SIGNS: Blood pressure 126/67, his pulse was 67, respirations were 16, temperature 99.3. HEENT: Eyes were normal. ENT, mucous membranes were moist and intact. NECK: Supple with no JVD without lymph nodes. Tracheostomy site is clean. LUNGS: Clear without rhonchi, rales, or wheezing. HEART: Normal sounds with regular beats. There is no tachycardia at rest. ABDOMEN: Soft, nontender with normal bowel sounds. Gastrostomy site is clean. EXTREMITIES: Warm without cyanosis, clubbing, or edema. LABORATORY DATA: His hemoglobin is 7.9, hematocrit 33.3 with MCV of 84, WBC of 10.3, and platelets of 219. His BUN and creatinine are 26 and 0.6 respectively. His sodium is 134, potassium 3.6, chloride 98, CO2 is 30. His phosphorus is 4.2 and magnesium is 1.9. IMPRESSION: Patient currently is on IV piggyback q12. Repeat laboratory tests will be done in the a.m. Anusha Cordon M.D. DR: RAYMON JOB#: [id number] CC:
[2019-07-19 05:47] LABS: BASOPHILS % (AUTO) 0.5 % (0.0-2.0); EOSINOPHILS % (AUTO) 1.6 % (0.0-3.0); HEMATOCRIT 24.6 % (42.0-52.0); HEMOGLOBIN 8.3 G/DL (14.2-18.0); LYMPHOCYTES % (AUTO) 12.8 % (20.0-45.0); MEAN CORPUSCULAR VOLUME 84 FL (80-99); MONOCYTES % (AUTO) 6.4 % (1.0-10.0); NEUTROPHILS % (AUTO) 78.7 % (45.0-75.0); PLATELET COUNT 278 K/UL (150-450); RED BLOOD COUNT 2.93 M/UL (4.70-6.10); RED CELL DISTRIBUTION WIDTH 13.6 % (11.6-14.8); WHITE BLOOD COUNT 11.4 K/UL (4.8-10.8)
[2019-07-19 06:29] LABS: ALANINE AMINOTRANSFERASE 24 U/L (12-78); ALBUMIN 2.3 G/DL (3.4-5.0); ALBUMIN/GLOBULIN RATIO 0.6 (1.0-2.7); ALKALINE PHOSPHATASE 80 U/L (46-116); ANION GAP 11 mmol/L (5-15); ASPARTATE AMINO TRANSFERASE 16 U/L (15-37); BILIRUBIN,TOTAL 0.3 MG/DL (0.2-1.0); BLOOD UREA NITROGEN 21 mg/dL (7-18); CALCIUM 8.7 MG/DL (8.5-10.1); CARBON DIOXIDE 26 MMOL/L (21-32); CHLORIDE 100 MMOL/L (98-107); CREATININE 0.6 MG/DL (0.55-1.30); POTASSIUM 3.7 MMOL/L (3.5-5.1); SODIUM 137 MMOL/L (136-145)
--- NOTE | 2019-07-19 07:33 | NUR ---
HAND-OFF: Report given to ROSELYN Rodriguez. Pt is sleeping on the bed and no sign of acute distress noted. Tolerated well with current Vent setting. .
--- NOTE | 2019-07-19 07:35 | NUR ---
NURSE NOTES: Report received from Mansoor Mijares RN.Pt resting in bed asleep noted no resp distress ,with trach to Vent ,ordered vent settings tolerated,no signs of pain or discomfort,SR on the monitor,GTF Jevity 1.2 at 30 ml/hr no residual noted,Dash cath draining yellow urine,skin warm and dry with pressure ulcer DTI to sacrum,IV sites x2 LH and LFA intact,SR up x2 HOB elevated bed lock in lowest position,will continue with plans of care.
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
--- NOTE | 2019-07-19 10:01 | NUR ---
RADIOLOGY DEPT., CHEST X-RAY DONE.-P.DYE
[2019-07-19] MEDS: Aspirin Baby 81mg GT SCH (10:07)
[2019-07-19] MEDS: Carvedilol 6.25mg Tab ORAL SCH ×2 (10:08→21:11)
[2019-07-19] MEDS: Heparin 5000 units/ml inj SUBQ SCH ×2 (10:10→21:10)
[2019-07-19] MEDS: Pantoprazole Inj IV SCH (10:11)
--- NOTE | 2019-07-19 10:39 | Pulmonolgy Critical Care Note ---
Critical Care - Asmt/Plan Problems: (1) Acute on chronic respiratory failure (2) Ventilator associated pneumonia (3) Chronic complete flaccid quadriplegia (4) Anemia (5) Traumatic brain injury (6) Attention to G-tube Respiratory: monitor respiratory rate, adjust FIO2, ABG Cardiac: start pressors, continue to monitor HR/BP Renal: F/U I&O, keep IV fluid, check electrolytes Infectious Disease: check cultures Gastrointestinal: continue feedings/current rate, hold feedings Endocrine: check TSH Hematologic: monitor H/H Neurologic: PRN Ativan Affect: PRN ativan Prophylaxis: Heparin Disposition: keep in ICU Notes Reviewed: cardio Discussed with: nurses, consultants, 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 - Objective Last 24 Hour Vital Signs Date Time Temp Pulse Resp B/P (MAP) Pulse Ox O2 Delivery O2 Flow Rate FiO2 07/19/19 10:08 60 181/87 07/19/19 07:20 59 18 40 07/19/19 06:09 140/82 07/19/19 05:18 63 18 40 07/19/19 04:00 40 07/19/19 04:00 99.3 60 18 150/80 (103) 100 07/19/19 04:00 Mechanical Ventilator 07/19/19 03:37 60 07/19/19 03:09 60 18 40 07/19/19 00:54 99.8 07/19/19 00:22 136/67 07/19/19 00:07 67 16 40 07/19/19 00:00 100.5 64 18 136/67 (90) 100 07/19/19 00:00 40 07/19/19 00:00 66 07/19/19 00:00 Mechanical Ventilator 07/18/19 23:02 65 18 40 07/18/19 21:08 65 16 40 07/18/19 20:50 67 135/77 07/18/19 20:39 99.3 69 150/81 (104) 07/18/19 20:00 40 07/18/19 20:00 99.3 68 18 135/67 (89) 100 07/18/19 20:00 Mechanical Ventilator 07/18/19 19:25 70 17 40 07/18/19 19:06 70 07/18/19 17:41 133/76 07/18/19 16:49 60 18 40 07/18/19 16:00 Mechanical Ventilator 07/18/19 16:00 40 07/18/19 16:00 99.6 65 18 129/79 (96) 100 07/18/19 15:20 63 18 40 07/18/19 15:08 63 07/18/19 12:47 61 18 40 07/18/19 12:23 Mechanical Ventilator 07/18/19 12:00 98.8 60 18 112/67 (82) 100 07/18/19 12:00 112/67 07/18/19 12:00 40 07/18/19 11:54 62 07/18/19 11:33 64 18 40 Status: awake Condition: improving HEENT: atraumatic Lungs: clear Heart: HR/BP stable, regular Abdomen: non-tender Extremities: edema Micro: Microbiology Date/Time Source Procedure Growth Status 07/16/19 15:40 Blood Blood Culture - Preliminary NO GROWTH AFTER 48 HOURS Resulted 07/16/19 15:35 Blood Blood Culture - Preliminary NO GROWTH AFTER 48 HOURS Resulted Accucheck: 85 Critical Care - Subjective ROS Limited/Unobtainable: Yes Condition: critical FI02: 40 Vent Support Breath Rate: 18 Vent Support Mode: AC Vent Tidal Volume: 550 Sputum Amount: Moderate PEEP: 5.0 PIP: 26 Tube Feeding Amount: 30 I&O: Intake and Output 07/18/19 07/19/19 19:00 07:00 Intake Total 1790.000 ml 720 ml Output Total 1650 ml 2300 ml Balance 140.000 ml -1580 ml IV Total 1230.000 ml 360 ml Tube Feeding 360 ml 360 ml Other 200 ml Output Urine Total 1650 ml 2300 ml # Bowel Movements 2 3 CXR: no change Fidencio Jenkins MD Jul 19, 2019 10:39
--- NOTE | 2019-07-19 11:51 | NUR ---
SOAP GRINDER: REVIEW SI: RESP FAILURE TRACH/VENT DEPENDENT . PNA T 99.4 HR 59 RR 18 BP 187/73 SAT 100% MECH VENT 40 WBC 11.4 H/H 8.3/24.6 COVID 19 NOT DETECTED IS: VENOFER IV QHS ZYVOX IV Q12HR HEPARIN PO Q12HR COREG PO Q12HR ICU STATUS DCP: PATIENT IS FROM [facility]
--- NOTE | 2019-07-19 11:59 | NUR ---
*-* INSURANCE *-* ALL AVAILABLE CLINICALS AND REVIEWS HAVE BEEN FAXED TO: [employer] [facility] REF# [id number] P: [phone] OPT. 6 F; [phone]
--- NOTE | 2019-07-19 12:00 | NUR ---
NURSE NOTES: Oral care done,tracheal and oral secretions suctioned PRN,turned and repositioned,kept dry and clean.
[2019-07-19] MEDS ORDERED: Tubing IV Secondary IV ONE ×2 (13:01→14:07)
[2019-07-19] MEDS ORDERED: NS 275ml ONE ×2 (13:01→13:17)
--- NOTE | 2019-07-19 13:44 | NUR ---
RD ASSESSMENT & RECOMMENDATIONS SEE CARE ACTIVITY FOR COMPLETE ASSESSMENT DAILY ESTIMATED NEEDS: Needs based on Wound, critical care, bednbound 68kg 22-28 kcals/kg 7534-1663 total kcals 1.25-2 g protein/kg 85-136 g total protein 25-30 mL/kg 7833-4743 total fluid mLs NUTRITION DIAGNOSIS: * Increased kcal and pro needs r/t wound healing as evidenced by pt w/ multiple wounds, including DTPI @ L Ischium, unstageable wound @ sacrum, non-blanching erytheme @ BL heels. * Altered nutrition related lab values R/T electrolyte imbalance, diabetes? as evidenced by admitted w/ elev K (5.8- > wnl), w/ episodes of elev K and elev phos during prev admission. 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 * Swallowing difficulty R/T respiratory status as evidenced by pt is trach/vent, PEG dep. CURRENT TF:Jevity 1.2 @ 30ml/hr x 24 hrs ENTERAL NUTRITION RECOMMENDATIONS: Glucerna 1.2 @ 60ml/hr x 24 hrs to provide 1440ml, 1728kcal, 86g prot, 1159ml free water -> Rec Glucerna 1.2: A1C 7.0 on 07/11 per SNF record -> Initiate Glucerna 1.2 @ 30ml/hr x 6hrs, advance 10ml q 4-6 hrs as tolerated to goal rate -> HOB over 30 degrees/ water flush per MD -> Will meet 100% est kcal/prot needs WITH CONSISTENTLY ELEVATED K AND/OR PHOS Recommend: Nepro @ 40ml/hr x 24 hrs + Prosource 1pkt BID to provide 960ml, 1728kcal, 72g +22g prot, 698ml free water ADDITIONAL RECOMMENDATIONS: 1) Trend K and phos : episodes of elev K this adm K and phos elevated multiple times last admission -> Monitor need for Nepro 2) Wound Healing: add Vit C 500 mg QD + Eric BID in 4oz H20 BID 3) Monitor BGs, need for NISS (A1C 7.0 on 07/11 per SNF record) .
[2019-07-19] MEDS ORDERED: Sterile Water Irrig 1000ml IRRIG ONE (14:07)
--- NOTE | 2019-07-19 14:20 | Diagnostic Imaging Report ---
Indication: Dyspnea Technique: One view of the chest Comparison: For 06/03/2019 Findings: There is persistent elevation of the right hemidiaphragm and possibly right lower lobe atelectasis. Questionably prominent reticular interstitial opacities are seen at the left lung base, more evident than previously although this could be an artifact of exposure technique tracheostomy again demonstrated.. 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
--- NOTE | 2019-07-19 15:00 | NUR ---
HAND-OFF: Report given to Marisa Michael RN,pt stable noted no resp distress during the shift..
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
--- NOTE | 2019-07-19 15:05 | NUR ---
*-* INSURANCE *-* ALL AVAILABLE CLINICALS AND REVIEWS HAVE BEEN FAXED TO: [facility] REF# [id number] P: [phone] OPT. 5 F; [phone]
--- NOTE | 2019-07-19 19:30 | NUR ---
REPORT GIVEN TO ROSELYN ALCOCER.
--- NOTE | 2019-07-19 19:40 | NUR ---
NURSE NOTES: Received pt from ROSELYN Cunningham. will continue plan of care.
[2019-07-19] MEDS: Iron Sucrose 100 MG in NS 55 ML IV SCH (21:11)
--- NOTE | 2019-07-19 21:20 | NUR ---
NURSE NOTES: all due meds given. pt is observed in bed, able to open eyes, nonverbal, unable to make needs known. no s/sx of pain noted at this time. trach to vent settings are as follows: Shiley: 7, AC: 18, VT: 550, PEEP: 5, FiO2: 40%; saturation: 99%, no s/sx of respiratory distress noted. court recording monitor shows SR with HR of 79, no acute cardiac distress noted. G-tube site is patent and intact, running Jevity 1.2 at 30 cc/hr. HOB elevated, no residual noted. skin alterations noted. F/C is patent and intact, draining light werner urine to gravity. LH 22g and LFA 20 g IV sites are patent and intact, asymptomatic. bed in lowest position and locked, siderails up X3, call light within reach. will continue to monitor.
[2019-07-20] VITALS: BP 122/66
--- NOTE | 2019-07-20 02:44 | Progress Note ---
DATE: 07/19/2019 CARDIOLOGY PROGRESS NOTE SUBJECTIVE: Condition largely unchanged. Continues to require ventilator support and is in a comatose state. OBJECTIVE: VITAL SIGNS: Blood pressure parameters 130 to 150/60 to 80, single elevated blood pressure of 181/87 recorded this morning. LUNGS: Bilateral breath sounds. CARDIAC: Regular rhythm and rate. Normal S1, S2. ABDOMEN: Soft. G-tube intact. EXTREMITIES: No edema. DIAGNOSTIC AND LABORATORY DATA: Chest x-ray reveals left basilar interstitial opacity, likely increased. White count 11.4, hemoglobin 8.3. BUN 21, creatinine 0.6. Pro-natriuretic peptide is 4500. IMPRESSION: 1. Respiratory failure. 2. Healthcare-associated pneumonia. 3. Sepsis with recovered shock. 4. Acute diastolic congestive heart failure. 5. Status post acute myocardial infarction. 6. Hypertensive heart disease. PLAN: 1. Antimicrobials. 2. Ventilator support. 3. Antiplatelet therapy. 4. Advance antihypertensives. 5. Titrate beta-blockade. Néstor Cervantes M.D. DR: [facility] JOB#: [id number] CC:
[2019-07-20 04:00] VITALS: BP 157/81
[2019-07-20 06:35] LABS: BASOPHILS % (AUTO) 1.1 % (0.0-2.0); EOSINOPHILS % (AUTO) 1.1 % (0.0-3.0); HEMATOCRIT 24.3 % (42.0-52.0); HEMOGLOBIN 8.2 G/DL (14.2-18.0); LYMPHOCYTES % (AUTO) 11.3 % (20.0-45.0); MEAN CORPUSCULAR VOLUME 84 FL (80-99); MONOCYTES % (AUTO) 7.4 % (1.0-10.0); NEUTROPHILS % (AUTO) 79.2 % (45.0-75.0); PLATELET COUNT 304 K/UL (150-450); RED BLOOD COUNT 2.88 M/UL (4.70-6.10); RED CELL DISTRIBUTION WIDTH 14.1 % (11.6-14.8); WHITE BLOOD COUNT 11.5 K/UL (4.8-10.8)
[2019-07-20] MEDS: Acetaminophen 650mg/20.3ml GT PRN (06:55)
[2019-07-20] MEDS: HydrALAZINE 10mg Tab GT SCH ×4 (06:55→18:31)
[2019-07-20 06:59] LABS: ANION GAP 5 mmol/L (5-15); BLOOD UREA NITROGEN 17 mg/dL (7-18); CALCIUM 8.5 MG/DL (8.5-10.1); CARBON DIOXIDE 32 MMOL/L (21-32); CHLORIDE 101 MMOL/L (98-107); CREATININE 0.5 MG/DL (0.55-1.30); SODIUM 138 MMOL/L (136-145)
--- NOTE | 2019-07-20 07:55 | NUR ---
NURSE NOTES: Received report from ROSELYN Stark. Patient asleep, visible chest rise and fall, no respiratory distress. On tache to vent with shiley 7 AC 18, TV 550, Fio2 40%. With Jevity 1.2 at 30cc/hr infusing well via GT. With Left hand 22g IV line and Left forearm 20g IV line. Bed rails are up and stabilize. Head of bed elevated to comfortable position. Will continue to monitor.
[2019-07-20 08:00] VITALS: BP 146/74
--- NOTE | 2019-07-20 08:17 | NUR ---
HAND-OFF: Report given to ROSELYN Yee and MELCHOR RN. endorsed plan of care.
[2019-07-20] MEDS: Pantoprazole Inj IV SCH (09:17)
[2019-07-20] MEDS: Lisinopril 20mg tab GT SCH (09:17)
[2019-07-20] MEDS: Carvedilol 6.25mg Tab ORAL SCH ×2 (09:18→21:21)
[2019-07-20] MEDS: Aspirin Baby 81mg GT SCH (09:18)
[2019-07-20] MEDS: Heparin 5000 units/ml inj SUBQ SCH ×2 (09:21→21:22)
--- NOTE | 2019-07-20 11:23 | NUR ---
*-* INSURANCE *-* ALL AVAILABLE CLINICALS AND REVIEWS HAVE BEEN FAXED TO: [facility] REF# [id number] P: [phone] OPT. 6 F; [phone] Addendum: 07/21/19 at 1058 by SERVANDO VALDIVIA CM *-* RECEIVED FAX FROM [facility] CERTIFIED DAYS *-* BS OF NE 8 CERTIFIED DAYS REF# [id number] NCM: ELLIE ROGERS P: [phone] F: [phone] 07/13/2019 - 07/18/2019 ICU LVL OF CARE 07/19/19-07/20/19 TELE/YURIDIA LVL OF CARE HARD COPY FAXED TO: ADMITTING [id number]
[2019-07-20 12:00] VITALS: BP 170/88
--- NOTE | 2019-07-20 13:24 | Pulmonolgy Critical Care Note ---
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 - Objective Last 24 Hour Vital Signs Date Time Temp Pulse Resp B/P (MAP) Pulse Ox O2 Delivery O2 Flow Rate FiO2 07/20/19 12:31 71 18 40 07/20/19 12:00 40 07/20/19 12:00 100.2 58 20 170/88 (115) 100 07/20/19 12:00 Mechanical Ventilator 07/20/19 11:40 62 07/20/19 11:05 77 18 40 07/20/19 09:18 72 146/74 07/20/19 09:17 146/74 07/20/19 09:10 70 18 40 07/20/19 08:00 99.3 72 20 146/74 (98) 100 07/20/19 08:00 Mechanical Ventilator 07/20/19 08:00 40 07/20/19 07:41 70 07/20/19 07:25 99.3 07/20/19 07:14 71 23 40 07/20/19 06:55 157/81 07/20/19 04:48 77 18 40 07/20/19 04:00 101.3 73 20 157/81 (106) 100 07/20/19 04:00 40 07/20/19 04:00 Mechanical Ventilator 07/20/19 04:00 73 07/20/19 02:57 74 18 40 07/20/19 00:50 71 18 40 07/20/19 00:00 40 07/20/19 00:00 Mechanical Ventilator 07/20/19 00:00 99.0 64 22 122/66 (84) 99 07/20/19 00:00 107/67 07/20/19 00:00 69 07/19/19 23:05 69 18 40 4/6/20 21:15 70 18 40 07/19/19 21:11 79 158/81 07/19/19 20:00 40 07/19/19 20:00 Mechanical Ventilator 07/19/19 20:00 79 07/19/19 20:00 98.6 64 18 158/81 (106) 99 07/19/19 19:30 67 18 40 07/19/19 19:03 175/90 07/19/19 17:20 54 18 40 07/19/19 16:00 98.4 64 18 173/90 (117) 100 07/19/19 16:00 40 07/19/19 16:00 54 07/19/19 16:00 Mechanical Ventilator 07/19/19 15:17 55 18 40 07/19/19 13:26 175/90 Status: awake Condition: critical HEENT: atraumatic Lungs: clear Heart: HR/BP stable, HR/BP unstable Abdomen: soft, non-tender, feeding tube Accucheck: 85 Critical Care - Subjective ROS Limited/Unobtainable: No Condition: critical EKG Rhythm: Sinus Rhythm FI02: 40 Vent Support Breath Rate: 18 Vent Support Mode: AC Vent Tidal Volume: 550 Sputum Amount: Moderate PEEP: 5.0 PIP: 27 Tube Feeding Amount: 30 I&O: Intake and Output 07/19/19 07/20/19 19:00 07:00 Intake Total 760 ml 530 ml Output Total 1100 ml 1200 ml Balance -340 ml -670 ml Free Water 200 ml 100 ml Tube Feeding 360 ml 330 ml Other 200 ml 100 ml Output Urine Total 1100 ml 1200 ml # Bowel Movements 2 CXR: increased interstitial infiltrate at LLL Labs: Laboratory Tests Test 07/20/19 06:15 White Blood Count 11.5 K/UL (4.8-10.8) H Red Blood Count 2.88 M/UL (4.70-6.10) L Hemoglobin 8.2 G/DL (14.2-18.0) L Hematocrit 24.3 % (42.0-52.0) L Mean Corpuscular Volume 84 FL (80-99) Mean Corpuscular Hemoglobin 28.3 PG (27.0-31.0) Mean Corpuscular Hemoglobin Concent 33.6 G/DL (32.0-36.0) Red Cell Distribution Width 14.1 % (11.6-14.8) Platelet Count 304 K/UL (150-450) Mean Platelet Volume 6.4 FL (6.5-10.1) L Neutrophils (%) (Auto) 79.2 % (45.0-75.0) H Lymphocytes (%) (Auto) 11.3 % (20.0-45.0) L Monocytes (%) (Auto) 7.4 % (1.0-10.0) Eosinophils (%) (Auto) 1.1 % (0.0-3.0) Basophils (%) (Auto) 1.1 % (0.0-2.0) Sodium Level 138 MMOL/L (136-145) Potassium Level 4.0 MMOL/L (3.5-5.1) Chloride Level 101 MMOL/L (98-107) Carbon Dioxide Level 32 MMOL/L (21-32) Anion Gap 5 mmol/L (5-15) Blood Urea Nitrogen 17 mg/dL (7-18) Creatinine 0.5 MG/DL (0.55-1.30) L Estimat Glomerular Filtration Rate > 60 mL/min (>60) Glucose Level 103 MG/DL (74-106) Calcium Level 8.5 MG/DL (8.5-10.1) Fidencio Jenkins MD Jul 20, 2019 13:24
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
--- NOTE | 2019-07-20 14:30 | NUR ---
HAND-OFF: Report given to RN Jayda Landry,patient resting,eyes close,on ventilator, not in distress with patient to CT scan chest this evening,with respiratory therapist,being bag on way to CT,saturation 91-100,no distress,on shelter monitor
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
[2019-07-20 16:00] VITALS: BP 160/89
--- NOTE | 2019-07-20 17:24 | NUR ---
NURSE NOTES: influenza a/b and urine sample sent to lab.
--- NOTE | 2019-07-20 17:26 | NUR ---
NURSE NOTES: patient taken to CT Chest with RT and CN Nakia.
--- NOTE | 2019-07-20 17:50 | NUR ---
NURSE NOTES: patient taken back to his room in stable condition.
--- NOTE | 2019-07-20 19:15 | NUR ---
NURSE NOTES: Received pt from ROSELYN Montelongo. will continue plan of care.
--- NOTE | 2019-07-20 19:17 | NUR ---
NURSE NOTES: Report given to Mi DEMPSEY. endorsed all plan of care to Mi DEMPSEY. patient had urine output of 900ml for 7am-7pm shift.
[2019-07-20 20:00] VITALS: BP 128/65
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
--- NOTE | 2019-07-20 20:45 | Progress Note ---
DATE: 07/20/2019 SUBJECTIVE: Patient intermittently has fever, but without tachycardia or tachypnea. PHYSICAL EXAMINATION: VITAL SIGNS: His blood pressure is 160/89, his pulse is 63, respirations are 20, temperature 98.6, but was 100.2 few hours ago. HEENT: Eyes were normal. ENT, mucous membranes were moist and intact. NECK: Supple with no JVD without lymph nodes. Tracheostomy site is clean. LUNGS: Clear without rhonchi, rales, or wheezing. HEART: Normal sounds with regular beat. ABDOMEN: Soft and nontender with normal bowel sounds. EXTREMITIES: Warm without cyanosis, clubbing, or edema. LABORATORY DATA: His hemoglobin is 8.2, hematocrit 24.3 with MCV of 84, WBC are 11.5, and platelets are 304. His BUN and creatinine is 17 and 0.5 respectively. His sodium is 138, potassium 4.0, chloride 101, CO2 is 32. His calcium is 8.5. The two blood cultures taken on 07/16/2019, both of them are negative after 72 hours and as already dictated, his COVID-19 test is negative. IMPRESSION: Patient will continue on his current management. His feeding will be increased from 30 mL to 60 mL per hour. Repeat laboratory tests will be done in the a.m. Anusha Cordon M.D. DR: RAYMON JOB#: [id number] CC:
--- NOTE | 2019-07-20 22:00 | NUR ---
NURSE NOTES: all due meds given. pt is able to open eyes spontaneously, unable to make needs known; no s/sx of pain noted at this time. trach to vent settings are as follows: Shiley: 7; AC: 18; VT: 550; FiO2: 40%; PEEP: 5. tolerating current settings well; no s/sx of respiratory distress noted. ecosystem ecology professor shows SR at this time with HR of 69. no acute cardiac distress noted. G-tube site is patent and intact, running Glucerna 1.2 at 60 cc/hr. HOB elevated to 30 degrees, no residual noted. F/C is patent and intact, draining light werner urine to gravity. LH 22 G and LFA 20 G IV sites patent and intact, asymptomatic. oral care provided and bath given, pt tolerated well; BM x1 noted. bed in lowest position and locked, siderails up X3, call light within reach. will continue to monitor.
[2019-07-21] VITALS: BP 121/71
[2019-07-21] MEDS: HydrALAZINE 10mg Tab GT SCH ×5 (00:34→23:52)
--- NOTE | 2019-07-21 03:15 | Progress Note ---
DATE: 07/20/2019 SUBJECTIVE: The patient remains on ventilator support. Comatose state, labile. T-max 101.3. Monitored rhythm sinus. OBJECTIVE: VITAL SIGNS: Blood pressure 104-170 systolic. LUNGS: Rhonchi. Regular rhythm and rate. Normal S1, S2. ABDOMEN: Soft. G-tube intact. EXTREMITIES: No edema. LABORATORY AND DIAGNOSTICS DATA: White count 11.5, hemoglobin 8.2. Chemistry panel within normal limits. Chest x-ray yesterday was notable for left basilar interstitial opacities and infiltrates. IMPRESSION: 1. Ventilator-dependent respiratory failure. 2. Healthcare associated pneumonia. 3. Recent myocardial infarction. 4. Recovered shock due to sepsis. 5. Acute diastolic congestive heart failure, appears clinically compensated. 6. Hypertensive heart disease with labile blood pressure. PLAN: 1. Recommend continue anti-platelet therapy. Continue beta blockade. 2. P.r.n. antihypertensives for blood pressure spikes. 3. Ventilator support. No weaning plan. 4. Antimicrobials per Infectious Disease transportation consultant. 5. Monitor volume status. 6. Periodic diuresis will be considered based on clinical parameters. Néstor Cervantes M.D. DR: VIOLETA JOB#: [id number] CC:
[2019-07-21 04:00] VITALS: BP 117/66
[2019-07-21] MEDS: Acetaminophen 650mg/20.3ml GT PRN (06:43)
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
--- NOTE | 2019-07-21 07:48 | NUR ---
HAND-OFF: Report given to ROSELYN Hernandez. endorsed plan of care.
--- NOTE | 2019-07-21 07:50 | NUR ---
NURSE NOTES: Received report from ROSELYN Stark. The patient is resting on the bed without acute distress or shortness of breath. The patient's bed in the lowest position, call light in reach, and fall and aspiration precaution reinforced. The patient is responding to verbal stimuli and able to make needs known to the nurse. The patient is on Shiley 7, AC 18, TV 550, FiO2 40%, and PEEP of 5.0, and oxygen saturation within normal range. G tube intact and patent and running Glucerna 1.2 @60mL/hr and no residual noted. The patient has Dash that is intact and patent and draining by gravity. The patient is scheduled for CXR. Will follow up the lab. Will continue plan of care.
[2019-07-21 08:00] VITALS: BP 113/67
--- NOTE | 2019-07-21 08:00 | NUR ---
NURSE NOTES: Notified Dr. Galeana regarding abnormal lab including hemoglobin level. Dr. Galeana ordered 1 unit PRBC transfusion. Will carry out the order as soon as possible. Will continue plan of care.
[2019-07-21 08:07] LABS: ANION GAP 3 mmol/L (5-15); BLOOD UREA NITROGEN 22 mg/dL (7-18); CALCIUM 8.8 MG/DL (8.5-10.1); CARBON DIOXIDE 34 MMOL/L (21-32); CHLORIDE 100 MMOL/L (98-107); CREATININE 0.5 MG/DL (0.55-1.30); SODIUM 137 MMOL/L (136-145)
[2019-07-21 08:12] LABS: HEMATOCRIT 23.3 % (42.0-52.0); HEMOGLOBIN 7.9 G/DL (14.2-18.0); MEAN CORPUSCULAR VOLUME 84 FL (80-99); PLATELET COUNT 272 K/UL (150-450); RED BLOOD COUNT 2.75 M/UL (4.70-6.10); WHITE BLOOD COUNT 15.9 K/UL (4.8-10.8)
[2019-07-21] MEDS: Aspirin Baby 81mg GT SCH (08:56)
[2019-07-21] MEDS: Heparin 5000 units/ml inj SUBQ SCH ×2 (08:56→20:49)
--- NOTE | 2019-07-21 09:00 | NUR ---
NURSE NOTES: CXR completed per order. The patient remain stable without acute distress or shortness of breath. Will continue plan of care.
[2019-07-21] MEDS: Pantoprazole Inj IV SCH (09:08)
[2019-07-21] MEDS: Lisinopril 20mg tab GT SCH (09:08)
[2019-07-21] MEDS: Carvedilol 6.25mg Tab ORAL SCH ×2 (09:09→20:48)
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
--- NOTE | 2019-07-21 10:30 | NUR ---
NURSE NOTES: Dr. Acuña at the bedside assessed the patient. Notified abnormal lab including WBC. Dr. Acuña ordered additional medication. The patient is stable without acute distress or shortness of breath. Will continue plan of care.
--- NOTE | 2019-07-21 10:42 | Diagnostic Imaging Report ---
Clinical Indication: Shortness of breath Technique: Spiral acquisitions obtained through the chest. No IV contrast utilized, reason not stated. Multiplanar reconstructions generated. Total dose length product 371 mGycm. CTDIvol(s) 8 mGy. Dose reduction achieved using automated exposure control Comparison: none Findings: Exam is limited by respiratory motion artifact. There is a small right pleural effusion. There is complete atelectasis of the right middle and lower lobes. A few air bronchograms are seen within the atelectatic left lower lobe, and more numerous air bronchograms are seen within the atelectatic right middle lobe. Within the right upper lobe, there are a few small masslike opacities inferiorly which measure up to 1 cm in diameter. There are numerous small nodular opacities within much of the right lower lobe, but mostly inferior. A few small nodules are seen posteriorly in the left upper lobe, measuring up to 5 mm in diameter. There is a sizable area of atelectasis or scarring in the posterior medial left lower lobe. The remainder of the lung parenchyma on the left is difficult to assess given the extent of the respiratory motion artifact. No pleural fluid is seen on the left. The heart size is upper limits of normal. There are a few prominent but not frankly enlarged mediastinal lymph nodes noted. The right main pulmonary artery is dilated, measuring up to 3 cm in diameter, and the left main pulmonary artery is ectatic bordering on dilated, measuring 2.9 cm in diameter. There is a tracheostomy. The esophagus is unremarkable. No axillary or chest wall mass or adenopathy. There is mild edema of the subcutaneous fat diffusely. The bones demonstrate degenerative spondylosis changes. The included upper abdominal anatomy demonstrates a gastrostomy tube in good position. A gallstone is seen within the gallbladder neck. Impression: Complete atelectasis of the right middle and lower lobes. This explains findings seen on prior chest radiographs that show markedly elevated right hemidiaphragm There are a few small masslike opacities in the inferior right upper lobe measuring up to 1 cm diameter. There are numerous tiny nodules within the right upper lobe, predominantly inferiorly. These may be infectious/inflammatory or neoplastic Small right pleural effusion Limited assessment of the left lung, due to respiratory motion artifact. There is a sizable area of atelectasis or scarring in the posterior medial left lower lobe Borderline dilated bilateral pulmonary arteries, could indicate pulmonary arterial hypertension Tracheostomy Generalized mild edema of the subcutaneous fat Cholelithiasis Incidental finding of degenerative spondylosis and gastrostomy tube The CT scanner at [facility] is accredited by the [employer] and the scans are performed using protocols designed to limit radiation exposure to as low as reasonably achievable to attain images of sufficient resolution adequate for diagnostic evaluation.
--- NOTE | 2019-07-21 11:50 | NUR ---
NURSE NOTES: Started 1 unit PRBC transfusion per order. The patient's vital signs stable and no fever noted. Will continue plan of care.
--- NOTE | 2019-07-21 11:54 | Pulmonolgy Critical Care Note ---
Critical Care - Asmt/Plan Problems: (1) right lower lobe atelectasis (2) Acute on chronic respiratory failure (3) Ventilator associated pneumonia (4) Chronic complete flaccid quadriplegia (5) Anemia (6) Traumatic brain injury (7) Attention to G-tube Assessment/Plan: CT chest: Complete atelectasis of the right middle and lower lobes. There are a few small masslike opacities in the inferior right upper lobe measuring up to 1 cm diameter. There are numerous tiny nodules within the right upper lobe , predominantly inferiorly. These may be infectious/inflammatory or neoplastic Respiratory: monitor respiratory rate, other - increase TV and do CT pt to right lower lobe. Cardiac: continue pressors Renal: keep IV fluid Infectious Disease: check cultures, continue antibiotics Gastrointestinal: continue feedings/current rate Endocrine: monitor blood sugar, check TSH Hematologic: monitor H/H Neurologic: PRN Morphine Affect: PRN ativan Time Spent (Minutes): 30 Notes Reviewed: renal Discussed with: nurses, consultants, behavioral health case managerbuffet manager - Objective Last 24 Hour Vital Signs Date Time Temp Pulse Resp B/P (MAP) Pulse Ox O2 Delivery O2 Flow Rate FiO2 07/21/19 11:39 72 18 40 07/21/19 09:21 73 18 40 07/21/19 09:09 69 113/67 07/21/19 09:08 113/67 07/21/19 08:00 98.1 69 18 113/67 (82) 99 07/21/19 08:00 40 07/21/19 07:54 70 18 40 07/21/19 07:13 98.1 07/21/19 06:43 117/66 07/21/19 05:33 69 18 40 07/21/19 04:00 Mechanical Ventilator 07/21/19 04:00 67 07/21/19 04:00 100.9 65 18 117/66 (83) 97 07/21/19 04:00 40 07/21/19 02:31 72 20 40 07/21/19 01:22 66 20 40 07/21/19 00:34 124/68 07/21/19 00:00 65 07/21/19 00:00 99.0 64 24 121/71 (88) 99 07/21/19 00:00 Mechanical Ventilator 07/21/19 00:00 40 4/7/20 23:37 69 22 40 07/20/19 21:21 69 128/65 07/20/19 21:14 64 18 40 07/20/19 20:00 Mechanical Ventilator 07/20/19 20:00 70 07/20/19 20:00 98.4 69 20 128/65 (86) 100 07/20/19 20:00 40 07/20/19 19:32 67 19 40 07/20/19 18:31 160/89 07/20/19 17:07 62 18 40 07/20/19 16:00 40 07/20/19 16:00 54 07/20/19 16:00 98.6 63 20 160/89 (112) 100 07/20/19 16:00 Mechanical Ventilator 07/20/19 12:31 71 18 40 07/20/19 12:00 40 07/20/19 12:00 100.2 58 20 170/88 (115) 100 07/20/19 12:00 Mechanical Ventilator Status: awake Condition: critical, grave HEENT: atraumatic Lungs: clear Heart: HR/BP unstable Abdomen: non-tender, active bowel sounds Extremities: no C/C/E Decubiti: location Micro: Microbiology Date/Time Source Procedure Growth Status 07/19/19 20:00 Blood Blood Culture - Preliminary NO GROWTH AFTER 24 HOURS Resulted 07/19/19 19:45 Blood Blood Culture - Preliminary NO GROWTH AFTER 24 HOURS Resulted 07/20/19 18:15 Nose - Final Complete 07/20/19 18:15 Nose - Final Complete Accucheck: 85 Critical Care - Subjective ROS Limited/Unobtainable: Yes Condition: critical EKG Rhythm: Sinus Rhythm FI02: 40 Vent Support Breath Rate: 18 Vent Support Mode: AC Vent Tidal Volume: 550 Sputum Amount: Moderate PEEP: 5.0 PIP: 39 Tube Feeding Amount: 30 I&O: Intake and Output 07/20/19 07/21/19 19:00 07:00 Intake Total 940 ml 840 ml Output Total 900 ml 1200 ml Balance 40 ml -360 ml Free Water 280 ml 100 ml IV Total 300 ml 300 ml Tube Feeding 360 ml 360 ml Other 80 ml Output Urine Total 900 ml 1200 ml # Bowel Movements 3 3 Labs: Laboratory Tests Test 07/20/19 18:15 07/21/19 06:00 Urine Legionella Antigen Pending White Blood Count 15.9 K/UL (4.8-10.8) H Red Blood Count 2.75 M/UL (4.70-6.10) L Hemoglobin 7.9 G/DL (14.2-18.0) L Hematocrit 23.3 % (42.0-52.0) L Mean Corpuscular Volume 84 FL (80-99) Mean Corpuscular Hemoglobin 28.6 PG (27.0-31.0) Mean Corpuscular Hemoglobin Concent 33.9 G/DL (32.0-36.0) Red Cell Distribution Width 14.0 % (11.6-14.8) Platelet Count 272 K/UL (150-450) Mean Platelet Volume 6.6 FL (6.5-10.1) Neutrophils (%) (Auto) % (45.0-75.0) Lymphocytes (%) (Auto) % (20.0-45.0) Monocytes (%) (Auto) % (1.0-10.0) Eosinophils (%) (Auto) % (0.0-3.0) Basophils (%) (Auto) % (0.0-2.0) Neutrophils % (Manual) Pending Lymphocytes % (Manual) Pending Platelet Estimate Pending Platelet Morphology Pending Sodium Level 137 MMOL/L (136-145) Potassium Level 4.0 MMOL/L (3.5-5.1) Chloride Level 100 MMOL/L (98-107) Carbon Dioxide Level 34 MMOL/L (21-32) H Anion Gap 3 mmol/L (5-15) L Blood Urea Nitrogen 22 mg/dL (7-18) H Creatinine 0.5 MG/DL (0.55-1.30) L Estimat Glomerular Filtration Rate > 60 mL/min (>60) Glucose Level 100 MG/DL (74-106) Calcium Level 8.8 MG/DL (8.5-10.1) Mycoplasma pneumoniae IgM Ab Titer Pending Fidencio Jenkins MD Jul 21, 2019 11:54
[2019-07-21 12:00] VITALS: BP 149/81
--- NOTE | 2019-07-21 12:00 | NUR ---
NURSE NOTES: Acknowledged the ventilator setting per Dr. Jenkins. RT changed ventilator setting per order. The patient is stable without acute distress or shortness of breath. Will continue plan of care.
--- NOTE | 2019-07-21 12:04 | Diagnostic Imaging Report ---
Indication: Dyspnea Technique: One view of the chest Comparison: 07/19/2019 Findings: Unchanged apparent elevation right hemidiaphragm, demonstrated on previous day's CT scan to be due to atelectasis of the right middle and lower lobes reticular interstitial disease in the left lung appears unchanged. There may be a focal patchy opacity at the left lung base. Tracheostomy remains. The heart size is normal. Findings are unchanged Impression: Unchanged, over 2 days, findings as above.
[2019-07-21] MEDS ORDERED: Acetaminophen 650mg/20.3ml GT PRN (12:30)
--- NOTE | 2019-07-21 14:50 | NUR ---
NURSE NOTES: Completed 1 unit PRBC transfusion per Dr. Galeana's order. The patient's vital signs stable. Will continue plan of care.
--- NOTE | 2019-07-21 15:17 | NUR ---
*-* INSURANCE *-* UPDATED CLINICALS AND REVIEWS HAVE BEEN FAXED TO: [employer] [facility] REF# [id number] P: [phone] OPT. 6 F; [phone]
--- NOTE | 2019-07-21 15:31 | NUR ---
CASE MANAGEMENT:REVIEW 07/21/19 SI: AC/CHR RESPIRATORY FAILURE. TRACH/VENT DEPENDENT TRAUMATIC BRAIN INJURY. 98.1 69 18 113/67 99% ON VENT SUPPORT @ 40% FIO2 WBC+15.9 H/H-7.9/23.3 IS: TRANSFUSE 1 UNIT PRBC'S IV PROTONIX QD IV LINEZOLID Q12 BACTRIM GT Q12 COREG GT Q12 LISINOPRIL GT QD ASA GT QD HYDRALAZINE GT Q6HRS : SDU STATUS ON TELEMETRY DCP: FROM [facility]
[2019-07-21] MEDS: Bactrim-DS 1 tab ORAL SCH ×2 (15:32→20:48)
[2019-07-21 16:00] VITALS: BP 150/75
--- NOTE | 2019-07-21 16:00 | NUR ---
NURSE NOTES: Dr. Cordon at the bedside assessed the patient. Notified abnormal lab. The patient is stable without acute distress or shortness of breath. Will continue plan of care.
--- NOTE | 2019-07-21 18:00 | NUR ---
NURSE NOTES: The patient is stable without acute distress or shortness of breath. No fever noted. Tolerating tube feeding well. Tolerating changed ventilator setting well. Will continue plan of care.
--- NOTE | 2019-07-21 19:30 | NUR ---
6HAND-OFF: Report given to ROSELYN Rollins. The patient is resting on the bed without acute distress or shortness of breath. The patient is on AC 14, TV 700, FiO2 40%, PEEP 5, Pressure support 8, and oxygen saturation 100%. G tube intact and patent and Glucerna 1.2 @60mL/hr running per order. The patients 2 IV sites on L arm and hand intact and patent. Dash intact and draining by gravity. Informed the night nurse that the patient received 1 unit PRBC for hemoglobin of 7.[address] Galeana's order. Endorsed plan of care.
--- NOTE | 2019-07-21 19:31 | NUR ---
NURSE NOTES: received pt from Mary DEMPSEY., pt is sleeping at this moment and easy to arouse the pt. vent is on place, and intact. no s/s of SOB at this moment. pt's Gtube site is clean and patent. foely cath is in place draining well with gravity. left hand 22g and left FA 20G IV site intact, clean and patent. call light within reach. bed at the lowest position, alarmed, and locked. will continue to monitor pt with plan of care.
[2019-07-21 20:00] VITALS: BP 154/84
--- NOTE | 2019-07-21 20:30 | Progress Note ---
DATE: 07/21/2019 SUBJECTIVE: The patient has intermittent low-grade fever. PHYSICAL EXAMINATION: VITAL SIGNS: Blood pressure 149/81, his pulse is 65, respirations are 14, and temperature is 98.1. HEENT: Eyes were normal. ENT, mucous membranes were moist and intact. NECK: Supple with no JVD without lymph nodes. Tracheostomy site is clean. LUNGS: Clear without rhonchi, rales, or wheezing. HEART: Normal sounds with regular beats. ABDOMEN: Soft and nontender with normal bowel sounds. EXTREMITIES: Warm without cyanosis, clubbing, or edema. LABORATORY AND DIAGNOSTIC DATA: His hemoglobin is 7.9, hematocrit 23.2 with MCV of 84, WBC of 15.9 and platelets is 272,000. His WBC yesterday and day before yesterday was 11.4 and 11.5. His BUN and creatinine is 22 and 0.5 respectively. Sodium is 137, potassium 4.0, chloride 100, CO2 is 24. Chest x-ray taken today was unchanged to the one taken 2 days ago, however, the left lower lobe pneumonia is still being suspected, but not confirmed. IMPRESSION: The patient's WBC increased. He is now on trimethoprim sulfamethoxazole 1 tablet b.i.d. Repeat laboratory tests will be done in the a.m. Anusha Cordon M.D. DR: Chance JOB#: [id number] CC:
[2019-07-22] VITALS: BP 157/88
--- NOTE | 2019-07-22 02:22 | NUR ---
HAND-OFF: Report given to Bola Chapin RN., pt remains stable, endorsed plan of care.
--- NOTE | 2019-07-22 03:00 | Progress Note ---
DATE: 07/21/2019 CARDIOLOGY PROGRESS NOTE SUBJECTIVE: CAT scan of the chest is noted for some masslike opacities in the right upper lobe. PHYSICAL EXAMINATION: VITAL SIGNS: Blood pressure parameters stable. Monitor sinus. T-max 100.9. LUNGS: Bilateral breath sounds. CARDIAC: Regular rhythm and rate. ABDOMEN: Soft. G-tube intact. EXTREMITIES: No edema. LABORATORY DATA: White count 16, hemoglobin 7.9. Potassium 4, BUN 22, creatinine 0.5. IMPRESSION: 1. Respiratory failure. 2. Pulmonary masses, infectious versus malignant. 3. Spinal cord injury. 4. Acute myocardial infarction. 5. Acute diastolic congestive heart failure. PLAN: 1. Additional diuresis. 2. Respiratory hygiene. 3. Antimicrobials. 4. Continue beta-jason and anti-platelet therapy. Néstor Cervantes M.D. DR: [facility] JOB#: [id number] CC:
[2019-07-22 04:00] VITALS: BP 157/88
--- NOTE | 2019-07-22 04:00 | NUR ---
NURSE NOTES: In bed asleep. No distress or SOB noted. Bed in the lowest position, call light w/in reach. Trach to vent with setting Shiley 7, AC 18, TV 550, FiO2 40%, and PEEP of 5.0, saturation 100%. Bed alarm engaged. tube patent and running Glucerna 1.2 @60mL/hr w/no residual noted. Dash intact and draining well. Remain SR on cafeteria monitor. Will continue POC
--- NOTE | 2019-07-22 04:00 | NUR ---
NURSE NOTES: Received report from Minerva SERVIN RN. In bed with no acute distress or SOB noted. Bed in the lowest position, call light w/in reach. Trach to vent with setting Shiley 7, AC 18, TV 550, FiO2 40%, and PEEP of 5.0, saturation 100%. Bed alarm engaged. tube patent and running Glucerna 1.2 @60mL/hr w/no residual noted. Dash intact and draining well. SR on lunchroom monitor. Will continue POC
[2019-07-22] MEDS: HydrALAZINE 10mg Tab GT SCH ×2 (06:00→12:54)
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
--- NOTE | 2019-07-22 07:17 | NUR ---
NURSE NOTES: Received report from Bola DEMPSEY. Pt in bed asleep in bed, responsive to tactile stimuli, non-verbal. Mental status double check with previous shift RN. IV site in left hand 22G SL, LFA 20G SL patent and asymptomatic. sinus rhythm on cardiac care nurse. On vent setting with [id number] 40%, peep 5. Trach shiley 7 intact and patent. On G-tube feeding with Glucerna 1.2 @50ml/hr patent and asymptomatic. On raya cath 16fr patent and asymptomatic. Bed in lowest position and locked. Call light within easy reach. Side railx3 up for safety. On P 200 mattress, Will continue to plan of care.
--- NOTE | 2019-07-22 07:17 | NUR ---
HAND-OFF: Report given to Waldo Castellanos RN.
[2019-07-22 07:42] LABS: ANION GAP 7 mmol/L (5-15); BLOOD UREA NITROGEN 24 mg/dL (7-18); CALCIUM 8.7 MG/DL (8.5-10.1); CARBON DIOXIDE 32 MMOL/L (21-32); CHLORIDE 99 MMOL/L (98-107); CREATININE 0.6 MG/DL (0.55-1.30); POTASSIUM 3.8 MMOL/L (3.5-5.1); SODIUM 138 MMOL/L (136-145)
[2019-07-22 07:44] LABS: BASOPHILS % (AUTO) 0.7 % (0.0-2.0); EOSINOPHILS % (AUTO) 1.5 % (0.0-3.0); HEMATOCRIT 26.9 % (42.0-52.0); HEMOGLOBIN 9.4 G/DL (14.2-18.0); LYMPHOCYTES % (AUTO) 12.7 % (20.0-45.0); MEAN CORPUSCULAR VOLUME 82 FL (80-99); MONOCYTES % (AUTO) 8.3 % (1.0-10.0); NEUTROPHILS % (AUTO) 76.8 % (45.0-75.0); PLATELET COUNT 253 K/UL (150-450); RED BLOOD COUNT 3.26 M/UL (4.70-6.10); RED CELL DISTRIBUTION WIDTH 13.6 % (11.6-14.8); WHITE BLOOD COUNT 11.4 K/UL (4.8-10.8)
[2019-07-22 08:00] VITALS: BP 168/87
--- NOTE | 2019-07-22 08:33 | NUR ---
CASE MANAGEMENT:REVIEW 07/22/19 SI: AC/CHR RESPIRATORY FAILURE. TRACH/VENT DEPENDENT TRAUMATIC BRAIN INJURY. COVID NOT DETECTED 99.0 60 14 157/88 100% ON VENT SUPPORT @ 40% FIO2 WBC+11.4 H/H- 9.4/26.9 BUN+24 IS: IV PROTONIX QD IV LINEZOLID Q12 BACTRIM GT Q12 COREG GT Q12 LISINOPRIL GT QD ASA GT QD HYDRALAZINE GT Q6HRS : SDU STATUS ON TELEMETRY DCP: FROM [facility]
[2019-07-22] MEDS: Carvedilol 6.25mg Tab ORAL SCH (09:19)
[2019-07-22] MEDS: Aspirin Baby 81mg GT SCH (09:19)
[2019-07-22] MEDS: Bactrim-DS 1 tab ORAL SCH (09:20)
[2019-07-22] MEDS: Pantoprazole Inj IV SCH (09:20)
[2019-07-22] MEDS: Lisinopril 20mg tab GT SCH (09:20)
[2019-07-22] MEDS: Heparin 5000 units/ml inj SUBQ SCH (09:21)
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
--- NOTE | 2019-07-22 11:45 | Pulmonolgy Critical Care Note ---
Critical Care - Asmt/Plan Problems: (1) right lower lobe atelectasis (2) Acute on chronic respiratory failure (3) Ventilator associated pneumonia (4) Chronic complete flaccid quadriplegia (5) Anemia (6) Traumatic brain injury (7) Attention to G-tube Assessment/Plan: CT chest: Complete atelectasis of the right middle and lower lobes. There are a few small masslike opacities in the inferior right upper lobe measuring up to 1 cm diameter. There are numerous tiny nodules within the right upper lobe , predominantly inferiorly. These may be infectious/inflammatory or neoplastic Respiratory: adjust tidal volume, monitor respiratory rate, adjust FIO2, CXR Cardiac: stop pressors, continue to monitor HR/BP Renal: keep IV fluid Infectious Disease: check cultures Gastrointestinal: continue feedings/current rate, abdominal imaging Endocrine: monitor blood sugar Hematologic: monitor H/H, transfuse if hgb<8.5 Neurologic: PRN Ativan, keep patient comfortable Prophylaxis: Protonix Notes Reviewed: statistical methods professor, cardio, renal Discussed with: nurses, consultants, disease case manager rncapacity planning manager - Objective Last 24 Hour Vital Signs Date Time Temp Pulse Resp B/P (MAP) Pulse Ox O2 Delivery O2 Flow Rate FiO2 07/22/19 09:20 168/87 07/22/19 09:19 64 168/87 07/22/19 09:09 64 14 40 07/22/19 08:00 40 07/22/19 08:00 58 07/22/19 08:00 98.2 64 14 168/87 (114) 100 07/22/19 08:00 Mechanical Ventilator 07/22/19 06:56 60 14 40 07/22/19 06:00 157/88 07/22/19 04:54 62 14 40 07/22/19 04:00 40 07/22/19 04:00 99.0 57 14 157/88 (111) 100 07/22/19 04:00 63 07/22/19 04:00 Mechanical Ventilator 07/22/19 03:30 60 14 40 07/22/19 01:30 60 14 40 07/22/19 00:00 Mechanical Ventilator 07/22/19 00:00 40 07/22/19 00:00 98.4 72 18 157/88 (111) 99 07/21/19 23:52 158/72 07/21/19 23:30 63 14 40 07/21/19 23:25 58 07/21/19 21:30 60 14 40 07/21/19 20:48 64 154/77 07/21/19 20:00 98.6 64 16 154/84 (107) 99 07/21/19 20:00 40 07/21/19 20:00 Mechanical Ventilator 07/21/19 19:30 62 14 40 07/21/19 19:03 66 07/21/19 17:22 150/75 07/21/19 17:19 59 14 40 07/21/19 16:00 98.9 65 18 150/75 (100) 100 07/21/19 16:00 40 07/21/19 16:00 Mechanical Ventilator 07/21/19 16:00 60 07/21/19 14:55 65 14 40 07/21/19 13:14 40 07/21/19 13:11 69 18 40 07/21/19 12:27 149/81 07/21/19 12:00 98.9 71 18 149/81 (103) 100 07/21/19 12:00 Mechanical Ventilator 07/21/19 12:00 73 07/21/19 12:00 40 Status: sedated Condition: critical HEENT: atraumatic Neck: full ROM Lungs: rales, rhonchi Heart: HR/BP stable Abdomen: soft, non-tender, feeding tube Extremities: no C/C/E, edema Micro: Microbiology Date/Time Source Procedure Growth Status 07/20/19 17:00 Blood Blood Culture - Preliminary NO GROWTH AFTER 24 HOURS Resulted 07/20/19 16:45 Blood Blood Culture - Preliminary NO GROWTH AFTER 24 HOURS Resulted 07/19/19 20:00 Blood Blood Culture - Preliminary NO GROWTH AFTER 48 HOURS Resulted 07/19/19 19:45 Blood Blood Culture - Preliminary NO GROWTH AFTER 48 HOURS Resulted 07/20/19 18:15 Nose - Final Complete 07/20/19 18:15 Nose - Final Complete Accucheck: 85 Critical Care - Subjective ROS Limited/Unobtainable: Yes Condition: critical FI02: 40 Vent Support Breath Rate: 14 Vent Support Mode: AC Vent Tidal Volume: 700 Sputum Amount: Small PEEP: 5.0 PIP: 31 Tube Feeding Amount: 60 I&O: Intake and Output 07/21/19 07/22/19 19:00 07:00 Intake Total 820 ml 780 ml Output Total 1000 ml Balance -180 ml 780 ml Free Water 100 ml IV Total 300 ml Tube Feeding 720 ml 480 ml Output Urine Total 1000 ml # Bowel Movements 2 Labs: Laboratory Tests Test 07/22/19 05:44 White Blood Count 11.4 K/UL (4.8-10.8) H Red Blood Count 3.26 M/UL (4.70-6.10) L Hemoglobin 9.4 G/DL (14.2-18.0) L Hematocrit 26.9 % (42.0-52.0) L Mean Corpuscular Volume 82 FL (80-99) Mean Corpuscular Hemoglobin 28.8 PG (27.0-31.0) Mean Corpuscular Hemoglobin Concent 35.0 G/DL (32.0-36.0) Red Cell Distribution Width 13.6 % (11.6-14.8) Platelet Count 253 K/UL (150-450) Mean Platelet Volume 6.6 FL (6.5-10.1) Neutrophils (%) (Auto) 76.8 % (45.0-75.0) H Lymphocytes (%) (Auto) 12.7 % (20.0-45.0) L Monocytes (%) (Auto) 8.3 % (1.0-10.0) Eosinophils (%) (Auto) 1.5 % (0.0-3.0) Basophils (%) (Auto) 0.7 % (0.0-2.0) Sodium Level 138 MMOL/L (136-145) Potassium Level 3.8 MMOL/L (3.5-5.1) Chloride Level 99 MMOL/L (98-107) Carbon Dioxide Level 32 MMOL/L (21-32) Anion Gap 7 mmol/L (5-15) Blood Urea Nitrogen 24 mg/dL (7-18) H Creatinine 0.6 MG/DL (0.55-1.30) Estimat Glomerular Filtration Rate > 60 mL/min (>60) Glucose Level 103 MG/DL (74-106) Calcium Level 8.7 MG/DL (8.5-10.1) Fidencio Jenkins MD Jul 22, 2019 11:45
[2019-07-22 12:00] VITALS: BP 161/77
--- NOTE | 2019-07-22 12:49 | NUR ---
DISCHARGE PLANNING MESSAGE LEFT FOR DR GOMEZ REGARDING DISCHARGE BACK TO [facility] Addendum: 07/22/19 at 1259 by WING WEEKS LVN LVN DISCHARGE ORDER GIVEN AND ENTERED
--- NOTE | 2019-07-22 13:20 | NUR ---
*-*DISCHARGE PLANNING*-* PATIENT HAS BEEN REFERRED BACK TO: [facility] P: [phone] F: [phone]
--- NOTE | 2019-07-22 14:31 | NUR ---
*-* INSURANCE *-* UPDATED CLINICALS AND REVIEWS HAVE BEEN FAXED TO: [facility] REF# [id number] P: [phone] OPT. 6 F; [phone]
--- NOTE | 2019-07-22 15:01 | NUR ---
*-*DISCHARGE PLANNED*-* PATIENT HAS BEEN ACCEPTED AND WILL BE DISCHARGED BACK TO: [facility] P: [phone] FOR NURSE TO NURSE REPORT ROOM# 15.B [facility] TRANSPORTATION SET FOR 4:30PM S/W STEPHANIE [id number] S/W PATIENTS SON, JOSE GARCIA, WHO IS IN AGREEMENT WITH DISCHARGE AND TRANSPORTATION.
[2019-07-22 16:00] VITALS: BP 165/86
[2019-07-22] MEDS ORDERED: BACTRIM DS TAB1 EAC1 ORAL (16:31)
[2019-07-22] MEDS ORDERED: ZYVOX600 MG IVPB (16:32)
[2019-07-22] MEDS ORDERED: HydrALAZINE 50mg tab GT SCH (18:15)
[2019-07-22 18:30] VITALS: BP 165/86
--- NOTE | 2019-07-22 19:30 | NUR ---
HAND-OFF: Report given to Lenny DEMPSEY. Pt remains stable.
--- NOTE | 2019-07-22 19:33 | NUR ---
NURSE NOTES: Received report and endorsement of care from Waldo Wang RN. Pt in stable condition, no signs or symptoms of distress noted at this time, will continue to monitor closely.
[2019-07-22] MEDS ORDERED: Bactrim-DS 1 tab ORAL SCH (21:00)
--- NOTE | 2019-07-22 21:30 | NUR ---
NURSE NOTES: Pt was Dc'd to [facility] ambulance. Report given to Jorge Garcia of [facility]. Pt in stable condition. Belongings sent with EMS.
--- NOTE | 2019-07-23 03:14 | Progress Note ---
DATE: 07/22/2019 Time of dictated note does not correspond with date/time of patient evaluation. SUBJECTIVE: The patient's infection appears to be under better control. Blood pressure parameters reveal slight elevation of blood pressure, but overall well controlled. PHYSICAL EXAMINATION: LUNGS: Reveal thin secretions. Bilateral breath sounds. CARDIAC: Regular rhythm and rate. EXTREMITIES: No edema. LABORATORY AND DIAGNOSTIC DATA: White count 11, hemoglobin 9.4., potassium 3.8, BUN 24, creatinine 0.6. IMPRESSION: 1. Respiratory failure, chronic. 2. Spinal cord injury with paraplegia. 3. Acute myocardial infarction without complications. 4. Acute diastolic congestive heart failure, now clinically compensated. 5. Pulmonary masses to be followed up in subsequent imaging. 6. The patient is not a candidate for any intervention at this time. PLAN: 1. Stable for subacute facility on current cardiovascular regimen. 2. May need periodic diuresis based on clinical parameters. 3. Discharge cardiovascular medication regimen reviewed. Néstor Cervantes M.D. DR: Gloria JOB#: [id number] CC: PATIENCE
--- NOTE | 2019-07-23 11:43 | NUR ---
*-* INSURANCE *-* NO DISCHARGE SUMMARY INT HE SYSTEM UNABLE TO FAX
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
--- NOTE | 2019-07-26 14:06 | NUR ---
*-* INSURANCE *-* DISCHARGE SUMMARY HAS BEEN FAXED TO: [facility] REF# [id number] P: [phone] OPT. 6 F; [phone]
== END 2019-07-22 21:26 | DRG 870 ==
LOC: EDBD 11:14 → EMR 11:35 → ICU 11:54 → EDBEDREQ 16:23 → 2W 07-18 00:06 → 2E 07-19 14:04
PROC: 5A1955Z Respiratory Ventilation, Greater than 96 Consecutive Hours (ICD-10-PCS; principal; 2019-07-13)
DX: A41.9 Sepsis, unspecified organism (principal); L89.154 Pressure ulcer of sacral region, stage 4; J96.21 Acute and chronic respiratory failure with hypoxia; I50.33 Acute on chronic diastolic (congestive) heart failure; R65.21 Severe sepsis with septic shock; G82.53 Quadriplegia, C5-C7 complete; I22.8 Subsequent ST elevation (STEMI) myocardial infarction of other sites; I21.9 Acute myocardial infarction, unspecified; J95.851 Ventilator associated pneumonia; E87.3 Alkalosis; N17.9 Acute kidney failure, unspecified; J98.11 Atelectasis; J44.0 Chronic obstructive pulmonary disease with (acute) lower respiratory infection; E87.0 Hyperosmolality and hypernatremia; E87.5 Hyperkalemia; Z93.0 Tracheostomy status; D64.9 Anemia, unspecified; I11.0 Hypertensive heart disease with heart failure; R13.10 Dysphagia, unspecified; Z93.1 Gastrostomy status
CPT/HCPCS: 36415; 36600; 71045; 71250; 80048; 80053; 80069; 80202; 81003; 82164; 82270; 82378; 82550; 82553; 82607; 82746; 82803; 83540; 83550; 83605; 83615; 83735; 83880; 84100; 84484; 85007; 85025; 85044; 85060; 85610; 85651; 85730; 86140; 86710; 86738; 86850; 86900; 86901; 86920; 87040; 87070; 87081; 87086; 87181; 87205; 87635; 93306; 94002; 94003; 96374; 96375; 99291